=== PATIENT | male | born 1950 | race Caucasian/White ===

== ENCOUNTER 2018-06-29 11:02 | Emergency (ER) | payer MEDICARE, BC, SELFPAY ==
[2018-06-29] VITALS (29 sets, daily range): BP systolic 119–143; BP diastolic 59–96; PULSE 78–100; RESP 4–33; TEMP 36–36.3; O2SAT 93–98
--- NOTE | 2018-06-29 11:05 | NUR.NOTE ---
pt has had worsening SOB for the pas several days PT went to PCP who sent them to THE ER Nursing Note:
--- NOTE | 2018-06-29 11:07 | DI.RAD_ITS ---
SYMPTOMS/DIAGNOSIS: SHORTNESS OF BREATH, COUGH PORTABLE AP CHEST: Comparison 10/17/10. There is a 1.5 cm spiculated nodule in the left upper lobe. Neoplasm should be considered. CT scan of the chest with contrast is recommended for further evaluation. No infiltrates, effusion or pneumothoraces are identified. The heart size is within normal limits. There are again seen sternal wires present. IMPRESSION: 1. No acute pulmonary process. 2. 1.5 cm spiculated nodule in the left upper lobe. Neoplasm should be considered. CT scan of the chest should be considered for further evaluation.
--- NOTE | 2018-06-29 11:14 | ED.GENADUL_ITS ---
Discharge Plan Disposition Patient Disposition: HOME Condition: Stable Discharge Details Chief Complaint: SOB Clinical Impression: COPD exacerbation, Lung mass Reason For Visit: CAROL Primary Care Provider: Danyell Burks ED Provider: Mercy Carlson Home Meds and New Rx's Prescriptions: Continued aspirin 325 MG tablet 325 mg PO DAILY RF: 0 TYLENOL ARTHRITIS 650 MG TABLET.ER 1,300 mg PO Q8H PRN RF: 0 nitroglycerin 0.4 MG tablet, sublingual 0.4 mg Sublingual PRN Qty: 25 RF: 3 simvastatin 40 MG tablet 40 mg PO DAILY Qty: 90 RF: 3 pantoprazole [Protonix] 40 MG tablet,delayed release (DR/EC) 40 mg PO DAILY Qty: 90 RF: 3 lisinopril [Zestril] 10 MG tablet 10 mg PO DAILY Qty: 90 RF: 3 metoprolol succinate [Toprol XL] 25 MG tablet extended release 24 hr 12.5 mg PO DAILY Qty: 45 RF: 0 ezetimibe [Zetia] 10 MG tablet 5 mg PO DAILY Qty: 45 RF: 3 Varicella-Zoster Ge/As01b/Pf [Shingrix Vial Kit] 50 MCG INJ 50 mcg IM ONCE Qty: 1 RF: 0 albuterol sulfate [ProAir HFA] 90 mcg/actuation HFA aerosol inhaler 2 puff Inhalation Q4H PRN Qty: 1 RF: 1 Discharge Instructions Instructions: COPD (Chronic Obstructive Pulmonary Disease) (ED) Additional Instructions: Please return immediately to the emergency department if you develop any new or worsening symptoms or if you become otherwise concerned. It is extremely important that you make an appointment to be seen by your primary care doctor within the week in follow-up for this visit.Please call [phone] if you have any difficulty establishing this appointment. Referrals: Danyell Burks DO [Primary Care Provider] - Discharge Data Discharge Date/Time-TO BE ENTERED AT DEPARTURE: 06/29/18 16:33 Medical Decision Making Colin Bradley is a 67 y/o man with history of hyperlipidemia, GERD, hypertension, coronary artery disease, AAA repair 2012, who presented to the emergency department with shortness of breath. On exam Pt with mod resp distress with significant tachypnea. O2 sat okay, decreased breath sounds and mild wheeze throughout. No peripheral edema. Concern for likey RAD, possible PNA, flu, ACS, PE. Exam/hx not c/w acute aortic pathology, sepsis. Pt placed on BIPAP with duoneb. Plan for EKG, CXR, screening labs, telemetry, solumedrol, will monitor and reassess. Pt feeling much better after duonebx2, bipap discontinued. Pt doing well on 3LNC. Tachypnea resolved still with mild wheeze. Plan for duoneb. CXR shows nodule, no PNA. D-dimer elevated. Flu neg. Plan for CT chest. CT chest shows spiculated nodule concerning for malignancy. Pt now with lungs CTAB, no resp distress. Reports all symptoms resolved, no sob, cough, or chest discomfort. Repeat EKG okay, repeat trop okay. No indication for admission at this time. Plan for d/c to home with outpt f/u. I had a lengthy discussion with Pt regarding abnormal CT findings and concern for malignancy, RTED precautions and importance of outpt f/u with PCP. Pt verbalizes understanding of plan. Medical Records Medical records reviewed: Yes I reviewed the patient's medical records. Imaging Data Radiologic Study: Attestation: I personally reviewed and interpreted this imaging study as follows: Radiologist's impression: PORTABLE AP CHEST: Comparison 10/17/10. There is a 1.5 cm spiculated nodule in the left upper lobe. Neoplasm should be considered. CT scan of the chest with contrast is recommended for further evaluation. No infiltrates, effusion or pneumothoraces are identified. The heart size is within normal limits. There are again seen sternal wires present. IMPRESSION: 1. No acute pulmonary process. 2. 1.5 cm spiculated nodule in the left upper lobe. Neoplasm should be considered. CT scan of the chest should be considered for further evaluation. CTA OF THE CHEST: CT angiography was performed with multi slice acquisition and multi planar and 3D reconstruction. CT scan of the chest was performed according to the pulmonary embolus protocol. Comparison chest x-ray is from the same day. There is a 3.1 x 2.6 x 2.8 cm spiculated soft tissue mass in the left upper lobe peripherally. Primary diagnostic concern is primary bronchogenic carcinoma. No significant thoracic adenopathy is appreciated. There is no evidence of a pulmonary embolus. The thoracic aorta is of normal caliber. No aneurysm or dissection is seen. The heart size is within normal limits. No significant pericardial effusion is seen. No findings to suggest right ventricular dysfunction are present. No pleural effusion or pneumothorax is identified. The pulmonary findings include emphysematous changes and mild pulmonary fibrosis. No focal consolidating infiltrates are identified. The upper abdominal images show no acute abnormality. There is an aortic vascular stent in place. Degenerative changes are seen in the spine. No aggressive osseous lesions are identified. IMPRESSION: 1. No evidence of a pulmonary embolus, thoracic aortic dissection or aneurysm. 2. 3.1 cm left upper lobe spiculated pulmonary mass. Primary diagnostic concern is for primary pulmonary neoplasm. 3. Emphysema and pulmonary fibrosis. Lab Data Lab results reviewed: Yes I reviewed the patient's lab results. 06/29/18 14:12 Nasopharynx Influenza Types A,B Antigen - Final Laboratory Tests Range/Units 06/29/18 06/29/18 06/29/18 11:06 11:11 11:11 WBC (4.4-10.8) k/cumm 7.60 RBC (4.50-6.00) m/cumm 5.07 Hgb (13.5-17.5) g/dL 15.1 Hct (40.0-50.0) % 44.0 MCV (80-95) fL 86.8 MCH (27.0-33.0) pg 29.8 MCHC (32.0-36.0) g/dL 34.3 RDW (11.8-14.1) % 13.0 Plt Count (130-400) x1000/uL 190 MPV (8.0-11.0) fL 9.9 Immature Gran % 0.1 Neutrophils % 53.4 Lymphocytes % 28.7 Monocytes % 8.3 Eosinophils % 7.9 Basophils % 1.6 Absolute Neutrophils (1.2-6.7) k/cumm 4.06 Absolute Lymphocytes (1.2-3.4) k/cumm 2.18 Absolute Monocytes (0.11-0.7) k/cumm 0.63 Absolute Eosinophils (0.0-0.7) k/cumm 0.60 Absolute Basophils (0.0-0.2) k/cumm 0.12 D-Dimer (<500) ng/mlFEU Sodium Cancelled 139 Potassium Cancelled 4.2 Chloride Cancelled 102 Carbon Dioxide Cancelled 23.2 Anion Gap Cancelled 13.8 H BUN Cancelled 25 H Creatinine Cancelled 1.36 H Estimated GFR/1.73 m2 Cancelled 51.96 Glucose Cancelled 129 H Calcium Cancelled 9.7 Total Bilirubin Cancelled 0.5 AST Cancelled 18 ALT Cancelled 28 Alkaline Phosphatase Cancelled 96 Troponin I (0.00-0.06) ng/mL < 0.02 NT-Pro-B Natriuret Pep ( - 299) pg/mL 153 Total Protein Cancelled 7.8 Albumin Cancelled 4.2 Range/Units 06/29/18 06/29/18 11:11 15:37 WBC (4.4-10.8) k/cumm RBC (4.50-6.00) m/cumm Hgb (13.5-17.5) g/dL Hct (40.0-50.0) % MCV (80-95) fL MCH (27.0-33.0) pg MCHC (32.0-36.0) g/dL RDW (11.8-14.1) % Plt Count (130-400) x1000/uL MPV (8.0-11.0) fL Immature Gran % Neutrophils % Lymphocytes % Monocytes % Eosinophils % Basophils % Absolute Neutrophils (1.2-6.7) k/cumm Absolute Lymphocytes (1.2-3.4) k/cumm Absolute Monocytes (0.11-0.7) k/cumm Absolute Eosinophils (0.0-0.7) k/cumm Absolute Basophils (0.0-0.2) k/cumm D-Dimer (<500) ng/mlFEU 3305 H Sodium Potassium Chloride Carbon Dioxide Anion Gap BUN Creatinine Estimated GFR/1.73 m2 Glucose Calcium Total Bilirubin AST ALT Alkaline Phosphatase Troponin I (0.00-0.06) ng/mL < 0.02 NT-Pro-B Natriuret Pep ( - 299) pg/mL Total Protein Albumin ECG Data Attestation: I personally reviewed and interpreted this ECG (s) as follows: Interpretation: EKG shows normal sinus rhythm at 78 with normal axis, no acute ischemic changes, nondiagnostic EKG HPI General Mode of arrival: EMS . Date/Time Provider Initiated Documentation: 06/29/18 11:05 . Limitations to Documentation: no limitations . Information obtained by: patient, EMS, RN notes reviewed and old records reviewed . HPI Narrative: Colin Bradley is a 67 y/o man with history of hyperlipidemia, GERD, hypertension, coronary artery disease, AAA repair 2012 presenting to the emergency department with shortness of breath. Patient has been smoking 2 packs a day for 50 years, has not been diagnosed with COPD but does have albuterol inhaler at home. Patient reports that over the past week he has felt increasingly short of breath. Has been using his albuterol inhaler with mild improvement. Went to see his PCP today for this, and was sent from his PCPs office emergency department for shortness of breath. Patient reports that shortness of breath seems somewhat worse at night. Accompanied by cough. He does know some mild chest discomfort that does not seem to be exertional, pleuritic, or positional. He reports no fevers, no nausea/vomiting/diarrhea, no weakness, no numbness/tingling, no rash. Has been eating and drinking as usual. No recent travel. No orthopnea. Related Data Home Medications Medication Instructions Recorded Confirmed aspirin 325 mg PO DAILY 11/08/12 06/29/18 Tylenol Arthritis 1,300 mg PO Q8H PRN tab-cap 12/23/12 06/29/18 nitroglycerin 0.4 mg SUBLINGUAL PRN #25 tab-cap 01/18/17 06/29/18 ezetimibe [Zetia] 5 mg PO DAILY #45 tab-cap 01/21/18 06/29/18 lisinopril [Zestril] 10 mg PO DAILY #90 tab 01/21/18 06/29/18 metoprolol succinate [Toprol XL] 12.5 mg PO DAILY #45 tab 01/21/18 06/29/18 pantoprazole [Protonix] 40 mg PO DAILY #90 tab-cap 01/21/18 06/29/18 simvastatin 40 mg PO DAILY #90 tab-cap 01/21/18 06/29/18 albuterol sulfate HFA 90 2 puff INHALATION Q4H PRN #1 05/02/18 06/29/18 mcg/actuation aerosol inhaler inhaler Previous Rx's Medication Instructions Recorded ezetimibe [Zetia] 5 mg PO DAILY #45 tab-cap 01/21/18 lisinopril [Zestril] 10 mg PO DAILY #90 tab 01/21/18 metoprolol succinate [Toprol XL] 12.5 mg PO DAILY #45 tab 01/21/18 pantoprazole [Protonix] 40 mg PO DAILY #90 tab-cap 01/21/18 simvastatin 40 mg PO DAILY #90 tab-cap 01/21/18 albuterol sulfate HFA 90 2 puff INHALATION Q4H PRN #1 05/02/18 mcg/actuation aerosol inhaler inhaler Allergies Allergy/AdvReac Type Severity Reaction Status Date / Time clopidogrel Allergy Unknown SKIN RASH Verified 07/07/18 08:34 esomeprazole magnesium AdvReac Unknown gi upset Verified 07/07/18 08:34 [From Nexium] Penicillins AdvReac Unknown gi upset Verified 07/07/18 08:34 General Stated Complaint: SOB BRYCE: 2 Review of Systems Review of Systems Constitutional: denies fevers Eyes: denies eye pain ENT: denies facial pain, dental pain, sore throat Cardiovascular: denies edema, reports chest discomfort Respiratory: reports SOB, cough GI: denies abdominal pain, vomiting, diarrhea : denies flank pain MSK: denies back pain, neck pain, arthralgias, myalgias Skin: denies rash Neuro: denies headaches, lightheadedness, weakness PFSH Medical History CAD (coronary artery disease) (Chronic) HTN (hypertension) (Chronic) Surgical History endovascular repair AAA (03/07/13) Family History Mother Renal disease Father No problems noted. Social History household members: spouse housing: house lives independently: Yes Smoking/Tobacco Use Status: Current every day alcohol intake: current alcohol intake frequency: a few times a week Exam Narrative Exam Narrative: Constitutional: mod resp distress, alert, speaking in partial sentences HENT: head atraumatic, normocephalic normal inspection, mucous membranes moist Eyes: conjunctiva normal, sclera normal, pupils 3mm b/l Neck: no stridor, normal ROM, trachea midline Chest: normal inspection Resp: increased work of breathing with tachypnea and use of accessory muscles, decreased breath sounds throughout, slight wheeze throughout Cardio: normal rate, normal rhythm, no murmur appreciated GI: abdomen soft, non-tender, non-distended Back: normal inspection, no rash Skin: warm, dry, normal color, no rash Neuro: alert, not altered, grossly non-focal, normal tone Ext: no edema, no posterior calf TTP Psych: normal mood, normal affect, normal behavior Course Vital Signs Temperature 36.3 C L 06/29/18 11:06 Pulse 89 06/29/18 11:06 Respiratory Rate 32 H 06/29/18 11:06 Blood Pressure 132/87 06/29/18 11:06 Pulse Oximetry 98 06/29/18 11:06 Temperature 36.3 C L 06/29/18 11:06 Temperature Source Skin 06/29/18 11:06 Pulse 89 06/29/18 11:06 Respiratory Rate 32 H 06/29/18 11:06 Blood Pressure 132/87 06/29/18 11:06 Blood Pressure Position Supine 06/29/18 11:06 Pulse Oximetry 98 06/29/18 11:06 Oxygen Delivery Method Bi-pap 06/29/18 11:06 Comment 06/29/18 11:06
[2018-06-29] MEDS: Albuterol/Ipratropium 3 ML UPD VIAL UPD ×2 (11:18→11:21)
[2018-06-29 11:32] LABS: Abs Immature Grans 0.01 k/cumm (0.0-0.09); Absolute Basophil Count 0.12 k/cumm (0.0-0.2); Absolute Lymphocyte Count 2.18 k/cumm (1.2-3.4); Absolute Monocyte Count 0.63 k/cumm (0.11-0.7); Absolute Neutrophil Count 4.06 k/cumm (1.2-6.7); Basophils % 1.6; Eosinophils % 7.9; HGB 15.1 g/dL (13.5-17.5); Immature Grans % 0.1; Lymphocytes % 28.7; Mean Corp. HGB Concentration 34.3 g/dL (32.0-36.0); Mean Corpuscular Hemoglobin 29.8 pg (27.0-33.0); Mean Corpuscular Volume 86.8 fL (80-95); Mean Platelet Volume 9.9 fL (8.0-11.0); Monocytes % 8.3; Neutrophils % 53.4; Platelet Count 190 x1000/uL (130-400); RBC 5.07 m/cumm (4.50-6.00)
[2018-06-29] MEDS: methylPREDNISolone SUCC 125 MG VIAL IVP (11:33)
[2018-06-29 11:55] LABS: ALT 28 U/L (12-78); AST 18 U/L (15-37); Albumin 4.2 g/dL (3.4-5.0); Alkaline Phosphatase 96 U/L (46-116); Anion Gap 13.8 mmol/L (3-11); BUN 25 mg/dL (7-18); Bilirubin, Total 0.5 mg/dL (0.2-1.0); CO2 23.2 mmol/L (21.0-32.0); CREATININE 1.36 mg/dL (0.70-1.30); Calcium 9.7 mg/dL (8.5-10.1); Chloride 102 mmol/L (98-107); Estimated GFR 51.96 (mL/min/1.73m2); Glucose 129 mg/dL (70-100); NT-proBNP 153 pg/mL; Potassium 4.2 mmol/L (3.5-5.1); Sodium 139 mmol/L (136-145); Total Protein 7.8 g/dL (6.4-8.2)
[2018-06-29 11:56] LABS: Troponin I < 0.02 ng/mL (0.00-0.06)
[2018-06-29 12:03] LABS: D-Dimer 3305 ng/mlFEU (<500)
[2018-06-29] MEDS: Normal Saline 1,000 ML 1000 ML IV (12:30)
[2018-06-29] MEDS: Omnipaque 350 MG/ML 100 ML BTL IJ (13:06)
--- NOTE | 2018-06-29 13:22 | DI.CT_ITS ---
SYMPTOMS/DIAGNOSIS: SHORTNESS OF BREATH, CHEST PAIN, HYPOXIA CTA OF THE CHEST: CT angiography was performed with multi slice acquisition and multi planar and 3D reconstruction. CT scan of the chest was performed according to the pulmonary embolus protocol. Comparison chest x-ray is from the same day. There is a 3.1 x 2.6 x 2.8 cm spiculated soft tissue mass in the left upper lobe peripherally. Primary diagnostic concern is primary bronchogenic carcinoma. No significant thoracic adenopathy is appreciated. There is no evidence of a pulmonary embolus. The thoracic aorta is of normal caliber. No aneurysm or dissection is seen. The heart size is within normal limits. No significant pericardial effusion is seen. No findings to suggest right ventricular dysfunction are present. No pleural effusion or pneumothorax is identified. The pulmonary findings include emphysematous changes and mild pulmonary fibrosis. No focal consolidating infiltrates are identified. The upper abdominal images show no acute abnormality. There is an aortic vascular stent in place. Degenerative changes are seen in the spine. No aggressive osseous lesions are identified. IMPRESSION: 1. No evidence of a pulmonary embolus, thoracic aortic dissection or aneurysm. 2. 3.1 cm left upper lobe spiculated pulmonary mass. Primary diagnostic concern is for primary pulmonary neoplasm. 3. Emphysema and pulmonary fibrosis. The findings were discussed with Dr. Mercy Carlson of the emergency department on the date of the examination.
[2018-06-29 16:14] LABS: Troponin I < 0.02 ng/mL (0.00-0.06)
== END 2018-06-29 16:33 | disposition home or self-care (01) ==
PROVIDERS: Emergency Provider Student in an Organized Health Care Education/Training Program; PCP Student in an Organized Health Care Education/Training Program
DX: R06.03 Acute respiratory distress (principal); J44.1 Chronic obstructive pulmonary disease with (acute) exacerbation; F17.210 Nicotine dependence, cigarettes, uncomplicated; R91.1 Solitary pulmonary nodule; I10 Essential (primary) hypertension; I25.10 Atherosclerotic heart disease of native coronary artery without angina pectoris
CPT/HCPCS: 36415; 71275; 80053; 87449; 93005; 94640; 96361; 96374; 99285; 71045; 83880; 84484; 85025; 85379; 93010; J2930; J3490; J7611; J7620

== ENCOUNTER 2018-10-31 08:32 | Outpatient (CLI) | payer MEDICARE, BC, SELFPAY ==
[2018-10-31 09:00] LABS: HCT 39.1 % (40.0-50.0); HGB 13.1 g/dL (13.5-17.5); Mean Corp. HGB Concentration 33.5 g/dL (32.0-36.0); Mean Corpuscular Hemoglobin 29.3 pg (27.0-33.0); Mean Corpuscular Volume 87.5 fL (80-95); Mean Platelet Volume 9.5 fL (8.0-11.0); Platelet Count 248 x1000/uL (130-400); RBC 4.47 m/cumm (4.50-6.00)
[2018-10-31 09:18] LABS: ALT 70 U/L (12-78); AST 24 U/L (15-37); Albumin 3.3 g/dL (3.4-5.0); Alkaline Phosphatase 228 U/L (46-116); Anion Gap 10.2 mmol/L (3-11); BUN 18 mg/dL (7-18); Bilirubin, Total 0.4 mg/dL (0.2-1.0); CO2 25.8 mmol/L (21.0-32.0); CREATININE 1.17 mg/dL (0.70-1.30); Calcium 9.4 mg/dL (8.5-10.1); Chloride 102 mmol/L (98-107); Cholesterol 177 mg/dL (50-200); Glucose 187 mg/dL (70-100); HDL Cholesterol 39 mg/dL (40-60); LDL CHOLESTEROL 91 mg/dL (<100); Potassium 4.2 mmol/L (3.5-5.1); Sodium 138 mmol/L (136-145); Total Protein 7.2 g/dL (6.4-8.2); Triglyceride 253 mg/dL (30-150)
[2018-10-31 12:51] LABS: Abs Immature Grans 0.03 k/cumm (0.0-0.09); Absolute Basophil Count 0.08 k/cumm (0.0-0.2); Absolute Eosinophil Count 0.92 k/cumm (0.0-0.7); Absolute Lymphocyte Count 1.46 k/cumm (1.2-3.4); Absolute Neutrophil Count 3.54 k/cumm (1.2-6.7); Basophils % 1.2; Eosinophils % 13.5; Immature Grans % 0.4; Lymphocytes % 21.4; Monocytes % 11.7; Neutrophils % 51.8
== END 2018-10-31 08:52 ==
PROVIDERS: Nurse Practitioner Family; PCP Student in an Organized Health Care Education/Training Program
DX: F17.200 Nicotine dependence, unspecified, uncomplicated (principal); I25.10 Atherosclerotic heart disease of native coronary artery without angina pectoris; C34.82 Malignant neoplasm of overlapping sites of left bronchus and lung
CPT/HCPCS: 36415; 80053; 80061; 83721; 85027; 85007

== ENCOUNTER 2018-10-31 16:05 | Emergency (ER) | payer MEDICARE, BC, SELFPAY ==
[2018-10-31 16:30] VITALS: BP 156/78; PULSE 75; RESP 16; TEMP 36.7; O2SAT 94
[2018-10-31 16:33] VITALS: RESP 20
--- NOTE | 2018-10-31 16:48 | DI.CT_ITS ---
SYMPTOM/DIAGNOSIS: CHEST PAIN RADIATING TO BACK, RECENT LOBECTOM, AAA CT CHEST, ABDOMEN AND PELVIS: The study was carried out with intravenous injection of [address] angiography was performed with multi slice acquisition and multi planar and 3D reconstruction. CHEST: There is no evidence of pulmonary emboli. There is no aortic aneurysm or evidence of dissection. Note is made of mild staples lobular emphysematous changes and small regions of opacity in the lower lobes and lingula could represent atelectasis or pneumonia. There is a small left pleural effusion. Coronary artery calcifications are identified. There is no evidence of lymphadenopathy. The patient is status post median sternotomy and healing left rib fractures are seen. The soft tissues are unremarkable. SUMMARY: No evidence of pulmonary emboli. No evidence of an aneurysm or dissection involving the aorta. A small left pleural effusion is seen. Opacities in the lower lobes and lingula could represent atelectasis or pneumonia. CTA ABDOMEN AND PELVIS: The examination was carried out according to the usual protocol with intravenous administration of 125 cc Omnipaque 350. A by-pass graft is demonstrated. The celiac and mesenteric arteries are intact. The renal arteries are intact. The right iliac and left iliac arteries are intact. The patient is status post aorto-iliac by-pass graft. The [place] infrarenal abdominal aortic aneurysm measures 5 x 4.6 cm. The aneurysm projects outside the bypass but within the [place] aneurysm. The aneurysm is noted in the region of 4.5 x 4.2 cm. These findings are consistent with a residual aneurysm sac with a contained endo leak. The endo leak is in to the mural thrombus. The liver is intact. The gallbladder is unremarkable. There are no stones or ductal dilatation. The pancreas is unremarkable. The spleen and adrenals are unremarkable. The kidneys are unremarkable. Note is made of diverticulosis, involving the rectosigmoid. There is no evidence of diverticulitis. There is nothing to suggest an acute appendix. The bladder is intact. The prostate is enlarged. There is no evidence of free air or free fluid in the intraperitoneal space. There is no acute bony abnormality. The soft tissues are unremarkable. There is no evidence of lymphadenopathy. SUMMARY: The patient is status post aortoiliac bypass. A [place] infrarenal abdominal aneurysm 5 x 4.6 cm. The aneurysm projects outside the bypass but is within the [place] aneurysm. No old images are available to assess stability. The aneurysm in this region measures 4.5 x 4.2 cm These findings are consistent with a residual aneurysm sac with a contained endoleak. The endoleak is in to the mural thrombus. Prostatic enlargement is identified, greater than 5 cm. A urologic consult could be considered.
[2018-10-31 16:51] LABS: Abs Immature Grans 0.01 k/cumm (0.0-0.09); Absolute Basophil Count 0.05 k/cumm (0.0-0.2); Absolute Eosinophil Count 0.08 k/cumm (0.0-0.7); Absolute Lymphocyte Count 0.66 k/cumm (1.2-3.4); Absolute Monocyte Count 0.09 k/cumm (0.11-0.7); Absolute Neutrophil Count 4.44 k/cumm (1.2-6.7); Basophils % 0.9; Eosinophils % 1.5; HCT 37.4 % (40.0-50.0); HGB 12.4 g/dL (13.5-17.5); Immature Grans % 0.2; Lymphocytes % 12.4; Mean Corp. HGB Concentration 33.2 g/dL (32.0-36.0); Mean Corpuscular Hemoglobin 29.3 pg (27.0-33.0); Mean Corpuscular Volume 88.4 fL (80-95); Mean Platelet Volume 9.9 fL (8.0-11.0); Monocytes % 1.7; Neutrophils % 83.3; Platelet Count 240 x1000/uL (130-400); RBC 4.23 m/cumm (4.50-6.00); White Blood Cell Count 5.33 k/cumm (4.4-10.8)
--- NOTE | 2018-10-31 17:08 | ED.GENADUL_ITS ---
Discharge Plan Disposition Patient Disposition: [facility] Discharge Details Chief Complaint: Chest Pain Clinical Impression: Chest pain, Hypomagnesemia Primary Care Provider: Danyell Burks ED Provider: Guy Carlson Home Meds and New Rx's Prescriptions: No Action aspirin [Adult Low Dose Aspirin] 81 mg tablet,delayed release (DR/EC) 81 mg PO DAILY RF: 0 TYLENOL ARTHRITIS 650 MG TABLET.ER 1,300 mg PO Q8H PRN RF: 0 nitroglycerin 0.4 MG tablet, sublingual 0.4 mg Sublingual PRN Qty: 25 RF: 3 simvastatin 40 MG tablet 40 mg PO DAILY Qty: 90 RF: 3 pantoprazole [Protonix] 40 MG tablet,delayed release (DR/EC) 40 mg PO DAILY Qty: 90 RF: 3 lisinopril [Zestril] 10 MG tablet 10 mg PO DAILY Qty: 90 RF: 3 ezetimibe [Zetia] 10 MG tablet 5 mg PO DAILY Qty: 45 RF: 3 metoprolol succinate [Toprol XL] 25 mg tablet extended release 24 hr 12.5 mg PO DAILY Qty: 45 RF: 2 albuterol sulfate [ProAir HFA] 90 mcg/actuation HFA aerosol inhaler 2 puff Inhalation Q4H PRN Qty: 1 RF: 1 Combivent Respimat 20-100 mcg/actuation mist 2 puff IH QID RF: 0 paclitaxel 6 mg/mL Concentrate RF: 0 carboplatin 10 mg/mL Solution 150 mg IV DAILY RF: 0 Medical Decision Making 17:45 -- Patient evaluated initially in time of critical patient surge in ED. This has delayed documention. Mr. Bradley is a 68-year-old male with multiple medical problems including history of lung cancer, status post recent lobectomy, on chemo and had first dosing today, coronary artery disease status post CABG and then stenting, AAA, here with retrosternal chest pain that radiates to his back. Concern for aortic dissection versus pulmonary embolism versus ACS. ECG was reviewed and interpreted by me: Sinus rhythm 82 bpm, normal axis, no STEMI, nondiagnostic. -- I have asked radiology to proceed ro CT without Cr. -- labs reviewed and nl trop. ddimer elevated. 17:52 -- Patient returned from CT and had sudden worsening of chest pain. Called by nursing to room for severe chest and upper abdominal pain. Patient hypertensive. Tachypneic. Saturating well. Will repeat ecg. Consideration for contrast reaction - benadryl 25mg and solumedrol 125mg given. I am concerned about dissection vs PE. I requested stat interpretation. Patient hypertensive - will start nitroglycerin infusion. 18:00 -- Patient refusing nitro - notes has not helped. Repeat ECG reviewed and interpreted by me: Normal sinus rhythm 97 bpm, normal axis, no STEMI, no significant changes from prior EKG, nondiagnostic. 18:39 -- Spoke with radiologist: reviewing study with vascular radiologist and calling back. Patient reassessed and BP improved. Remains tachycardic. 18:52 --CT a of the chest interpreted by radiology: No evidence of pulmonary embolism to the segmental level, no aneurysm of the aorta, no dissection of the aorta, mild left pleural effusion. Pleural effusion in the major. Opacities in the lower lobes and lingula may represent atelectasis or pneumonia. CTA of the abdomen and pelvis interpreted by radiology: Status post aortoiliac bypass. [place] infrarenal abdominal aortic aneurysm 5 x 4.6 cm. The aneurysm projects outside of the bypass but is within the [place] aneurysm. No old films to check for stability. The aneurysm in this region measures 4.5 x 4.2 cm. These findings are consistent with residual aneurysmal sac with a contained endoleak. The endoleak is in the mural thrombus. The prostate is enlarged greater than 5 cm. Recommend urology consult. I spoke with the radiologist about finding of endoleak. She reviewed this finding with the vascular radiologist. She notes he did not feel emergent surgical intervention was warranted. Plan to repeat trop. -- Mag 1.6. Mag 1g IV given. 20:42 -- Patient still with chest pain 2/10. More localized to left ant lower chest. Hemodynamically stable. I will add pepcid 20mg IV. Plan to admit - no tele or ICU beds available here at [facility]. I called [facility] to request transfer. Awaiting return call. 21:42 -- Spoke with Dr. Burns surgery at [facility]. She does recommend observation and will accept in transfer. 00:10 -- Significant delay in trasfer waiting for EMS - patient stable at time of transfer. HPI General Mode of arrival: ambulatory . Date/Time Provider Initiated Documentation: 10/31/18 16:48 . Limitations to Documentation: no limitations . Information obtained by: patient . HPI Narrative: 68-year-old male with multiple medical problems including history of AAA, throat cancer, coronary artery disease status post remote CABG, 3's stents placed subsequently, recently diagnosed with lung cancer, stage IIIb, status post left lobectomy 6 weeks ago, started chemotherapy today and upon completion of infusion developed chest pain. Pain is waxed and waned. Pain was moderate. Pain is now mild rated 2/10. Pain is described as an ache that radiates from his retrosternal to his back. He has no associated new shortness of breath but does have some shortness of breath at baseline from emphysema and now post lobectomy. No associated abdominal pain. Related Data Home Medications Medication Instructions Recorded Confirmed Tylenol Arthritis 1,300 mg PO Q8H PRN tab-cap 12/23/12 10/31/18 nitroglycerin 0.4 mg SUBLINGUAL PRN #25 tab-cap 01/18/17 10/31/18 ezetimibe [Zetia] 5 mg PO DAILY #45 tab-cap 01/21/18 10/31/18 lisinopril [Zestril] 10 mg PO DAILY #90 tab 01/21/18 10/31/18 pantoprazole [Protonix] 40 mg PO DAILY #90 tab-cap 01/21/18 10/31/18 simvastatin 40 mg PO DAILY #90 tab-cap 01/21/18 10/31/18 metoprolol succinate ER 25 mg 12.5 mg PO DAILY #45 tab 07/22/18 10/31/18 tablet,extended release 24 hr albuterol sulfate HFA 90 2 puff INHALATION Q4H PRN #1 08/01/18 10/31/18 mcg/actuation aerosol inhaler inhaler ipratropium 20 mcg-albuterol 100 2 puff IH QID gm 08/09/18 10/31/18 mcg/actuation mist for inhalation aspirin 81 mg tablet,delayed 81 mg PO DAILY 10/21/18 10/31/18 release carboplatin 150 mg IV DAILY 10/31/18 10/31/18 paclitaxel 10/31/18 Previous Rx's Medication Instructions Recorded ezetimibe [Zetia] 5 mg PO DAILY #45 tab-cap 01/21/18 lisinopril [Zestril] 10 mg PO DAILY #90 tab 01/21/18 pantoprazole [Protonix] 40 mg PO DAILY #90 tab-cap 01/21/18 simvastatin 40 mg PO DAILY #90 tab-cap 01/21/18 metoprolol succinate ER 25 mg 12.5 mg PO DAILY #45 tab 07/22/18 tablet,extended release 24 hr albuterol sulfate HFA 90 2 puff INHALATION Q4H PRN #1 08/01/18 mcg/actuation aerosol inhaler inhaler Allergies Allergy/AdvReac Type Severity Reaction Status Date / Time clopidogrel Allergy Unknown SKIN RASH Verified 10/21/18 08:05 esomeprazole magnesium AdvReac Unknown gi upset Verified 10/21/18 08:05 [From Nexium] Penicillins AdvReac Unknown gi upset Verified 10/21/18 08:05 General Stated Complaint: Chest Pain BRYCE: 2 Review of Systems Review of Systems All systems reviewed & are unremarkable except as noted in HPI and below Constitutional Denies fever(s) Cardiovascular Reports as per HPI, Reports chest pain and Denies dyspnea Respiratory Denies dyspnea PFSH Medical History Shortness of breath (Acute) Other abnormal glucose (Acute 02/22/13) Smoker unmotivated to quit (Chronic 04/12/14) Hyperlipidemia (Acute 01/13/12) Gastroesophageal reflux disease without esophagitis (Chronic 01/26/06) Esophageal reflux (Chronic 01/26/06) Benign neoplasm of colon (Acute 01/13/12) Arteriosclerotic cardiovascular disease (ASCVD) (Chronic 01/13/12) Adenomatous colon polyp (Acute 01/13/12) ASCVD (arteriosclerotic cardiovascular disease) (Chronic 01/13/12) Laryngeal cancer (Resolved) CAD (coronary artery disease) (Chronic) HTN (hypertension) (Chronic) Surgical History endovascular repair AAA (03/07/13) Family History Mother Renal disease Father No problems noted. Social History Smoking/Tobacco Use Status: Former Tobacco Use Alcohol Intake: former Drug use: Never Household members: spouse Housing: house What type of physical activity do you participate in: other Details: physically active qd Do you feel safe in your relationship?: Yes Exam Const General: cooperative and comfortable Orientation: alert and awake HENMT Head: normocephalic Mouth: moist mucous membranes Eyes Conjunctivae: normal conjunctivae Sclera: normal sclerae Neck Neck: trachea midline and supple Resp Auscultation: clear to auscultation bilaterally, no rales, no rhonchi and no wheezes Cardio Jugular venous pressure: no JVD Rate: regular rate and not tachycardic Rhythm: regular rhythm GI Palpation: soft, not firm, no guarding, no masses, not rigid and nontender Skin General skin exam: no rashes or lesions noted Neuro General: alert, awake and tone normal Extrem General: no calf tenderness and edema Laterality: bilateral (trace) Psych Mental Status: mental status grossly normal Speech and Movement: speech and movement normal Course Vital Signs Temperature 36.7 C 10/31/18 16:30 Pulse 75 10/31/18 16:30 Respiratory Rate 16 10/31/18 16:30 Blood Pressure 156/78 H 10/31/18 16:30 Pulse Oximetry 94 L 10/31/18 16:30 Temperature 36.7 C 10/31/18 16:30 Temperature Source Temporal Artery Scan 10/31/18 16:30 Pulse 75 10/31/18 16:30 Respiratory Rate 20 10/31/18 16:33 Respiratory Effort Non-Labored 10/31/18 16:33 Respiratory Depth Shallow 10/31/18 16:33 Blood Pressure 156/78 H 10/31/18 16:30 Blood Pressure Position Supine 10/31/18 16:30 Pulse Oximetry 94 L 10/31/18 16:30 Oxygen Delivery Method Room Air 10/31/18 16:30 Oxygen Flow Rate 0 10/31/18 16:30 Pain Level 3 10/31/18 16:33 Lab/Test Results Lab/Test Results: Laboratory Tests Range/Units 10/31/18 10/31/18 16:40 17:02 WBC (4.4-10.8) k/cumm 5.33 RBC (4.50-6.00) m/cumm 4.23 L Hgb (13.5-17.5) g/dL 12.4 L Hct (40.0-50.0) % 37.4 L MCV (80-95) fL 88.4 MCH (27.0-33.0) pg 29.3 MCHC (32.0-36.0) g/dL 33.2 RDW (11.8-14.1) % 13.0 Plt Count (130-400) x1000/uL 240 MPV (8.0-11.0) fL 9.9 Immature Gran % 0.2 Neutrophils % 83.3 Lymphocytes % 12.4 Monocytes % 1.7 Eosinophils % 1.5 Basophils % 0.9 Absolute Neutrophils (1.2-6.7) k/cumm 4.44 Absolute Lymphocytes (1.2-3.4) k/cumm 0.66 L Absolute Monocytes (0.11-0.7) k/cumm 0.09 L Absolute Eosinophils (0.0-0.7) k/cumm 0.08 Absolute Basophils (0.0-0.2) k/cumm 0.05 Lactate Cancelled
[2018-10-31 17:20] LABS: D-Dimer 4845 ng/mlFEU (<500)
[2018-10-31 17:36] LABS: NT-proBNP 147 pg/mL
[2018-10-31 17:47] LABS: ALT 64 U/L (12-78); AST 24 U/L (15-37); Albumin 3.1 g/dL (3.4-5.0); Alkaline Phosphatase 206 U/L (46-116); Anion Gap 10.5 mmol/L (3-11); BUN 16 mg/dL (7-18); Bilirubin, Total 0.6 mg/dL (0.2-1.0); CO2 24.5 mmol/L (21.0-32.0); CREATININE 1.27 mg/dL (0.70-1.30); Calcium 8.6 mg/dL (8.5-10.1); Chloride 102 mmol/L (98-107); Estimated GFR 56.07 (mL/min/1.73m2); Glucose 243 mg/dL (70-100); Magnesium 1.6 mg/dL (1.8-2.4); Potassium 3.9 mmol/L (3.5-5.1); Sodium 137 mmol/L (136-145); Total Protein 6.8 g/dL (6.4-8.2)
[2018-10-31 17:48] LABS: Troponin I < 0.02 ng/mL (0.00-0.06)
[2018-10-31] MEDS: Omnipaque 350 MG/ML 50 ML BTL IJ ×2 (17:56→17:57)
[2018-10-31] MEDS: methylPREDNISolone SUCC 125 MG VIAL (18:00)
[2018-10-31] MEDS: diphenhydrAMINE 50 MG/ML VIAL (18:00)
--- NOTE | 2018-10-31 18:46 | DI.VRAD_ITS ---
Addendum created by Kari Aguero MD on 10/31/2018 6:52:14 PM EDT THIS REPORT CONTAINS FINDINGS THAT MAY BE CRITICAL TO PATIENT CARE. The findings were verbally communicated via telephone conference with EPIFANIO ROBLES at 6:52 PM EDT on 10/31/2018. The findings were acknowledged and understood. Initial report created on 10/31/2018 6:46:13 PM EDT EXAM: CT Angiography Chest With Contrast EXAM DATE/TIME: 10/31/2018 4:50 PM CLINICAL HISTORY: 68 years old, male; Pain and signs and symptoms; Other: Chest pain, radiating to back, aaa, recent lobectomy; Other: Pain SOB TECHNIQUE: Imaging protocol: Axial computed tomographic angiography images of the chest with intravenous contrast using CT angiography protocol. 3D rendering: MIP reconstructed images were created and reviewed. Radiation optimization: All CT scans at this facility use at least one of these dose optimization techniques: automated exposure control; mA and/or kV adjustment per patient size (includes targeted exams where dose is matched to clinical indication); or iterative reconstruction. Contrast material: omnipaque 350 Contrast volume: 125 ml Contrast route: IV COMPARISON: CT chest PE CTA 06/29/2018 1:02 PM FINDINGS: Pulmonary arteries: No evidence of pulmonary embolus to the segmental level. Aorta: No aneurysm of the aorta. No dissection of the aorta. Lungs: Mild panlobular emphysematous changes Opacities in lower lobes and lingula may represent atelectasis or pneumonia. Pleural space: Mild left pleural effusion. Pleural effusion in the major. Heart: Coronary artery calcifications may indicate coronary artery disease Lymph nodes: Unremarkable. No enlarged lymph nodes. Bones/joints: Status post median sternotomy Healing left rib fractures Soft tissues: Unremarkable. IMPRESSION: 1. No evidence of pulmonary embolus to the segmental level. 2. No aneurysm of the aorta. 3. No dissection of the aorta. 4. Mild left pleural effusion. Pleural effusion in the major. 5. Opacities in lower lobes and lingula may represent atelectasis or pneumonia. EXAM: CT Angiography Abdomen and Pelvis With Contrast EXAM DATE/TIME: 10/31/2018 4:50 PM CLINICAL HISTORY: 68 years old, male; Pain and signs and symptoms; Other: Chest pain, radiating to back, aaa, recent lobectomy; Other: Pain SOB TECHNIQUE: Imaging protocol: Axial computed tomographic angiography images of the abdomen and pelvis with intravenous contrast material, including non-contrast images if performed. 3D renderinD reconstructed images were created and reviewed. Contrast material: [id number] Contrast volume: 125 ml Contrast route: IV COMPARISON: CT chest PE CTA 06/29/2018 1:02 PM FINDINGS: VASCULATURE: Aorta: See Bypass Grafts Finding. [place]eli[place] trunk and mesenteric arteries: No occlusion or significant stenosis. Renal arteries: No occlusion or significant stenosis. Right iliac arteries: No occlusion or significant stenosis. Left iliac arteries: No occlusion or significant stenosis. Bypass grafts: Status post aortoiliac bypass. [place] infrarenal abdominal aortic aneurysm 5 x4.6 cm. The aneurysm projects outside of the bypass but within the [place] aneurysm. (6:90). No old films to check for stability. The aneurysm in this region measures 4.5 x 4.2 cm. These findings are consistent with residual aneurysm sac with a contained endoleak. The endoleak is into the mural thrombus. ABDOMEN: Liver: No mass. Gallbladder and bile ducts: Unremarkable. No calcified stones. No ductal dilation. Pancreas: Unremarkable. No mass. No ductal dilation. Spleen: Unremarkable. No splenomegaly. Adrenals: Unremarkable. No mass. Kidneys and ureters: Unremarkable. No solid mass. No hydronephrosis. Stomach and bowel: Diverticulosis of the rectosigmoid. No diverticulitis.. Appendix: No evidence of appendicitis. PELVIS: Bladder: Unremarkable. No mass. Reproductive: The prostate is enlarged, greater than 5 cm. Recommend urology consult. ABDOMEN and PELVIS: Intraperitoneal space: Unremarkable. No free air. No significant fluid collection. Bones/joints: No acute fracture. No dislocation. Soft tissues: Unremarkable. Lymph nodes: Unremarkable. No enlarged lymph nodes. IMPRESSION: 1. Status post aortoiliac bypass. [place] infrarenal abdominal aortic aneurysm 5 x4.6 cm. The aneurysm projects outside of the bypass but within the elem aneurysm. (6:90). No old films to check for stability. The aneurysm in this region measures 4.5 x 4.2 cm. These findings are consistent with residual aneurysm sac with a contained endoleak. The endoleak is into the mural thrombus. 2. The prostate is enlarged, greater than 5 cm. Recommend urology consult. Dictated and Authenticated by: Kari Aguero MD. Ordering:REBEKAH Tovar MD
[2018-10-31] MEDS: MAGNESIUM SULFATE 1 GM/100 ML BAG 100 GM (19:14)
[2018-10-31 20:03] LABS: Troponin I < 0.02 ng/mL (0.00-0.06)
== END 2018-11-01 00:10 | disposition short-term general hospital (02) ==
PROVIDERS: Emergency Provider Student in an Organized Health Care Education/Training Program; PCP Student in an Organized Health Care Education/Training Program
DX: R07.9 Chest pain, unspecified (principal); E83.42 Hypomagnesemia; C34.90 Malignant neoplasm of unspecified part of unspecified bronchus or lung; Z90.2 Acquired absence of lung [part of]; Z79.899 Other long term (current) drug therapy; R79.1 Abnormal coagulation profile; I10 Essential (primary) hypertension; I25.10 Atherosclerotic heart disease of native coronary artery without angina pectoris; Z95.5 Presence of coronary angioplasty implant and graft; Z95.1 Presence of aortocoronary bypass graft; Z87.891 Personal history of nicotine dependence; F17.210 Nicotine dependence, cigarettes, uncomplicated
CPT/HCPCS: 36415; 71275; 74177; 80053; 80061; 83721; 85027; 87040; 93005; 96365; 96366; 96375; 99285; 83605; 83735; 83880; 84484; 85007; 85025; 85379; 93010; J1200; J2930; J3475; Q9967

== ENCOUNTER 2018-11-04 10:10 | Emergency (ER) | payer MEDICARE, BC, SELFPAY ==
[2018-11-04] VITALS (34 sets, daily range): BP systolic 97–139; BP diastolic 65–87; PULSE 69–90; RESP 13–26; TEMP 36.8; O2SAT 92–97
--- NOTE | 2018-11-04 10:24 | W.ED.GENAD ---
Discharge Plan Disposition Patient Disposition: HOME Condition: Stable Discharge Details Chief Complaint: Chest Pain Clinical Impression: Chest pain, Esophageal spasm Primary Care Provider: Danyell Burks ED Provider: Mehul Adan Organ Meds and New Rx's Prescriptions: New diazepam [Valium] 5 mg tablet 5 mg PO BID-TID PRN (Reason: muscle spasm) Qty: 20 RF: 0 Continued aspirin [Adult Low Dose Aspirin] 81 mg tablet,delayed release (DR/EC) 81 mg PO DAILY RF: 0 TYLENOL ARTHRITIS 650 MG TABLET.ER 1,300 mg PO Q8H PRN RF: 0 nitroglycerin 0.4 MG tablet, sublingual 0.4 mg Sublingual PRN Qty: 25 RF: 3 simvastatin 40 MG tablet 40 mg PO DAILY Qty: 90 RF: 3 pantoprazole [Protonix] 40 MG tablet,delayed release (DR/EC) 40 mg PO DAILY Qty: 90 RF: 3 lisinopril [Zestril] 10 MG tablet 10 mg PO DAILY Qty: 90 RF: 3 ezetimibe [Zetia] 10 MG tablet 5 mg PO DAILY Qty: 45 RF: 3 metoprolol succinate [Toprol XL] 25 mg tablet extended release 24 hr 12.5 mg PO DAILY Qty: 45 RF: 2 albuterol sulfate [ProAir HFA] 90 mcg/actuation HFA aerosol inhaler 2 puff Inhalation Q4H PRN Qty: 1 RF: 1 Combivent Respimat 20-100 mcg/actuation mist 2 puff IH QID RF: 0 prochlorperazine maleate [Compazine] 10 mg tablet 10 mg PO Q6H PRN PRN (Reason: nausea and vomiting) RF: 0 ondansetron HCl [Zofran] 8 mg tablet 8 mg PO TID PRNRF: 0 paclitaxel 6 mg/mL Concentrate RF: 0 carboplatin 10 mg/mL Solution 150 mg IV DAILY RF: 0 Discharge Instructions Instructions: Diazepam (By mouth), Esophageal Spasm (ED) Additional Instructions: you [facility] start taking protonix twice daily and follow up with your primary care provider within 1-2 weeks Medical Decision Making 68 yo male with hx of copd, recent diagnosis of lung cancer, hld, aaa with cta on 10/31 showing endoleak and went to [facility] [place] and is supposed to have outpatient surgery to repair this, who comes in with increased chest and back pain that started about an hour ago. He states this was similar to the pain he had on 10/31. He was monitored at [facility] after transfer and was stable with unremarkable lab workup so was d/c'd home and had been doing well until this AM. EMS states he had a HR of 140 when they arrived and was diaphoretic, gave fentanyl and asa and he now has no pain and his HR is 80 and HD stable. will obtain ecg, troponin and CTA to eval for worsening endoleak or new dissection among other pathology pt remains stable, lab work unremarkable and CTA shows no acute changes per Dr. keller. Will consult vascular surgery. vascular surgery states this leak is not something that needs emergent or urgent procedure, they will reach out to the aptient. Pt remains stable, initial labs unremarkable. Given numerous negative troponins and unchaged ekg's I doubt cardiac cause of his pain and this could be esophageal spasm. will obtain repeat troponin and ecg pt remains asymptoamtic, second troponin negative. Will have him f/u with pcp and vascular surgery return precautions given Differential Diagnosis endoleak, acs, pe, dissection Medical Records Medical records reviewed: Yes I reviewed the patient's medical records. Imaging Data Radiologic Study: Attestation: I personally reviewed and interpreted this imaging study as follows: Imaging: CT Scan Radiologist's impression: no acute changes on cta Lab Data Lab results reviewed: Yes I reviewed the patient's lab results. ECG Data Attestation: I personally reviewed and interpreted this ECG (s) as follows: Prior ECG tracings: available for review Interpretation: sinus rhythm, rate of 85, pr 164, no acute st t wave ischemic findings 2nd ekg shows no acute st t wave ischemic changes, rate of 77, pr 176 HPI General Mode of arrival: EMS. Date/Time Provider Initiated Documentation: 11/04/18 10:21. Limitations to Documentation: no limitations. Information obtained by: patient. History of Present Illness 68 year old M presents to the emergency department with the chief complaint of back and chest pain, described as severe, Quality is described as stabbing, and is localized to the chest and back. Patient started experiencing this hour(s) (1) and it has been now resolved. No relieving factors improve symptom(s), No exacerbating factors reported . Patient did receive the following treatments prior to arrival, other (fentanyl and asa with ems) Related Data Home Medications Medication Instructions Recorded Confirmed Tylenol Arthritis 1,300 mg PO Q8H PRN tab-cap 12/23/12 11/04/18 nitroglycerin 0.4 mg SUBLINGUAL PRN #25 tab-cap 01/18/17 11/04/18 ezetimibe [Zetia] 5 mg PO DAILY #45 tab-cap 01/21/18 11/04/18 lisinopril [Zestril] 10 mg PO DAILY #90 tab 01/21/18 11/04/18 pantoprazole [Protonix] 40 mg PO DAILY #90 tab-cap 01/21/18 11/04/18 simvastatin 40 mg PO DAILY #90 tab-cap 01/21/18 11/04/18 metoprolol succinate ER 25 mg 12.5 mg PO DAILY #45 tab 07/22/18 11/04/18 tablet,extended release 24 hr albuterol sulfate HFA 90 2 puff INHALATION Q4H PRN #1 08/01/18 11/04/18 mcg/actuation aerosol inhaler inhaler ipratropium 20 mcg-albuterol 100 2 puff IH QID gm 08/09/18 11/04/18 mcg/actuation mist for inhalation aspirin 81 mg tablet,delayed 81 mg PO DAILY 10/21/18 11/04/18 release carboplatin 150 mg IV DAILY 10/31/18 11/04/18 paclitaxel 10/31/18 ondansetron HCl 8 mg tablet 8 mg PO TID PRN 11/01/18 11/04/18 prochlorperazine maleate 10 mg 10 mg PO Q6H PRN PRN tab 11/01/18 11/04/18 tablet diazepam [Valium] 5 mg PO BID-TID PRN #20 tab 11/04/18 Previous Rx's Medication Instructions Recorded ezetimibe [Zetia] 5 mg PO DAILY #45 tab-cap 01/21/18 lisinopril [Zestril] 10 mg PO DAILY #90 tab 01/21/18 pantoprazole [Protonix] 40 mg PO DAILY #90 tab-cap 01/21/18 simvastatin 40 mg PO DAILY #90 tab-cap 01/21/18 metoprolol succinate ER 25 mg 12.5 mg PO DAILY #45 tab 07/22/18 tablet,extended release 24 hr albuterol sulfate HFA 90 2 puff INHALATION Q4H PRN #1 08/01/18 mcg/actuation aerosol inhaler inhaler diazepam [Valium] 5 mg PO BID-TID PRN #20 tab 11/04/18 Allergies Allergy/AdvReac Type Severity Reaction Status Date / Time clopidogrel Allergy Unknown SKIN RASH Verified 10/21/18 08:05 esomeprazole magnesium AdvReac Unknown gi upset Verified 10/21/18 08:05 [From Nexium] Penicillins AdvReac Unknown gi upset Verified 10/21/18 08:05 General Stated Complaint: Chest Pain BRYCE: 2 Review of Systems Review of Systems All systems reviewed & are unremarkable except as noted in HPI and below Constitutional Denies chills and Denies fever(s) ENT Denies change in voice Cardiovascular Denies dyspnea Respiratory Denies cough and Denies dyspnea Gastrointestinal Denies abdominal pain, Denies nausea and Denies vomiting Integumentary/Breasts Denies rash Endocrine Denies cold intolerance [facility] Medical History Shortness of breath (Acute) Other abnormal glucose (Acute 02/22/13) Smoker unmotivated to quit (Chronic 04/12/14) Hyperlipidemia (Acute 01/13/12) Gastroesophageal reflux disease without esophagitis (Chronic 01/26/06) Esophageal reflux (Chronic 01/26/06) Benign neoplasm of colon (Acute 01/13/12) Arteriosclerotic cardiovascular disease (ASCVD) (Chronic 01/13/12) Adenomatous colon polyp (Acute 01/13/12) ASCVD (arteriosclerotic cardiovascular disease) (Chronic 01/13/12) Laryngeal cancer (Resolved) CAD (coronary artery disease) (Chronic) HTN (hypertension) (Chronic) Surgical History endovascular repair AAA (03/07/13) Family History Mother Renal disease Father No problems noted. Social History Smoking/Tobacco Use Status: Former Tobacco Use Alcohol Intake: former Drug use: Never Household members: spouse Housing: house What type of physical activity do you participate in: other Details: physically active qd Do you feel safe at home: Yes Do you feel safe in your relationship?: Yes Exam Const General: no acute distress Orientation: alert HENMT Head: normal to inspection Ears: external ears normal General nose exam: external nose normal Mouth: moist mucous membranes Eyes General: appearance normal, both eyes and all related structures Neck Neck: normal visual inspection Resp Effort & Inspection: normal respiratory effort and able to speak in complete sentences Cardio Rate: regular rate Skin General skin exam: no rashes or lesions noted Neuro General: alert and oriented x3 Extrem General: normal to inspection Psych Mental Status: mental status grossly normal Course Vital Signs Temperature 36.8 C 11/04/18 10:13 Pulse 83 11/04/18 10:13 Respiratory Rate 23 11/04/18 10:13 Blood Pressure 133/87 11/04/18 10:13 Pulse Oximetry 95 11/04/18 10:13 Temperature 36.8 C 11/04/18 10:13 Temperature Source Temporal Artery Scan 11/04/18 10:13 Pulse 83 11/04/18 10:13 Respiratory Rate 11/04/18 10:13 Respiratory Effort Non-Labored 11/04/18 10:13 Blood Pressure 133/87 11/04/18 10:13 Pulse Oximetry 95 11/04/18 10:13 Oxygen Delivery Method Room Air 11/04/18 10:13 Oxygen Flow Rate 0 11/04/18 10:13 Pain Level 1 11/04/18 10:13
--- NOTE | 2018-11-04 10:30 | ED.GENADUL_ITS ---
Discharge Plan Disposition Patient Disposition: HOME Condition: Stable Discharge Details Chief Complaint: Chest Pain Clinical Impression: Chest pain, Esophageal spasm Primary Care Provider: Danyell Burks ED Provider: Mehul Adan [place] Meds and New Rx's Prescriptions: New diazepam [Valium] 5 mg tablet 5 mg PO BID-TID PRN (Reason: muscle spasm) Qty: 20 RF: 0 Continued aspirin [Adult Low Dose Aspirin] 81 mg tablet,delayed release (DR/EC) 81 mg PO DAILY RF: 0 TYLENOL ARTHRITIS 650 MG TABLET.ER 1,300 mg PO Q8H PRN RF: 0 nitroglycerin 0.4 MG tablet, sublingual 0.4 mg Sublingual PRN Qty: 25 RF: 3 simvastatin 40 MG tablet 40 mg PO DAILY Qty: 90 RF: 3 pantoprazole [Protonix] 40 MG tablet,delayed release (DR/EC) 40 mg PO DAILY Qty: 90 RF: 3 lisinopril [Zestril] 10 MG tablet 10 mg PO DAILY Qty: 90 RF: 3 ezetimibe [Zetia] 10 MG tablet 5 mg PO DAILY Qty: 45 RF: 3 metoprolol succinate [Toprol XL] 25 mg tablet extended release 24 hr 12.5 mg PO DAILY Qty: 45 RF: 2 albuterol sulfate [ProAir HFA] 90 mcg/actuation HFA aerosol inhaler 2 puff Inhalation Q4H PRN Qty: 1 RF: 1 Combivent Respimat 20-100 mcg/actuation mist 2 puff IH QID RF: 0 prochlorperazine maleate [Compazine] 10 mg tablet 10 mg PO Q6H PRN PRN (Reason: nausea and vomiting) RF: 0 ondansetron HCl [Zofran] 8 mg tablet 8 mg PO TID PRNRF: 0 paclitaxel 6 mg/mL Concentrate RF: 0 carboplatin 10 mg/mL Solution 150 mg IV DAILY RF: 0 Discharge Instructions Instructions: Diazepam (By mouth), Esophageal Spasm (ED) Additional Instructions: you should be contacted by vascular surgery at [facility] start taking protonix twice daily and follow up with your primary care provider within 1-2 weeks Medical Decision Making 68 yo male with hx of copd, recent diagnosis of lung cancer, hld, aaa with cta on 10/31 showing endoleak and went to [facility] [place] and is supposed to have outpatient surgery to repair this, who comes in with increased chest and back pain that started about an hour ago. He states this was similar to the pain he had on 10/31. He was monitored at [facility] [place] after transfer and was stable with unremarkable lab workup so was d/c'd home and had been doing well until this AM. EMS states he had a HR of 140 when they arrived and was diaphoretic, gave fentanyl and asa and he now has no pain and his HR is 80 and HD stable. will obtain ecg, troponin and CTA to eval for worsening endoleak or new dissection among other pathology pt remains stable, lab work unremarkable and CTA shows no acute changes per Dr. keller. Will consult vascular surgery. vascular surgery states this leak is not something that needs emergent or urgent procedure, they will reach out to the aptient. Pt remains stable, initial labs unremarkable. Given numerous negative troponins and unchaged ekg's I doubt cardiac cause of his pain and this could be esophageal spasm. will obtain repeat troponin and ecg pt remains asymptoamtic, second troponin negative. Will have him f/u with pcp and vascular surgery return precautions given Differential Diagnosis endoleak, acs, pe, dissection Medical Records Medical records reviewed: Yes I reviewed the patient's medical records. Imaging Data Radiologic Study: Attestation: I personally reviewed and interpreted this imaging study as follows: Imaging: CT Scan Radiologist's impression: no acute changes on cta Lab Data Lab results reviewed: Yes I reviewed the patient's lab results. ECG Data Attestation: I personally reviewed and interpreted this ECG (s) as follows: Prior ECG tracings: available for review Interpretation: sinus rhythm, rate of 85, pr 164, no acute st t wave ischemic findings 2nd ekg shows no acute st t wave ischemic changes, rate of 77, pr 176 HPI General Mode of arrival: EMS . Date/Time Provider Initiated Documentation: 11/04/18 10:21 . Limitations to Documentation: no limitations . Information obtained by: patient . History of Present Illness 68 year old M presents to the emergency department with the chief complaint of back and chest pain, described as severe, Quality is described as stabbing, and is localized to the chest and back. Patient started experiencing this hour(s) (1) and it has been now resolved. No relieving factors improve symptom(s), No exacerbating factors reported . Patient did receive the following treatments prior to arrival, other (fentanyl and asa with ems) Related Data Home Medications Medication Instructions Recorded Confirmed Tylenol Arthritis 1,300 mg PO Q8H PRN tab-cap 12/23/12 11/04/18 nitroglycerin 0.4 mg SUBLINGUAL PRN #25 tab-cap 01/18/17 11/04/18 ezetimibe [Zetia] 5 mg PO DAILY #45 tab-cap 01/21/18 11/04/18 lisinopril [Zestril] 10 mg PO DAILY #90 tab 01/21/18 11/04/18 pantoprazole [Protonix] 40 mg PO DAILY #90 tab-cap 01/21/18 11/04/18 simvastatin 40 mg PO DAILY #90 tab-cap 01/21/18 11/04/18 metoprolol succinate ER 25 mg 12.5 mg PO DAILY #45 tab 07/22/18 11/04/18 tablet,extended release 24 hr albuterol sulfate HFA 90 2 puff INHALATION Q4H PRN #1 08/01/18 11/04/18 mcg/actuation aerosol inhaler inhaler ipratropium 20 mcg-albuterol 100 2 puff IH QID gm 08/09/18 11/04/18 mcg/actuation mist for inhalation aspirin 81 mg tablet,delayed 81 mg PO DAILY 10/21/18 11/04/18 release carboplatin 150 mg IV DAILY 10/31/18 11/04/18 paclitaxel 10/31/18 ondansetron HCl 8 mg tablet 8 mg PO TID PRN 11/01/18 11/04/18 prochlorperazine maleate 10 mg 10 mg PO Q6H PRN PRN tab 11/01/18 11/04/18 tablet diazepam [Valium] 5 mg PO BID-TID PRN #20 tab 11/04/18 Previous Rx's Medication Instructions Recorded ezetimibe [Zetia] 5 mg PO DAILY #45 tab-cap 01/21/18 lisinopril [Zestril] 10 mg PO DAILY #90 tab 01/21/18 pantoprazole [Protonix] 40 mg PO DAILY #90 tab-cap 01/21/18 simvastatin 40 mg PO DAILY #90 tab-cap 01/21/18 metoprolol succinate ER 25 mg 12.5 mg PO DAILY #45 tab 07/22/18 tablet,extended release 24 hr albuterol sulfate HFA 90 2 puff INHALATION Q4H PRN #1 08/01/18 mcg/actuation aerosol inhaler inhaler diazepam [Valium] 5 mg PO BID-TID PRN #20 tab 11/04/18 Allergies Allergy/AdvReac Type Severity Reaction Status Date / Time clopidogrel Allergy Unknown SKIN RASH Verified 10/21/18 08:05 esomeprazole magnesium AdvReac Unknown gi upset Verified 10/21/18 08:05 [From Nexium] Penicillins AdvReac Unknown gi upset Verified 10/21/18 08:05 General Stated Complaint: Chest Pain BRYCE: 2 Review of Systems Review of Systems All systems reviewed & are unremarkable except as noted in HPI and below Constitutional Denies chills and Denies fever(s) ENT Denies change in voice Cardiovascular Denies dyspnea Respiratory Denies cough and Denies dyspnea Gastrointestinal Denies abdominal pain, Denies nausea and Denies vomiting Integumentary/Breasts Denies rash Endocrine Denies cold intolerance [facility] Medical History Shortness of breath (Acute) Other abnormal glucose (Acute 02/22/13) Smoker unmotivated to quit (Chronic 04/12/14) Hyperlipidemia (Acute 01/13/12) Gastroesophageal reflux disease without esophagitis (Chronic 01/26/06) Esophageal reflux (Chronic 01/26/06) Benign neoplasm of colon (Acute 01/13/12) Arteriosclerotic cardiovascular disease (ASCVD) (Chronic 01/13/12) Adenomatous colon polyp (Acute 01/13/12) ASCVD (arteriosclerotic cardiovascular disease) (Chronic 01/13/12) Laryngeal cancer (Resolved) CAD (coronary artery disease) (Chronic) HTN (hypertension) (Chronic) Surgical History endovascular repair AAA (03/07/13) Family History Mother Renal disease Father No problems noted. Social History Smoking/Tobacco Use Status: Former Tobacco Use Alcohol Intake: former Drug use: Never Household members: spouse Housing: house What type of physical activity do you participate in: other Details: physically active qd Do you feel safe at home: Yes Do you feel safe in your relationship?: Yes Exam Const General: no acute distress Orientation: alert HENMT Head: normal to inspection Ears: external ears normal General nose exam: external nose normal Mouth: moist mucous membranes Eyes General: appearance normal, both eyes and all related structures Neck Neck: normal visual inspection Resp Effort & Inspection: normal respiratory effort and able to speak in complete sentences Cardio Rate: regular rate Skin General skin exam: no rashes or lesions noted Neuro General: alert and oriented x3 Extrem General: normal to inspection Psych Mental Status: mental status grossly normal Course Vital Signs Temperature 36.8 C 11/04/18 10:13 Pulse 83 11/04/18 10:13 Respiratory Rate 23 11/04/18 10:13 Blood Pressure 133/87 11/04/18 10:13 Pulse Oximetry 95 11/04/18 10:13 Temperature 36.8 C 11/04/18 10:13 Temperature Source Temporal Artery Scan 11/04/18 10:13 Pulse 83 11/04/18 10:13 Respiratory Rate 11/04/18 10:13 Respiratory Effort Non-Labored 11/04/18 10:13 Blood Pressure 133/87 11/04/18 10:13 Pulse Oximetry 95 11/04/18 10:13 Oxygen Delivery Method Room Air 11/04/18 10:13 Oxygen Flow Rate 0 11/04/18 10:13 Pain Level 1 11/04/18 10:13
[2018-11-04 10:39] LABS: Absolute Basophil Count 0.02 k/cumm (0.0-0.2); Absolute Eosinophil Count 0.92 k/cumm (0.0-0.7); Absolute Lymphocyte Count 1.17 k/cumm (1.2-3.4); Absolute Monocyte Count 0.19 k/cumm (0.11-0.7); Absolute Neutrophil Count 4.07 k/cumm (1.2-6.7); Basophils % 0.3; Eosinophils % 14.4; HCT 39.8 % (40.0-50.0); HGB 13.4 g/dL (13.5-17.5); Lymphocytes % 18.4; Mean Corp. HGB Concentration 33.7 g/dL (32.0-36.0); Mean Corpuscular Hemoglobin 29.2 pg (27.0-33.0); Mean Corpuscular Volume 86.7 fL (80-95); Neutrophils % 63.9; Platelet Count 158 x1000/uL (130-400); RBC 4.59 m/cumm (4.50-6.00); RBC Distribution Width 12.7 % (11.8-14.1); White Blood Cell Count 6.37 k/cumm (4.4-10.8)
--- NOTE | 2018-11-04 10:42 | DI.CT_ITS ---
SYMPTOM/DIAGNOSIS: RECENT CTA SHOWING ENDOLEAK, INCREASED PAIN CTA CHEST, ABDOMEN AND PELVIS: CT angiography was performed with multi slice acquisition and multi planar and 3D reconstruction. CT angiography of the chest, abdomen and pelvis was performed with a bolus infusion of 100 cc's of Omnipaque 350. No evidence of pulmonary embolic disease. No thoracic aortic aneurysm or dissection. No mediastinal or hilar adenopathy. The patient has reportedly had a previous left lobectomy for lung carcinoma. Pleural radiodensities including soft tissue radiodensity and fluid are present, grossly unchanged or slightly less prominent than on previous examination of 10/31/18. No new pulmonary infiltrate is seen. Fibrotic changes are present in the lung bases. Note is made of hepatic steatosis. Spleen is unremarkable in appearance. Pancreas appears intact. Gallbladder and bile ducts are CT normal. Kidneys enhance normally. Adrenals are unremarkable in appearance. No abdominal or pelvic adenopathy is seen. Previously noted abdominal aortic aneurysm containing graft is again seen, maximal aneurysm diameter is about 4.9 cm. The previously described posterior endoleak just above the aortic bifurcation is again seen and the findings are unchanged in comparison with previous examination of 10/31/18. No additional findings involving the iliac circulation. Renal arteries appear well maintained. Celiac trunk and SMA are well maintained. DICK not well visualized. 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 No new findings.
[2018-11-04 10:50] LABS: PTT Activated 24.5 sec (21.0-31.4); Prothrombin Time 9.6 sec (9.3-11.0)
[2018-11-04 10:52] LABS: ALT 45 U/L (12-78); AST 23 U/L (15-37); Albumin 3.6 g/dL (3.4-5.0); Alkaline Phosphatase 158 U/L (46-116); Anion Gap 10.3 mmol/L (3-11); BUN 19 mg/dL (7-18); Bilirubin, Direct 0.19 mg/dL (0.00-0.20); Bilirubin, Total 0.7 mg/dL (0.2-1.0); CO2 24.7 mmol/L (21.0-32.0); CREATININE 1.25 mg/dL (0.70-1.30); Calcium 9.4 mg/dL (8.5-10.1); Chloride 98 mmol/L (98-107); Glucose 149 mg/dL (70-100); Lipase 88 U/L (73-393); Potassium 4.7 mmol/L (3.5-5.1); Sodium 133 mmol/L (136-145); Total Protein 7.3 g/dL (6.4-8.2)
[2018-11-04] MEDS: Omnipaque 350 MG/ML 100 ML BTL IJ (10:56)
[2018-11-04] MEDS: Omnipaque 350 MG/ML 50 ML BTL IJ (10:57)
[2018-11-04 11:01] LABS: Troponin I < 0.02 ng/mL (0.00-0.06)
[2018-11-04 13:35] LABS: Troponin I < 0.02 ng/mL (0.00-0.06)
== END 2018-11-04 14:10 | disposition home or self-care (01) ==
PROVIDERS: Emergency Provider Emergency Medicine; PCP Student in an Organized Health Care Education/Training Program
DX: R07.9 Chest pain, unspecified (principal); K22.4 Dyskinesia of esophagus
CPT/HCPCS: 36415; 71275; 74177; 80053; 80076; 83690; 86850; 86900; 86901; 93005; 99285; 84484; 85025; 85610; 85730; 93010; J3490; Q9967

== ENCOUNTER 2018-11-07 09:03 | Outpatient (CLI) | payer MEDICARE, BC, SELFPAY ==
[2018-11-07 13:07] LABS: Abs Immature Grans 0.01 k/cumm (0.0-0.09); Absolute Basophil Count 0.05 k/cumm (0.0-0.2); Absolute Lymphocyte Count 1.42 k/cumm (1.2-3.4); Absolute Monocyte Count 0.14 k/cumm (0.11-0.7); Absolute Neutrophil Count 2.12 k/cumm (1.2-6.7); Basophils % 1.2; Eosinophils % 11.8; HCT 38.5 % (40.0-50.0); HGB 12.9 g/dL (13.5-17.5); Immature Grans % 0.2; Lymphocytes % 33.5; Mean Corp. HGB Concentration 33.5 g/dL (32.0-36.0); Mean Corpuscular Hemoglobin 29.3 pg (27.0-33.0); Mean Corpuscular Volume 87.5 fL (80-95); Mean Platelet Volume 10.8 fL (8.0-11.0); Monocytes % 3.3; Platelet Count 112 x1000/uL (130-400); RBC Distribution Width 12.6 % (11.8-14.1); White Blood Cell Count 4.24 k/cumm (4.4-10.8)
[2018-11-07 13:18] LABS: ALT 37 U/L (12-78); AST 15 U/L (15-37); Albumin 3.4 g/dL (3.4-5.0); Alkaline Phosphatase 136 U/L (46-116); Anion Gap 9.9 mmol/L (3-11); BUN 29 mg/dL (7-18); Bilirubin, Total 0.3 mg/dL (0.2-1.0); CO2 24.1 mmol/L (21.0-32.0); CREATININE 1.46 mg/dL (0.70-1.30); Calcium 8.8 mg/dL (8.5-10.1); Chloride 98 mmol/L (98-107); Estimated GFR 47.73 (mL/min/1.73m2); Glucose 175 mg/dL (70-100); LDH 154 U/L (85-227); Potassium 4.7 mmol/L (3.5-5.1); Sodium 132 mmol/L (136-145)
== END 2018-11-07 09:23 ==
PROVIDERS: PCP Student in an Organized Health Care Education/Training Program; Visit Provider Nurse Practitioner Family
DX: C34.82 Malignant neoplasm of overlapping sites of left bronchus and lung (principal)
CPT/HCPCS: 36415; 80053; 83615; 85025

== ENCOUNTER 2018-11-14 02:29 | Outpatient (CLI) | payer MEDICARE, BC, SELFPAY ==
[2018-11-14] MEDS: Inhaler, Assist Device 1 EACH MC (11:37)
[2018-11-14] MEDS: Albuterol HFA 18 GM 200 PUFF INH IH (11:37)
--- NOTE | 2018-11-14 13:19 | PFT_ITS ---
PULMONARY FUNCTION TEST REPORT DATE OF SERVICE: November 14, 2018 REQUESTING PROVIDER: Danyell Burks D.O. Spirometry shows mild obstructive airways disease with no significant bronchodilator response. Lung volumes show no evidence of restriction. Diffusion capacity moderately reduced, which is mildly reduced when corrected to alveolar volume. Airways resistance normal. IMPRESSION: Mild obstructive airways disease with no significant bronchodilator response. This is associated with moderate diffusion defect. Clinical correlation recommended. When this study was compared to previous ones [place] [facility] [place] the patient?s FEV1 has declined by 480 cc's; FVC has declined by 940 cc's. Diffusion capacity also had a significant decline.
== END 2018-11-14 02:49 ==
PROVIDERS: PCP Student in an Organized Health Care Education/Training Program; Visit Provider Student in an Organized Health Care Education/Training Program
DX: R06.02 Shortness of breath (principal); J44.9 Chronic obstructive pulmonary disease, unspecified; Z90.2 Acquired absence of lung [part of]; Z85.118 Personal history of other malignant neoplasm of bronchus and lung; Z87.891 Personal history of nicotine dependence
CPT/HCPCS: 94060; 94150; 94726; 94729

== ENCOUNTER 2018-11-16 13:06 | Outpatient (CLI) | payer MEDICARE, BC, SELFPAY ==
--- NOTE | 2018-11-16 13:27 | DI.RAD_ITS ---
SYMPTOMS/DIAGNOSIS: FOOT INJURY, SPRAIN NOT IMPROVING DESPITE REST, ICE, COMPRESSION AND ELEVATION, S99.969A; KNEE PAIN, TWISTING INJURY S/P FALL; ? [facility], M25.561 RIGHT FOOT: Three views. There is a question of lucencies involving the bases of the 2nd, 3rd and 4th metatarsals and nondisplaced fractures cannot be excluded. CT scan is recommended for further evaluation. No other fracture or dislocation is appreciated. There does appear to be mild soft tissue swelling of the foot. Vascular calcifications are identified. IMPRESSION: Question of deformity involving the bases of the 2nd, 3rd and 4th metatarsals. CT scan is recommended to rule out a fracture. RIGHT KNEE: Three views. No acute or healing fracture or dislocation is identified. There is a small suprapatellar joint effusion. Vascular calcifications are present. IMPRESSION: No acute fracture or dislocation.
== END 2018-11-16 13:26 ==
PROVIDERS: PCP Student in an Organized Health Care Education/Training Program; Visit Provider Student in an Organized Health Care Education/Training Program
DX: M79.671 Pain in right foot (principal); S99.921A Unspecified injury of right foot, initial encounter; M79.89 Other specified soft tissue disorders; M21.6X1 Other acquired deformities of right foot; M25.561 Pain in right knee; M25.461 Effusion, right knee
CPT/HCPCS: 73562; 73630

== ENCOUNTER 2018-11-21 01:49 | Outpatient (CLI) | payer MEDICARE, BC, SELFPAY ==
[2018-11-21 10:11] LABS: Abs Immature Grans 0.04 k/cumm (0.0-0.09); Absolute Basophil Count 0.07 k/cumm (0.0-0.2); Absolute Eosinophil Count 0.16 k/cumm (0.0-0.7); Absolute Lymphocyte Count 1.44 k/cumm (1.2-3.4); Absolute Monocyte Count 0.71 k/cumm (0.11-0.7); Absolute Neutrophil Count 3.45 k/cumm (1.2-6.7); Basophils % 1.2; Eosinophils % 2.7; HCT 38.6 % (40.0-50.0); HGB 12.9 g/dL (13.5-17.5); Immature Grans % 0.7; Lymphocytes % 24.5; Mean Corp. HGB Concentration 33.4 g/dL (32.0-36.0); Mean Corpuscular Hemoglobin 29.7 pg (27.0-33.0); Mean Corpuscular Volume 88.7 fL (80-95); Mean Platelet Volume 9.1 fL (8.0-11.0); Monocytes % 12.1; Neutrophils % 58.8; Platelet Count 201 x1000/uL (130-400); RBC 4.35 m/cumm (4.50-6.00); RBC Distribution Width 13.6 % (11.8-14.1); White Blood Cell Count 5.87 k/cumm (4.4-10.8)
[2018-11-21 10:27] LABS: ALT 47 U/L (12-78); AST 18 U/L (15-37); Albumin 3.5 g/dL (3.4-5.0); Alkaline Phosphatase 122 U/L (46-116); Anion Gap 6.7 mmol/L (3-11); BUN 21 mg/dL (7-18); Bilirubin, Total 0.2 mg/dL (0.2-1.0); CO2 30.3 mmol/L (21.0-32.0); CREATININE 1.29 mg/dL (0.70-1.30); Calcium 9.2 mg/dL (8.5-10.1); Chloride 100 mmol/L (98-107); Estimated GFR 55.06 (mL/min/1.73m2); Glucose 116 mg/dL (70-100); LDH 184 U/L (85-227); Potassium 4.7 mmol/L (3.5-5.1); Sodium 137 mmol/L (136-145); Total Protein 7.5 g/dL (6.4-8.2)
== END 2018-11-21 02:09 ==
PROVIDERS: PCP Student in an Organized Health Care Education/Training Program; Visit Provider Nurse Practitioner Family
DX: C34.82 Malignant neoplasm of overlapping sites of left bronchus and lung (principal)
CPT/HCPCS: 36415; 80053; 83615; 85025

== ENCOUNTER 2018-11-23 00:41 | Outpatient (CLI) | payer MEDICARE, BC, SELFPAY ==
--- NOTE | 2018-11-23 08:21 | DI.CT_ITS ---
SYMPTOM/DIAGNOSIS: EVALUATE NONDISPLACED FRACTURE. RT FOOT PAIN, M27.671,S92.390A RIGHT FOOT CT: Multiple contiguous axial images of the right foot were obtained. Sagittal and coronal reformatted images were evaluated on the Siemens workstation. There is a nondisplaced oblique fracture involving the medial aspect of the base of the second metatarsal which extends into the tarsal metatarsal joint. There is a comminuted nondisplaced fracture involving the medial aspect of the base of the third metatarsal with extension into the tarsal metatarsal joint. No other fracture is identified. There does not appear to be significant widening between the first and second metatarsals. There is patient motion artifact seen involving the toes. Vascular calcifications are present in the soft tissues. There is edema seen in the soft tissues adjacent to the tarsal bones. IMPRESSION: 1. Nondisplaced, intra-articular fracture involving the base of the second metatarsal. 2. Comminuted nondisplaced intra-articular fracture involving the base of the third metatarsal.
== END 2018-11-23 01:01 ==
PROVIDERS: PCP Student in an Organized Health Care Education/Training Program; Visit Provider Student in an Organized Health Care Education/Training Program
DX: M79.671 Pain in right foot (principal); S92.335A Nondisplaced fracture of third metatarsal bone, left foot, initial encounter for closed fracture; S92.324A Nondisplaced fracture of second metatarsal bone, right foot, initial encounter for closed fracture
CPT/HCPCS: 73700

== ENCOUNTER 2018-12-21 01:19 | Outpatient (CLI) | payer MEDICARE, BC, SELFPAY ==
[2018-12-21 10:22] LABS: Abs Immature Grans 0.01 k/cumm (0.0-0.09); Absolute Basophil Count 0.04 k/cumm (0.0-0.2); Absolute Lymphocyte Count 1.53 k/cumm (1.2-3.4); Absolute Monocyte Count 0.83 k/cumm (0.11-0.7); Absolute Neutrophil Count 3.92 k/cumm (1.2-6.7); Basophils % 0.6; Eosinophils % 5.9; HCT 37.7 % (40.0-50.0); HGB 12.7 g/dL (13.5-17.5); Immature Grans % 0.1; Lymphocytes % 22.7; Mean Corp. HGB Concentration 33.7 g/dL (32.0-36.0); Mean Corpuscular Hemoglobin 29.7 pg (27.0-33.0); Mean Corpuscular Volume 88.3 fL (80-95); Mean Platelet Volume 9.3 fL (8.0-11.0); Monocytes % 12.3; Neutrophils % 58.4; Platelet Count 222 x1000/uL (130-400); RBC 4.27 m/cumm (4.50-6.00); RBC Distribution Width 13.9 % (11.8-14.1); White Blood Cell Count 6.73 k/cumm (4.4-10.8)
[2018-12-21 10:39] LABS: ALT 39 U/L (12-78); AST 21 U/L (15-37); Albumin 3.6 g/dL (3.4-5.0); Alkaline Phosphatase 107 U/L (46-116); Anion Gap 9.9 mmol/L (3-11); BUN 20 mg/dL (7-18); Bilirubin, Total 0.2 mg/dL (0.2-1.0); CO2 25.1 mmol/L (21.0-32.0); CREATININE 1.23 mg/dL (0.70-1.30); Calcium 9.3 mg/dL (8.5-10.1); Chloride 102 mmol/L (98-107); Estimated GFR 58.17 (mL/min/1.73m2); Glucose 105 mg/dL (70-100); LDH 178 U/L (85-227); Potassium 4.5 mmol/L (3.5-5.1); Sodium 137 mmol/L (136-145); Total Protein 7.4 g/dL (6.4-8.2)
== END 2018-12-21 01:39 ==
PROVIDERS: PCP Student in an Organized Health Care Education/Training Program; Visit Provider Nurse Practitioner Family
DX: C34.2 Malignant neoplasm of middle lobe, bronchus or lung (principal)
CPT/HCPCS: 36415; 80053; 83615; 85025

== ENCOUNTER 2019-01-11 01:30 | Outpatient (CLI) | payer MEDICARE, BC, SELFPAY ==
[2019-01-11 10:22] LABS: Abs Immature Grans 0.04 k/cumm (0.0-0.09); Absolute Basophil Count 0.07 k/cumm (0.0-0.2); Absolute Eosinophil Count 0.14 k/cumm (0.0-0.7); Absolute Lymphocyte Count 1.83 k/cumm (1.2-3.4); Absolute Monocyte Count 0.93 k/cumm (0.11-0.7); Absolute Neutrophil Count 3.61 k/cumm (1.2-6.7); Basophils % 1.1; Eosinophils % 2.1; HCT 37.2 % (40.0-50.0); HGB 12.7 g/dL (13.5-17.5); Immature Grans % 0.6; Lymphocytes % 27.6; Mean Corp. HGB Concentration 34.1 g/dL (32.0-36.0); Mean Corpuscular Hemoglobin 29.5 pg (27.0-33.0); Mean Corpuscular Volume 86.5 fL (80-95); Neutrophils % 54.6; Platelet Count 191 x1000/uL (130-400); RBC Distribution Width 13.8 % (11.8-14.1); White Blood Cell Count 6.62 k/cumm (4.4-10.8)
[2019-01-11 11:08] LABS: ALT 39 U/L (12-78); AST 19 U/L (15-37); Albumin 3.6 g/dL (3.4-5.0); Alkaline Phosphatase 113 U/L (46-116); Anion Gap 10.8 mmol/L (3-11); BUN 18 mg/dL (7-18); Bilirubin, Total 0.2 mg/dL (0.2-1.0); CO2 23.2 mmol/L (21.0-32.0); CREATININE 1.21 mg/dL (0.70-1.30); Calcium 8.8 mg/dL (8.5-10.1); Chloride 105 mmol/L (98-107); Estimated GFR 59.29 (mL/min/1.73m2); Glucose 118 mg/dL (70-100); Potassium 4.3 mmol/L (3.5-5.1); Sodium 139 mmol/L (136-145); Total Protein 7.5 g/dL (6.4-8.2)
[2019-01-11 19:37] LABS: LDH 182 U/L (85-227)
== END 2019-01-11 01:50 ==
PROVIDERS: PCP Student in an Organized Health Care Education/Training Program; Visit Provider Nurse Practitioner Family
DX: C34.82 Malignant neoplasm of overlapping sites of left bronchus and lung (principal)
CPT/HCPCS: 36415; 80053; 83615; 85025

== ENCOUNTER 2019-01-31 02:41 | Outpatient (CLI) | payer MEDICARE, BC, SELFPAY ==
[2019-01-31 09:15] LABS: Abs Immature Grans 0.02 k/cumm (0.0-0.09); Absolute Basophil Count 0.04 k/cumm (0.0-0.2); Absolute Eosinophil Count 0.07 k/cumm (0.0-0.7); Absolute Lymphocyte Count 1.69 k/cumm (1.2-3.4); Absolute Neutrophil Count 2.55 k/cumm (1.2-6.7); Basophils % 0.8; Eosinophils % 1.4; HCT 36.6 % (40.0-50.0); HGB 12.5 g/dL (13.5-17.5); Immature Grans % 0.4; Lymphocytes % 32.7; Mean Corp. HGB Concentration 34.2 g/dL (32.0-36.0); Mean Corpuscular Hemoglobin 29.9 pg (27.0-33.0); Mean Corpuscular Volume 87.6 fL (80-95); Mean Platelet Volume 8.7 fL (8.0-11.0); Monocytes % 15.5; Neutrophils % 49.2; Platelet Count 172 x1000/uL (130-400); RBC 4.18 m/cumm (4.50-6.00); RBC Distribution Width 14.2 % (11.8-14.1); White Blood Cell Count 5.17 k/cumm (4.4-10.8)
[2019-01-31 09:29] LABS: ALT 35 U/L (12-78); AST 15 U/L (15-37); Albumin 3.7 g/dL (3.4-5.0); Alkaline Phosphatase 107 U/L (46-116); BUN 21 mg/dL (7-18); Bilirubin, Total 0.2 mg/dL (0.2-1.0); CREATININE 1.17 mg/dL (0.70-1.30); Calcium 9.3 mg/dL (8.5-10.1); Chloride 101 mmol/L (98-107); Glucose 151 mg/dL (70-100); LDH 175 U/L (85-227); Potassium 4.6 mmol/L (3.5-5.1); Sodium 137 mmol/L (136-145); Total Protein 7.6 g/dL (6.4-8.2)
== END 2019-01-31 03:01 ==
LOC: LOS 02:41 → LBO 08:49
PROVIDERS: PCP Student in an Organized Health Care Education/Training Program
DX: C34.82 Malignant neoplasm of overlapping sites of left bronchus and lung (principal)
CPT/HCPCS: 36415; 80053; 83615; 85025

== ENCOUNTER 2019-02-10 13:17 | Emergency (ER) | payer MEDICARE, BC, SELFPAY ==
[2019-02-10] VITALS (22 sets, daily range): BP systolic 95–160; BP diastolic 52–148; PULSE 91–113; RESP 2–31; TEMP 36.6–36.7; O2SAT 94–99
--- NOTE | 2019-02-10 13:20 | DI.RAD_ITS ---
SYMPTOMS/DIAGNOSIS: COUGH, SHORTNESS OF BREATH PORTABLE SEMIERECT CHEST: Comparison is made with [id number]. The heart size is normal. The patient is status post CABG. Leads overlie the chest. There is left sided volume loss related to previous surgery. No recurrent mass, infiltrate or effusion is seen. IMPRESSION: No acute abnormality.
--- NOTE | 2019-02-10 13:21 | ED.GENADUL_ITS ---
Discharge Plan Disposition Patient Disposition: HOME Condition: Stable Discharge Details Clinical Impression: Hypomagnesemia, Acute exacerbation of chronic obstructive pulmonary disease (COPD) Primary Care Provider: Danyell Burks ED Provider: Mehul Adan Home Meds and New Rx's Prescriptions: New levofloxacin 750 mg tablet 750 mg PO DAILY Qty: 4 RF: 0 prednisone 20 mg tablet 60 mg PO DAILY 4 Days Qty: 12 RF: 0 No Action lisinopril [Zestril] 10 mg tablet 10 mg PO DAILY Qty: 90 RF: 3 aspirin [Adult Low Dose Aspirin] 81 mg tablet,delayed release (DR/EC) 81 mg PO DAILY RF: 0 TYLENOL ARTHRITIS 650 MG TABLET.ER 1,300 mg PO Q8H PRN RF: 0 nitroglycerin 0.4 MG tablet, sublingual 0.4 mg Sublingual PRN Qty: 25 RF: 3 simvastatin 40 MG tablet 40 mg PO DAILY Qty: 90 RF: 3 pantoprazole [Protonix] 40 MG tablet,delayed release (DR/EC) 40 mg PO DAILY Qty: 90 RF: 3 ezetimibe [Zetia] 10 MG tablet 5 mg PO DAILY Qty: 45 RF: 3 metoprolol succinate [Toprol XL] 25 mg tablet extended release 24 hr 12.5 mg PO DAILY Qty: 45 RF: 2 albuterol sulfate [ProAir HFA] 90 mcg/actuation HFA aerosol inhaler 2 puff Inhalation Q4H PRN Qty: 1 RF: 1 Combivent Respimat 20-100 mcg/actuation mist 2 puff IH QID RF: 0 Discharge Instructions Instructions: COPD (Chronic Obstructive Pulmonary Disease) (ED), Hypomagnesemia (ED) Additional Instructions: Your lab work showed a low magnesium level otherwise no other significant findings. Your xray did not show a pneumonia Follow up with your primary care provider or oncologist in 1-2 weeks if you feel you are becoming more ill, having worsening trouble breathing, fevers return to the emergency department Medical Decision Making 68 yo male with hx of lung cancer who undewent last chemo last week who also has copd, former smoker, multiple other medical problems comes in with cc of worsening cough that is productive and shortness of breath. HE denies chest pain/pressure and no recent travel. He called ems and ems states he could only say 1-2 words and had diffuse wheezing so they have 125mg solumedrol and 2 du[address] with improvement in his symptoms. He is now speaking in full setntences though is tachypneic in the 20's on my exam. He denies fevers. He still has wheezing bilaterally at the bases with some rhonchi at the left lower base. I supect copd vs pna, will obtain lab work and cxr. If cxr shows no acute pathology will consider ct to eval further for pna vs possible PE. He has no chest pain or pressure so feel unlikely acs, ecg without ischemic findings. No jvd or pitting edema of legs so doubt chf xray negative on my read, he feels much better after additional duoneb speaking in full sentences. I had a long discussion with pt that given he is improving with tx for copd and his exam is likely from copd exacerbation I suspect this is the cause of his symptoms. I did advise we can't rule out PE despite this without a T and he declines to have one at this time given his numerous CTs he has had in the past. I feel this is reasonable given his response to tx for copd. Will continue to monitor. Labs pending pt's labs show mag of 1.2 otherwise no significant new abnormalities. He is ambulating wth no respiratory distress and o2 saturations in the mid to high 90's. Pt feels better and would like d/c which I feel is reasonable. Will tx as copd exacerbation, will d/c home and return precautions given Differential Diagnosis pna, copd, anemia Imaging Data Radiologic Study: Attestation: I personally reviewed and interpreted this imaging study as follows: Imaging: X-Ray My impression: no acute findings Lab Data Lab results reviewed: Yes I reviewed the patient's lab results. ECG Data Attestation: I personally reviewed and interpreted this ECG (s) as follows: Prior ECG tracings: not available for review Interpretation: sinus rhythm, rate of 100, pr 194, qtc 445 HPI General Mode of arrival: ambulatory . Date/Time Provider Initiated Documentation: 02/10/19 13:49 . Limitations to Documentation: no limitations . Information obtained by: patient . History of Present Illness 68 year old M presents to the emergency department with the chief complaint of shortness of breath, described as moderate, Patient started experiencing this day(s) (1) and it has been constant. other things that improve symptom(s), (duoneb) Movement worsens symptoms . Patient notes cough. Patient did receive the following treatments prior to arrival, none Related Data Home Medications Medication Instructions Recorded Confirmed Tylenol Arthritis 1,300 mg PO Q8H PRN tab-cap 12/23/12 02/10/19 nitroglycerin 0.4 mg SUBLINGUAL PRN #25 tab-cap 01/18/17 02/10/19 ezetimibe [Zetia] 5 mg PO DAILY #45 tab-cap 01/21/18 02/10/19 pantoprazole [Protonix] 40 mg PO DAILY #90 tab-cap 01/21/18 02/10/19 simvastatin 40 mg PO DAILY #90 tab-cap 01/21/18 02/10/19 metoprolol succinate 25 mg 12.5 mg PO DAILY #45 tab 07/22/18 02/10/19 tablet,extended release 24 hr albuterol sulfate 90 mcg/actuation 2 puff INHALATION Q4H PRN #1 08/01/18 02/10/19 aerosol inhaler inhaler ipratropium 20 mcg-albuterol 100 2 puff IH QID gm 08/09/18 02/10/19 mcg/actuation mist for inhalation aspirin 81 mg tablet,delayed 81 mg PO DAILY 10/21/18 02/10/19 release lisinopril 10 mg tablet 10 mg PO DAILY #90 tab 01/31/19 02/10/19 levofloxacin 750 mg PO DAILY #4 tab 02/10/19 prednisone 60 mg PO DAILY 4 Days #12 tab 02/10/19 Previous Rx's Medication Instructions Recorded ezetimibe [Zetia] 5 mg PO DAILY #45 tab-cap 01/21/18 pantoprazole [Protonix] 40 mg PO DAILY #90 tab-cap 01/21/18 simvastatin 40 mg PO DAILY #90 tab-cap 01/21/18 metoprolol succinate 25 mg 12.5 mg PO DAILY #45 tab 07/22/18 tablet,extended release 24 hr albuterol sulfate 90 mcg/actuation 2 puff INHALATION Q4H PRN #1 08/01/18 aerosol inhaler inhaler lisinopril 10 mg tablet 10 mg PO DAILY #90 tab 01/31/19 levofloxacin 750 mg PO DAILY #4 tab 02/10/19 prednisone 60 mg PO DAILY 4 Days #12 tab 02/10/19 Allergies Allergy/AdvReac Type Severity Reaction Status Date / Time clopidogrel Allergy Unknown SKIN RASH Verified 02/10/19 13:24 esomeprazole magnesium AdvReac Unknown gi upset Verified 01/27/19 08:06 [From Nexium] Penicillins AdvReac Unknown gi upset Verified 02/10/19 13:24 General BRYCE: 2 Review of Systems Review of Systems All systems reviewed & are unremarkable except as noted in HPI and below Constitutional Denies chills, Denies fever(s) and Denies weakness Cardiovascular Denies chest pain Gastrointestinal Denies abdominal pain, Denies nausea and Denies vomiting Musculoskeletal Denies joint swelling Neurologic Denies weakness [facility] Medical History (Updated 01/24/19 @ 11:00 by Florentino Mcnamara) Adenomatous colon polyp (Acute 01/13/12) Arteriosclerotic cardiovascular disease (ASCVD) (Chronic 01/13/12) ASCVD (arteriosclerotic cardiovascular disease) (Chronic 01/13/12) Benign neoplasm of colon (Acute 01/13/12) CAD (coronary artery disease) (Chronic) Esophageal reflux (Chronic 01/26/06) Gastroesophageal reflux disease without esophagitis (Chronic 01/26/06) HTN (hypertension) (Chronic) Hyperlipidemia (Acute 01/13/12) Laryngeal cancer (Resolved) Other abnormal glucose (Acute 02/22/13) Shortness of breath (Acute) Smoker unmotivated to quit (Chronic 04/12/14) Surgical History (Updated 12/08/18 @ 14:42 by Sadie Lopez RN) Endoleak post (EVAR) endovascular aneurysm repair (Acute 11/30/18) endovascular repair AAA (03/07/13) Social History Smoking/Tobacco Use Status: Former Tobacco Use Alcohol Intake: former Drug use: Never Household members: spouse Housing: house What type of physical activity do you participate in: other Details: physically active qd Do you feel safe at home: Yes Do you feel safe in your relationship?: Yes Exam Const General: other (tachypneic) Orientation: alert HENMT Head: normal to inspection Ears: external ears normal General nose exam: external nose normal Mouth: moist mucous membranes Eyes General: appearance normal, both eyes and all related structures Neck Neck: normal visual inspection Resp Effort & Inspection: tachypneic Cardio Rate: regular rate Skin General skin exam: no rashes or lesions noted Neuro General: alert and oriented x3 Extrem General: normal to inspection Psych Mental Status: mental status grossly normal
[2019-02-10] MEDS: Albuterol/Ipratropium 3 ML UPD VIAL (13:25)
[2019-02-10 14:18] LABS: Abs Immature Grans 0.01 k/cumm (0.0-0.09); Absolute Basophil Count 0.03 k/cumm (0.0-0.2); Absolute Eosinophil Count 0.07 k/cumm (0.0-0.7); Absolute Lymphocyte Count 2.59 k/cumm (1.2-3.4); Absolute Monocyte Count 0.61 k/cumm (0.11-0.7); Absolute Neutrophil Count 1.39 k/cumm (1.2-6.7); Basophils % 0.6; Eosinophils % 1.5; HCT 33.8 % (40.0-50.0); HGB 11.5 g/dL (13.5-17.5); Immature Grans % 0.2; Lymphocytes % 55.1; Mean Corpuscular Hemoglobin 29.8 pg (27.0-33.0); Mean Corpuscular Volume 87.6 fL (80-95); Mean Platelet Volume 10.3 fL (8.0-11.0); Neutrophils % 29.6; RBC 3.86 m/cumm (4.50-6.00); RBC Distribution Width 13.8 % (11.8-14.1)
[2019-02-10 14:20] LABS: ALT 33 U/L (12-78); AST 11 U/L (15-37); Albumin 3.5 g/dL (3.4-5.0); Alkaline Phosphatase 94 U/L (46-116); BUN 26 mg/dL (7-18); Bilirubin, Total 0.2 mg/dL (0.2-1.0); CREATININE 1.42 mg/dL (0.70-1.30); Calcium 8.6 mg/dL (8.5-10.1); Chloride 101 mmol/L (98-107); Estimated GFR 49.29 (mL/min/1.73m2); Glucose 140 mg/dL (70-100); Magnesium 1.2 mg/dL (1.8-2.4); NT-proBNP 37 pg/mL; Potassium 4.2 mmol/L (3.5-5.1); Sodium 137 mmol/L (136-145); Total Protein 6.9 g/dL (6.4-8.2)
[2019-02-10 14:21] LABS: Troponin I < 0.05 ng/mL (0.00-0.06)
[2019-02-10 14:23] LABS: INR 0.9 (0.9-1.1); PTT Activated 23.6 sec (21.0-31.4); Prothrombin Time 9.3 sec (9.3-11.0)
[2019-02-10 14:45] LABS: Diff Comment Diff Reviewed; Platelet Count 110 x1000/uL (130-400); Polychromasia Present
[2019-02-10] MEDS: levoFLOXacin 500 MG, levoFLOXacin 250 MG 750 MG PO (15:00)
== END 2019-02-10 15:07 | disposition home or self-care (01) ==
PROVIDERS: Emergency Provider Emergency Medicine; PCP Student in an Organized Health Care Education/Training Program
DX: E83.42 Hypomagnesemia (principal); J44.1 Chronic obstructive pulmonary disease with (acute) exacerbation; C34.92 Malignant neoplasm of unspecified part of left bronchus or lung; Z79.899 Other long term (current) drug therapy; Z87.891 Personal history of nicotine dependence; Z90.2 Acquired absence of lung [part of]; I10 Essential (primary) hypertension
CPT/HCPCS: 36415; 80053; 93005; 94640; 99285; 71045; 83735; 83880; 84484; 85025; 85610; 85730; 93010; J7620

== ENCOUNTER 2019-02-22 00:52 | Outpatient (CLI) | payer MEDICARE, BC, SELFPAY ==
[2019-02-22 08:28] LABS: Abs Immature Grans 0.05 k/cumm (0.0-0.09); Absolute Basophil Count 0.03 k/cumm (0.0-0.2); Absolute Eosinophil Count 0.05 k/cumm (0.0-0.7); Absolute Lymphocyte Count 1.57 k/cumm (1.2-3.4); Absolute Monocyte Count 0.93 k/cumm (0.11-0.7); Absolute Neutrophil Count 3.89 k/cumm (1.2-6.7); Basophils % 0.5; Eosinophils % 0.8; HCT 35.2 % (40.0-50.0); Immature Grans % 0.8; Lymphocytes % 24.1; Mean Corp. HGB Concentration 34.1 g/dL (32.0-36.0); Mean Platelet Volume 9.4 fL (8.0-11.0); Monocytes % 14.3; Neutrophils % 59.5; Platelet Count 122 x1000/uL (130-400); RBC Distribution Width 14.6 % (11.8-14.1); White Blood Cell Count 6.52 k/cumm (4.4-10.8)
[2019-02-22 08:47] LABS: ALT 33 U/L (12-78); AST 10 U/L (15-37); Albumin 3.3 g/dL (3.4-5.0); Alkaline Phosphatase 94 U/L (46-116); Anion Gap 10.1 mmol/L (3-11); BUN 19 mg/dL (7-18); Bilirubin, Total 0.3 mg/dL (0.2-1.0); CO2 24.9 mmol/L (21.0-32.0); CREATININE 1.21 mg/dL (0.70-1.30); Chloride 100 mmol/L (98-107); Estimated GFR 59.29 (mL/min/1.73m2); Glucose 160 mg/dL (70-100); Potassium 4.4 mmol/L (3.5-5.1); Sodium 135 mmol/L (136-145); Total Protein 7.3 g/dL (6.4-8.2)
--- NOTE | 2019-02-22 09:20 | DI.CT_ITS ---
SYMPTOM/DIAGNOSIS: MALIGNANT NEOPLASM OVERLAPPING SITES OF LT LUNG C34.82 RESTAGING NODE, POSITIVE LUNG CA CHEST CT: Comparison is made with 04 November 2018 CTA Prior left upper lobectomy is noted. There has been interval decrease in size of the previously noted left pleural effusion. No adenopathy is seen. The heart size is normal. Coronary artery calcifications and mild aortic calcifications are seen. Degenerative changes are seen in the thoracic spine, greatest at T4-5. No lytic or blastic bony lesions are identified. There is again noted to be coarsening of the interstitium greatest peripherally and at the lung bases. No recurrent mass or pulmonary nodules are identified. There are no acute infiltrates. The liver shows fatty infiltration. The upper portion of an aortic endograft is noted. IMPRESSION: No evidence of recurrent or metastatic disease.
[2019-02-22] MEDS: Omnipaque 350 MG/ML 100 ML BTL IJ (09:27)
== END 2019-02-22 01:12 ==
PROVIDERS: Nurse Practitioner Family; PCP Student in an Organized Health Care Education/Training Program; Visit Provider Radiology Radiation Oncology
DX: C34.82 Malignant neoplasm of overlapping sites of left bronchus and lung (principal); Z12.89 Encounter for screening for malignant neoplasm of other sites; J90 Pleural effusion, not elsewhere classified; K76.0 Fatty (change of) liver, not elsewhere classified; Z90.2 Acquired absence of lung [part of]; Z13.89 Encounter for screening for other disorder
CPT/HCPCS: 80053; 71260; 85025; J3490

== ENCOUNTER 2019-04-05 11:32 | Emergency (ER) | payer MEDICARE, BC, SELFPAY ==
[2019-04-05] VITALS (41 sets, daily range): BP systolic 100–141; BP diastolic 60–86; PULSE 82–126; RESP 16–28; TEMP 36.7; O2SAT 95–99
--- NOTE | 2019-04-05 11:38 | DI.CT_ITS ---
EXAM: CT THORAX ABDOMEN CTA CLINICAL HISTORY: syncope, tachy, cancer, sob, ? PE. TECHNIQUE: Axial CT angiography was performed with multislice acquisition and multiplanar and/or 3D reconstructions. COMPARISON: CT ANGIOGRAM ABDOMEN AND PELVIS W CONTRAST (GENERIC) from 02/09/2019 FINDINGS: Patient reportedly has history of lung carcinoma. Images obtained through the chest show small bilat eral pleural effusions, which are nonspecific. No intrapulmonary mass or consolidation. No signific ant mediastinal or hilar adenopathy. No thoracic aortic aneurysm or dissection. No evidence of pulm onary embolic disease. The axillary and supraclavicular areas appear free of adenopathy. Liver, spleen, adrenals, kidneys and pancreas are unremarkable in appearance. Gallbladder and bile d ucts are CT normal. No abdominal or pelvic adenopathy. No significant abdominal wall hernia. There is a repaired abdominal aortic aneurysm with an aorto bi-iliac graft in place. No evidence of leak or obstruction. Major branches of the abdominal aorta appear patent although there is a stenosis of perhaps 80 percent of the luminal diameter of the celiac trunk. No significant abnormality identified involving the bones in the chest abdomen or pelvis. IMPRESSION: No evidence of acute process. Small bilateral pleural effusions.
--- NOTE | 2019-04-05 11:38 | DI.CT_ITS ---
EXAM: CT HEAD WO CLINICAL HISTORY: syncope, cancer. TECHNIQUE: Noncontrast CT was performed. COMPARISON: No exams were available for comparison FINDINGS: Ventricular system is normal in appearance. Mild generalized cerebral atrophy. No evidence of acute intracranial hemorrhage, mass effect or midline shift. Orbital and temporal bone structures appear intact. IMPRESSION: No evidence of acute process. Please also see contrast-enhanced CT dictation.
--- NOTE | 2019-04-05 11:39 | NUR.NOTE ---
Nursing Note: BGL 143 Obtain VS for RN RUI
--- NOTE | 2019-04-05 11:41 | NUR.NOTE ---
Nursing Note: pt to ct with RN on monitor.
[2019-04-05] MEDS: Omnipaque 350 MG/ML 100 ML BTL IJ (12:02)
[2019-04-05] MEDS: Normal Saline 1,000 ML 1000 ML IV (12:09)
--- NOTE | 2019-04-05 12:12 | DI.CT_ITS ---
EXAM: CT HEAD W CLINICAL HISTORY: REQUESTED BY DR. URBAN FOR REASSESSMENT WITH CONTRAST TECHNIQUE: Imaging Protocol: Axial computed tomography images of the with coronal and sagittal refo rmatted images were created and reviewed. CONTRAST MATERIAL: Intravenous: Omnipaque 350 Contrast volume:125 ml contrast route:IV - Oral: yes COMPARISON: CT HEAD WO from 04/05/2019 FINDINGS: Ventricles and Extra axial spaces: Normal in size and morphology for the patient's age. Hemorrhage: None. Cerebral parenchyma: Normal. Enhancement: No suspicious enhancement. Midline shift: None. Brainstem/Cerebellum: Normal. Calvarium: Normal. Visualized Paranasal sinuses/Mastoids: Clear. IMPRESSION: Normal CT scan of the head. DATA REPOSITORY: All CT scans at this facility are submitted to the National Radiology Data Registry (NRDR) Dose Index Registry (DIR) with the [employer] (A[employer]). RADIATION OPTIMIZATION: All CT scans at this facility use at least one of these dose optimization te chniques: automated exposure control; mA and/or kV adjustment per patient size (includes targeted exa ms where dose is matched to clinical indication); or iterative reconstruction.
[2019-04-05 12:16] LABS: HGB 13.4 g/dL (13.5-17.5); Mean Corp. HGB Concentration 33.5 g/dL (32.0-36.0); Mean Corpuscular Hemoglobin 29.8 pg (27.0-33.0); Mean Corpuscular Volume 89.1 fL (80-95); Mean Platelet Volume 10.4 fL (8.0-11.0); Platelet Count 132 x1000/uL (130-400); RBC 4.49 m/cumm (4.50-6.00); RBC Distribution Width 14.5 % (11.8-14.1)
[2019-04-05 12:23] LABS: Absolute Eosinophil Count 0.34 k/cumm (0.0-0.7); Absolute Lymphocyte Count 0.83 k/cumm (1.2-3.4); Absolute Monocyte Count 0.59 k/cumm (0.11-0.7); Absolute Neutrophil Count 3.04 k/cumm (1.2-6.7); Diff Comment Manual Differential; RBC Morphology Normal
[2019-04-05 12:24] LABS: PTT Activated 25.1 sec (21.0-31.4); Prothrombin Time 9.7 sec (9.3-11.0)
[2019-04-05 12:31] LABS: ALT 28 U/L (16-63); AST 14 U/L (15-37); Albumin 3.8 g/dL (3.4-5.0); Alkaline Phosphatase 100 U/L (46-116); Anion Gap 12.9 mmol/L (3-11); BUN 22 mg/dL (7-18); Bilirubin, Total 0.4 mg/dL (0.2-1.0); CO2 25.1 mmol/L (21.0-32.0); Calcium 9.6 mg/dL (8.5-10.1); Chloride 101 mmol/L (98-107); Estimated GFR 46.27 (mL/min/1.73m2); Glucose 132 mg/dL (70-100); NT-proBNP 123 pg/mL; Potassium 4.7 mmol/L (3.5-5.1); Sodium 139 mmol/L (136-145); TSH (W/Ref FT4) 0.04 uIU/mL (0.36-3.74); Total Protein 7.8 g/dL (6.4-8.2)
[2019-04-05 12:33] LABS: Troponin I < 0.05 ng/mL (0.00-0.06)
--- NOTE | 2019-04-05 12:48 | NUR.NOTE ---
Nursing Note: Medication list requested from PCP
[2019-04-05 12:50] LABS: FREE T4 1.22 ng/dL (0.76-1.46)
--- NOTE | 2019-04-05 13:13 | ED.GENADUL_ITS ---
Discharge Plan Disposition Patient Disposition: HOME Condition: Stable Discharge Details Chief Complaint: Dizzy/Sync Clinical Impression: Syncope, Syncope, vasovagal, Dehydration Primary Care Provider: Danyell Burks ED Provider: Evan Mcneill Home Meds and New Rx's Prescriptions: Continued lisinopril [Zestril] 10 mg tablet 10 mg PO DAILY Qty: 90 RF: 3 simvastatin 40 mg tablet 40 mg PO DAILY Qty: 90 RF: 3 albuterol sulfate [ProAir HFA] 90 mcg/actuation HFA aerosol inhaler 2 puff Inhalation Q4H PRN Qty: 1 RF: 1 aspirin [Adult Low Dose Aspirin] 81 mg tablet,delayed release (DR/EC) 81 mg PO DAILY RF: 0 TYLENOL ARTHRITIS 650 MG TABLET.ER 1,300 mg PO Q8H PRN RF: 0 nitroglycerin 0.4 MG tablet, sublingual 0.4 mg Sublingual PRN Qty: 25 RF: 3 ezetimibe [Zetia] 10 MG tablet 5 mg PO DAILY Qty: 45 RF: 3 metoprolol succinate [Toprol XL] 25 mg tablet extended release 24 hr 12.5 mg PO DAILY Qty: 45 RF: 2 Combivent Respimat 20-100 mcg/actuation mist 2 puff IH QID RF: 0 pantoprazole [Protonix] 40 mg tablet,delayed release (DR/EC) 40 mg PO BID Qty: 180 RF: 3 prochlorperazine maleate 10 mg tablet 10 mg PO Q6H PRNRF: 0 CBD extract PO PRNRF: 0 sucralfate 1 gram Tablet See Rx Instructions .ROUTE .COMPLEX PRNRF: 0 benzonatate 200 mg Capsule 200 mg PO Q6H PRNRF: 0 lidocaine HCl [Xylocaine] 20 mg/mL (2 %) Solution See Rx Instructions .ROUTE .COMPLEX RF: 0 guaifenesin [Mucinex] 1,200 mg Tablet Extended Release 12hr 1,200 mg PO RF: 0 prochlorperazine maleate [Compazine] 10 mg Tablet 10 mg PO Q6H PRNRF: 0 Discharge Instructions Instructions: Syncope (ED) Additional Instructions: At this time you have had what I suspect to be vasovagal or neurocardiogenic syncope compounded by dehydration. It is certainly my recommendation that you stay overnight, however right I understand your wishes and we will respect this. As per our requirement if you are going home, please keep the Holter monitor on as directed. Please follow-up with your primary care provider on Wednesday or Wednesday morning. If at any time you feel uncomfortable at home please return immediately for admission. Please drink plenty of fluids. If you notice any worsening of your symptoms, or any new symptoms such as vomiting, diarrhea, fever, chills, shortness of breath, chest pain, numbness, weakness, or fainting , please return immediately to the emergency department for reevaluation. Please follow up with your primary care provider as soon as possible for reassessment and reevaluation. As always, it was a pleasure participating in your medical care today. Referrals: Danyell Burks DO [Primary Care Provider] - Discharge Data Discharge Date/Time-TO BE ENTERED AT DEPARTURE: 04/05/19 15:54 Medical Decision Making This is a 68-year-old male with a past medical history of abdominal aortic aneurysm, coronary artery disease with CABG in the , throat and lung cancer with lobectomy, who is currently receiving radiation therapy, he recently stopped chemotherapy 2 months ago. He just received radiation therapy today. He presents today for evaluation of syncope. Patient states that while he was receiving radiation at the cancer center he had an episode of syncope. Symptoms are often brought on by coughing, standing up quickly and then walking. This is been happening slightly more frequent as of late. He does admit to mild fatigue in association with this. Currently he denies any chest pain, numbness tingling weakness, headache or fever or chills. Physical exam demonstrates a notably unremarkable neurologic exam, no evidence of hypotension, no evidence of cerebellar infarct. Upon arrival he is notably tachycardic at 120 however by the time exam was finished he was down to a heart rate of 98. Mucous membranes are notably dry. This time differential is broad especially with a significant past medical history includes PE, complication from his aneurysm, ACS, dehydration, intracranial infarct among others. We will rehydrate, evaluate for his life-threatening etiologies, and reassess. 3 PM Patient's heart rate and blood pressure notably stable after fluid bolus. Laboratory work-up is returned relatively benign, no significant leukocytosis, hemoglobin stable, electrolytes normal, creatinine slightly elevated at 1.5, troponin x2 normal, TSH slightly low. Urinalysis benign. CT scan results of the head neck and aortic CT including PE study are negative for acute process, PE dissection or any acute aneurysm. Serial EKGs are unchanged with no evidence of STEMI or dysrhythmia. After the initial set of troponins and imaging studies came back benign and did discuss with the patient staying overnight made it unequivocally clear that he would be going home. We discussed the notable concerns and risks for this plan, he states that he has a good understanding of himself as well as what his goals and desires are. He understands these risks and that they could lead to premature or lifelong disability. Patient was very courteous with all this though. I did request that if he would be leaving against my recommendations that he did allow us to place a Holter monitor and get serial troponins and EKGs. Holter monitor has been placed by RT, and as stated serial troponins and EKGs are unremarkable and unchanged. Respecting the patient's wishes with he and his demonstrating a very clear understanding of the potential risks of this plan, as well as understanding the patient's desires patient will be discharged per his request. I had a very long sitdown conversation with the patient stating very clearly that if at any time he felt uncomfortable at home, his symptoms returned, or he felt like he was again going to pass out and he would need to return immediately for reassessment. We also requested that he follow-up promptly with his primary care provider in the next 72 hours for reassessment after the Holter monitor. Patient will be discharged respecting his wishes. I do feel that his symptoms are likely combination of the stress from radiation, notable dehydration, and potential mild neurocardiogenic syncope. At this time signs and symptoms are clinically inconsistent with aortic dissection, acute intercranial stroke, or ACS. I have extensively reviewed the treatment plan and discharge instructions with the patient and their family. I have addressed all patient concerns at this time. The patient and family was made aware of what symptoms to monitor for that would warrant a return to the emergency department. Discussed the plan with the patient and family, they demonstrate verbal understanding and agreement with our assessment and plan at this time. 11: 35 Rate 109, sinus tachycardia, intervals normal, no significant ST elevations or depressions, no T wave inversions, no Q waves EKG 15: 28 Rate 85, TN 208, sinus rhythm, first-degree AV block, QT normal, QRS normal, no significant ST elevations or depressions, no significant Q waves. No evidence of STEMI. Unchanged from prior EKG. FINDINGS: Patient reportedly has history of lung carcinoma. Images obtained through the chest show small bilateral pleural effusions, which are nonspecific. No intrapulmonary mass or consolidation. No significant mediastinal or hilar rayna opathy. No thoracic aortic aneurysm or dissection. No evidence of pulmonary embolic disease. The axillary and supraclavicular areas appear free of adenopathy. Liver, spleen, adrenals, kidneys and pancreas are unremarkable in appearance. Gallbladder and bile ducts are CT normal. No abdominal or pelvic adenopathy. No significant abdominal wall hernia. There is a repaired abdominal aortic aneu rysm with an aorto bi-iliac graft in place. No evidence of leak or obstruction. Major branches of the abdominal aorta appear patent although there is a stenosis of perhaps 80 percent of the luminal diameter of the celiac trunk. No significant abnormality identified involving the bones in the chest abdomen or pelvis. IMPRESSION: No evidence of acute process. Small bilateral pleural effusions. FINDINGS: Ventricles and Extra axial spaces: Normal in size and morphology for the patient's age. Hemorrhage: None. Cerebral parenchyma: Normal. Enhancement: No suspicious enhancement. Midline shift: None. Brainstem/Cerebellum: Normal. Calvarium: Normal. Visualized Paranasal sinuses/Mastoids: Clear. IMPRESSION: Normal CT scan of the head. HPI General Date/Time Provider Initiated Documentation: 04/05/19 11:38 . HPI Narrative: This is a 68-year-old male with a past medical history of abdominal aortic aneurysm, coronary artery disease with CABG in the , throat and lung cancer with lobectomy, who is currently receiving radiation therapy, he recently stopped chemotherapy 2 months ago. He just received radiation therapy today. He presents today for evaluation of syncope. Patient states that while he was receiving radiation at the cancer center he had an episode of syncope. This is actually happened a few times over the last week or so. He has had previous work-ups for this. Patient's symptoms often occur when he is having a coughing episode or when he stands up quickly and then starts walking. These episodes of fainting occur with 2 subsequent components, he states that if he is lying down he usually just becomes slightly unresponsive for time, but is still breathing per his . He states that if he is standing upright usually there is slowly slumped to the ground for you just stand there with a glazed look for a few seconds. The symptoms always resolve on their own completely with time. Currently he admits to mild dizziness, but denies any significant headache, numbness, tingling, focal weakness, chest pain, chest heaviness, chest tig htness, bandlike sensation on his chest, pleuritic chest pain, nausea, vomiting, diarrhea. He denies any other complaints at this time. No other modifying factors. He does state specifically that this feels nothing like when he had his heart attack in the past. He denies any history of blood clots. He denies a tearing sensation in his chest. Related Data Home Medications Medication Instructions Recorded Confirmed Tylenol Arthritis 1,300 mg PO Q8H PRN tab-cap 12/23/12 04/05/19 nitroglycerin 0.4 mg SUBLINGUAL PRN #25 tab-cap 01/18/17 03/31/19 ezetimibe [Zetia] 5 mg PO DAILY #45 tab-cap 01/21/18 04/05/19 metoprolol succinate 25 mg 12.5 mg PO DAILY #45 tab 07/22/18 04/05/19 tablet,extended release 24 hr ipratropium 20 mcg-albuterol 100 2 puff IH QID gm 08/09/18 04/05/19 mcg/actuation mist for inhalation aspirin 81 mg tablet,delayed 81 mg PO DAILY 10/21/18 04/05/19 release lisinopril 10 mg tablet 10 mg PO DAILY #90 tab 01/31/19 04/05/19 albuterol sulfate 90 mcg/actuation 2 puff INHALATION Q4H PRN #1 03/01/19 03/31/19 aerosol inhaler inhaler simvastatin 40 mg tablet 40 mg PO DAILY #90 tab-cap 03/01/19 04/05/19 pantoprazole 40 mg tablet,delayed 40 mg PO BID #180 tab-cap 03/08/19 04/05/19 release CBD extract PO PRN 03/28/19 03/31/19 prochlorperazine maleate 10 mg 10 mg PO Q6H PRN 03/28/19 03/31/19 tablet benzonatate 200 mg PO Q6H PRN 04/05/19 04/05/19 guaifenesin [Mucinex] 1,200 mg PO 04/05/19 lidocaine HCl [Xylocaine] See Rx Instructions .ROUTE .COMPLEX 04/05/19 04/05/19 prochlorperazine maleate 10 mg PO Q6H PRN 04/05/19 04/05/19 [Compazine] sucralfate See Rx Instructions .ROUTE 04/05/19 04/05/19 .COMPLEX PRN Previous Rx's Medication Instructions Recorded ezetimibe [Zetia] 5 mg PO DAILY #45 tab-cap 01/21/18 metoprolol succinate 25 mg 12.5 mg PO DAILY #45 tab 07/22/18 tablet,extended release 24 hr lisinopril 10 mg tablet 10 mg PO DAILY #90 tab 01/31/19 albuterol sulfate 90 mcg/actuation 2 puff INHALATION Q4H PRN #1 03/01/19 aerosol inhaler inhaler simvastatin 40 mg tablet 40 mg PO DAILY #90 tab-cap 03/01/19 pantoprazole 40 mg tablet,delayed 40 mg PO BID #180 tab-cap 03/08/19 release Allergies Allergy/AdvReac Type Severity Reaction Status Date / Time clopidogrel Allergy Unknown SKIN RASH Verified 03/31/19 14:01 esomeprazole magnesium AdvReac Unknown gi upset Verified 03/31/19 14:01 [From Nexium] Penicillins AdvReac Unknown gi upset Verified 03/31/19 14:01 General Stated Complaint: Dizzy/Sync BRYCE: 2 Review of Systems Review of Systems ROS Unobtainable: All systems reviewed & are unremarkable except as noted in HPI and below PFSH Medical History (Updated 01/24/19 @ 11:00 by Florentino Mcnamara) Adenomatous colon polyp (Acute 01/13/12) tubular adenoma [facility] 01/05/06, rpt 5 yr Arteriosclerotic cardiovascular disease (ASCVD) (Chronic 01/13/12) CABG 1989; s/p stents 1999, 200409/09/18-Stress Echocardiogram [facility] ASCVD (arteriosclerotic cardiovascular disease) (Chronic 01/13/12) CABG 1989; s/p stents 1999, 2004 Benign neoplasm of colon (Acute 01/13/12) tubular adenoma [facility] [place] 01/05/06, rpt 5 yr CAD (coronary artery disease) (Chronic) Esophageal reflux (Chronic 01/26/06) EGD [facility]: GERD: This is well-controlled with daily PPI. Would continue indefinitely; path neg for metaplasia Gastroesophageal reflux disease without esophagitis (Chronic 01/26/06) EGD [facility]: GERD: This is well-controlled with daily PPI. 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 04/14/18 Flexible Fiberoptic Laryngoscopy- No evidence of recurrance or second primary Other abnormal glucose (Acute 02/22/13) abnormal fasting sugar (111 in 2012) (114 in 2013) Shortness of breath (Acute) LUNG CA ID'd .. now s/p surgery 10/2018. > Severe dyspnea .. with report of intolerance and feeling worse after some of his albuterol inhaler attempts .. Prompted to call ambulance for ED eval 2' possible reaction, tachy with NEB Tx. Sent to Ed, appreciate attention. NEB, CXR, Labs .. Smoker unmotivated to quit (Chronic 04/12/14) >50 pack years, despite CAD and Laryngeal cancer; QUIT SMOKING POST DYSPNEIC EPISODE 06/2018.... Surgical History (Updated 12/08/18 @ 14:42 by Sadie Lopez RN) Endoleak post (EVAR) endovascular aneurysm repair (Acute 11/30/18) endovascular repair AAA (03/07/13) Dr Dsouza, [facility], yearly f/u with [facility] Social History Smoking/Tobacco Use Status: Former Tobacco Use Quit Date: 06/29/18 Alcohol Intake: former Drug use: Never Substance use type: does not use Household members: spouse Housing: house What type of physical activity do you participate in: other Details: physically active qd Do you feel safe at home: Yes Do you feel safe in your relationship?: Yes Exam Narrative Exam Narrative: 1.Const: Well-nourished, Well-developed, appearing stated age 2.Eyes: PERRL, no conjunctival injection, and symmetrical lids. 3.ENT: Atraumatic external nose and ears. Moist MM. Neck: Symmetric, trachea midline, No thyromegaly. 4.CVS: +S1/S2, No murmurs or gallops. Peripheral pulses 2+ and equal in all extremities. Brisk capillary refill in all extremities. 5.RESP: Unlabored respiratory effort. Clear to auscultation bilaterally. No wheezes rales or rhonchi 6.GI: Soft, Nontender/Nondistended, No hepatosplenomegaly. No guarding or rebound. 7.MSK: Normocephalic/Atraumatic, Extremities w/o deformity or ttp No cyanosis or clubbing, Normal movement of all extremities 8.Skin: Warm, Dry. No rashes or lesions. 9.Neuro: guest relations manager II-XII grossly intact. Sensation grossly intact, no focal neurologic deficits. All 6 cardinal planes of vision are fully intact. No evidence of rotatory or vertical nystagmus. The patient demonstrated a normal bzuomh-lubf-chvujb, good dexterity. There was no evidence of dysdiadochokinesia. Patient was able to ambulate without difficulty. There was no wide-based gait. Romberg, and golw-ke-merv are both normal on testing. Sensation was intact bilaterally as well as muscle strength bilaterally for all extremities. Patient was able to verbalize butter cup with no slurring, or miss pronunciation. cerebellar function testing is normal. The patient demonstrates a normal hints exam with no findings concerning for a central event. No vertical nystagmus. The head impulse test is negative for any significant central abnormality. Normal test of skew. No suggestion of a central cerebellar event. 10.Psych: (AAO) x3. Appropriate mood and affect Course Vital Signs Vital signs: Vital Signs Pulse 112 H 04/05/19 11:26 Respiratory Rate 04/05/19 11:26 Blood Pressure 141/86 H 04/05/19 11:26 Pulse Oximetry 99 04/05/19 11:26 Temperature 36.7 C 04/05/19 11:35 Pulse 92 H 04/05/19 12:46 Pulse 89 04/05/19 12:50 Respiratory Rate 24 04/05/19 12:50 Respiratory Effort Non-Labored 04/05/19 12:09 Blood Pressure 127/74 04/05/19 12:46 Blood Pressure Mean 86 04/05/19 12:46 Blood Pressure Position Sitting 04/05/19 11:35 Pulse Oximetry 98 04/05/19 12:50 Oxygen Delivery Method Nasal Cannula 04/05/19 11:35 Oxygen Flow Rate 4 04/05/19 11:35 Lab/Test Results Lab/Test Results: Laboratory Tests Range/Units 04/05/19 04/05/19 04/05/19 11:40 11:40 11:40 WBC (4.4-10.8) k/cumm 4.90 RBC (4.50-6.00) m/cumm 4.49 L Hgb (13.5-17.5) g/dL 13.4 L Hct (40.0-50.0) % 40.0 MCV (80-95) fL 89.1 MCH (27.0-33.0) pg 29.8 MCHC (32.0-36.0) g/dL 33.5 RDW (11.8-14.1) % 14.5 H Plt Count (130-400) x1000/uL 132 MPV (8.0-11.0) fL 10.4 Immature Gran % 0.0 Neutrophils % 62.0 Lymphocytes % 17.0 Monocytes % 12.0 Eosinophils % 7.0 Basophils % 2.0 Absolute Neutrophils (1.2-6.7) k/cumm 3.04 Absolute Lymphocytes (1.2-3.4) k/cumm 0.83 L Absolute Monocytes (0.11-0.7) k/cumm 0.59 Absolute Eosinophils (0.0-0.7) k/cumm 0.34 Absolute Basophils (0.0-0.2) k/cumm 0.10 Differential Comment Manual differential RBC Morphology Normal PT (9.3-11.0) sec 9.7 INR (0.9-1.1) 1.0 APTT (21.0-31.4) sec 25.1 Sodium (136-145) mmol/L 139 Potassium (3.5-5.1) mmol/L 4.7 Chloride (98-107) mmol/L 101 Carbon Dioxide (21.0-32.0) mmol/L 25.1 Anion Gap (3-11) mmol/L 12.9 H BUN (7-18) mg/dL 22 H Creatinine (0.70-1.30) mg/dL 1.50 H Estimated GFR/1.73 m2 (mL/min/1.73m2) 46.27 Glucose (70-100) mg/dL 132 H Calcium (8.5-10.1) mg/dL 9.6 Total Bilirubin (0.2-1.0) mg/dL 0.4 AST (15-37) U/L 14 L ALT (16-63) U/L 28 Alkaline Phosphatase (46-116) U/L 100 Troponin I (0.00-0.06) ng/mL < 0.05 NT-Pro-B Natriuret Pep ( - 299) pg/mL 123 Total Protein (6.4-8.2) g/dL 7.8 Albumin (3.4-5.0) g/dL 3.8 TSH (0.36-3.74) uIU/mL 0.04 L Free T4 (0.76-1.46) ng/dL 1.22
[2019-04-05 13:22] LABS: Bilirubin Negative (Negative); Blood Negative (Negative); Clarity Clear (Clear); Glucose Negative (Negative); Ketones Negative (Negative); Leukocyte Esterase Negative (Negative); Nitrite Negative (Negative); Specific Gravity <= 1.005 (1.005-1.025); Urobilinogen 0.2 EU/dL (Up TO 0.2)
--- NOTE | 2019-04-05 15:00 | NUR.NOTE ---
Nursing Note:pt resting in stretcher, no signs of distress. set up for lunch, with permission of DO Mcneill
[2019-04-05 15:03] LABS: Troponin I < 0.05 ng/mL (0.00-0.06)
== END 2019-04-05 15:54 | disposition home or self-care (01) ==
PROVIDERS: Emergency Provider Student in an Organized Health Care Education/Training Program; PCP Student in an Organized Health Care Education/Training Program
DX: R42 Dizziness and giddiness (principal); R55 Syncope and collapse; E86.0 Dehydration; C34.90 Malignant neoplasm of unspecified part of unspecified bronchus or lung; I10 Essential (primary) hypertension; J44.9 Chronic obstructive pulmonary disease, unspecified; Z87.891 Personal history of nicotine dependence
CPT/HCPCS: 36415; 71275; 74175; 80053; 93005; 96360; 99285; 70450; 70460; 81003; 83880; 84439; 84443; 84484; 85025; 85610; 85730; 93010; 93225; J3490

== ENCOUNTER 2019-04-06 13:33 | Outpatient (RCR) | payer MEDICARE, BC, SELFPAY | END 2019-04-17 23:59 | disposition home or self-care (01) | LOC: PRC 13:33 | PROVIDERS: PCP Student in an Organized Health Care Education/Training Program; Visit Provider Family Medicine | DX: J44.9 Chronic obstructive pulmonary disease, unspecified (principal); Z51.89 Encounter for other specified aftercare ==

== ENCOUNTER 2019-04-07 15:38 | Outpatient (CLI) | payer MEDICARE, BC, SELFPAY ==
--- NOTE | 2019-04-11 12:37 | HOLTER_ITS ---
DATE OF DICTATION: April 10, 2019 48-HOUR STUDY Baseline rhythm sinus. Rare single PAC. Four bursts of SVT, longest 5-beat duration, fastest 143 bpm. Frequent single PVC, 978 total, 0.4% of total beat. 18 couplet. 1 triplet. No VT. No significant bradycardia. SYMPTOMS: Dizziness noted once during sinus rhythm 91 bpm. Average heart rate 89 bpm, range 68-152 bpm.
== END 2019-04-07 15:58 ==
PROVIDERS: PCP Student in an Organized Health Care Education/Training Program; Visit Provider Student in an Organized Health Care Education/Training Program
DX: I47.1 Supraventricular tachycardia (principal); I49.3 Ventricular premature depolarization
CPT/HCPCS: 93226

== ENCOUNTER 2019-04-10 19:32 | Outpatient (CLI) | payer MEDICARE, BC, SELFPAY | END 2019-04-10 19:52 | PROVIDERS: PCP Student in an Organized Health Care Education/Training Program; Referring Provider Student in an Organized Health Care Education/Training Program; Visit Provider Internal Medicine Interventional Cardiology | DX: I47.1 Supraventricular tachycardia (principal); I49.3 Ventricular premature depolarization | CPT/HCPCS: 93227 ==

== ENCOUNTER 2019-04-18 14:33 | Outpatient (RCR) | payer MEDICARE, BC, SELFPAY ==
--- NOTE | 2019-05-16 16:35 | MCONE_ITS ---
Date of service: 05/16/19 Time of Service: 16:35 Assessment and Plan Assessment and plan (1) Seizure: Status: Acute Assessment and plan: He appears to be having a complex partial seizure that may be related to the paroxysmal cough that he has. He is unresponsive for a brief period of time, followed by a period of post ictal drowsiness and confusion. This may be related to his stage IIIb lung cancer or his history of laryngeal cancer. He had a head CT at [facility] on 04/05/2019 that showed no abnormality. I spoke with Dr. Constantino from neurology. She agreed that this could be a seizure versus a syncopal episode. Given the tachycardia during the episode it seems less likely to be vasovagal. She agreed with starting Keppra 1000 mg p.o. load followed by 500 mg p.o. twice daily. Will arrange for outpatient MRI with and without contrast and EEG testing. She said she could see him on an urgent basis on , 05/18/2019. (2) Syncope and collapse: Status: Acute Assessment and plan: He has had several of these episodes which in the past had been attributed to dehydration, pneumonia. Given the events today that were witnessed it appears to be more related to seizure. He did not become hypoxic or bradycardic during the episode. (3) Malignant neoplasm of overlapping sites of left lung: Status: Acute Assessment and plan: Given new onset seizure there is a grave concern about the possibility of brain metastases or cerebral irritation. He is receiving chemotherapy and radiation therapy though it seems unlikely that this would be precipitating seizures. Diagnostic testing is pending. Follow-up with neurology. He has an appointment with his PCP tomorrow. History of Present Illness History of Present Illness Chief Complaint: Near syncope/seizure Narrative: This is a 68-year-old man that came for pulmonary rehabilitation consult today. During his 6-minute walk test he suddenly became unresponsive and slowly slumped to the floor. He would not respond to verbal commands, stared straight ahead. He was placed in a wheelchair and brought back to the pulmonary rehab unit. When I arrived to evaluate him he was awake and alert. He answered questions appropriately. His pulse was 112, his oxygen saturation was 98% on room air. He had no respiratory difficulty. Soon thereafter he had a short burst of coughing followed by an episode where he was not responsive to verbal commands. He became quite stiff, rigid. After about 30 seconds he began to look around, he was confused, he stated I am not right. After about 2 or 3 minutes he was able to converse and answer questions though he still felt fuzzy. He described a tight/painful feeling in the occipital region of his head. No other visual complaints. His motor function returned back to normal. He was able to ambulate on his own to the bathroom. He did not have incontinence. Review of Systems Narrative: Patient states he was feeling fine. His describes episodes similar to this 3 previous times in the last 7 to 10 days. There are no associated palpitations, chest pains. These episodes are typically preceded by a coughing episode. He has not been troubled by upper respiratory infection or any other intercurrent illness. PFSH Medical History Adenomatous colon polyp (Acute 01/13/12) [place] [facility] [place] 5 [place] Arteriosclerotic cardiovascular disease (ASCVD) (Chronic 01/13/12) CABG 1989; s/p stents 1999, 200409/09/18-Stress Echocardiogram [facility] [place]VD (arteriosclerotic cardiovascular disease) (Chronic 01/13/12) CABG 1989; s/p stents 1999, 2004 Benign neoplasm of colon (Acute 01/13/12) [place] [facility] [place] rpt 5 yr CAD (coronary artery disease) (Chronic) Gastroesophageal reflux disease without esophagitis (Chronic 01/26/06) EGD [facility]: GERD: This is well-controlled with daily PPI. 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 04/14/18 Flexible Fiberoptic Laryngoscopy- No evidence of recurrance or second primary Other abnormal glucose (Acute 02/22/13) abnormal fasting sugar (111 in 2012) (114 in 2013) Shortness of breath (Acute) LUNG CA ID'd .. now s/p surgery 10/2018. > Severe dyspnea .. with report of intolerance and feeling worse after some of his albuterol inhaler attempts .. Prompted to call ambulance for ED eval 2' possible reaction, tachy with NEB Tx. Sent to Ed, appreciate attention. NEB, CXR, Labs .. Smoker unmotivated to quit (Chronic 04/12/14) >50 pack years, despite CAD and Laryngeal cancer; QUIT SMOKING POST DYSPNEIC EPISODE 06/2018.... Surgical History Endoleak post (EVAR) endovascular aneurysm repair (Acute 11/30/18) endovascular repair AAA (03/07/13) Dr Dsouza, [facility] [place], [place] f/u with CTA Family History Mother , kidney failure at age 78. Renal disease Father , murdered at age 42. No problems noted. Social History Smoking/Tobacco Use Status: Former Tobacco Use Quit Date: 06/29/18 Alcohol Intake: former Drug use: Never Substance use type: does not use Household members: spouse Housing: house What type of physical activity do you participate in: other Details: physically active qd Do you feel safe at home: Yes Do you feel safe in your relationship?: Yes Exam Narrative Exam Narrative: On exam he is sitting in a wheelchair. He makes good eye contact and his speech content is correct and lucid. He showed no evidence of m otor dysfunction including ambulating independently. As noted in HPI he then went on to have an episode where he was not responsive though his eyes were open. He appeared to have a gaze fixed straightahead and was unable to follow any commands. His motor tone was somewhat rigid though there was no active tonic-clonic activity noted. This lasted for about 30 seconds and then he gradually began to wake up. He was groggy and unable to answer questions coherently for a few minutes but gradually cleared on his own. Within about 5 to 10 minutes he was able to ambulate to the bathroom without difficulty. He does have a paroxysm of an occasional cough that appears to be nonproductive. Otherwise no respiratory distress. Pulse was in the 100-1 10 range, increases to 145 during the episode. On the monitor it appears to be a sinus tachycardia. His oxygen saturation was well maintained at 95 to 98% including during the episode.
--- NOTE | 2019-05-16 16:50 | PR3E_ITS ---
Nursing Note: presented to pulmonary rehab for his pre program intake appointment. He presented with his . Patient completed all of the necessary surveys and signed consents. The patient and his spent time discussing his recent medical concerns as he has a long medical history that is recent for Stage 3 lung CA w/ lobectomy and months of chemotherapy and radiation treatments. His also reported that patient has been passing out at home when he gets to coughing but that these episodes are not predictable. The patient and his stated that they have reported these concerns to multiple physicians. After the intake interview patient was asked if he wanted to complete a 6 minute walk test today and he consented to that. Prior to his 6 minute walk his BP was 107/66, HR 102, Oxygen saturation 99% on room air. An earlobe oximeter was applied and patient began his walk in the hallway. Patient verbalized slight dizziness but stated he was okay near the middle of his walk. He tolerated the walk up until the last minute when patient began coughing and swaying in the hallway. Staff approached patient, he grabbed the hallway railing, and staff assisted him to his knees. Patient?s heart rate on the monitor was noted to be in the 140's, oxygen saturations maintained 99%. Patient continued to cough and respirations were fast. A 3 lead skin specialist was applied that showed sinus tachycardia. We asked the patient if he would go to the emergency room but he refused. and were both contacted to come see the patient. It did not appear that patient lost consciousness during this episode but he was tremulous, his face was flushed, and did not appear coherent. Once patients breathing returned to normal and his heart rate settled he was assisted into the wheelchair. presented to cardiac rehab to examine the patient and speak with his . While was present the patient had another coughing spell and again his HR went to 145 bpm, his eyes were open, he was starring and not responding to questions. did witness this event and subsequent follow up orders, consults, and medications were made based on his assessment prior to the patient going home. Please refer to 's notes for follow up and physician assessment specifics.
== END 2019-05-16 16:03 | disposition home or self-care (01) ==
LOC: PRC 14:33
PROVIDERS: PCP Student in an Organized Health Care Education/Training Program; Visit Provider Family Medicine
DX: J44.9 Chronic obstructive pulmonary disease, unspecified (principal); Z51.89 Encounter for other specified aftercare
CPT/HCPCS: 99253; 99214

== ENCOUNTER 2019-05-17 13:54 | Inpatient (IN) | payer MEDICARE, BC, SELFPAY ==
[2019-05-17] VITALS (52 sets, daily range): BP systolic 90–145; BP diastolic 52–79; PULSE 76–107; RESP 1–32; TEMP 35.7–36.7; O2SAT 92–98
--- NOTE | 2019-05-17 14:02 | ED.GENADUL_ITS ---
Discharge Plan Disposition Condition: Improving Discharge Details Chief Complaint: Dizzy/Sync Admit Date/Time: 05/17/19 17:31 Admit Provider: Isaac Grey Attending Provider: Isaac Grey Primary Care Provider: Danyell Burks ED Provider: Mercy Carlson Discharge Instructions Activity:: No strenuous activity. No driving, climbing, operating heavy machinery. Equipment/Supplies:: No Equipment Needed Diet:: Low Sodium Discharge Orders Discharge Orders: Discharge Order (Routine); Ordered 05/19/19 Ordered By: Isaac Grey Discharge Data Discharge Date/Time-TO BE ENTERED AT DEPARTURE: 05/17/19 18:30 Medical Decision Making Colin Bradley is a 68 y/o man with history of laryngeal cancer 2005 now in remission, lung cancer currently being treated with radiation status post chemotherapy and lung resection, COPD, GERD, hyperlipidemia, coronary artery disease, aortic aneurysm who presented to the emergency department with periods of unresponsiveness occurring after coughing spells, ongoing for months but now episodes seem to be increasing. Concern for syncope versus seizure versus other, unclear etiology. Plan for EKG, CTA head and neck, screening labs, patient known to neurology with prior plan for outpatient MRI and EEG for this issue, plan to admit for further evaluation. CTA negative. Clinical impression: Altered mental status Disposition: [facility] inpatient Medical Records Medical records reviewed: Yes I reviewed the patient's medical records. Imaging Data Radiologic Study: Attestation: I personally reviewed and interpreted this imaging study as follows: Radiologist's impression: Exam: CT Angiography Head With Contrast Exam date and time: 05/17/2019 3:50 PM Clinical history: 68 years old, male; Other: Syncope vs. Seizure after coughing ? vascular abnormality TECHNIQUE: Imaging protocol: Computed tomography angiography of the head with intravenous contrast. 3D rendering: MIP reconstructed images were created and reviewed. Radiation optimization: All CT scans at this facility use at least one of these dose optimization techniques: automated exposure control; mA and/or kV adjustment per patient size (includes targeted exams where dose is matched to clinical indication); or iterative reconstruction. Contrast material: OMNIPAQUE 350; Contrast volume: 100 ml; Contrast route: IV; COMPARISON: CT HEAD W 04/05/2019 12:24 PM FINDINGS: Right internal carotid artery: Calcific atherosclerotic changes of the intracranial right internal carotid artery without evidence of hemodynamically significant stenosis. Right anterior cerebral artery: No occlusion or significant stenosis. No aneurysm. Right middle cerebral artery: No occlusion or significant stenosis. No aneurysm. Right posterior cerebral artery: No occlusion or significant stenosis. No aneurysm. Right vertebral artery: No occlusion or significant stenosis. No aneurysm. Left internal carotid artery: Calcific atherosclerotic changes of the intracranial left internal carotid artery without evidence of hemodynamically significant stenosis. Left anterior cerebral artery: No occlusion or significant stenosis. No aneurysm. Left middle cerebral artery: No occlusion or significant stenosis. No aneurysm. Left posterior cerebral artery: No occlusion or significant stenosis. No aneurysm. Left vertebral artery: No occlusion or significant stenosis. No aneurysm. Basilar artery: No occlusion or significant stenosis. No aneurysm. IMPRESSION: No intracranial arterial occlusion or significant stenosis. Exam: XR Chest, 2 Views Exam date and time: 05/17/2019 2:05 PM Clinical history: 68 years old, male; Cough. History of lung cancer per prior CT thorax report from 04/05/2018. TECHNIQUE: Imaging protocol: XR of the chest Views: 2 views. COMPARISON: CR XR PORTABLE CHEST AP 02/10/2019 1:26 PM FINDINGS: Lungs: Left perihilar air space opacities. Possible small left pleural effusion with adjacent atelectasis. Heart/Mediastinum: Cardiac and mediastinal silhouettes are unremarkable. Bones/joints: Median sternotomy wires in place. No acute fracture. IMPRESSION: 1. Left perihilar air space opacities. Findings concerning for pneumonia and/or recurrent mass, particularly given the history of lung cancer. Recommend correlation with chest CT. 2. Possible small left pleural effusion with adjacent atelectasis. Lab Data Lab results reviewed: Yes I reviewed the patient's lab results. Labs: Laboratory Tests Range/Units 05/17/19 05/17/19 14:05 14:05 WBC (4.4-10.8) k/cumm 5.72 RBC (4.50-6.00) m/cumm 4.07 L Hgb (13.5-17.5) g/dL 12.3 L Hct (40.0-50.0) % 36.8 L MCV (80-95) fL 90.4 MCH (27.0-33.0) pg 30.2 MCHC (32.0-36.0) g/dL 33.4 RDW (11.8-14.1) % 13.3 Plt Count (130-400) x1000/uL 185 MPV (8.0-11.0) fL 9.3 Immature Gran % 0.5 Neutrophils % 57.6 Lymphocytes % 16.4 Monocytes % 15.7 Eosinophils % 9.1 Basophils % 0.7 Absolute Neutrophils (1.2-6.7) k/cumm 3.29 Absolute Lymphocytes (1.2-3.4) k/cumm 0.94 L Absolute Monocytes (0.11-0.7) k/cumm 0.90 H Absolute Eosinophils (0.0-0.7) k/cumm 0.52 Absolute Basophils (0.0-0.2) k/cumm 0.04 Sodium (136-145) mmol/L 138 Potassium (3.5-5.1) mmol/L 4.2 Chloride (98-107) mmol/L 102 Carbon Dioxide (21.0-32.0) mmol/L 26.7 Anion Gap (3-11) mmol/L 9.3 BUN (7-18) mg/dL 23 H Creatinine (0.70-1.30) mg/dL 1.27 Estimated GFR/1.73 m2 (mL/min/1.73m2) 56.07 Glucose (70-100) mg/dL 124 H Calcium (8.5-10.1) mg/dL 9.4 Total Bilirubin (0.2-1.0) mg/dL 0.2 AST (15-37) U/L 16 ALT (16-63) U/L 37 Alkaline Phosphatase (46-116) U/L 96 Troponin I (0.00-0.06) ng/mL < 0.05 Total Protein (6.4-8.2) g/dL 7.5 Albumin (3.4-5.0) g/dL 3.4 ECG Data Attestation: I personally reviewed and interpreted this ECG (s) as follows: Interpretation: EKG shows sinus rhythm 88, normal axis, no acute ischemic changes, nondiagnostic EKG HPI General Mode of arrival: ambulatory . Date/Time Provider Initiated Documentation: 05/17/19 14:00 . Limitations to Documentation: no limitations . Information obtained by: patient, family, RN notes reviewed and old records reviewed . HPI Narrative: Colin Bradley is a 68 y/o man with history of laryngeal cancer 2005 now in remission, lung cancer currently being treated with radiation status post chemotherapy and lung resection, COPD, GERD, hyperlipidemia, coronary artery disease, aortic aneurysm presenting to the emergency department with altered mental status after coughing. I did speak with his PCP today who relates me that patient has been having episodes of syncope versus seizure after coughing spells for several months, however the these seem to be more progressive. She states that patient was in pulmonary rehab yesterday when he had a coughing episode, and then went into a sort of trance that was of unclear etiology. Dr. Cooper was called and Dr. Constantino of neurology was involved. They had plans to schedule patient for outpatient MRI and EEG, and patient was loaded with AG&P at the time. Patient saw his PCP today for breathing treatments, and during nebulizer treatment patient had 4 similar episodes within 6 or 7 minutes of coughing spells followed by trancelike episodes that each lasted for less than a minute. Patient's reports that while these episodes have been ongoing for several months, they do seem to be increasing in frequency. Patient has also been reporting pain in the back of his neck and the back of his head over the past few days. Patient reports that cough is chronic and unchanged. He denies fevers, shortness of breath, vomiting, diarrhea, any other pain other than neck and head pain that is mild, not the worst headache of his life. Patient has had no tongue biting or incontinence during events, and he does not appear to lose consciousness but he does become unresponsive. His eyes are open during these episodes. No other recent illness, has been eating and drinking as usual. Related Data Home Medications Medication Instructions Recorded Confirmed Tylenol Arthritis 1,300 mg PO Q8H PRN tab-cap 12/23/12 05/24/19 nitroglycerin 0.4 mg SUBLINGUAL PRN #25 tab-cap 01/18/17 05/24/19 ipratropium 20 mcg-albuterol 100 2 puff IH QID gm 08/09/18 05/24/19 mcg/actuation mist for inhalation aspirin 81 mg tablet,delayed 81 mg PO DAILY 10/21/18 05/24/19 release lisinopril 10 mg tablet 10 mg PO DAILY #90 tab 01/31/19 05/24/19 albuterol sulfate 90 mcg/actuation 2 puff INHALATION Q4H PRN #1 03/01/19 05/24/19 aerosol inhaler inhaler simvastatin 40 mg tablet 40 mg PO DAILY #90 tab-cap 03/01/19 05/24/19 pantoprazole 40 mg tablet,delayed 40 mg PO BID #180 tab-cap 03/08/19 05/24/19 release CBD extract PO PRN 03/28/19 05/24/19 benzonatate 200 mg PO Q6H PRN 04/05/19 05/24/19 lidocaine HCl [Xylocaine] See Rx Instructions .ROUTE .COMPLEX 04/05/19 05/24/19 sucralfate See Rx Instructions .ROUTE 04/05/19 05/24/19 .COMPLEX PRN ezetimibe 10 mg tablet 5 mg PO DAILY #45 tab-cap 04/24/19 05/24/19 metoprolol succinate 25 mg 12.5 mg PO DAILY #45 tab 04/27/19 05/24/19 tablet,extended release 24 hr magnesium oxide 400 mg (241.3 mg 400 mg PO DAILY #90 tab 05/15/19 05/24/19 magnesium) tablet dextromethorphan-guaifenesin 10 ml PO Q4H PRN PRN #118 ml 05/19/19 05/24/19 prednisone 20 mg tablet 60 mg PO DAILY tab 05/24/19 05/24/19 Previous Rx's Medication Instructions Recorded lisinopril 10 mg tablet 10 mg PO DAILY #90 tab 01/31/19 albuterol sulfate 90 mcg/actuation 2 puff INHALATION Q4H PRN #1 03/01/19 aerosol inhaler inhaler simvastatin 40 mg tablet 40 mg PO DAILY #90 tab-cap 03/01/19 pantoprazole 40 mg tablet,delayed 40 mg PO BID #180 tab-cap 03/08/19 release ezetimibe 10 mg tablet 5 mg PO DAILY #45 tab-cap 04/24/19 metoprolol succinate 25 mg 12.5 mg PO DAILY #45 tab 04/27/19 tablet,extended release 24 hr magnesium oxide 400 mg (241.3 mg 400 mg PO DAILY #90 tab 05/15/19 magnesium) tablet dextromethorphan-guaifenesin 10 ml PO Q4H PRN PRN #118 ml 05/19/19 Allergies Allergy/AdvReac Type Severity Reaction Status Date / Time clopidogrel Allergy Unknown SKIN RASH Verified 05/24/19 10:43 esomeprazole magnesium AdvReac Unknown gi upset Verified 05/24/19 10:43 [From Nexium] Penicillins AdvReac Unknown gi upset Verified 05/24/19 10:43 General Stated Complaint: Dizzy/Sync BRYCE: 3 Review of Systems Narrative: Constitutional: denies fevers Eyes: denies eye pain ENT: denies facial pain, dental pain, sore throat Cardiovascular: denies chest pain, edema Respiratory: denies SOB, reports chronic unchanged cough GI: denies abdominal pain, vomiting, diarrhea : denies flank pain MSK: denies back pain, arthralgias, myalgias Skin: denies rash Neuro: denies numbness, weakness, reports headache, periods of unresponsiveness per HPI PFSH Medical History Adenomatous colon polyp (Acute 01/13/12) tubular adenoma [facility] [place] 01/05/06, rpt 5 yr Arteriosclerotic cardiovascular disease (ASCVD) (Chronic 01/13/12) CABG 1989; s/p stents 1999, 200409/09/18-Stress Echocardiogram [facility] [place] CAD (coronary artery disease) (Chronic) Chronic coughing (Chronic) ? due to vagal nerve irritation? COPD (chronic obstructive pulmonary disease) (Chronic ~08/09/18) Mild. PFT (Pulm, [facility] [place], 08/08/18). Need another PFT, post lung resection [ ] 11/10/18 Foot fracture, right (Acute 10/2018) XR showing possible Fx, non-displaced [ ] CT recomm. Gastroesophageal reflux disease without esophagitis (Chronic 01/26/06) EGD ME: GERD: This is well-controlled with daily PPI. 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 Shortness of breath (Acute) LUNG CA ID'd .. now s/p surgery 10/2018. > Severe dyspnea .. with report of intolerance and feeling worse after some of his albuterol inhaler attempts .. Prompted to call ambulance for ED eval 2' possible reaction, tachy with NEB Tx. Sent to Ed, appreciate attention. NEB, CXR, Labs .. Smoker unmotivated to quit (Resolved 04/12/14) >50 pack years, despite CAD and Laryngeal cancer; QUIT SMOKING POST DYSPNEIC EPISODE 06/2018.... Surgical History Endoleak post (EVAR) endovascular aneurysm repair (Acute 11/30/18) endovascular repair AAA (03/07/13) Dr Dsouza, [facility] [place], yearly f/u with CTA History of throat surgery (Acute) S/P CABG x 4 (Acute) S/P lobectomy of lung (Acute) Status post radiation therapy (Chronic) 25 tx; Dr Trammell, rad-onc; stopped 04/06 Family History Mother , kidney failure at age 78. Renal disease Father , murdered at age 42. No problems noted. 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 Lengthy and significant history of tobacco abuse, with approximate 100+ pack year history of smoking, quit June 2018. Denies any alcohol use. Patient does admit to use of THC type products for medicinal purposes. Exam Narrative Exam Narrative: Constitutional: well and [id number], pleasant, conversing normally HENT: head atraumatic/normocephalic/normal inspection, mucous membranes moist Eyes: conjunctiva normal, sclera normal, pupils 3mm b/l ERRLA, EOMI, no nystagmus Neck: no stridor, normal painless ROM, trachea midline, supple, negative Kernig/Brudzinski sign, mild cervical paraspinal tenderness bilaterally without cervical spine tenderness to palpation, no bruit bilaterally Chest: normal inspection Resp: normal work of breathing, LCTAB Cardio: normal rate, normal rhythm, no murmur appreciated GI: abdomen soft, non-tender, non-distended Back: normal inspection, no rash Skin: warm, dry, normal color, no rash Neuro: alert, not altered, grossly non-focal, normal tone Ext: no edema, no posterior calf tenderness to palpation Psych: normal mood, normal affect, normal behavior Course Vital Signs Vital signs: Vital Signs Temperature 36.7 C 05/17/19 13:58 Pulse 94 H 05/17/19 13:58 Respiratory Rate 22 05/17/19 13:58 Blood Pressure 117/72 05/17/19 13:58 Pulse Oximetry 95 05/17/19 13:58 Temperature 36.7 C 05/17/19 13:58 Temperature Source Temporal Artery Scan 05/17/19 13:58 Pulse 94 H 05/17/19 13:58 Respiratory Rate 22 05/17/19 13:58 Blood Pressure 117/72 05/17/19 13:58 Blood Pressure Position Sitting 05/17/19 13:58 Pulse Oximetry 95 05/17/19 13:58 Oxygen Delivery Method Room Air 05/17/19 13:58 Oxygen Flow Rate 0 05/17/19 13:58 Pain Level 0 05/17/19 13:58
[2019-05-17 14:17] LABS: Abs Immature Grans 0.03 k/cumm (0.0-0.09); Absolute Basophil Count 0.04 k/cumm (0.0-0.2); Absolute Eosinophil Count 0.52 k/cumm (0.0-0.7); Absolute Lymphocyte Count 0.94 k/cumm (1.2-3.4); Absolute Neutrophil Count 3.29 k/cumm (1.2-6.7); Basophils % 0.7; Eosinophils % 9.1; HCT 36.8 % (40.0-50.0); HGB 12.3 g/dL (13.5-17.5); Immature Grans % 0.5; Lymphocytes % 16.4; Mean Corp. HGB Concentration 33.4 g/dL (32.0-36.0); Mean Corpuscular Hemoglobin 30.2 pg (27.0-33.0); Mean Corpuscular Volume 90.4 fL (80-95); Mean Platelet Volume 9.3 fL (8.0-11.0); Monocytes % 15.7; Neutrophils % 57.6; Platelet Count 185 x1000/uL (130-400); RBC 4.07 m/cumm (4.50-6.00); RBC Distribution Width 13.3 % (11.8-14.1); White Blood Cell Count 5.72 k/cumm (4.4-10.8)
[2019-05-17 14:32] LABS: ALT 37 U/L (16-63); AST 16 U/L (15-37); Albumin 3.4 g/dL (3.4-5.0); Alkaline Phosphatase 96 U/L (46-116); Anion Gap 9.3 mmol/L (3-11); BUN 23 mg/dL (7-18); Bilirubin, Total 0.2 mg/dL (0.2-1.0); CO2 26.7 mmol/L (21.0-32.0); CREATININE 1.27 mg/dL (0.70-1.30); Calcium 9.4 mg/dL (8.5-10.1); Chloride 102 mmol/L (98-107); Estimated GFR 56.07 (mL/min/1.73m2); Glucose 124 mg/dL (70-100); Potassium 4.2 mmol/L (3.5-5.1); Sodium 138 mmol/L (136-145); Total Protein 7.5 g/dL (6.4-8.2)
[2019-05-17 14:33] LABS: Troponin I < 0.05 ng/mL (0.00-0.06)
--- NOTE | 2019-05-17 16:00 | DI.CT_ITS ---
EXAM: CT BRAIN NECK CTA CLINICAL HISTORY: syncope vs sz after coughing TECHNIQUE: Noncontrast head CT followed by CT angiography of the neck and head. COMPARISON: CT HEAD W from 04/05/2019 FINDINGS: Noncontrast Head CT: No intracranial hemorrhage, mass or infarct is seen. The ventricles are normal in size. There is no significant atrophy. The sinuses, mastoid air cells and orbits are unremarkable. There are minimal white matter changes. CT Angiography of the Neck: There is calcific plaque at the common carotid bulbs and proximal internal carotid arteries causing m ild, less than 50 percent stenosis bilaterally. The vertebral arteries show no significant plaque. The vertebral arteries are symmetric in size. There is no evidence of dissection of the carotid or v ertebral arteries. CT Angiography of the Head: The basilar artery is mildly tortuous. There is mild calcification at the internal carotid arteries distally with no significant stenosis. There is no evidence of occlusion or dissection. The anterio r, middle and posterior cerebral arteries are normal in diameter. IMPRESSION: 1. No acute abnormality. 2. Calcific plaque causing mild stenosis of less than 50 percent of both internal carotid arteries. 3. No significant stenosis. No evidence of aneurysm or dissection.
--- NOTE | 2019-05-17 16:05 | DI.RAD_ITS ---
EXAM: XR CHEST 2V PA LATERAL INDICATION: cough. COMPARISON: XR PORTABLE CHEST AP from 02/10/2019 TECHNIQUE: 2D digital imaging was performed. FINDINGS: Postsurgical changes are again noted of the left chest. There is a small left pleural effusion. Th ere are increased densities in the left perihilar region. Underlying fibrotic changes are seen. The heart size within normal limits. IMPRESSION: New left perihilar densities could represent pneumonia versus postradiation changes versus recurrent mass.
[2019-05-17] MEDS: Omnipaque 350 MG/ML 100 ML BTL IJ ×2 (16:08→18:42)
--- NOTE | 2019-05-17 16:25 | DI.VRAD_ITS ---
PROCEDURE INFORMATION: Exam: XR Chest, 2 Views Exam date and time: 05/17/2019 2:05 PM Clinical history: 68 years old, male; Cough. History of lung cancer per prior CT thorax report from 04/05/2018. TECHNIQUE: Imaging protocol: XR of the chest Views: 2 views. COMPARISON: CR XR PORTABLE CHEST AP 02/10/2019 1:26 PM FINDINGS: Lungs: Left perihilar air space opacities. Possible small left pleural effusion with adjacent atelectasis. Heart/Mediastinum: Cardiac and mediastinal silhouettes are unremarkable. Bones/joints: Median sternotomy wires in place. No acute fracture. IMPRESSION: 1. Left perihilar air space opacities. Findings concerning for pneumonia and/or recurrent mass, particularly given the history of lung cancer. Recommend correlation with chest CT. 2. Possible small left pleural effusion with adjacent atelectasis. Dictated and Authenticated by: Holden Gallardo MD. Ordering:JASON Madrid MD
--- NOTE | 2019-05-17 16:33 | DI.VRAD_ITS ---
PROCEDURE INFORMATION: Exam: CT Angiography Head With Contrast Exam date and time: 05/17/2019 3:50 PM Clinical history: 68 years old, male; Other: Syncope vs. Seizure after coughing ? vascular abnormality TECHNIQUE: Imaging protocol: Computed tomography angiography of the head with intravenous contrast. 3D rendering: MIP reconstructed images were created and reviewed. Radiation optimization: All CT scans at this facility use at least one of these dose optimization techniques: automated exposure control; mA and/or kV adjustment per patient size (includes targeted exams where dose is matched to clinical indication); or iterative reconstruction. Contrast material: OMNIPAQUE 350; Contrast volume: 100 ml; Contrast route: IV; COMPARISON: CT HEAD W 04/05/2019 12:24 PM FINDINGS: Right internal carotid artery: Calcific atherosclerotic changes of the intracranial right internal carotid artery without evidence of hemodynamically significant stenosis. Right anterior cerebral artery: No occlusion or significant stenosis. No aneurysm. Right middle cerebral artery: No occlusion or significant stenosis. No aneurysm. Right posterior cerebral artery: No occlusion or significant stenosis. No aneurysm. Right vertebral artery: No occlusion or significant stenosis. No aneurysm. Left internal carotid artery: Calcific atherosclerotic changes of the intracranial left internal carotid artery without evidence of hemodynamically significant stenosis. Left anterior cerebral artery: No occlusion or significant stenosis. No aneurysm. Left middle cerebral artery: No occlusion or significant stenosis. No aneurysm. Left posterior cerebral artery: No occlusion or significant stenosis. No aneurysm. Left vertebral artery: No occlusion or significant stenosis. No aneurysm. Basilar artery: No occlusion or significant stenosis. No aneurysm. IMPRESSION: No intracranial arterial occlusion or significant stenosis. PROCEDURE INFORMATION: Exam: CT Head Without Contrast Exam date and time: 05/17/2019 3:50 PM Clinical history: 68 years old, male; Other: Syncope vs. Seizure after coughing ? vascular abnormality TECHNIQUE: Imaging protocol: Computed tomography of the head without contrast. COMPARISON: CT HEAD W 04/05/2019 12:24 PM FINDINGS: Brain: Mild nonspecific hypodensities of the periventricular and deep subcortical white matter, most likely secondary to chronic small vessel ischemic change. No intracranial hemorrhage or extra-axial fluid collection. No evidence of mass effect or midline shift. Bell-white matter differentiation is normal. Ventricles: Mild prominence of the ventricles and sulci, most likely attributed to parenchymal volume loss. Bones/joints: No acute osseus lesion or fracture. Sinuses: Unremarkable as visualized. Mastoid air cells: Unremarkable. Soft tissues: Unremarkable. IMPRESSION: 1. No acute intracranial pathology. ASPECTS score 10. 2. Other chronic findings, as above. PROCEDURE INFORMATION: Exam: CT Angiography Neck With Contrast Exam date and time: 05/17/2019 3:50 PM Clinical history: 68 years old, male; Other: Syncope vs. Seizure after coughing ? vascular abnormality TECHNIQUE: Imaging protocol: Computed tomography angiography of the neck with intravenous contrast. 3D rendering: MIP reconstructed images were created and reviewed. Radiation optimization: All CT scans at this facility use at least one of these dose optimization techniques: automated exposure control; mA and/or kV adjustment per patient size (includes targeted exams where dose is matched to clinical indication); or iterative reconstruction. Contrast material: OMNIPAQUE 350; Contrast volume: 100 ml; Contrast route: IV; COMPARISON: CT HEAD W 04/05/2019 12:24 PM FINDINGS: VASCULATURE: Right common carotid artery: No significant stenosis. No dissection or occlusion. Right internal carotid artery: Atherosclerotic plaques involving the proximal extracranial right internal carotid artery without evidence of hemodynamically significant stenosis (0% stenosis by NASCET criteria). Right external carotid artery: No occlusion or significant stenosis. Right vertebral artery: No significant stenosis. No dissection or occlusion. Left common carotid artery: No significant stenosis. No dissection or occlusion. Left internal carotid artery: Atherosclerotic plaques within the proximal extracranial left internal carotid artery cause approximately 20 % stenosis by NASCET criteria. Remaining portions of the extracranial left ICA are patent. Left external carotid artery: No occlusion or significant stenosis. Left vertebral artery: Calcific plaques at the origin of the left vertebral artery cause mild stenosis. Remaining portions of the extracranial left vertebral artery are patent. Other vasculature: Coronary artery calcifications. NECK: Bones/joints: No acute fracture. Soft tissues: Unremarkable. Lungs: Nonspecific perihilar opacities throughout the partially visualized left lung. IMPRESSION: 1. No occlusion or significant stenosis in the arteries of the neck. 2. Nonspecific perihilar opacities throughout the partially visualized left lung. Recommend correlation with dedicated chest CT. 3. Other chronic findings, as above. COMMENT: Reference per NASCET criteria for degree of stenosis: Mild: less than 50% stenosis. Moderate: 50-69% stenosis. Severe: 70-94% stenosis. Near occlusion: 95-99% stenosis. Dictated and Authenticated by: Holden Gallardo MD. Ordering:JASON Madrid MD
[2019-05-17 18:03] LABS: Troponin I < 0.05 ng/mL (0.00-0.06)
--- NOTE | 2019-05-17 18:45 | DI.CT_ITS ---
EXAM: CT CHEST W CLINICAL HISTORY: Pneumonia, hx of RAS and LLL lung ca, s/p resection, cough TECHNIQUE: Post IV contrast. COMPARISON: CT CHEST W from 02/22/2019 FINDINGS: There is a small left pleural effusion, increased in size when compared with the previous exam. Pos tsurgical changes of the left chest with volume loss are again noted. There are new densities in the left perihilar region which are new since the previous exam. No definite mass is seen. Findings ma y represent pneumonia versus post radiation changes. Underlying peripheral honeycombing is again not ed. No right-sided infiltrate or effusion is seen. The heart size is normal. There is no aortic di ssection. Pulmonary arteries are not well opacified. Visualized portions of the upper abdomen are u nremarkable. IMPRESSION: New left perihilar densities may represent pneumonia versus post radiation change. Small left pleura l effusion.
[2019-05-17 18:53] LABS: Procalcitonin < 0.1 ng/mL
[2019-05-17] MEDS: Albuterol/Ipratropium 3 ML UPD VIAL UPD ×2 (19:00→22:07)
--- NOTE | 2019-05-17 19:10 | DI.VRAD_ITS ---
PROCEDURE INFORMATION: Exam: CT Chest With Contrast Exam date and time: 05/17/2019 5:41 PM Clinical history: 68 years old, male; Cough. Left perihilar opacities seen on prior chest x-ray. History of lung cancer. TECHNIQUE: Imaging protocol: Computed tomography of the chest with intravenous contrast. Radiation optimization: All CT scans at this facility use at least one of these dose optimization techniques: automated exposure control; mA and/or kV adjustment per patient size (includes targeted exams where dose is matched to clinical indication); or iterative reconstruction. Contrast material: OMNIPAQUE 350; Contrast volume: 70 ml; Contrast route: IV; COMPARISON: CT Thorax^CHEST W ROUTINE (Adult) 02/22/2019 9:18 AM FINDINGS: Lungs: Prominent perihilar groundglass and reticular opacities in the left lung, new since chest CT from February 2019. Unchanged diffuse peripheral reticular fibrotic changes. Pleural space: Small left pleural effusion. Heart: Severe coronary artery calcifications. No cardiomegaly. Aorta: Moderate atherosclerotic calcifications of the aorta. No aneurysm. Lymph nodes: No enlarged lymph nodes. Bones/joints: Median sternotomy wires. Multilevel degenerative changes of the visualized spine. No acute fracture. Soft tissues: Unremarkable. IMPRESSION: 1. Prominent perihilar groundglass and reticular opacities in the left lung, new since chest CT from February 2019. Differential includes atypical pneumonia versus chronic postradiation changes from prior lung cancer treatment, however recurrent neoplasm cannot be entirely excluded. Recommend followup chest CT in 6-8 weeks for resolution. 2. Small left pleural effusion. 3. Other chronic findings, as above. Dictated and Authenticated by: Holden Gallardo MD. Ordering:ANDERS Gray MD
--- NOTE | 2019-05-17 19:20 | HPE_ITS ---
Date of service: 05/17/19 Time of Service: 19:20 Assessment and Plan Assessment and plan (1) Unresponsive episode: Status: Acute Assessment and plan: Unsure of the etiology for patient's episodes, but appears to be chronic and worsening recently, associated with coughing. Potential for a cough induced unresponsive episode/syncope versus seizure activity. Plan is as follows. -Check MRI of the brain. -Continue but increase dose of AED, with Keppra at 1000 mg twice daily. -Check overnight EEG, to be reviewed by neurologist in the morning and with official neurology consult following. -Treat potential pulmonary infection. However, there is some chronicity to patient's symptoms, worsened after radiation therapy. Doubt infectious in etiology. (2) Abnormal CT of the chest: Status: Acute Assessment and plan: Findings consistent with either pneumonia or recurrence of mass. Specifically with potential for atypical pneumonia versus chronic post radiation changes post XRT, with recurrent neoplasm not excluded per unofficial virtual radiology read. Of note, Mr. Bradley has undergone a recent antibiotic therapy for his worsening cough but without imaging, reportedly with a short course of azithromycin. -Check blood and sputum cultures. -Initiate antibiotic therapy with levofloxacin, and await official CT of the chest results. Will ensure communication with patient's oncologist pending results of the read. (3) CAD (coronary artery disease): Status: Chronic Assessment and plan: Continue JAYDEN-I, BB, statin, and aspirin therapy. Patient is also on treatment with Zetia and as needed NTG. (4) Advanced directives, counseling/discussion: Status: Acute Assessment and plan: DNR/DNI per patient's wishes. (5) DVT prophylaxis: Status: Acute Assessment and plan: SC enoxaparin. History of Present Illness History of Present Illness Chief Complaint: Unresponsive spells Narrative: Very pleasant 68-year-old man with a past medical history significant for lung CA, being admitted from [facility] emergency department on 05/17 due to ongoing intermittent unresponsive events following bouts of coughing. Mr. Bradley has a past medical history significant for GERD, CAD s/p CABG 1989, status post PCI and stent placement in 1999 and and 2004, HTN, dyslipidemia, significant prior tobacco history, and COPD. The patient also has a prior h istory of laryngeal CA with no evidence of recurrence. Other history includes AAA s/p endovascular aneurysm repair in 2012, with an endoleak necessitating repair recently. He also has a history of stage IIIb SCCA of the lung, with discovery of a left-sided lung mass by imaging last June. Since that time he has undergone a left upper lobectomy and a LLL wedge resection for 3.3 cm and separate 8 mm mass, path positive for SCCA of the lung. Since that time Mr. Bradley has undergone treatment with chemo and XRT, with imaging over the past 2 months (CT of the chest in February, CTA of the abdomen and CT of the head in March) clear of recurrence. The patient and his report an ongoing issue with intermittent occurrences of essentially unresponsive events following significant coughing episodes. As per Mrs. Bradley, the patient becomes fixated with a gaze and open eyes, but essentially unresponsive for matter of seconds to upwards of a minute, with a brief period of confusion following. The state of confusion can last upwards of a minute as per the spouse. These episodes have actually been ongoing for approximately 10 months, and started to happen after the diagnosis of Mr. Bradley's lung cancer. However, they predate his surgery which occurred in September of this year. Mrs. Bradley also reports that she believes his symptoms worsened about [facility]cf through his radiation therapy, and have been steadily worsening over the past few weeks as his cough has worsened recently. In fact the patient was upstairs in cardiopulmonary rehab on the day prior to his admission, and s uffered one such spell. He was evaluated immediately by Dr.Michael Maurer, we suspected that these episodes may represent seizure activity, and following discussion with the neurologist Dr. Constantino the patient was initiated on oral Keppra with an initial loading dose. However, despite these measures Mr. Bradley continues to have such episodes, including today while he was at his primary's office and receiving breathing treatments. In fact, Mrs. Bradley reports that he had 4 episodes while receiving his breathing treatments. He was sent to the emergency department for further evaluation. Work-up in the ED included essentially unremarkable labs, CT of the brain without any evidence of intracranial pathology or arterial occlusion/stenosis. However, chest x-ray was positive for left-sided perihilar airspace opacities, concerning for pneumonia versus recurrent mass. The patient's CT of the head merit these findings although only with partially visualized findings. Mr. Bradley at that point was referred for further evaluation and treatment. Review of Systems All systems reviewed & are unremarkable except as noted in HPI and below PFSH Medical History Adenomatous colon polyp (Acute 01/13/12) tubular adenoma [facility] 01/05/06, rpt 5 yr Arteriosclerotic cardiovascular disease (ASCVD) (Chronic 01/13/12) CABG 1989; s/p stents 1999, 200409/09/18-Stress Echocardiogram [facility] ASCVD (arteriosclerotic cardiovascular disease) (Chronic 01/13/12) CABG 1989; s/p stents 1999, 2004 Benign neoplasm of colon (Acute 01/13/12) tubular adenoma [facility] 01/05/06, rpt 5 yr CAD (coronary artery disease) (Chronic) Gastroesophageal reflux disease without esophagitis (Chronic 01/26/06) EGD ME: GERD: This is well-controlled with daily PPI. 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 04/14/18 Flexible Fiberoptic Laryngoscopy- No evidence of recurrance or second primary Other abnormal glucose (Acute 02/22/13) abnormal fasting sugar (111 in 2012) (114 in 2013) Shortness of breath (Acute) LUNG CA ID'd .. now s/p surgery 10/2018. > Severe dyspnea .. with report of intolerance and feeling worse after some of his albuterol inhaler attempts .. Prompted to call ambulance for ED eval 2' possible reaction, tachy with NEB Tx. Sent to Ed, appreciate attention. NEB, CXR, Labs .. Smoker unmotivated to quit (Chronic 04/12/14) >50 pack years, despite CAD and Laryngeal cancer; QUIT SMOKING POST DYSPNEIC EPISODE 06/2018.... Surgical History Endoleak post (EVAR) endovascular aneurysm repair (Acute 11/30/18) endovascular repair AAA (03/07/13) Dr Dsouza, [facility], yearly f/u with CTA Family History Mother , kidney failure at age 78. Renal disease Father , murdered at age 42. No problems noted. Social History (Updated 05/17/19 @ 19:35 by Isaac Grey MD) Smoking/Tobacco Use Status: Former Tobacco Use Quit Date: 06/29/18 Alcohol Intake: former Drug use: Never Substance use type: does not use Household members: spouse Housing: house What type of physical activity do you participate in: other Details: physically active qd Do you feel safe at home: Yes Do you feel safe in your relationship?: Yes Additional Social history: Patient is , with 2 children. 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 Lengthy and significant history of tobacco abuse, with approximate 100+ pack year history of smoking, quit June 2018. Denies any alcohol use. Patient does admit to use of THC type products for medicinal purposes. Meds Home Medications and Allergies Home Medications Medication Instructions Recorded Confirmed Type Tylenol Arthritis 1,300 mg PO Q8H PRN tab-cap 12/23/12 05/17/19 History nitroglycerin 0.4 mg SUBLINGUAL PRN #25 tab-cap 01/18/17 05/17/19 History ipratropium 20 mcg-albuterol 100 2 puff IH QID gm 08/09/18 05/17/19 History mcg/actuation mist for inhalation aspirin 81 mg tablet,delayed 81 mg PO DAILY 10/21/18 05/17/19 History release lisinopril 10 mg tablet 10 mg PO DAILY #90 tab 01/31/19 05/17/19 Rx albuterol sulfate 90 mcg/actuation 2 puff INHALATION Q4H PRN #1 03/01/19 05/17/19 Rx aerosol inhaler inhaler simvastatin 40 mg tablet 40 mg PO DAILY #90 tab-cap 03/01/19 05/17/19 Rx pantoprazole 40 mg tablet,delayed 40 mg PO BID #180 tab-cap 03/08/19 05/17/19 Rx release CBD extract PO PRN 03/28/19 05/17/19 History benzonatate 200 mg PO Q6H PRN 04/05/19 05/17/19 History guaifenesin [Mucinex] 1,200 mg PO PRN PRN 04/05/19 05/17/19 History lidocaine HCl [Xylocaine] See Rx Instructions .ROUTE .COMPLEX 04/05/19 05/17/19 History sucralfate See Rx Instructions .ROUTE 04/05/19 05/17/19 History .COMPLEX PRN ezetimibe 10 mg tablet 5 mg PO DAILY #45 tab-cap 04/24/19 05/17/19 Rx metoprolol succinate 25 mg 12.5 mg PO DAILY #45 tab 04/27/19 05/17/19 Rx tablet,extended release 24 hr magnesium oxide 400 mg (241.3 mg 400 mg PO DAILY #90 tab 05/15/19 05/17/19 Rx magnesium) tablet levetiracetam 500 mg tablet 500 mg PO BID 05/17/19 05/17/19 History Allergies Allergy/AdvReac Type Severity Reaction Status Date / Time clopidogrel Allergy Unknown SKIN RASH Verified 05/17/19 11:44 esomeprazole magnesium AdvReac Unknown gi upset Verified 05/17/19 11:44 [From Nexium] Penicillins AdvReac Unknown gi upset Verified 05/17/19 11:44 Exam Narrative Exam Narrative: General: Patient appears comfortable, AAOX3, NAD Neck: Supple CV: Regular, nontachycardic, S1S2, No rubs, murmurs, or gallops. Pulmonary: Breath sounds absent/decreased left upper lobe, decreased in the left lower lobe. Overall breath sounds are mildly decreased but with good air entry, without any evidence of wheezing. Abdomen: + Bowel Sounds, soft, nontender, nondistended Vascular: No lower extremity edema Psych: Normal mood and affect. Results Labs Result diagrams: 05/17/19 14:05 05/17/19 14:05 Labs: Laboratory Results - last 24 hr 05/17/19 05/17/19 05/17/19 14:05 14:05 17:11 WBC 5.72 RBC 4.07 L Hgb 12.3 L Hct 36.8 L MCV 90.4 MCH 30.2 MCHC 33.4 RDW 13.3 Plt Count 185 MPV 9.3 Immature Gran % 0.5 Neutrophils % 57.6 Lymphocytes % 16.4 Monocytes % 15.7 Eosinophils % 9.1 Basophils % 0.7 Absolute Neutrophils 3.29 Absolute Lymphocytes 0.94 L Absolute Monocytes 0.90 H Absolute Eosinophils 0.52 Absolute Basophils 0.04 Sodium 138 Potassium 4.2 Chloride 102 Carbon Dioxide 26.7 Anion Gap 9.3 BUN 23 H Creatinine 1.27 Estimated GFR/1.73 m2 56.07 Glucose 124 H Calcium 9.4 Total Bilirubin 0.2 AST 16 ALT 37 Alkaline Phosphatase 96 Troponin I < 0.05 < 0.05 Total Protein 7.5 Albumin 3.4 Procalcitonin 05/17/19 18:09 WBC RBC Hgb Hct MCV MCH MCHC RDW Plt Count MPV Immature Gran % Neutrophils % Lymphocytes % Monocytes % Eosinophils % Basophils % Absolute Neutrophils Absolute Lymphocytes Absolute Monocytes Absolute Eosinophils Absolute Basophils Sodium Potassium Chloride Carbon Dioxide Anion Gap BUN Creatinine Estimated GFR/1.73 m2 Glucose Calcium Total Bilirubin AST ALT Alkaline Phosphatase Troponin I Total Protein Albumin Procalcitonin < 0.1 Last Vital Signs Temp 36.7 C 05/17/19 13:58 Pulse 79 05/17/19 17:46 Resp 28 H 05/17/19 18:10 BP 110/76 05/17/19 17:46 Pulse Ox 94 L 05/17/19 18:10
[2019-05-17] MEDS: Enoxaparin 40 MG/0.4 ML SYR SC (20:41)
[2019-05-17] MEDS: Pantoprazole 40 MG TABCR PO (20:41)
[2019-05-17] MEDS: Budesonide 0.5 MG/2 ML UPD VIAL UPD (20:44)
[2019-05-17] MEDS: levETIRAcetam 250 MG TAB 1000 MG PO (21:19)
[2019-05-17] MEDS: levoFLOXacin 750 MG/150 ML BAG 100 MG IVPB (21:20)
[2019-05-17] MEDS: Normal Saline 1,000 ML 100 ML IV (21:24)
[2019-05-18] VITALS (21 sets, daily range): BP systolic 81–124; BP diastolic 48–79; PULSE 78–156; RESP 1–20; TEMP 36.4–36.9; O2SAT 92–100
[2019-05-18] MEDS: Albuterol/Ipratropium 3 ML UPD VIAL UPD ×3 (01:20→10:27)
[2019-05-18] MEDS: Normal Saline 500 ML 1000 ML IV (02:15)
--- NOTE | 2019-05-18 02:16 | NUR.NOTE ---
Nursing Note: At 0125 hrs. , pt started to coughed non productively then passed out, both eyes closeed and not responding on physical and verbal command, closely monitored very second event repeatedly happened. B/P dropped down to 81/53 and HR irregular ranges from 85 to 127. Had jerky movements observed, lasted few second too after he coughed. MD examined pt. ordered NS bolus 500 cc. B/P rechecked 111/58 HR 121 but O2 Sat decreased to 92-93%. Pt requesting to call but no answer according to backend java developer. Pt stated that : I think it's time for me to go. Monitored closely and at this time pt is asleep but easy arousable.
[2019-05-18] MEDS: Normal Saline 1,000 ML 100 ML IV (03:32)
[2019-05-18 07:12] LABS: Abs Immature Grans 0.01 k/cumm (0.0-0.09); Absolute Basophil Count 0.02 k/cumm (0.0-0.2); Absolute Eosinophil Count 0.35 k/cumm (0.0-0.7); Absolute Lymphocyte Count 0.39 k/cumm (1.2-3.4); Absolute Monocyte Count 0.82 k/cumm (0.11-0.7); Absolute Neutrophil Count 3.71 k/cumm (1.2-6.7); Basophils % 0.4; Eosinophils % 6.6; HCT 33.1 % (40.0-50.0); HGB 10.7 g/dL (13.5-17.5); Immature Grans % 0.2; Lymphocytes % 7.4; Mean Corp. HGB Concentration 32.3 g/dL (32.0-36.0); Mean Corpuscular Hemoglobin 29.3 pg (27.0-33.0); Mean Corpuscular Volume 90.7 fL (80-95); Mean Platelet Volume 9.8 fL (8.0-11.0); Monocytes % 15.5; Neutrophils % 69.9; Platelet Count 159 x1000/uL (130-400); RBC 3.65 m/cumm (4.50-6.00); RBC Distribution Width 13.4 % (11.8-14.1)
[2019-05-18 07:13] LABS: BUN 20 mg/dL (7-18); CREATININE 1.36 mg/dL (0.70-1.30); Calcium 8.8 mg/dL (8.5-10.1); Chloride 105 mmol/L (98-107); Estimated GFR 51.81 (mL/min/1.73m2); Glucose 117 mg/dL (70-100); Magnesium 1.3 mg/dL (1.8-2.4); Potassium 4.5 mmol/L (3.5-5.1); Sodium 140 mmol/L (136-145)
[2019-05-18] MEDS: Budesonide 0.5 MG/2 ML UPD VIAL UPD ×2 (07:50→20:10)
--- NOTE | 2019-05-18 08:59 | NUR.NOTE ---
pt had two passing out episodes while preforming am care. pt went to lay back down in bed started having bad coughing fit and proceeded to pass out. pt was unable to respond but continued breathing for 10 seconds. pt then came to stated he was ok then proceeded to cough and passed out again for 7 seconds.
[2019-05-18] MEDS: Aspirin E.C. 81 MG TABEC PO (09:03)
[2019-05-18] MEDS: Pantoprazole 40 MG TABCR PO ×2 (09:03→20:10)
[2019-05-18] MEDS: Ezetimibe 10 MG TAB 5 MG PO (09:03)
[2019-05-18] MEDS: levETIRAcetam 500 MG TAB 1000 MG PO (09:03)
[2019-05-18] MEDS: Magnesium Oxide 400 MG TAB PO (09:03)
[2019-05-18] MEDS: Baclofen 10 MG TAB PO ×3 (09:46→20:10)
[2019-05-18] MEDS: Benzonatate 200 MG CAP PO ×2 (09:46→19:28)
--- NOTE | 2019-05-18 09:48 | PDOC.EEG_ITS ---
Neurology EEG EEG: [facility] Department of Neurology INPATIENT EEG REPORT Date of Recordin05/17/19 at 19:15:56 to 05/18/19 at 08:23:33 Interpreting Physician: Dr. Bridgette Constantino Reason for study: Mr. Bradley is a 68 year-old man with metastatic lung cancer admitted for increasing spells manifested by cough and then brief unresponsiveness occurring up to every few minutes. Current Medications: Current Medications Acetaminophen (Tylenol) 0 mg PO Q4H PRN PRN Albuterol Sulfate (Proventil Updraft) 2.5 mg UPD Q2H PRN PRN Albuterol/Ipratropium (Duoneb Updraft) 3 ml UPD Q4H JENA Last Admin: 05/18/19 07:40 Dose: 3 ml Documented by: Aspirin (Ecotrin) 81 mg PO DAILY [facility] Last Admin: 05/18/19 09:03 Dose: 81 mg Documented by: Baclofen (Baclofen) 10 mg PO TID JENA Last Admin: 05/18/19 09:46 Dose: 10 mg Documented by: Benzonatate (Tessalon Perles) 200 mg PO Q6H PRN PRN Last Admin: 05/18/19 09:46 Dose: 200 mg Documented by: Budesonide (Pulmicort Updraft) 0.5 mg UPD Q12H JENA Last Admin: 05/18/19 07:50 Dose: 0.5 mg Documented by: Dimethicone/Zinc Oxide (Kayleen Protect Cream) 0 gm TP PRN PRN Docusate Sodium (Colace) 100 mg PO TID PRN PRN Ezetimibe (Zetia) 5 mg PO DAILY [facility] Last Admin: 05/18/19 09:03 Dose: 5 mg Documented by: Enoxaparin Sodium (Lovenox) 40 mg SC Q24H JENA Last Admin: 05/17/19 20:41 Dose: 40 mg Documented by: Guaifenesin (Mucinex) 1,200 mg PO BID PRN PRN Levofloxacin (Levaquin Premixed Bag) 750 mg in 150 mls @ 100 mls/hr IVPB Q24H JENA; Protocol Last Admin: 05/17/19 21:20 Dose: 100 mls/hr Documented by: Magnesium Sulfate () 4 gm in 100 mls @ 25 mls/hr IVPB NOW ONE Stop: 05/18/19 14:44 Levetiracetam (Keppra) 1,000 mg PO BID [facility] Last Admin: 05/18/19 09:03 Dose: 1,000 mg Documented by: Lisinopril (Prinivil) 10 mg PO DAILY [facility] Magnesium Hydroxide (Milk Of Magnesia) 30 ml PO DAILY PRN PRN Magnesium Oxide (Mag-Ox 400) 400 mg PO DAILY [facility] Last Admin: 05/18/19 09:03 Dose: 400 mg Documented by: Metoprolol Succinate (Toprol Xl) 12.5 mg PO DAILY [facility] Nitroglycerin (Nitrostat) 0.4 mg SL PRN JENA Pantoprazole Sodium (Protonix) 40 mg PO BID [facility] Last Admin: 05/18/19 09:03 Dose: 40 mg Documented by: Polyethylene Glycol (Miralax) 17 gm PO DAILY PRN PRN PRN Reason: Constipation Simvastatin (Zocor) 40 mg PO QPM JENA Sucralfate (Carafate) 1 gm PO QID PRN PRN METHODS: An 18-channel digitized electroencephalogram was recorded in the ambulatory setting with video. The 10/20 international system of electrode placement was used and bipolar and referential electrode montages were recorded. In addition to EEG the patient was monitored for EKG and by video. Activation procedures of photic stimulation and hyperventilation were performed if applicable. The duration of the recording was 24 hours. DESCRIPTION OF EEG: Waking background activity: During maximal wakefulness a 9-Hz posterior background rhythm was present which was well-modulated, symmetrical, reactive to eye opening, and of moderate voltage. Faster frequencies were present in the bilateral anterior head regions. There was a normal anterior-posterior voltage gradient. Drowsy and sleeping background activity: During drowsiness, there was attenuation of the posterior dominant background rhythm and vertex waves. Normal stage II and III sleep was present with symmetrical sleep spindles, K-complexes, and vertex waves with slowing of the background rhythm to delta/theta frequencies. REM sleep manifested by rapid lateral eye movements and faster background rhythms was recorded. Arousal was unremarkable. There were frequent arousals during sleep. Interictal abnormalities: none. Ictal findings: Event #1 on 05/18/19 at 01:28:05 -Clinical manifestations: Patient coughs. Does not respond to nurse's questions. -EEG findings: Muscle/movement artifact followed by ~4 seconds of generalized cortical depression and then ~8 seconds of generalized delta activity. EKG was NSR. Event #2 on 05/18/19 at 01:51:43 -Clinical manifestations: Patient coughs. Does not respond to nurse's questions. -EEG findings: Muscle/movement artifact followed by ~3 seconds of generalized cortical depression and then ~7-8 seconds of generalized delta activity. EKG was NSR. Event #3 on 05/18/19 at 01:53:03 -Clinical manifestations: Patient coughs. Does not respond to nurse's questions. -EEG findings: Muscle/movement artifact followed by normal baseline EKG/EEG. Event #4 on 05/18/19 at 01:54:5 -Clinical manifestations: Patient coughs. Does not respond to nurse's questions. Begins to respond 39 sec after coughing started. -EEG findings: Muscle/movement artifact followed by normal baseline EKG/EEG. Event #5 on 05/18/19 at 01:55:55 -Clinical manifestations: Patient coughs. Does not respond to nurse's questions. -EEG findings: Muscle/movement artifact followed by normal baseline EKG/EEG. Event #6 on 05/18/19 at 02:02:49 -Clinical manifestations: Patient coughs. Does not respond to nurse's questions. -EEG findings: Muscle/movement artifact followed by normal baseline EKG/EEG. Event #7 on 05/18/19 at 02:04:48 -Clinical manifestations: Patient coughs. Does not respond to nurse's questions. -EEG findings: Muscle/movement artifact followed by normal baseline EKG/EEG. Event #8 on 05/18/19 at 02:09:50 -Clinical manifestations: Patient coughs. Does not respond to nurse's questions. Begins to respond 40 sec after coughing started. -EEG findings: Muscle/movement artifact followed by normal baseline EKG/EEG. Activating Procedures: Photic stimulation and hyperventilation were not performed. EKG: EKG revealed normal sinus rhythm. INTERPRETATION: This long-term EEG is abnormal due to: #1. Two events consistent with apparent vasovagal syncope (Event #1 and #2 above). #2. Six events of unresponsiveness without any EEG/EKG changes. #3. Frequent nocturnal arousals. PRIOR EEG: none CLINICAL CORRELATION: The patient had 2 recorded events consistent with vasovagal syncope. Further events of unresponsiveness captured without any abnormal EKG/EEG changes. These could represent similar vasovagal spells though a psychogenic/functional component remains in the differential. There was no evidence of seizure or seizure activity. Bridgette Constantino MD
[2019-05-18] MEDS: MAGNESIUM SULFATE 4 GM/100 ML BAG IVPB (10:58)
[2019-05-18] MEDS: Metoprolol CR 25 MG TABCR 12.5 MG PO (10:58)
[2019-05-18] MEDS: Normal Saline Flush 10 ML SYR (11:00)
[2019-05-18 12:14] LABS: Troponin I < 0.05 ng/mL (0.00-0.06)
[2019-05-18] MEDS: dilTIAZem 30 MG TAB PO (12:15)
--- NOTE | 2019-05-18 12:33 | NCONE_ITS ---
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 Bradley is a 68-year-old, right-handed man with stage IIIb metastatic lung cancer who was admitted for increasing frequency of cough induced spells of loss of consciousness. His neurological exam was unremarkable. He underwent video EEG monitoring overnight which captured numerous events which were consistent with vasovagal syncope and triggered by cough. These events are occurring every 1-3 minutes at times with unresponsiv eness lasting up to 30 to 45 seconds. The exact mechanism of cough-induced syncope is unknown. Recommendations: -Suppressing his cough is the first priority. I will defer to primary team on treatment choices including further evaluation of his lungs. -In extrapolating data from vagal nerve irritation causing intractable hiccups, treatments include baclofen, Depakote, Haldol, Valium, Reglan, thorazine, and gabapentin (some evidence this may help with cough suppression as well!). -In extrapolating data from vasovagal sycnope, treatments include fludrocortisone, midodrine, methlphenidate, and SSRIs. After some research, there are no guidelines on how long medications should be tried, but it appears in severe cases like this, rapid trials with a few doses each until one manifests some improvement is the recommended course. At present, he is getting treated with Baclofen TID. If no improvement by tomorrow am, would choose another medication on the list. I would do gabapentin next, starting 300mg TID and increasing to 600mg on 2nd dose if he tolerated the 300mg, and 900mg on the third dose if he tolerated 600mg. I am extremely worried about his risk of falls given his frequent episodes of syncope. I am not sure that he is safe to ambulate or be at home at this time. DISCLAIMER: This note was created using [employer] voice recognition software. History of Present Illness History of Present Illness Chief Complaint: spells Narrative: Handedness: right. HPI: Mr. Bradley is a 68-year-old man with a past medical history of coronary artery disease status post CABG in 1998 and PCI in 1999, aortic aneurysm status post repair, hypertension, hyperlipidemia, COPD, remote laryngeal cancer status post surgery only, as well as a recent diagnosis of stage IIIb lung cancer this past s/p VATS with lobectomy and node dissection as well as chemotherapy and XRT. Over the last 1 year, he has had increasing frequency spells of loss of consciousness that are now occurring up to every few minutes. When his events were less frequent, they were thought to be initially due to orthostatic hypotension from dehydration secondary to his chemotherapy and radiation. He was treated with IV fluid hydration but continued to have episodes of unresponsiveness. Over time, it became clear that they were triggered by cough. On 05/16/2019, while participating in pulmonary rehab, he had 2 episodes of unresponsiveness within a 10-minute period. He was witnessed to cough and then become unresponsive with eyes open. He had no tonic-clonic movements but had some possible mild tremors of the arms. He was unresponsive for 30 seconds with a minimal postictal state. His pulse was recorded up to 145 during 1 of these events and he had no hypoxia. The concern was that this could represent seizure and he was started on Keppra 500 mg twice daily with a loading dose of 1000 mg. He refused ER or hospitalization at that time. He followed up in his PCPs office yesterday 05/17/2019 who noted several back to back events in a short time not responding to nebulizer and albuterol treatment. He was sent to the emergency room for further testing and work-up. He was admitted overnight and placed on video EEG monitoring during which multiple events were captured. The EEG shows several events consistent with vasovagal syncope. The other events did not show any abnormal EEG or EKG changes. There was no seizure/epileptic activity. In the last 1 year, he has also had frequent hiccups, but these have not been intractable. He had a CT chest performed yesterday with and without contrast with left perihilar densities. The initial differential diagnosis included pneumonia versus post radiation change versus recurrent cancer. Re-read today by in-house radiology staff thinks that it is more likely pneumonia versus post radiation changes. CT head performed on 04/05/2019 which I was able to review personally and was unremarkable. Consults Requesting physician: Isaac Grey Review of Systems All systems reviewed & are unremarkable except as noted in HPI and below [facility] Medical History Adenomatous colon polyp (Acute 01/13/12) tubular adenoma [facility] [place] 01/05/06, rpt 5 yr Arteriosclerotic cardiovascular disease (ASCVD) (Chronic 01/13/12) CABG 1989; s/p stents 1999, 200409/09/18-Stress Echocardiogram [facility] [place] CAD (coronary artery disease) (Chronic) COPD (chronic obstructive pulmonary disease) (Chronic ~08/09/18) Mild. PFT (Pulm, [facility] [place], 08/08/18). Need another PFT, post lung resection [ ] 11/10/18 Foot fracture, right (Acute 10/2018) XR showing possible Fx, non-displaced [ ] CT recomm. Gastroesophageal reflux disease without esophagitis (Chronic 01/26/06) EGD ME: GERD: This is well-controlled with daily PPI. 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 Shortness of breath (Acute) LUNG CA ID'd .. now s/p surgery 10/2018. > Severe dyspnea .. with report of intolerance and feeling worse after some of his albuterol inhaler attempts .. Prompted to call ambulance for ED eval 2' possible reaction, tachy with NEB Tx. Sent to Ed, appreciate attention. NEB, CXR, Labs .. Smoker unmotivated to quit (Chronic 04/12/14) >50 pack years, despite CAD and Laryngeal cancer; QUIT SMOKING POST DYSPNEIC EPISODE 06/2018.... Surgical History Endoleak post (EVAR) endovascular aneurysm repair (Acute 11/30/18) endovascular repair AAA (03/07/13) Dr Dsouza, [facility] [place], yearly f/u with [facility] History of throat surgery (Acute) S/P CABG x 4 (Acute) S/P lobectomy of lung (Acute) Family History Mother , kidney failure at age 78. Renal disease Father , murdered at age 42. No problems noted. Social History Smoking/Tobacco Use Status: Former Tobacco Use Quit Date: 06/29/18 Alcohol Intake: former Drug use: Never Substance use type: does not use Household members: spouse Housing: house What type of physical activity do you participate in: other Details: physically active qd Do you feel safe at home: Yes Do you feel safe in your relationship?: Yes Additional Social history: Patient is , with 2 children. 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 Lengthy and significant history of tobacco abuse, with approximate 100+ pack year history of smoking, quit June 2018. Denies any alcohol use. Patient does admit to use of THC type products for med icinal purposes. Visit Medication and Allergies Active Medications Generic Name Dose Route Start Last Admin Trade Name Freq PRN Reason Stop Dose Admin Acetaminophen 0 mg 05/17/19 17:31 Tylenol PO Q4H PRN PRN Albuterol/Ipratropium 3 ml 05/18/19 11:28 Duoneb Updraft UPD Q4H PRN PRN Aspirin 81 mg 05/18/19 08:30 05/18/19 09:03 Ecotrin PO 81 mg DAILY JENA Administration Baclofen 10 mg 05/18/19 08:30 05/18/19 09:46 Baclofen PO 10 mg TID JENA Administration Benzonatate 200 mg 05/17/19 17:27 05/18/19 09:46 Tessalon Perles PO 200 mg Q6H PRN PRN Administration Budesonide 0.5 mg 05/17/19 20:00 05/18/19 07:50 Pulmicort Updraft UPD 0.5 mg Q12H JENA Administration Dimethicone/Zinc Oxide 0 gm 05/17/19 17:31 Kayleen Protect Cream TP PRN PRN Docusate Sodium 100 mg 05/17/19 17:31 Colace PO TID PRN PRN Ezetimibe 5 mg 05/18/19 08:30 05/18/19 09:03 Zetia PO 5 mg DAILY JENA Administration Enoxaparin Sodium 40 mg 05/17/19 18:00 05/17/19 20:41 Lovenox SC 40 mg Q24H JENA Administration Guaifenesin 1,200 mg 05/17/19 20:26 Mucinex PO BID PRN PRN Levofloxacin 750 mg in 150 mls @ 100 mls/hr 05/17/19 20:00 05/17/19 21:20 Levaquin Premixed Bag IVPB 100 mls/hr Q24H JENA Administration Protocol Magnesium Sulfate 4 gm in 100 mls @ 25 mls/hr 05/18/19 10:45 05/18/19 10:58 IVPB 05/18/19 14:44 25 mls/hr NOW ONE Administration Levalbuterol HCl 0.63 mg 05/18/19 11:27 Xopenex Updraft UPD Q2H PRN PRN Magnesium Hydroxide 30 ml 05/17/19 17:31 Milk Of Magnesia PO DAILY PRN PRN Magnesium Oxide 400 mg 05/18/19 08:30 05/18/19 09:03 Mag-Ox 400 PO 400 mg DAILY [facility] Administration Metoprolol Succinate 12.5 mg 05/18/19 08:30 05/18/19 10:58 Toprol Xl PO 12.5 mg DAILY [facility] Administration Nitroglycerin 0.4 mg 05/17/19 18:00 05/18/19 11:29 Nitrostat SL 0.4 mg PRN JENA Administration Pantoprazole Sodium 40 mg 05/17/19 20:00 05/18/19 09:03 Protonix PO 40 mg BID [facility] Administration Polyethylene Glycol 17 gm 05/17/19 17:31 Miralax PO DAILY PRN PRN Constipation Simvastatin 40 mg 05/18/19 20:00 Zocor PO QPM JENA Sucralfate 1 gm 05/17/19 17:27 Carafate PO QID PRN PRN Allergies clopidogrel Allergy (Unknown, Verified 05/17/19 11:44) SKIN RASH esomeprazole magnesium [From Nexium] Adverse Reaction (Unknown, Verified 05/17/19 11:44) gi upset Penicillins Adverse Reaction (Unknown, Verified 05/17/19 11:44) gi upset Exam Narrative Exam Narrative: Physical Exam: Gen: thin, coughing frequently, chronic ill appearing Head and face: no facial or cranial abnormalities Neck: Supple, no meningismus, no occipital tenderness CV: tachy, regular Resp: coarse rales bilaterally Abd: soft, nontender, nondistended Ext: No edema. No clubbing or cyanosis. No bony deformity. Neuro Exam: Language: fluency, naming, repetition, and comprehension intact; Mental Status: AAOx3, current events intact, fund of knowledge intact; Speech: no dysarthria Cranial nerves: Funduscopy: not performed CN II: visual cruz intact CN III, IV, : extraocular movements intact, no nystagmus, pupils symmetric and reactive to light CN V: face sensation intact to LT and PP CN VII: no facial asymmetry noted CN VIII: hearing intact bilaterally CN IX, X: palate rises symmetrically CN XI: trapezius/SCM 5/5 bilaterally CN XII: protrudes tongue symmetrically Sensory: reduced PP and vibration distally in the LE Motor: bulk and tone intact. Fine motor movements intact bilaterally. No pronator drift. Strength 5/5 throughout including the deltoids, biceps, triceps, wrist extensors, hip flexors, knee flexors, knee extensors, ankle flexors, and ankle extensors. Reflexes: 2+ at the biceps, triceps, and brachioradialis; hyporeflexic at the patella and achilles tendons bilaterally; toes neutral bilaterally; Coordination: no ataxia Gait: unable to safely ambulate at this time Witnessed Spell: Patient laying on right side in bed. He coughed for about 10 sec - face turing red/purple. He then became unresponsive, staring with eyes open. Not flaccid but not tonic. Arms and legs in essentially the same position as when he stopped coughing. After ~20-30seconds, immediately began responding. No post-ictal state. Results Last Vital Signs Temp 36.5 C 05/18/19 12:22 Pulse 114 H 05/18/19 12:22 Resp 16 05/18/19 12:22 BP 93/56 L 05/18/19 12:22 Pulse Ox 98 05/18/19 12:22 Labs Result diagrams: 05/18/19 06:39 05/18/19 06:39 Labs: Laboratory Results - last 24 hr 05/17/19 05/17/19 05/17/19 14:05 14:05 17:11 WBC 5.72 RBC 4.07 L Hgb 12.3 L Hct 36.8 L MCV 90.4 MCH 30.2 MCHC 33.4 RDW 13.3 Plt Count 185 MPV 9.3 Immature Gran % 0.5 Neutrophils % 57.6 Lymphocytes % 16.4 Monocytes % 15.7 Eosinophils % 9.1 Basophils % 0.7 Absolute Neutrophils 3.29 Absolute Lymphocytes 0.94 L Absolute Monocytes 0.90 H Absolute Eosinophils 0.52 Absolute Basophils 0.04 Sodium 138 Potassium 4.2 Chloride 102 Carbon Dioxide 26.7 Anion Gap 9.3 BUN 23 H Creatinine 1.27 Estimated GFR/1.73 m2 56.07 Glucose 124 H Calcium 9.4 Magnesium Total Bilirubin 0.2 AST 16 ALT 37 Alkaline Phosphatase 96 Troponin I < 0.05 < 0.05 Total Protein 7.5 Albumin 3.4 Procalcitonin 05/17/19 05/18/19 05/18/19 18:09 06:39 06:39 WBC 5.30 RBC 3.65 L Hgb 10.7 L Hct 33.1 L MCV 90.7 MCH 29.3 MCHC 32.3 RDW 13.4 Plt Count 159 MPV 9.8 Immature Gran % 0.2 Neutrophils % 69.9 Lymphocytes % 7.4 Monocytes % 15.5 Eosinophils % 6.6 Basophils % 0.4 Absolute Neutrophils 3.71 Absolute Lymphocytes 0.39 L Absolute Monocytes 0.82 H Absolute Eosinophils 0.35 Absolute Basophils 0.02 Sodium 140 Potassium 4.5 Chloride 105 Carbon Dioxide 25.0 Anion Gap 10.0 BUN 20 H Creatinine 1.36 H Estimated GFR/1.73 m2 51.81 Glucose 117 H Calcium 8.8 Magnesium 1.3 L Total Bilirubin AST ALT Alkaline Phosphatase Troponin I Total Protein Albumin Procalcitonin < 0.1 05/18/19 11:40 WBC RBC Hgb Hct MCV MCH MCHC RDW Plt Count MPV Immature Gran % Neutrophils % Lymphocytes % Monocytes % Eosinophils % Basophils % Absolute Neutrophils Absolute Lymphocytes Absolute Monocytes Absolute Eosinophils Absolute Basophils Sodium Potassium Chloride Carbon Dioxide Anion Gap BUN Creatinine Estimated GFR/1.73 m2 Glucose Calcium Magnesium Total Bilirubin AST ALT Alkaline Phosphatase Troponin I < 0.05 Total Protein Albumin Procalcitonin
--- NOTE | 2019-05-18 13:13 | PGE_ITS ---
Date of Service Date of service: 05/18/19 Time of Service: 13:13 Assessment and Plan Assessment and plan (1) Unresponsive episode: Status: Acute Assessment and plan: Appears to be cough induced unresponsive episodes/syncope, without any evidence of seizure activity by EEG. - Will focus treatment options on cough suppression - continue tessalon and Guaifenesin Syrup. - Following conversation with neurology also initiated low dose Baclofen for attempt at vagal suppression. Per discussion, other options include Depakote, Haldol, valiu, reglan, thorazoine, and gabapentin. - Could also consider treatment with Fludrocortisone, Midodrine, Methylphenidate, and SSRI therapy for potential vasovagal syncope. - Would also consider low dose opiate therapy for cough suppression and ease of breathing. - D/c Keppra and MRI of the brain as there is no evidence of seizure activity. - Patient will likely require long course of trialing different treatment modalities to better control symptoms. (2) Tachycardia: Status: Acute Assessment and plan: Likely effect of nebs. Patient with an episode of chest pain that was brief and self resolved - Subsequent ECG with sinus tachycardia. Will rule out with serial CBMs, but doubt ischemia. - Continue low dose BB, but given COPD weary of increasing dose. Administer dose of Oral Cardizem, continue to monitor on telemetry, and discontinue standing nebs. Will also change albuterol to prn xopenex, and monitor HR closely. (3) Abnormal CT of the chest: Status: Acute Assessment and plan: Per official read, findings consistent with post radiation changes - considered pneumonia as well but patient has no fever or leukocytosis, cough is chronic, and Procalcitonin was checked and negative. Findings need to be monitored over time as an outpatient. Discussed with Heme/Onc. (4) CAD (coronary artery disease): Status: Chronic Assessment and plan: Continue JAYDEN-I, BB, statin, and aspirin therapy. Patient is also on treatment with Zetia and as needed NTG. (5) Advanced directives, counseling/discussion: Status: Acute Assessment and plan: DNR/DNI per patient's wishes. (6) DVT prophylaxis: Status: Acute Assessment and plan: SC enoxaparin. Subjective Subjective Interval history since last seen: Very pleasant 68-year-old man with a Past Medical History significant for lung CA, admitted from [facility] Emergency Department on 05/17 due to ongoing intermittent unresponsive events following bouts of coughing. Mr. Bradley has a past medical history significant for GERD, CAD s/p CABG 1989, PCI and stent placement in 1999 and and 2004, HTN, dyslipidemia, significant prior tobacco history, and COPD. The patient also has a prior history of laryngeal CA with no evidence of recurrence. Other history includes AAA s/p endovascular aneurysm repair in 2012, with an endoleak necessitating repair recently. He also has a history of stage IIIb SCCA of the lung, with discovery of a left-sided lung mass by imaging last June. Since that time he has undergone a left upper lobectomy and a LLL wedge resection for 3.3 cm and separate 8 mm mass, path positive for SCCA of the lung, as well as treatment with chemo and XRT, with imaging over the past 2 months (CT of the chest in February, CTA of the abdomen and CT of the head in March) clear of recurrence. The patient and his report an ongoing issue with intermittent occurrences of essentially unresponsive events following significant coughing episodes. As per Mrs. Bradley, the patient becomes fixated with a gaze and open eyes, but essentially unresponsive for matter of seconds to upwards of a minute, with a brief period of confusion following. The state of confusion can last upwards of a minute as per the spouse. These episodes have actually been ongoing for approximately 10 months, and started to happen around the time of diagnosis of Mr. Bradley's lung cancer. However, they predate his surgery which occurred in September of this year. Mrs. Bradley also reports that she believes his symptoms worsened about chcf through his radiation therapy, and have been steadily worsening over the past few weeks as his cough has worsened recently. In fact the patient was upstairs in cardiopulmonary rehab on the day prior to his admission, and suffered one such spell. He was evaluated immediately by Dr.Michael Maurer, who suspected that these episodes may represent seizure activity, and following discussion with the neurologist Dr. Constantino the patient was initiated on oral Keppra with an initial loading dose. However, despite these measures Mr. Bradley continued to have such episodes, including on the day of admission while he was at his primary's office and receiving breathing treatments. In fact, Mrs. Bradley reports that he had 4 episodes while receiving his breathing treatments. He was sent to the ED for further evaluation. Work-up in the ED included essentially unremarkable labs, CT of the brain without any evidence of intracranial pathology or arterial occlusion/stenosis. However, chest x-ray was positive for left-sided perihilar airspace opacities, concerning for pneumonia versus recurrent mass. Subsequent CT of the chest is now officially interpreted as left perihilar densitives representing either PNA or post Radiation changes. Procalcitonin was checked and unremarkable, and the patient remains afebrile and without leukocytosis. The patient also underwent an overnight EEG that showed 2 events consistent with apparent vasovagal syncope, but 6 other events without any significant changes. This morning Mr. Bradley suffered an episode of chest pain that spontaneously resolved - this was in the setting of tachycardia, likely induced by frequent nebulizer therapy. He was also noted to have numerous unresponsive events overnight, witnessed by the covering physician who noted absolutely no evidence of post-ictal state. Exam Narrative Exam Narrative: General: Patient appears comfortable, AAOX3, NAD Neck: Supple CV: Regular, nontachycardic, S1S2, No rubs, murmurs, or gallops. Pulmonary: Breath sounds absent/decreased left upper lobe, decreased in the left lower lobe. Overall breath sounds are mildly decreased but with good air entry, without any evidence of wheezing. Abdomen: + Bowel Sounds, soft, nontender, nondistended Vascular: No lower extremity edema Psych: Normal mood and affect. Objective Objective Clinical Data: Abnormal lab results 05/17/19 05/17/19 05/18/19 Range/Units 14:05 14:05 06:39 RBC 4.07 L (4.50-6.00) m/cumm Hgb 12.3 L (13.5-17.5) g/dL Hct 36.8 L (40.0-50.0) % Absolute Lymphocytes 0.94 L (1.2-3.4) k/cumm Absolute Monocytes 0.90 H (0.11-0.7) k/cumm BUN 23 H 20 H (7-18) mg/dL Creatinine 1.36 H (0.70-1.30) mg/dL Glucose 124 H 117 H (70-100) mg/dL Magnesium 1.3 L (1.8-2.4) mg/dL 05/18/19 Range/Units 06:39 RBC 3.65 L (4.50-6.00) m/cumm Hgb 10.7 L (13.5-17.5) g/dL Hct 33.1 L (40.0-50.0) % Absolute Lymphocytes 0.39 L (1.2-3.4) k/cumm Absolute Monocytes 0.82 H (0.11-0.7) k/cumm BUN (7-18) mg/dL Creatinine (0.70-1.30) mg/dL Glucose (70-100) mg/dL Magnesium (1.8-2.4) mg/dL Vital Signs Temperature 36.5 C 05/18/19 12:22 Temperature Source Temporal Artery Scan 05/18/19 12:22 Pulse 114 H 05/18/19 12:22 Pulse Rhythm Regular 05/18/19 08:00 Pulse 86 05/17/19 18:10 Respiratory Rate 16 05/18/19 12:22 Respiratory Effort Non-Labored 05/18/19 08:00 Respiratory Depth Normal 05/18/19 08:00 Respiratory Pattern Normal 05/18/19 08:00 Blood Pressure 93/56 L 05/18/19 12:22 Blood Pressure Mean 84 05/17/19 17:46 Blood Pressure Position Sitting 05/17/19 13:58 Pulse Oximetry 98 05/18/19 12:22 Oxygen Delivery Method Nasal Cannula 05/18/19 12:22 Oxygen Flow Rate 2 05/18/19 12:22 Pain Level 0 05/18/19 12:22 Comment 05/18/19 11:32 Intake & Output 05/17/19 05/18/19 05/18/19 23:59 11:59 23:59 Intake Total 1780.000 / 1780.000 Output Total 400 / 400 1150 / 1150 Balance -400 / -400 630.000 / 630.000 Weight 83.3 kg Intake: IV 1680.000 / 1680.000 Oral 100 / 100 Output: Urine 400 / 400 1150 / 1150 Other: Urine Color Yellow Pale Yellow Brown Urine Appearance Clear Clear Urine Odor Normal Voiding Methods Urinal Urinal Laboratory Results WBC 5.30 k/cumm (4.4-10.8) 05/18/19 06:39 RBC 3.65 m/cumm (4.50-6.00) L 05/18/19 06:39 Hgb 10.7 g/dL (13.5-17.5) L 05/18/19 06:39 Hct 33.1 % (40.0-50.0) L 05/18/19 06:39 MCV 90.7 fL (80-95) 05/18/19 06:39 MCH 29.3 pg (27.0-33.0) 05/18/19 06:39 MCHC 32.3 g/dL (32.0-36.0) 05/18/19 06:39 RDW 13.4 % (11.8-14.1) 05/18/19 06:39 Plt Count 159 x1000/uL (130-400) 05/18/19 06:39 MPV 9.8 fL (8.0-11.0) 05/18/19 06:39 Immature Gran % 0.2 05/18/19 06:39 Neutrophils % 69.9 05/18/19 06:39 Lymphocytes % 7.4 05/18/19 06:39 Monocytes % 15.5 05/18/19 06:39 Eosinophils % 6.6 05/18/19 06:39 Basophils % 0.4 05/18/19 06:39 Absolute Neutrophils 3.71 k/cumm (1.2-6.7) 05/18/19 06:39 Absolute Lymphocytes 0.39 k/cumm (1.2-3.4) L 05/18/19 06:39 Absolute Monocytes 0.82 k/cumm (0.11-0.7) H 05/18/19 06:39 Absolute Eosinophils 0.35 k/cumm (0.0-0.7) 05/18/19 06:39 Absolute Basophils 0.02 k/cumm (0.0-0.2) 05/18/19 06:39 Sodium 140 mmol/L (136-145) 05/18/19 06:39 Potassium 4.5 mmol/L (3.5-5.1) 05/18/19 06:39 Chloride 105 mmol/L (98-107) 05/18/19 06:39 Carbon Dioxide 25.0 mmol/L (21.0-32.0) 05/18/19 06:39 Anion Gap 10.0 mmol/L (3-11) 05/18/19 06:39 BUN 20 mg/dL (7-18) H 05/18/19 06:39 Creatinine 1.36 mg/dL (0.70-1.30) H 05/18/19 06:39 Estimated GFR/1.73 m2 51.81 (mL/min/1.73m2) 05/18/19 06:39 Glucose 117 mg/dL (70-100) H 05/18/19 06:39 Calcium 8.8 mg/dL (8.5-10.1) 05/18/19 06:39 Magnesium 1.3 mg/dL (1.8-2.4) L 05/18/19 06:39 Total Bilirubin 0.2 mg/dL (0.2-1.0) 05/17/19 14:05 AST 16 U/L (15-37) 05/17/19 14:05 ALT 37 U/L (16-63) 05/17/19 14:05 Alkaline Phosphatase 96 U/L (46-116) 05/17/19 14:05 Troponin I < 0.05 ng/mL (0.00-0.06) 05/18/19 11:40 Total Protein 7.5 g/dL (6.4-8.2) 05/17/19 14:05 Albumin 3.4 g/dL (3.4-5.0) 05/17/19 14:05 Procalcitonin < 0.1 ng/mL 05/17/19 18:09
[2019-05-18] MEDS: guaiFENesin/D-METHORPHAN HB 5 ML CUP 10 ML PO ×2 (14:22→19:28)
--- NOTE | 2019-05-18 16:13 | PHARADMIT ---
Admission Pharmacy Clinical Review cough induced syncope (vaso-vagal) vs seizure, pneumonia vs lung Code Status DNR/DNI Current Weight Wgt-83.3 kg Renally Cleared and Narrow Therapeutic Index Meds CrCl~45 mL/min Meds-OK QTc Value / Action Taken QTc-506 (Levaquin, Protonix) BP Control, Fever BP-100/68 Tmax- 36.8C Electrolytes reviewed Na- 140 K+4.5 Mag-1.3 DVT Prophylaxis Lovenox 40mg Opiate Usage / Scheduled Bowel Regimen Ordered No Yes Plt/SCr for Heparin / Enoxaparin Plts-159 SCr-1.36 INR for Warfarin na H/H stable, WBC/Bands H&H- 10.7/33.1 WBC-5.30 Antibiotic appropriateness Levaquin continues though ProCal & WBC-low Cultures and Sensitivities Blood cultures-pending Surgical ABX d/c within 24 hr na DM control / Insulin Dosing BG-117 Heart Failure (Check EF%) (JAYDEN's, B-Block, Diuretics) Toprol-XL, NTG IV to PO Switch No Home Meds Reviewed Yes Home Meds Not Ordered Lisinopril, CBD extract, Mucinex DC'd, Keppra dc'd, Comments Keppra dc'd seizure ruled out, Baclofen started to suppress vagal response. Has tessalon & Soham-DM ordered
[2019-05-18 16:58] LABS: Troponin I < 0.05 ng/mL (0.00-0.06)
[2019-05-18] MEDS: Enoxaparin 40 MG/0.4 ML SYR SC (18:01)
--- NOTE | 2019-05-18 18:44 | PCNE_ITS ---
Date of service: 05/18/19 History of Present Illness History of Present Illness Chief Complaint: coughing spells followed by near syncope/staring spells Narrative: Colin was accompanied by his , friend, and late in the visit, granddaughter. He has been struggling with his health all year. He has had multiple health problems, including lung cancer with LULobectomy on 09/21/18 and LLL wedge resection. Started chemo on 10/31, but this was followed by chest pain and pt was found to have a AAA leak from his previous repair. He had to wait a few days (?) to have this leak repaired, due to his recent chemo. Later that same month, he broke his foot. He was able to restart his chemo in December, followed by radiation, that was completed in March. His believes that his coughing spells really picked up in intensity and frequency about half way through his radiation tx. I spoke to Dr Trammell, radiation oncologist, who said that he has not seen vagal nerve damage leading to coughing fits like Mr Bradley's as s/e of radiation. He also said that Mr. Bradley had these spells prior to his lung surgery in September. He cannot explain them. He did refer Mr Bradley to [facility] pulmonology, but he has yet to be seen. Dr Constantino, neurologist, evaluated Mr Bradley today, not long before I saw him. He reports to me that she does not think the spells are seizures. She did recommend baclofen as trial of medication to see if this could prevent syncope. Keppra was stopped. Brain MRI cancelled. He is clearly very frustrated and hates not having an explanation for his symptoms. More important to him, however, is that they are stopped. He is open to trying different medications. He would like to be discharged as soon as possible. He has already spent too much time in hospitals this year. Consults Consult date: 05/18/19 Requesting physician: Isaac Grey Assessment and Plan Assessment and plan (1) Chronic coughing: Status: Chronic Assessment and plan: Not sure what is causing cough. Nothing has worked yet. Trying baclofen per Dr. Constantino. Reviewed vagally-induced coughs in medical literature. They recommend gabapentin 1800 mg daily to treat. If baclofen ineffective, consider trial of gabapentin. Advised I will check on him regularly while he is inpatient--he wants to go home as soon as hospitalist team allows him. (2) Palliative care patient: Status: Acute Assessment and plan: Has had multiple cancers: laryngeal, lung, bladder, all linked to smoking. No longer smoking at this time. Looked surprisingly well considering his cancer burden over the years. Not cachectic. Finished with current treatments for this lung cancer. Mostly, he wants his coughing spells to stop. He did ask for cough syrup. Conveyed his to Dr Grey who will put in order. (3) Vasovagal syncope: Status: Acute Assessment and plan: unclear if this is accurate diagnosis defer to Dr Constantino trial of baclofen (4) Tachycardia: Status: Acute Assessment and plan: due at least partially to mild dehydration and anxiety (5) Malignant neoplasm of overlapping sites of left lung: Status: Acute Review of Systems Constitutional Constitutional: Reports difficulty sleeping, Reports fatigue and Reports weakness Eyes Eyes: Reports requires corrective lenses ENT Ears, Nose, Mouth, and Throat: Reports hoarseness and Reports disequilibrium Comments: tickle in his throat often precedes his coughing spells that lead to presyncope/syncope Cardiovascular Cardiovascular: Reports syncope, Reports lightheadedness and Reports dyspnea on exertion Respiratory Respiratory: Reports cough and Reports dyspnea on exertion Comments: has 15 of these couging spells leading to presyncope, or sometimes syncope, as observed by his primary nurse, THIS MORNING alone spells happening more frequently Gastrointestinal Gastrointestinal: Reports early satiety Genitourinary Genitourinary: Reports difficulty urinating Musculoskeletal Musculoskeletal: Reports atrophy, Reports muscle weakness and Reports stiffness Comments: not able to be as active as usual Integumentary/Breasts Skin/Breast: Reports dry skin Neurologic Neurologic: Reports abnormal movements, Reports behavioral changes (associated with his coughing spells), Reports confusion (after his coughing spells. stares blankly), Reports syncope, Reports disequilibrium and Reports weakness Psychiatric Psychiatric: Reports behavioral changes (associated with his coughing spells), Reports confusion (after his coughing spells. 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 due to vagal nerve irritation? COPD (chronic obstructive pulmonary disease) (Chronic ~08/09/18) Mild. PFT (Pulm, [facility], 08/08/18). Need another PFT, post lung resection [ ] 11/10/18 Foot fracture, right (Acute 10/2018) XR showing possible Fx, non-displaced [ ] CT recomm. Gastroesophageal reflux disease without esophagitis (Chronic 01/26/06) EGD ME: GERD: This is well-controlled with daily PPI. 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 04/14/18 Flexible Fiberoptic Laryngoscopy- No evidence of recurrance or second primary Other abnormal glucose (Acute 02/22/13) abnormal fasting sugar (111 in 2012) (114 in 2013) Palliative care patient (Acute) Primary malignant neoplasm of bronchus of left upper lobe (Chronic) [facility] [place]. 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 Shortness of breath (Acute) LUNG CA ID'd .. now s/p surgery 10/2018. > Severe dyspnea .. with report of intolerance and feeling worse after some of his albuterol inhaler attempts .. Prompted to call ambulance for ED eval 2' possible reaction, tachy with NEB Tx. Sent to Ed, appreciate attention. NEB, CXR, Labs .. Smoker unmotivated to quit (Resolved 04/12/14) >50 pack years, despite CAD and Laryngeal cancer; QUIT SMOKING POST DYSPNEIC EPISODE 06/2018.... Surgical History (Updated 05/18/19 @ 18:56 by Kaitlin Diallo MD) Endoleak post (EVAR) endovascular aneurysm repair (Acute 11/30/18) endovascular repair AAA (03/07/13) Dr Dsouza, [facility], yearly f/u with CTA History of throat surgery (Acute) S/P CABG x 4 (Acute) S/P lobectomy of lung (Acute) Status post radiation therapy (Chronic) 25 tx; Dr Trammell, rad-onc; stopped 04/06 Family History Mother , kidney failure at age 78. Renal disease Father , murdered at age 42. No problems noted. 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 Lengthy and significant history of tobacco abuse, with approximate 100+ pack year history of smoking, quit June 2018. Denies any alcohol use. Patient does admit to use of THC type products for medicinal purposes. Exam Narrative Exam Narrative: Physical Exam: Gen: coughing occasionally, chronically ill appearing Head and face: no facial or cranial abnormalities Neck: Supple, no LAD, no JVD CV: tachy, regular Resp: coarse rales bilaterally Abd: soft, nontender, nondistended Ext: No edema. No clubbing or cyanosis. No bony deformity. Neuro: AAOx3, no dysarthria, no confusion psych: frustrated, irritable about his condition, not with me skin: no bruises or abrasions Results Last Vital Signs Temp 98.2 F 05/18/19 14:45 Pulse 95 H 05/18/19 15:30 Resp 16 05/18/19 14:45 BP 100/68 05/18/19 14:45 Pulse Ox 100 05/18/19 14:45 Labs Result diagrams: 05/18/19 06:39 05/18/19 06:39 Labs: Laboratory Results - last 24 hr 05/17/19 05/18/19 05/18/19 18:09 06:39 06:39 WBC 5.30 RBC 3.65 L Hgb 10.7 L Hct 33.1 L MCV 90.7 MCH 29.3 MCHC 32.3 RDW 13.4 Plt Count 159 MPV 9.8 Immature Gran % 0.2 Neutrophils % 69.9 Lymphocytes % 7.4 Monocytes % 15.5 Eosinophils % 6.6 Basophils % 0.4 Absolute Neutrophils 3.71 Absolute Lymphocytes 0.39 L Absolute Monocytes 0.82 H Absolute Eosinophils 0.35 Absolute Basophils 0.02 Sodium 140 Potassium 4.5 Chloride 105 Carbon Dioxide 25.0 Anion Gap 10.0 BUN 20 H Creatinine 1.36 H Estimated GFR/1.73 m2 51.81 Glucose 117 H Calcium 8.8 Magnesium 1.3 L Troponin I Procalcitonin < 0.1 05/18/19 05/18/19 11:40 15:17 WBC RBC Hgb Hct MCV MCH MCHC RDW Plt Count MPV Immature Gran % Neutrophils % Lymphocytes % Monocytes % Eosinophils % Basophils % Absolute Neutrophils Absolute Lymphocytes Absolute Monocytes Absolute Eosinophils Absolute Basophils Sodium Potassium Chloride Carbon Dioxide Anion Gap BUN Creatinine Estimated GFR/1.73 m2 Glucose Calcium Magnesium Troponin I < 0.05 < 0.05 Procalcitonin
--- NOTE | 2019-05-18 19:02 | PDOC.CMIN ---
- If Service Date Differs Date of service: 05/18/19 Time of Service: 19:03 Care Management Initial Assess REASON FOR HOSPITALIZATION:: unresponsive episodes PAST MEDICAL HISTORY/PAST SURGICAL HISTORY:: Medical History. Adenomatous colon polyp (Acute 01/13/12). tubular aden[place] [facility] [place], rpt 5 yr. 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 CABG 1989; s/p stents 1999, 2004. 09/09/18-Stress Echocardiogram [facility] [place]. ASCVD (arteriosclerotic cardiovascular disease) (Chronic 01/13/12). CABG 1989; s/p stents 1999, 2004. Benign neoplasm of colon (Acute 01/13/12). tubular adenoma [facility] [place]06, rpt 5 yr. CAD (coronary artery disease) (Chronic). Gastroesophageal reflux disease without esophagitis (Chronic 01/26/06). EGD [facility]: GERD: This is well-controlled with daily PPI. Would continue indefinitely; path neg for metaplasia. HTN (hypertension) (Chronic). Hyperlipidemia (Acute 01/13/12). Laryngeal cancer (Resolved). 10/10/04 [facility] [place] glottic cancer of larynx-CO2 Laser microsurgery. 04/14/18 Flexible Fiberoptic Laryngoscopy- No evidence of recurrance or second primary. Other abnormal glucose (Acute 02/22/13). abnormal fasting sugar (111 in 2012) (114 in 2013). Shortness of breath (Acute). LUNG CA ID'd .. now s/p surgery 10/2018. > Severe dyspnea .. with report of intolerance and feeling worse after some of his albuterol inhaler attempts .. Prompted to call ambulance for ED eval 2' possible reaction, tachy with NEB Tx. Sent to Ed, appreciate attention. NEB, CXR, Labs .. Smoker unmotivated to quit (Chronic 04/12/14). >50 pack years, despite CAD and Laryngeal cancer; QUIT SMOKING POST DYSPNEIC EPISODE 06/2018.... Surgical History . Endoleak post (EVAR) endovascular aneurysm repair (Acute 11/30/18). endovascular repair AAA (03/07/13). Dr Dsouza, [facility] [place], yearly f/u with CTA PREVIOUS FUNCTIONAL STATUS/SOCIAL/FAMILY SUPPORTS:: Colin lives in a single family home in [facility] with his Suzette. They have 2 adult sons who are not actively involved in his care. Colin has been having episodes where he passes out according to Suzette. Thye have been increasing in frequency and pose a serious safety threat as Colin generally falls to the ground when it happens. Suzette expressed concern because their home is on 3 levels and the only bathrooms are upstairs where the bedrooms are or in the finished basement. Both require Colin to use stairs. 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 CURRENT FUNCTIONAL STATUS:: Colin was sleeping during most of the CM visit. Suzette, his , provided most of the information. She painted a picture of prolonged ill health in the past 11 months with major surgeries for resection of lung cancer as well as resection of a AAA in the spring. He has undergone extensive chemotherapy and radiation and has become weakened and discouraged as time goes on.She is very concerned for his safety with the syncopal episodes and hopes that a cause and treatment can be found. ADVANCE DIRECTIVES:: On file at [facility]. Suzette Bradley, , [facility] Has patient been provided with information about the portal?: No Did the patient sign up for the portal?: No CODE STATUS:: DNR/DNI INSURANCE COVERAGE / FINANCIAL ISSUES:: Medicare. BS CURRENT HOME/COMMUNITY SERVICES/EQUIPMENT:: none currently PRIMARY CARE PHYSICIAN:: Danyell Burks POTENTIAL DISCHARGE NEEDS:: follow up with PCP and discharge plan of care PATIENT/FAMILY EDUCATION NEEDS:: Discharge plan, limitations, follow up plan, Ask Me Three. TRANSPORTATION:: via private vehicle with PLAN:: Colin will likely be discharged home with no new services. He will follow up with his PCP and [facility] paln of care. He will transport with his via private vehicle . CM will continue to support patient, family and discharge planning needs.
[2019-05-18] MEDS: Simvastatin 40 MG TAB PO (20:11)
[2019-05-18 20:22] LABS: Troponin I < 0.05 ng/mL (0.00-0.06)
[2019-05-19 00:20] VITALS: BP 93/55; PULSE 66; RESP 16; TEMP 35.6; O2SAT 96
[2019-05-19 03:49] VITALS: BP 92/63; PULSE 71; RESP 16; TEMP 36.3; O2SAT 96
[2019-05-19 06:06] VITALS: PULSE 66
[2019-05-19] MEDS: Ezetimibe 10 MG TAB 5 MG PO (07:55)
[2019-05-19 07:56] LABS: Abs Immature Grans 0.01 k/cumm (0.0-0.09); Absolute Basophil Count 0.02 k/cumm (0.0-0.2); Absolute Eosinophil Count 0.49 k/cumm (0.0-0.7); Absolute Lymphocyte Count 0.51 k/cumm (1.2-3.4); Absolute Neutrophil Count 2.68 k/cumm (1.2-6.7); Basophils % 0.5; Eosinophils % 11.1; HCT 34.7 % (40.0-50.0); HGB 11.4 g/dL (13.5-17.5); Immature Grans % 0.2; Lymphocytes % 11.6; Mean Corp. HGB Concentration 32.9 g/dL (32.0-36.0); Mean Corpuscular Hemoglobin 29.8 pg (27.0-33.0); Mean Corpuscular Volume 90.8 fL (80-95); Mean Platelet Volume 9.5 fL (8.0-11.0); Monocytes % 15.9; Neutrophils % 60.7; Platelet Count 171 x1000/uL (130-400); RBC 3.82 m/cumm (4.50-6.00); RBC Distribution Width 13.4 % (11.8-14.1); White Blood Cell Count 4.41 k/cumm (4.4-10.8)
[2019-05-19] MEDS: Baclofen 10 MG TAB PO ×2 (07:56→13:08)
[2019-05-19] MEDS: Magnesium Oxide 400 MG TAB PO (07:56)
[2019-05-19] MEDS: Metoprolol CR 25 MG TABCR 12.5 MG PO (07:56)
[2019-05-19] MEDS: Aspirin E.C. 81 MG TABEC PO (07:56)
[2019-05-19] MEDS: Pantoprazole 40 MG TABCR PO (07:58)
[2019-05-19 08:01] VITALS: BP 112/62; PULSE 71
[2019-05-19 08:05] LABS: Anion Gap 8.1 mmol/L (3-11); BUN 15 mg/dL (7-18); CO2 25.9 mmol/L (21.0-32.0); Calcium 9.2 mg/dL (8.5-10.1); Chloride 104 mmol/L (98-107); Estimated GFR 54.57 (mL/min/1.73m2); Glucose 132 mg/dL (70-100); Potassium 4.2 mmol/L (3.5-5.1); Sodium 138 mmol/L (136-145)
[2019-05-19 08:20] VITALS: PULSE 70; RESP 20; TEMP 36.7; O2SAT 96
--- NOTE | 2019-05-19 11:53 | DSE_ITS ---
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: Status: Chronic Discharge Plan Disposition Patient Disposition: HOME Condition: Improving Discharge Details Chief Complaint: Dizzy/Sync Reason For Visit: COUGH INDUCED SYNCOPE VS SEIZURE,PNEUMONIA VS LUNG Admit Date/Time: 05/17/19 17:31 Admit Provider: Isaac Grey Attending Provider: Isaac Grey Primary Care Provider: Danyell Bruks ED Provider: [facility] Course Hospital Course: Chief Complaint: Unresponsive Events / Loss of Consciousness HPI: Very pleasant 68-year-old man with a Past Medical History significant for lung CA, admitted from [facility] Emergency Department on 05/17 due to ongoing intermittent unresponsive events following bouts of coughing. Mr. Bradley has a Past Medical History significant for GERD, CAD s/p CABG 1989, PCI and stent placement in 1999 and and 2004, HTN, dyslipidemia, significant prior tobacco history, and COPD. The patient also has a prior history of laryngeal CA with no evidence of recurrence. Other history includes AAA s/p endovascular aneurysm repair in 2012, with an endoleak necessitating repair recently. He also has a history of stage IIIb SCCA of the lung, with discovery of a left-sided lung mass by imaging last June. Since that time he has undergone a left upper lobectomy and a LLL wedge resection for 3.3 cm and separate 8 mm mass in September of 2018, path positive for SCCA of the lung, as well as treatment with chemo and XRT, with imaging over the past 2 months (CT of the chest in February, CTA of the abdomen and CT of the head in March) clear of recurrence. The patient and his report an ongoing issue with intermittent occurrences of unresponsive events following significant coughing episodes. As per Mrs. Bradley, the patient becomes fixated with a gaze and open eyes, but essentially unresponsive for matter of seconds to upwards of a minute, with a brief period of confusion following. The state of confusion can last upwards of a minute as per the spouse. These episodes have actually been ongoing for approximately 10 months, and started to happen around the time of diagnosis of Mr. Bradley's lung cancer. However, they predate his surgery which occurred in September of this year. Mrs. Bradley also reports that she believes his symptoms worsened about [facility] through his radiation therapy, and have been steadily worsening over the past few weeks as his cough has worsened recently. In fact the patient was upstairs in cardiopulmonary rehab on the day prior to his admission, and suffered one such spell. He was evaluated immediately by Dr.Michael Maurer, who suspected that these episodes may represent seizure activity, and following discussion with the neurologist Dr. Constantino the patient was initiated on oral Keppra with an initial loading dose, and scheduled for an outpatient MRI as he refused evaluation in the ED. However, despite these measures Mr. Bradley continued to have such episodes, including on the day of admission while he was at his primary's office and receiving breathing treatments. In fact, Mrs. Bradley reported that he had 4 episodes while receiving his breathing treatments. He was sent to the ED for further evaluation. Work-up in the ED included essentially unremarkable labs, CT of the brain without any evidence of intracranial pathology or arterial occlusion/stenosis. However, chest x-ray was positive for left-sided perihilar airspace opacities, concerning for pneumonia versus recurrent mass. Subsequent CT of the chest is now officially interpreted as left perihilar densitives representing either PNA or post Radiation changes. Procalcitonin was checked and unremarkable, and the patient remains afebrile and without leukocytosis. The patient also underwent an overnight EEG that showed 2 events consistent with apparent vasovagal syncope, but 6 other events without any significant changes. No evidence of seizure activity was seen. yesterday morning Mr. Bradley suffered an episode of chest pain that spontaneously resolved - this was in the setting of tachycardia, likely induced by frequent nebulizer therapy. ECG showed sinus tachycardia, and serial troponins were undetectable. He was also noted to have numerous unresponsive events overnight on his initial hospital night, witnessed by the covering physician who noted absolutely no evidence of post-ictal state. Following diagnosis of syncope his Keppra was discontinued, and the patient was initiated on Baclofen and guaifenesin with Dextromethorphan, and this morning reports vast improvement in his symptoms. Hospital Course: (1) Unresponsive episode: Appears to be cough induced unresponsive episodes/syncope, without any evidence of seizure activity by EEG. - Will focus treatment options on cough suppression - continue tessalon and cough Syrup, changed to Guaifenesin with Dextromethorphan with good success. - Also initiated on Baclofen - Mr. Bradley reports vastly improved symptoms on current regimen this morning. - Neuro recommends attempt at vagal suppression if cough suppressive therapy fails, including other options including Depakote, Haldol, valium, reglan, thorazoine, and gabapentin. - Could also consider treatment with Fludrocortisone, Midodrine, Methylphenidate, and SSRI therapy for potential vasovagal syncope. - Would also consider low dose opiate therapy for cough suppression and ease of breathing if needed in the future. - Keppra and MRI of the brain were discontinued as there is no evidence of seizure activity. CT of the head was clear. - Patient may require course of trialing different treatment modalities to better control symptoms. Please see Dr. Bridgette Romero's consultation note for further details. (2) Tachycardia: Likely effect of nebs. Patient with an episode of chest pain that was brief and self resolved - Subsequent ECG with sinus tachycardia, ruled out with serial CBMs, but doubt ischemia. Received one time dose of oral cardizem. Current HR in the 60-80's at time of discharge. (3) Abnormal CT of the chest: Per official read, findings consistent with post radiation changes - considered pneumonia as well but patient has no fever or leukocytosis, cough is chronic, and Procalcitonin was checked and negative. Findings need to be monitored over time as an outpatient. Discussed with Heme/Onc. (4) CAD (coronary artery disease): Continue JAYDEN-I, BB, statin, and aspirin therapy. Patient is also on treatment with Zetia and prn NTG. (5) Advanced directives, counseling/discussion: DNR/DNI per patient's wishes. (6) DVT prophylaxis: Was maintained on SC enoxaparin. (7) Disposition: Patient is requesting to return home. Neurology with concern for fall risk given frequent episodes of syncope, and with noted concern for his ability to be home safely at this time. This was discussed with patient prior to his discharge this afternoon. He is adamant about wanting to return home today, reports that despite having this condition for 10 months he has not suffered any falls or had any ill effects as a result of his syncopal episodes, and refused any other consideration other than returning home. Lengthy discussion was held regarding limitations upon discharge, including no driving (which he has not done in some time), not operating heavy machinery, climbing ladders, and general overall safety. Mr. Bradley is understanding of these limitations and is in agreement with the plan. He is also scheduled to follow-up with Neurology in one month, and palliative care with Dr. Yoel aggarwal. Home Meds and New Rx's Prescriptions: New dextromethorphan-guaifenesin 10-100 mg/5 mL Syrup 10 ml PO Q4H PRN PRN (Reason: cough) Qty: 118 RF: 0 baclofen 10 mg Tablet 10 mg PO TID Qty: 90 RF: 0 Continued lisinopril [Zestril] 10 mg tablet 10 mg PO DAILY Qty: 90 RF: 3 simvastatin 40 mg tablet 40 mg PO DAILY Qty: 90 RF: 3 albuterol sulfate [ProAir HFA] 90 mcg/actuation HFA aerosol inhaler 2 puff Inhalation Q4H PRN Qty: 1 RF: 1 aspirin [Adult Low Dose Aspirin] 81 mg tablet,delayed release (DR/EC) 81 mg PO DAILY RF: 0 magnesium oxide 400 mg (241.3 mg magnesium) tablet 400 mg PO DAILY Qty: 90 RF: 3 TYLENOL ARTHRITIS 650 MG TABLET.ER 1,300 mg PO Q8H PRN RF: 0 nitroglycerin 0.4 MG tablet, sublingual 0.4 mg Sublingual PRN Qty: 25 RF: 3 Combivent Respimat 20-100 mcg/actuation mist 2 puff IH QID RF: 0 pantoprazole [Protonix] 40 mg tablet,delayed release (DR/EC) 40 mg PO BID Qty: 180 RF: 3 CBD extract PO PRNRF: 0 ezetimibe [Zetia] 10 mg tablet 5 mg PO DAILY Qty: 45 RF: 3 metoprolol succinate [Toprol XL] 25 mg tablet extended release 24 hr 12.5 mg PO DAILY Qty: 45 RF: 2 sucralfate 1 gram Tablet See Rx Instructions .ROUTE .COMPLEX PRNRF: 0 benzonatate 200 mg Capsule 200 mg PO Q6H PRNRF: 0 lidocaine HCl [Xylocaine] 20 mg/mL (2 %) Solution See Rx Instructions .ROUTE .COMPLEX RF: 0 Discontinued levetiracetam 500 mg tablet 500 mg PO BID RF: 0 guaifenesin [Mucinex] 1,200 mg Tablet Extended Release 12hr 1,200 mg PO PRN PRNRF: 0 Discharge Instructions Stand Alone Forms: Nursing Discharge Form Referrals: Danyell Burks DO [Primary Care Provider] - (Dr Covarrubias office will ca ll you with a date and time) Bridgette Constantino MD [ [facility] STAFF PHYSICIAN] - 06/21/19 12:15 pm Activity:: No strenuous activity. No driving, climbing, operating heavy mac hinery. Equipment/Supplies:: No Equipment Needed Diet:: Low Sodium Discharge Orders Discharge Orders: Discharge Order (Routine); Ordered 05/19/19 Ordered By: Isaac Grey DS: Summary Status at Discharge Functional status at discharge: independent ambulation Overall status at discharge: patient is back to baseline Mental Status: mental status grossly normal Speech and Movement: speech and movement normal Mood: congruent mood Affect: normal affect Exam Narrative Exam Narrative: General: Patient appears comfortable, AAOX3, NAD Neck: Supple CV: Regular, nontachycardic, S1S2, No rubs, murmurs, or gallops. Pulmonary: Breath sounds absent/decreased left upper lobe, decreased in the left lower lobe. Overall breath sounds are mildly decreased but with good air entry, without any evidence of wheezing. Abdomen: + Bowel Sounds, soft, nontender, nondistended Vascular: No lower extremity edema Psych: Normal mood and affect. Psych Mental Status: mental status grossly normal Speech and Movement: speech and movement normal Mood: congruent mood Affect: normal affect DS: Data Vitals/I&O Vitals and I&O: Vital Signs Temperature 36.7 C 05/19/19 08:20 Temperature Source Tympanic 05/19/19 08:20 Pulse 70 05/19/19 08:20 Pulse Rhythm Regular 05/19/19 06:00 Pulse 86 05/17/19 18:10 Respiratory Rate 20 05/19/19 08:20 Respiratory Effort Non-Labored 05/19/19 06:00 Respiratory Depth Normal 05/19/19 06:00 Respiratory Pattern Normal 05/19/19 06:00 Blood Pressure 112/62 05/19/19 08:01 Blood Pressure Mean 84 05/17/19 17:46 Blood Pressure Position Sitting 05/17/19 13:58 Pulse Oximetry 96 05/19/19 08:20 Oxygen Delivery Method Room Air 05/19/19 08:20 Oxygen Flow Rate 0 05/19/19 08:20 Pain Level 0 05/18/19 14:45 Comment 05/19/19 08:20 Intake & Output 05/18/19 05/18/19 05/19/19 11:59 23:59 11:59 Intake Total 1780.000 / 2586.667 806.667 / 2586.667 300 / 300 Output Total 1150 / 1850 700 / 1850 1200 / 1200 Balance 630.000 / 736.667 106.667 / 736.667 -900 / -900 Intake: IV 1680.000 / 2246.667 566.667 / 2246.667 Oral 100 / 340 240 / 340 300 / 300 Output: Urine 1150 / 1850 700 / 1850 1200 / 1200 Other: Urine Color Pale Pale Yellow Yellow Yellow Brown Urine Appearance Clear Clear Clear Urine Odor Normal Normal Normal Voiding Methods Urinal Urinal Urinal Data Completed and Pending Completed studies during hospitalization [Text1]: Exam(s) 05/17/[address]:CT brain & neck CTA EXAM: CT BRAIN NECK CTA CLINICAL HISTORY: syncope vs sz after coughing TECHNIQUE: Noncontrast head CT followed by CT angiography of the neck and head. COMPARISON: CT HEAD W from 04/05/2019 FINDINGS: Noncontrast Head CT: No intracranial hemorrhage, mass or infarct is seen. The ventricles are normal in size. There is no significant atrophy. The sinuses, mastoid air cells and orbits are unremarkable. There are minimal white matter changes. CT Angiography of the Neck: There is calcific plaque at the common carotid bulbs and proximal internal carotid arteries causing mild, less than 50 percent stenosis bilaterally. The vertebral arteries show no significant plaque. The vertebral arteries are symmetric in size. There is no evidence of dissection of the carotid or vertebral arteries. CT Angiography of the Head: The basilar artery is mildly tortuous. There is mild calcification at the internal carotid arteries distally with no significant stenosis. There is no evidence of occlusion or dissection. The anterior, middle and posterior cerebral arteries are normal in diameter. IMPRESSION: 1. No acute abnormality. 2. Calcific plaque causing mild stenosis of less than 50 percent of both internal carotid arteries. 3. No significant stenosis. No evidence of aneurysm or dissection. Exam(s) 05/17/2019 a RAD:XR chest 2V PA & lateral EXAM: XR CHEST 2V PA LATERAL INDICATION: cough. COMPARISON: XR PORTABLE CHEST AP from 02/10/2019 TECHNIQUE: 2D digital imaging was performed. FINDINGS: Postsurgical changes are again noted of the left chest. There is a small left pleural effusion. There are increased densities in the left perihilar region. Underlying fibrotic changes are seen. The heart size within normal limits. IMPRESSION: New left perihilar densities could represent pneumonia versus postradiation changes versus recurrent mass. --------- Exam(s) 05/17/[address]:CT chest w EXAM: CT CHEST W CLINICAL HISTORY: Pneumonia, hx of RAS and LLL lung ca, s/p resection, cough TECHNIQUE: Post IV contrast. COMPARISON: CT CHEST W from 02/22/2019 FINDINGS: There is a small left pleural effusion, increased in size when compared with the previous exam. Postsurgical changes of the left chest with volume loss are again noted. There are new densities in the left perihilar region which are new since the previous exam. No definite mass is seen. Findings may represent pneumonia versus post radiation changes. Underlying peripheral honeycombing is again noted. No right-sided infiltrate or effusion is seen. The heart size is normal. There is no aortic dissection. Pulmonary arteries are not well opacified. Visualized portions of the upper abdomen are unremarkable. IMPRESSION: New left perihilar densities may represent pneumonia versus post radiation change. Small left pleural effusion. Labs on day of discharge: Labs from last 24 hours 05/19/19 05/19/19 05/18/19 07:25 07:25 19:35 WBC 4.41 RBC 3.82 L Hgb 11.4 L Hct 34.7 L MCV 90.8 MCH 29.8 MCHC 32.9 RDW 13.4 Plt Count 171 MPV 9.5 Immature Gran % 0.2 Neutrophils % 60.7 Lymphocytes % 11.6 Monocytes % 15.9 Eosinophils % 11.1 Basophils % 0.5 Absolute Neutrophils 2.68 Absolute Lymphocytes 0.51 L Absolute Monocytes 0.70 Absolute Eosinophils 0.49 Absolute Basophils 0.02 Sodium 138 Potassium 4.2 Chloride 104 Carbon Dioxide 25.9 Anion Gap 8.1 BUN 15 Creatinine 1.30 Estimated GFR/1.73 m2 54.57 Glucose 132 H Calcium 9.2 Magnesium 2.0 Troponin I < 0.05 05/18/19 05/18/19 15:17 11:40 WBC RBC Hgb Hct MCV MCH MCHC RDW Plt Count MPV Immature Gran % Neutrophils % Lymphocytes % Monocytes % Eosinophils % Basophils % Absolute Neutrophils Absolute Lymphocytes Absolute Monocytes Absolute Eosinophils Absolute Basophils Sodium Potassium Chloride Carbon Dioxide Anion Gap BUN Creatinine Estimated GFR/1.73 m2 Glucose Calcium Magnesium Troponin I < 0.05 < 0.05 Preliminary micro results at discharge 05/17/19 18:09 Blood Culture - Preliminary Blood NO GROWTH 24 HOURS 05/17/19 18:02 Blood Culture - Preliminary Blood NO GROWTH 24 HOURS PFSH Medical History Adenomatous colon polyp (Acute 01/13/12) tubular aden[place] [facility] [place], rpt 5 yr Arteriosclerotic cardiovascular disease (ASCVD) (Chronic 01/13/12) CABG 1989; s/p stents 1999, 200409/09/18-Stress Echocardiogram [facility] [place] CAD (coronary artery disease) (Chronic) Chronic coughing (Chronic) ? due to vagal nerve irritation? COPD (chronic obstructive pulmonary disease) (Chronic ~08/09/18) Mild. PFT (Pulm, [facility] [place], 08/08/18). Need another PFT, post lung resection [ ] 11/10/18 Foot fracture, right (Acute 10/2018) XR showing possible Fx, non-displaced [ ] CT recomm. Gastroesophageal reflux disease without esophagitis (Chronic 01/26/06) EGD ME: GERD: This is well-controlled with daily PPI. 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 Shortness of breath (Acute) LUNG CA ID'd .. now s/p surgery 10/2018. > Severe dyspnea .. with report of intolerance and feeling worse after some of his albuterol inhaler attempts .. Prompted to call ambulance for ED eval 2' possible reaction, tachy with NEB Tx. Sent to Ed, appreciate attention. NEB, CXR, Labs .. Smoker unmotivated to quit (Resolved 04/12/14) >50 pack years, despite CAD and Laryngeal cancer; QUIT SMOKING POST DYSPNEIC EPISODE 06/2018.... Surgical History Endoleak post (EVAR) endovascular aneurysm repair (Acute 11/30/18) endovascular repair AAA (03/07/13) Dr Dsouza, [facility] [place], yearly f/u with CTA History of throat surgery (Acute) S/P CABG x 4 (Acute) S/P lobectomy of lung (Acute) Status post radiation therapy (Chronic) 25 tx; Dr Trammell, rad-onc; stopped 04/06 Family History Mother , kidney failure at age 78. Renal disease Father , murdered at age 42. No problems noted. 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 Lengthy and significant history of tobacco abuse, with approximate 100+ pack year history of smoking, quit June 2018. Denies any alcohol use. Patient does admit to use of THC type products for medicinal purposes.
[2019-05-19 12:52] VITALS: PULSE 76
[2019-05-19] MEDS: guaiFENesin/D-METHORPHAN HB 5 ML CUP 10 ML PO (13:08)
--- NOTE | 2019-05-19 18:48 | PDOC.CMDIS ---
- If Service Date Differs Date of service: 05/19/19 Time of Service: 18:48 LACE Index Scoring Tool - Questions: Length of Stay (in days): 2 Acuity (Admit via E.D.?): Yes Comorbidities: Metastatic Solid Tumor E.D. Visits: 6 - Answers: Total Score: 14 Risk of Readmission: High Risk Care Management Discharge Reason for Hospitalization: unresponsive episodes Discharge Plan: Colin will be discharged home with no new services. He will follow up with his PCP and specialists. He will transport via private vehicle with his Suzette. Patient/Family Education Needs: Discharge plan, limitations, follow up plan, Ask Me Three.
--- NOTE | 2019-05-20 07:11 | W.PALPGNOTE ---
Date of service: 05/19/19 Time of Service: 11:00 Assessment and Plan Assessment and plan (1) Chronic coughing: Status: Chronic Assessment and plan: much better with baclofen and cough syrup hope this will hold him and allow him to return to his usual activities he is sick of being sick (2) Status post radiation therapy: Status: Chronic Assessment and plan: Dr Trammell doesn't think the rad tx caused vagal irritation, but possible. He will continue to f/u (3) COPD (chronic obstructive pulmonary disease): Status: Chronic Assessment and plan: No longer smoking. No inhalational irritants. Wanting to do pulm rehab so he can be active. Not a calista who likes to sit around. Hates being sick. 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 (5) Vasovagal syncope: Status: Acute Assessment and plan: Thanks to Dr Constantino for her ideas on baclofen. Helped this patient dramatically. (6) Palliative care patient: Status: Chronic Assessment and plan: will follow up with him in July 2019 at [facility] office. Subjective Subjective Patient reports: no new complaints and feels better Interval history since last seen: The baclofen suggested by Dr Constantino has made an enormous difference, as did the dextromorphan and guaifenasin cough syrup that patient requested. He has had no further coughing or presyncopal spells. He wants to go home. He looks much better, sitting at side of bed, talking, interacting. Exam Narrative Exam Narrative: Physical Exam: Gen: sitting up at side of bed, talking, interactive, looks well Head and face: no facial or cranial abnormalities Neck: Supple, no LAD, no JVD CV: regular rate, no murmur Resp: diminished lung sounds on left, but no rhonchi, no crackles, no cough, no increased WOB Abd: soft, nontender, nondistended Ext: No edema. No clubbing or cyanosis. Neuro: AAOx3, no dysarthria, no confusion psych: alert, energetic, eager to go home, no anxiety or depression skin: no bruises or abrasions Objective Objective Clinical Data: Abnormal lab results 05/19/19 05/19/19 Range/Units 07:25 07:25 RBC 3.82 L (4.50-6.00) m/cumm Hgb 11.4 L (13.5-17.5) g/dL Hct 34.7 L (40.0-50.0) % Absolute Lymphocytes 0.51 L (1.2-3.4) k/cumm Glucose 132 H (70-100) mg/dL Vital Signs Temperature 98.1 F 05/19/19 08:20 Temperature Source Tympanic 05/19/19 08:20 Pulse 76 05/19/19 12:52 Pulse Rhythm Regular 05/19/19 06:00 Pulse 86 05/17/19 18:10 Respiratory Rate 20 05/19/19 08:20 Respiratory Effort Non-Labored 05/19/19 06:00 Respiratory Depth Normal 05/19/19 06:00 Respiratory Pattern Normal 05/19/19 06:00 Blood Pressure 112/62 05/19/19 08:01 Blood Pressure Mean 84 05/17/19 17:46 Blood Pressure Position Sitting 05/17/19 13:58 Pulse Oximetry 96 05/19/19 08:20 Oxygen Delivery Method Room Air 05/19/19 08:20 Oxygen Flow Rate 0 05/19/19 08:20 Pain Level 0 05/18/19 14:45 Comment 05/19/19 08:20 Intake & Output 05/19/19 05/19/19 05/20/19 11:59 23:59 11:59 Intake Total 300 / 300 Output Total 1200 / 1200 Balance -900 / -900 Intake: Oral 300 / 300 Output: Urine 1200 / 1200 Other: Urine Color Yellow Urine Appearance Clear Urine Odor Normal Voiding Methods Urinal Laboratory Results WBC 4.41 k/cumm (4.4-10.8) 05/19/19 07:25 RBC 3.82 m/cumm (4.50-6.00) L 05/19/19 07:25 Hgb 11.4 g/dL (13.5-17.5) L 05/19/19 07:25 Hct 34.7 % (40.0-50.0) L 05/19/19 07:25 MCV 90.8 fL (80-95) 05/19/19 07:25 MCH 29.8 pg (27.0-33.0) 05/19/19 07:25 MCHC 32.9 g/dL (32.0-36.0) 05/19/19 07:25 RDW 13.4 % (11.8-14.1) 05/19/19 07:25 Plt Count 171 x1000/uL (130-400) 05/19/19 07:25 MPV 9.5 fL (8.0-11.0) 05/19/19 07:25 Immature Gran % 0.2 05/19/19 07:25 Neutrophils % 60.7 05/19/19 07:25 Lymphocytes % 11.6 05/19/19 07:25 Monocytes % 15.9 05/19/19 07:25 Eosinophils % 11.1 05/19/19 07:25 Basophils % 0.5 05/19/19 07:25 Absolute Neutrophils 2.68 k/cumm (1.2-6.7) 05/19/19 07:25 Absolute Lymphocytes 0.51 k/cumm (1.2-3.4) L 05/19/19 07:25 Absolute Monocytes 0.70 k/cumm (0.11-0.7) 05/19/19 07:25 Absolute Eosinophils 0.49 k/cumm (0.0-0.7) 05/19/19 07:25 Absolute Basophils 0.02 k/cumm (0.0-0.2) 05/19/19 07:25 Sodium 138 mmol/L (136-145) 05/19/19 07:25 Potassium 4.2 mmol/L (3.5-5.1) 05/19/19 07:25 Chloride 104 mmol/L (98-107) 05/19/19 07:25 Carbon Dioxide 25.9 mmol/L (21.0-32.0) 05/19/19 07:25 Anion Gap 8.1 mmol/L (3-11) 05/19/19 07:25 BUN 15 mg/dL (7-18) 05/19/19 07:25 Creatinine 1.30 mg/dL (0.70-1.30) 05/19/19 07:25 Estimated GFR/1.73 m2 54.57 (mL/min/1.73m2) 05/19/19 07:25 Glucose 132 mg/dL (70-100) H 05/19/19 07:25 Calcium 9.2 mg/dL (8.5-10.1) 05/19/19 07:25 Magnesium 2.0 mg/dL (1.8-2.4) 05/19/19 07:25 Total Bilirubin 0.2 mg/dL (0.2-1.0) 05/17/19 14:05 AST 16 U/L (15-37) 05/17/19 14:05 ALT 37 U/L (16-63) 05/17/19 14:05 Alkaline Phosphatase 96 U/L (46-116) 05/17/19 14:05 Troponin I < 0.05 ng/mL (0.00-0.06) 05/18/19 19:35 Total Protein 7.5 g/dL (6.4-8.2) 05/17/19 14:05 Albumin 3.4 g/dL (3.4-5.0) 05/17/19 14:05 Procalcitonin < 0.1 ng/mL 05/17/19 18:09
== END 2019-05-19 13:35 | disposition home or self-care (01) | DRG 312 ==
LOC: ER 17:48 → MS 18:29
PROVIDERS: Admitting Provider Internal Medicine; Emergency Provider Student in an Organized Health Care Education/Training Program; PCP Student in an Organized Health Care Education/Training Program; Visit Provider Internal Medicine
DX: C34.12 Malignant neoplasm of upper lobe, left bronchus or lung (principal); R41.9 Unspecified symptoms and signs involving cognitive functions and awareness; R55 Syncope and collapse; R05 Cough; Z51.5 Encounter for palliative care; R00.0 Tachycardia, unspecified; R91.8 Other nonspecific abnormal finding of lung field; Z92.3 Personal history of irradiation; K21.9 Gastro-esophageal reflux disease without esophagitis; I25.10 Atherosclerotic heart disease of native coronary artery without angina pectoris; Z95.5 Presence of coronary angioplasty implant and graft; I10 Essential (primary) hypertension; E78.5 Hyperlipidemia, unspecified; Z87.891 Personal history of nicotine dependence; J44.9 Chronic obstructive pulmonary disease, unspecified; Z85.21 Personal history of malignant neoplasm of larynx; Z90.2 Acquired absence of lung [part of]
CPT/HCPCS: 36410; 36415; 70496; 70498; 80048; 80053; 84145; 87040; 93005; 94640; 95813; 95953; 99222; 99223; 99232; 99233; 99239; 99255; 99285; J1650; 71046; 71260; 83735; 84484; 85025; 93010; J1956; J3475; J3490; J7620; J7626

== ENCOUNTER → 2019-05-18 15:15 | Outpatient (BNVA) | payer MEDICARE, BC, SELFPAY | PROVIDERS: PCP Student in an Organized Health Care Education/Training Program; Referring Provider Student in an Organized Health Care Education/Training Program; Visit Provider Psychiatry & Neurology Neurology | DX: R69 Illness, unspecified (principal) ==

== ENCOUNTER → 2019-06-21 12:05 | Outpatient (BNVA) | payer MEDICARE, BC, SELFPAY | PROVIDERS: PCP Student in an Organized Health Care Education/Training Program; Referring Provider Student in an Organized Health Care Education/Training Program; Visit Provider Psychiatry & Neurology Neurology | DX: G62.0 Drug-induced polyneuropathy (principal); T45.1X5A Adverse effect of antineoplastic and immunosuppressive drugs, initial encounter; R55 Syncope and collapse; R06.6 Hiccough; I10 Essential (primary) hypertension; J44.9 Chronic obstructive pulmonary disease, unspecified; C34.90 Malignant neoplasm of unspecified part of unspecified bronchus or lung; Z87.891 Personal history of nicotine dependence | CPT/HCPCS: 99215 ==

== ENCOUNTER 2019-07-05 16:10 | Outpatient (CLI) | payer MEDICARE, BC, SELFPAY ==
--- NOTE | 2019-07-05 15:45 | DI.RAD_ITS ---
EXAM: XR RIBS LT W PA AND LAT CHEST INDICATION: PLEURITIC PAIN, RIB PAIN LT SIDE, S/P RADIATION THERAPY, PRIMARY MALIGNANT NEOPLASM OF B RONCHUS OF LT UPPER LOBE, H/O PLEURISY, PLEURODYNIA, R07.81, Z87.09, C34.12, Z98.890, R/O FLUID, R/O BONY PATHOLOGY. COMPARISON: XR CHEST 2V PA LATERAL from 05/17/2019 TECHNIQUE: 2D digital imaging was performed. FINDINGS: Postsurgical changes of the left hemithorax are again noted with volume loss and perihilar scarring. There is no evidence of an effusion. There is no gross recurrent mass. Sternal wires and coronary artery stents are also seen. The right lung appears clear. Two oblique views of the ribs were perfo rmed. There is no gross lytic or blastic lesion. Calcifications are seen near the left humeral head , which could represent calcific bursitis or tendinitis. IMPRESSION: Postsurgical changes of the left chest. No evidence of pleural effusion, pneumothorax or gross rib a bnormality.
== END 2019-07-05 16:30 ==
PROVIDERS: PCP Student in an Organized Health Care Education/Training Program; Visit Provider Student in an Organized Health Care Education/Training Program
DX: R07.81 Pleurodynia (principal); C34.12 Malignant neoplasm of upper lobe, left bronchus or lung; Z92.3 Personal history of irradiation; Z98.890 Other specified postprocedural states
CPT/HCPCS: 71046; 71100

== ENCOUNTER 2019-07-07 02:18 | Outpatient (CLI) | payer MEDICARE, BC, SELFPAY ==
[2019-07-07 13:05] LABS: Abs Immature Grans 0.14 k/cumm (0.0-0.09); Absolute Basophil Count 0.01 k/cumm (0.0-0.2); Absolute Eosinophil Count 0.02 k/cumm (0.0-0.7); Absolute Lymphocyte Count 0.89 k/cumm (1.2-3.4); Absolute Monocyte Count 0.39 k/cumm (0.11-0.7); Absolute Neutrophil Count 4.81 k/cumm (1.2-6.7); Basophils % 0.2; Eosinophils % 0.3; HGB 12.7 g/dL (13.5-17.5); Immature Grans % 2.2; Lymphocytes % 14.2; Mean Corp. HGB Concentration 33.4 g/dL (32.0-36.0); Mean Corpuscular Volume 89.6 fL (80-95); Mean Platelet Volume 9.2 fL (8.0-11.0); Monocytes % 6.2; Neutrophils % 76.9; RBC 4.24 m/cumm (4.50-6.00); RBC Distribution Width 14.9 % (11.8-14.1); White Blood Cell Count 6.26 k/cumm (4.4-10.8)
[2019-07-07 13:19] LABS: ALT 58 U/L (16-63); AST 17 U/L (15-37); Albumin 3.5 g/dL (3.4-5.0); Alkaline Phosphatase 55 U/L (46-116); Anion Gap 12.2 mmol/L (3-11); BUN 28 mg/dL (7-18); Bilirubin, Total 0.4 mg/dL (0.2-1.0); CO2 20.8 mmol/L (21.0-32.0); CREATININE 1.82 mg/dL (0.70-1.30); Calcium 8.8 mg/dL (8.5-10.1); Chloride 99 mmol/L (98-107); Estimated GFR 37.01 (mL/min/1.73m2); Glucose 345 mg/dL (74-106); LDH 243 U/L (85-227); Sodium 132 mmol/L (136-145); Total Protein 6.6 g/dL (6.4-8.2)
[2019-07-07 13:22] LABS: Diff Comment Diff Reviewed; Platelet Count 98 x1000/uL (130-400); RBC Morphology Normal
[2019-07-07] MEDS: Omnipaque 350 MG/ML 100 ML BTL IJ (13:58)
--- NOTE | 2019-07-07 13:58 | DI.CT_ITS ---
EXAM: CT CHEST PE CTA CLINICAL HISTORY: R/O PE, EVALUATE PNEUMONITIS,NEW PAIN, H/O LUNG CA TECHNIQUE: CT angiography of chest was performed with a bolus infusion of 100 cc of Omnipaque 350. Axial CT angiography was performed with multi-slice acquisition and multi-planar and/or 3D reconstruc tions. COMPARISON: CT CHEST W from 05/17/2019 CT BRAIN NECK CTA from 05/17/2019 FINDINGS: The patient has a history of left lobectomy for lung carcinoma. Examination is compared with most re cent prior chest CT of 05/17/2019. Areas of perihilar reticular change noted on the previous examina tion thought likely to represent pneumonia versus post radiation change show increased retraction on the current examination. No new consolidation seen. No significant left pleural effusion. No new f indings in the right lung. No gross mediastinal or hilar adenopathy. No evidence of pulmonary embol ic disease. No thoracic aortic abnormality. Images obtained through the upper abdomen show unremarkable appearance of visualized portions of live r, spleen, kidneys, adrenals and pancreas IMPRESSION: Postsurgical changes in patient with history of lobectomy for left lung carcinoma. No evidence of pu lmonary embolic disease.
== END 2019-07-07 02:38 ==
PROVIDERS: PCP Student in an Organized Health Care Education/Training Program; Visit Provider Student in an Organized Health Care Education/Training Program
DX: C34.82 Malignant neoplasm of overlapping sites of left bronchus and lung (principal); R07.81 Pleurodynia; J98.4 Other disorders of lung; Z90.2 Acquired absence of lung [part of]
CPT/HCPCS: 36415; 71275; 80053; 83615; 85025; J3490

== ENCOUNTER 2019-08-08 01:57 | Outpatient (CLI) | payer MEDICARE, BC, SELFPAY ==
[2019-08-08 10:01] LABS: BUN 19 mg/dL (7-18); CREATININE 1.34 mg/dL (0.70-1.30); Calcium 9.4 mg/dL (8.5-10.1); Chloride 103 mmol/L (98-107); Glucose 187 mg/dL (74-106); Potassium 4.2 mmol/L (3.5-5.1); Sodium 141 mmol/L (136-145)
== END 2019-08-08 02:17 ==
PROVIDERS: PCP Student in an Organized Health Care Education/Training Program; Visit Provider Internal Medicine Infectious Disease
DX: R79.89 Other specified abnormal findings of blood chemistry (principal)
CPT/HCPCS: 36415; 80048

== ENCOUNTER 2019-09-18 01:38 | Outpatient (CLI) | payer MEDICARE, BC, SELFPAY ==
--- NOTE | 2019-09-18 | DI.CT_ITS ---
EXAM: CT CHEST W CLINICAL HISTORY: ACUTE PULMONARY MANIFESTATIONS DUE TO RADIATION, F/U PNEUMONITIS, J70.0 TECHNIQUE: Post IV contrast COMPARISON: CT THORAX ABDOMEN CTA from 04/05/2019 XR CHEST 2V PA LATERAL from 05/17/2019 CT CHEST W from 05/17/2019 XR RIBS LT W PA LAT CHEST from 07/05/2019 CT CHEST PE CTA from 07/07/2019 FINDINGS: There has been slight interval increase in pleural thickening versus pleural effusion. Again noted i s left-sided volume loss. Increased densities are again noted in left perihilar region and do not arden w significant change. The findings could represent a combination of scarring and post radiation stone e. Dependent changes and peripheral fibrotic changes are again noted in the right lung. Sternal wires are seen. There is no pericardial effusion. Coronary artery stents are seen. There is no adenopathy. The liver shows fatty infiltration. Sclerosis is again noted in the upper thoracic spine, greatest a t the T4 level. IMPRESSION: Stable appearance of presumed postradiation changes in the left upper lobe.
[2019-09-18 13:15] LABS: Abs Immature Grans 0.11 k/cumm (0.0-0.09); Absolute Basophil Count 0.03 k/cumm (0.0-0.2); Absolute Eosinophil Count 0.08 k/cumm (0.0-0.7); Absolute Lymphocyte Count 0.82 k/cumm (1.2-3.4); Absolute Monocyte Count 0.48 k/cumm (0.11-0.7); Absolute Neutrophil Count 6.64 k/cumm (1.2-6.7); Basophils % 0.4; HCT 38.9 % (40.0-50.0); HGB 13.3 g/dL (13.5-17.5); Immature Grans % 1.3 %; Mean Corp. HGB Concentration 34.2 g/dL (32.0-36.0); Mean Corpuscular Hemoglobin 31.2 pg (27.0-33.0); Mean Corpuscular Volume 91.3 fL (80-95); Mean Platelet Volume 9.2 fL (8.0-11.0); Monocytes % 5.9; Neutrophils % 81.4; Platelet Count 155 x1000/uL (130-400); RBC 4.26 m/cumm (4.50-6.00); RBC Distribution Width 13.7 % (11.8-14.1); White Blood Cell Count 8.16 k/cumm (4.4-10.8)
[2019-09-18 13:28] LABS: ALT 58 U/L (16-63); AST 23 U/L (15-37); Albumin 3.5 g/dL (3.4-5.0); Alkaline Phosphatase 68 U/L (46-116); Anion Gap 14.6 mmol/L (3-11); BUN 23 mg/dL (7-18); Bilirubin, Total 0.4 mg/dL (0.2-1.0); CO2 22.4 mmol/L (21.0-32.0); CREATININE 1.59 mg/dL (0.70-1.30); Chloride 99 mmol/L (98-107); Estimated GFR 43.13 (mL/min/1.73m2); Glucose 305 mg/dL (74-106); LDH 182 U/L (85-227); Potassium 4.1 mmol/L (3.5-5.1); Sodium 136 mmol/L (136-145); Total Protein 6.7 g/dL (6.4-8.2)
[2019-09-18] MEDS: Omnipaque 350 MG/ML 100 ML BTL IJ (13:59)
== END 2019-09-18 01:58 ==
PROVIDERS: PCP Student in an Organized Health Care Education/Training Program; Visit Provider Nurse Practitioner Family
DX: C34.82 Malignant neoplasm of overlapping sites of left bronchus and lung (principal); Z92.3 Personal history of irradiation; J70.0 Acute pulmonary manifestations due to radiation; J98.4 Other disorders of lung; K76.0 Fatty (change of) liver, not elsewhere classified
CPT/HCPCS: 80053; 71260; 83615; 85025; J3490

== ENCOUNTER 2019-09-21 08:41 | Outpatient (CLI) | payer MEDICARE, BC, SELFPAY | END 2019-09-21 09:01 | PROVIDERS: PCP Student in an Organized Health Care Education/Training Program; Visit Provider Internal Medicine Cardiovascular Disease | DX: I25.10 Atherosclerotic heart disease of native coronary artery without angina pectoris (principal); I71.4 Abdominal aortic aneurysm, without rupture; J44.9 Chronic obstructive pulmonary disease, unspecified; Z95.1 Presence of aortocoronary bypass graft; Z87.891 Personal history of nicotine dependence | CPT/HCPCS: 99204; 99215; 93005; 93010 ==

== ENCOUNTER → 2020-01-25 09:49 | Outpatient (BNVA) | payer MEDICARE, BC, SELFPAY | PROVIDERS: PCP Student in an Organized Health Care Education/Training Program; Referring Provider Student in an Organized Health Care Education/Training Program; Visit Provider Surgery | DX: L82.1 Other seborrheic keratosis (principal) | CPT/HCPCS: 11301; 99201; 99212 ==

== ENCOUNTER 2020-01-25 15:19 | Outpatient (REF) | payer MEDICARE, BC, SELFPAY ==
--- NOTE | 2020-01-25 10:34 | SKI_PTH ---
PATIENT: Colin Bradlye LOC: [facility] U#:[id number] AGE/SX: 69/M ROOM: RE01/25/[address]: Darling Guajardo MD : [id number] BED: DIS: 01/25/2020 SPEC #: [id number] RECD: 01/25/20 17:18 STATUS: JOCELIN REQ #: [id number] PATRICIA: 01/25/20 10:[address]: Darling Guajardo DEPT: Surgical Specimen RECD BY: Moon Carrera ENTERED: 01/25/20 17:19 SP TYPE: SKI OTHR DR: Danyell Burks DO Tissues: 1 - SKIN BIOPSY(SHAVE/PUNCH) Procedures: SKIN LEVEL 4 Comments: [id number]
== END 2020-01-25 15:39 ==
LOC: LBN 15:19
PROVIDERS: PCP Student in an Organized Health Care Education/Training Program; Visit Provider Surgery
DX: L82.1 Other seborrheic keratosis (principal)
CPT/HCPCS: 88305

== ENCOUNTER → 2020-02-15 08:34 | Outpatient (BNVA) | payer MEDICARE, BC, SELFPAY | PROVIDERS: PCP Student in an Organized Health Care Education/Training Program; Referring Provider Student in an Organized Health Care Education/Training Program; Visit Provider Psychiatry & Neurology Neurology | DX: G62.0 Drug-induced polyneuropathy (principal); T45.1X5D Adverse effect of antineoplastic and immunosuppressive drugs, subsequent encounter; I10 Essential (primary) hypertension; J44.9 Chronic obstructive pulmonary disease, unspecified; Z87.891 Personal history of nicotine dependence | CPT/HCPCS: 99214 ==

== ENCOUNTER 2020-02-23 22:28 | Emergency (ER) | payer MEDICARE, BC, SELFPAY ==
[2020-02-23] VITALS (13 sets, daily range): BP systolic 122–136; BP diastolic 73–91; PULSE 87–112; RESP 18–35; TEMP 36.5; O2SAT 94
--- NOTE | 2020-02-23 22:30 | RT.EKG_ITS ---
APPROVED REPORT Exam: Resting ECG Patient Location: E HR:105 bpm ECG Measurements Heart Rate 105 AXIS [place] 200 P 50 QRSd 107 QRS -6 QT 349 T 53 QTc 463 Conclusion Sinus tachycardia...rate> 99
--- NOTE | 2020-02-23 22:51 | ED.GENADUL_ITS ---
Discharge Plan Disposition Patient Disposition: HOME Condition: Stable Discharge Details Chief Complaint: Chest Pain Clinical Impression: Chest pain Primary Care Provider: Danyell Burks ED Provider: Mehul Adan Home Meds and New Rx's Prescriptions: New furosemide 20 mg tablet 20 mg PO DAILY Qty: 30 RF: 0 Continued lisinopril [Zestril] 10 mg tablet 10 mg PO DAILY Qty: 90 RF: 3 simvastatin 40 mg tablet 40 mg PO DAILY Qty: 90 RF: 3 aspirin [Adult Low Dose Aspirin] 81 mg tablet,delayed release (DR/EC) 81 mg PO DAILY RF: 0 magnesium oxide 400 mg (241.3 mg magnesium) tablet 400 mg PO DAILY Qty: 90 RF: 3 pantoprazole [Protonix] 40 mg tablet,delayed release (DR/EC) 40 mg PO DAILY RF: 0 albuterol sulfate [ProAir HFA] 90 mcg/actuation HFA aerosol inhaler 2 puff Inhalation Q4H PRN Qty: 1 RF: 1 TYLENOL ARTHRITIS 650 MG TABLET.ER 1,300 mg PO Q8H PRN RF: 0 nitroglycerin 0.4 MG tablet, sublingual 0.4 mg Sublingual PRN Qty: 25 RF: 3 ezetimibe [Zetia] 10 mg tablet 5 mg PO DAILY Qty: 45 RF: 3 budesonide-formoterol [Symbicort] 160-4.5 mcg/actuation HFA aerosol inhaler 2 puff IH BID RF: 0 Anoro Ellipta 62.5-25 mcg/actuation blister with device 1 inh IH DAILY RF: 0 metoprolol succinate [Toprol XL] 25 mg tablet extended release 24 hr 12.5 mg PO DAILY Qty: 45 RF: 2 Discharge Instructions Instructions: Chest Pain (ED), Pleural Effusion (ED) Additional Instructions: your cat scan showed a normal aorta. You do have a small pleural effusion which could be causing your symptoms follow up with your primary care provider this week and discuss if you should continue the furosemide return to the emergency department if you have severe worsening pain, feel more ill or difficulty breathing Medical Decision Making 69 yo male with Past Medical History significant for GERD, CAD s/p CABG 1989, PCI and stent placement in 1999 and and 2004, HTN, dyslipidemia, significant prior tobacco history, COPD, laryngeal CA with no evidence of recurrence, AAA s/p endovascular aneurysm repair in 2012, lung cancer with resection, who comes in with 3 weeks of constant left sided chest pain radiating to the back with intermittent increases in pain. Denies any fevers, chills, vomit, abdominal pain. He has clear lungs, no jvd, no leg swelling or calf pain. Given his numerous medical problems could be acs, will obtain ecg and troponin. No hypoxia or evidence of dvt on exam so doubt PE. Given pain radiates to the back concern for dissection, will obtain CTA and monitor. He declines any pain medicine labs show no significant change from baseline and his pain is gone now. His CTA shows normal aorta does have a small pleural effusion and lung scarring. Could be having pain from the pleural effusion. I did recommend observation for his chest pain but he declines at this time and he has capacity to make his own decisions. He yazan f/u with pcp this week and will start him on furosemide. Return precautions given Differential Diagnosis Differential Diagnosis: acs, dissection, ptx ECG Data Attestation: I personally reviewed and interpreted this ECG (s) as follows: Prior ECG tracings: not available for review Interpretation: sinus tachycardia, rate of 105, pr 200, qtc 463 HPI General Mode of arrival: ambulatory . Date/Time Provider Initiated Documentation: 02/23/20 22:31 . Limitations to Documentation: no limitations . Information obtained by: patient . History of Present Illness 69 year old M presents to the emergency department with the chief complaint of chest pain, described as moderate, Patient started experiencing this week(s) (3) and it has been intermittent. No relieving factors improve symptom(s), No exace rbating factors reported . Patient notes no other symptoms.. Patient did receive the following treatments prior to arrival, none Related Data Home Medications Medication Instructions Recorded Confirmed Tylenol Arthritis 1,300 mg PO Q8H PRN tab-cap 12/23/12 02/23/20 nitroglycerin 0.4 mg SUBLINGUAL PRN #25 tab-cap 01/18/17 02/23/20 aspirin 81 mg tablet,delayed 81 mg PO DAILY 10/21/18 02/23/20 release lisinopril 10 mg tablet 10 mg PO DAILY #90 tab 01/31/19 02/23/20 simvastatin 40 mg tablet 40 mg PO DAILY #90 tab-cap 03/01/19 02/23/20 ezetimibe 10 mg tablet 5 mg PO DAILY #45 tab-cap 10/07/19 08/07/20 magnesium oxide 400 mg (241.3 mg 400 mg PO DAILY #90 tab 05/15/19 02/23/20 magnesium) tablet albuterol sulfate 90 mcg/actuation 2 puff INHALATION Q4H PRN #1 06/14/19 02/23/20 aerosol inhaler inhaler pantoprazole 40 mg tablet,delayed 40 mg PO DAILY tab-cap 06/14/19 02/23/20 release budesonide-formoterol HFA 160 2 puff IH BID 08/10/19 02/23/20 mcg-4.5 mcg/actuation aerosol inhaler umeclidinium 62.5 mcg-vilanterol 1 inh IH DAILY 08/10/19 02/23/20 25 mcg/actuation powdr for inhalation metoprolol succinate 25 mg 12.5 mg PO DAILY #45 tab 01/23/20 02/23/20 tablet,extended release 24 hr furosemide 20 mg PO DAILY #30 tab 02/24/20 Previous Rx's Medication Instructions Recorded lisinopril 10 mg tablet 10 mg PO DAILY #90 tab 01/31/19 simvastatin 40 mg tablet 40 mg PO DAILY #90 tab-cap 03/01/19 ezetimibe 10 mg tablet 5 mg PO DAILY #45 tab-cap 04/24/19 magnesium oxide 400 mg (241.3 mg 400 mg PO DAILY #90 tab 05/15/19 magnesium) tablet albuterol sulfate 90 mcg/actuation 2 puff INHALATION Q4H PRN #1 06/14/19 aerosol inhaler inhaler metoprolol succinate 25 mg 12.5 mg PO DAILY #45 tab 01/23/20 tablet,extended release 24 hr furosemide 20 mg PO DAILY #30 tab 02/24/20 Allergies Allergy/AdvReac Type Severity Reaction Status Date / Time clopidogrel Allergy Unknown SKIN RASH Verified 02/23/20 22:35 esomeprazole magnesium AdvReac Unknown gi upset Verified 02/23/20 22:35 [From Nexium] Penicillins AdvReac Unknown gi upset Verified 02/23/20 22:35 General Stated Complaint: Chest Pain BRYCE: 2 Review of Systems All systems reviewed & are unremarkable except as noted in HPI and below Constitutional Constitutional: Denies chills, Denies fever(s) and Denies weakness ENT Ears, Nose, Mouth, and Throat: Denies change in voice Cardiovascular Cardiovascular: Denies dyspnea Respiratory Respiratory: Denies cough and Denies dyspnea Gastrointestinal Gastrointestinal: Denies abdominal pain, Denies nausea and Denies vomiting Musculoskeletal Musculoskeletal: Denies joint swelling Neurologic Neurologic: Denies weakness Psychiatric Psychiatric: Denies depression Endocrine Endocrine: Denies heat intolerance [facility] Medical History Adenomatous colon polyp (Acute 01/13/12) [place] [facility] [place] rpt 5 yr Arteriosclerotic cardiovascular disease (ASCVD) (Chronic 01/13/12) CABG 1989; s/p stents 1999, 200409/09/18-Stress Echocardiogram [facility] [place] CAD (coronary artery disease) (Chronic) Chest pain of uncertain etiology (Acute) Painlevel 2-4/10 x 2-3 weeks .. Hx abd aneurysm, so may need to r/o vasc path. Chronic coughing (Chronic) ? due to vagal nerve irritation? Chronic steroid use (Chronic) completed steroids, d/c 11/2019 COPD (chronic obstructive pulmonary disease) (Chronic ~08/09/18) Mild. PFT (Pulm, [facility] [place], 08/08/18). Need another PFT, post lung resection [ ] 11/10/18 Fatigue due to radiation therapy (Acute) Foot fracture, right (Acute 10/2018) XR showing possible Fx, non-displaced [ ] CT recomm. Gastroesophageal reflux disease without esophagitis (Chronic 01/26/06) EGD ME: GERD: This is well-controlled with daily PPI. 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 Shortness of breath (Acute) LUNG CA ID'd .. now s/p surgery 10/2018. > Severe dyspnea .. with report of intolerance and feeling worse after some of his albuterol inhaler attempts .. Prompted to call ambulance for ED eval 2' possible reaction, tachy with NEB Tx. Sent to Ed, appreciate attention. NEB, CXR, Labs .. Smoker unmotivated to quit (Resolved 04/12/14) >50 pack years, despite CAD and Laryngeal cancer; QUIT SMOKING POST DYSPNEIC EPISODE 06/2018.... Surgical History Endoleak post (EVAR) endovascular aneurysm repair (Acute 11/30/18) endovascular repair AAA (03/07/13) Dr Dsouza, [facility] [place], yearly f/u with CTA History of throat surgery (Acute) S/P CABG x 4 (Acute) S/P lobectomy of lung (Acute ~09/21/18) Status post radiation therapy (Chronic) 25 tx; Dr Trammell, rad-onc; stopped 04/06 Family History Mother , kidney failure at age 78. Renal disease Son No problems noted. Son No problems noted. 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 What is your relationship status?: How often do you talk on the phone with friends or family?: twice per week How often do you get together with friends or relatives?: twice per week Panel score (0-1 are the most socially isolated patients): 2 What type of physical activity do you participate in: walking and irregular exercise Duration: < 15 minutes/day Special mattie needs: No Seatbelt use: always Working smoke detector in home: Yes Carbon monox detector in home: Yes Do you feel safe at home: Yes Do you feel safe in your relationship?: Yes Additional Social history: Patient is , with 2 children. 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 Lengthy and significant history of tobacco abuse, with approximate 100+ pack year history of smoking, quit June 2018. Denies any alcohol use. Patient does admit to use of THC type products for medicinal purposes. Exam Const General: no acute distress Orientation: alert HENMT Head: normal to inspection Ears: external ears normal General nose exam: external nose normal Mouth: moist mucous membranes Eyes General: appearance normal, both eyes and all related structures Neck Neck: normal visual inspection Chest Chest: normal inspection of the chest Resp Effort & Inspection: normal respiratory effort and able to speak in complete sentences Cardio Rate: regular rate Skin General skin exam: no rashes or lesions noted Neuro General: patient alert and patient oriented x3 Extrem General: normal to inspection Psych Mental Status: mental status grossly normal Course Vital Signs Vital signs: Vital Signs Temperature 36.5 C 02/23/20 22:31 Pulse 110 H 02/23/20 22:31 Respiratory Rate 34 H 02/23/20 22:31 Blood Pressure 135/91 H 02/23/20 22:31 Temperature 36.5 C 02/23/20 22:31 Temperature Source Skin 02/23/20 22:31 Pulse 110 H 02/23/20 22:31 Respiratory Rate 34 H 02/23/20 22:37 Respiratory Effort Non-Labored 02/23/20 22:37 Blood Pressure 135/91 H 02/23/20 22:31 Pain Level 8 02/23/20 22:31
[2020-02-23 23:03] LABS: ALT 31 U/L (16-63); AST 12 U/L (15-37); Albumin 3.4 g/dL (3.4-5.0); Alkaline Phosphatase 114 U/L (46-116); Anion Gap 11.9 mmol/L (3-11); BUN 24 mg/dL (7-18); Bilirubin, Total 0.2 mg/dL (0.2-1.0); CO2 23.1 mmol/L (21.0-32.0); CREATININE 1.69 mg/dL (0.70-1.30); Chloride 100 mmol/L (98-107); Glucose 295 mg/dL (74-106); Magnesium 1.5 mg/dL (1.8-2.4); NT-proBNP 113 pg/mL (<300); Potassium 4.3 mmol/L (3.5-5.1); Sodium 135 mmol/L (136-145)
[2020-02-23 23:06] LABS: Troponin I < 0.05 ng/mL (<0.06)
--- NOTE | 2020-02-23 23:25 | DI.CT_ITS ---
EXAM: CT THORAX CTA CLINICAL HISTORY: chest pain radiating to the back. TECHNIQUE: Imaging Protocol: Axial CT angiography was performed with multi-slice acquisition and mu lti-planar and/or 3D reconstructions. CONTRAST MATERIAL: Intravenous: Omnipaque 350 Contrast volume:80 mL COMPARISON: CT CT CHEST PE CTA from 07/07/2019 FINDINGS: Pulmonary Arteries: No evidence of filling defect to suggest pulmonary emboli. Tracheobronchial tree: Patent where visualized. Mediastinum and Janneth: No dominant adenopathy or fluid collection. Pulmonary parenchyma: Stable post left upper lobectomy changes. Stable emphysematous changes in the lungs. Stable scarring or atelectasis in the perihilar region left greater than right. Pleura: Small left pleural effusion which may be slightly increased since the prior examination. Heart: The heart is not dilated. Marked coronary artery calcification. No pericardial effusion. Aorta: Thoracic aorta non-dilated. No evidence of thoracic aortic dissection or aneurysm. Upper abdomen: Diffuse decreased attenuation of the liver suggesting fatty infiltration. Upper aspe ct of an abdominal aortic stent are present. Bones: Degenerative changes in the thoracic spine. Status post sternotomy. Soft tissues: Unremarkable. IMPRESSION: 1. No evidence of pulmonary embolism, thoracic aortic dissection or aneurysm. 2. Stable pulmonary findings. RADIATION DOSE DELIVERED: 531.96mGy.cm Total DLP 531.96mGy.cm Total DLP DATA REPOSITORY: All CT scans at this facility are submitted to the National Radiology Data Registry (NRDR) Dose Index Registry (DIR) with the [employer] (ACR). RADIATION OPTIMIZATION: All CT scans at this facility use at least one of these dose optimization te chniques: automated exposure control; mA and/or kV adjustment per patient size (includes targeted exa ms where dose is matched to clinical indication); or iterative reconstruction.
[2020-02-23] MEDS: Normal Saline Flush 10 ML SYR IVP (23:37)
[2020-02-23] MEDS: Omnipaque 350 MG/ML 100 ML BTL IJ (23:37)
[2020-02-23] MEDS: Normal Saline - Diluent 50 ML VIAL IV (23:38)
[2020-02-23 23:46] LABS: Abs Immature Grans 0.03 10^3/uL (0.0-0.06); Absolute Basophil Count 0.04 10^3/uL (0.0-0.2); Absolute Lymphocyte Count 1.16 10^3/uL (1.2-3.4); Absolute Neutrophil Count 3.41 10^3/uL (1.2-6.7); Basophils % 0.7; Eosinophils % 5.2; HCT 39.2 % (40.0-50.0); HGB 12.8 g/dL (13.5-17.5); Immature Grans % 0.5; Lymphocytes % 20.2; MCH 28.7 pg (27.0-33.0); MCHC 32.7 % (32.0-36.0); MCV 87.9 fL (80-95); MPV 9.2 fL (8.0-11.0); Monocytes % 13.9; Neutrophils % 59.5; Nucleated RBC 0 %; Platelet Count 209 10^3/uL (130-400); RBC 4.46 10^6/uL (4.36-5.78); RDW 12.6 % (11.8-14.1); RDW-SD 40.5 fL; WBC 5.74 10^3/uL (4.4-10.8)
--- NOTE | 2020-02-23 23:48 | DI.VRAD_ITS ---
PROCEDURE INFORMATION: Exam: CT Angiography Chest With Contrast Exam date and time: 02/23/2020 10:50 PM Age: 69 years old Clinical indication: Chest pain; Prior surgery; Surgery date: 6+ months; Surgery type: Open heart; Patient HX: HX heart disease, hypertension, asthma, lung cancer. Lung surgery 1 year ago, current pain is radiating front to back, lasted 3 weeks so far, worsening tonight, PT awoken from sleep due to pain TECHNIQUE: Imaging protocol: Computed tomographic angiography of the chest with intravenous contrast. 3D rendering: MIP and/or 3D reconstructed images were created by the technologist. Radiation optimization: All CT scans at this facility use at least one of these dose optimization techniques: automated exposure control; mA and/or kV adjustment per patient size (includes targeted exams where dose is matched to clinical indication); or iterative reconstruction. Contrast material: [id number]; Contrast volume: 80 ml; Contrast route: INTRAVENOUS (IV); COMPARISON: CT CHEST PE CTA 07/07/2019 1:48 PM FINDINGS: Pulmonary arteries: Normal. No pulmonary emboli. Aorta: Unremarkable. No aortic aneurysm. No aortic dissection. Lungs: Previous left upper lobectomy. Stable perihilar scarring or atelectasis.Moderate bilateral centrilobular emphysematous changes are present. Pleural space: Small left pleural effusion. Heart: There is coronary artery calcification. Lymph nodes: Unremarkable. No enlarged lymph nodes. Liver: There is a diffuse decrease in hepatic parenchymal density, consistent with fatty infiltration. Bones/joints: Sternotomy. Soft tissues: Unremarkable. IMPRESSION: No evidence of pulmonary embolism. Small left pleural effusion and persistent left perihilar scarring or atelectasis. This is stable compared to prior exam. Additional findings as described. Dictated and Authenticated by: Katiuska Jackson MD. Ordering:IVY Carver MD
[2020-02-23 23:58] LABS: INR 0.9 (0.9-1.1); Prothrombin Time 9.2 sec (9.3-11.0)
[2020-02-24] VITALS: BP 128/78; PULSE 90; PULSE 92; RESP 27
[2020-02-24 00:01] VITALS: PULSE 90; RESP 26
--- NOTE | 2020-02-24 06:14 | NUR.NOTE ---
referral faxed to pcp for follow up care. Nursing Note:
== END 2020-02-24 00:20 | disposition home or self-care (01) ==
LOC: ER 02-24 00:20
PROVIDERS: Emergency Provider Emergency Medicine; PCP Student in an Organized Health Care Education/Training Program
DX: R07.89 Other chest pain (principal); R91.8 Other nonspecific abnormal finding of lung field; J44.9 Chronic obstructive pulmonary disease, unspecified; Z87.891 Personal history of nicotine dependence; I10 Essential (primary) hypertension
CPT/HCPCS: 71275; 80053; 93005; 99285; 83735; 83880; 84484; 85025; 85610; 85730; 93010; 99284; J3490

== ENCOUNTER 2020-03-14 22:30 | Observation (INO) | payer MEDICARE, BC, SELFPAY ==
[2020-03-14] VITALS (20 sets, daily range): BP systolic 88–149; BP diastolic 65–82; PULSE 92–113; RESP 18–34; TEMP 36.5; O2SAT 94–100
--- NOTE | 2020-03-14 22:30 | RT.EKG_ITS ---
APPROVED REPORT Exam: Resting ECG Patient Location: E HR:100 bpm ECG Measurements Heart Rate 100 AXIS CA 209 P 39 QRSd 108 QRS -23 QT 358 T 43 QTc 462 Conclusion Sinus tachycardia...rate> 99 Borderline prolonged CA interval...CA >207, V-rate 91-120 There are no significant changes compared to prior EKG performed on 02/23/2020 at 22:33.
--- NOTE | 2020-03-14 22:41 | ED.GENADUL_ITS ---
Discharge Plan Disposition Patient Disposition: [facility] INPATIENT Condition: Good Discharge Details Chief Complaint: Chest Pain Clinical Impression: Chest pain, Hypomagnesemia Primary Care Provider: Danyell Burks ED Provider: James Matthew Cashiers Meds and New Rx's Prescriptions: No Action simvastatin 40 mg tablet 40 mg PO DAILY Qty: 90 RF: 3 aspirin [Adult Low Dose Aspirin] 81 mg tablet,delayed release (DR/EC) 81 mg PO DAILY RF: 0 magnesium oxide 400 mg (241.3 mg magnesium) tablet 400 mg PO DAILY Qty: 90 RF: 3 pantoprazole [Protonix] 40 mg tablet,delayed release (DR/EC) 40 mg PO DAILY RF: 0 albuterol sulfate [ProAir HFA] 90 mcg/actuation HFA aerosol inhaler 2 puff Inhalation Q4H PRN Qty: 1 RF: 1 TYLENOL ARTHRITIS 650 MG TABLET.ER 1,300 mg PO Q8H PRN RF: 0 nitroglycerin 0.4 MG tablet, sublingual 0.4 mg Sublingual PRN Qty: 25 RF: 3 ezetimibe [Zetia] 10 mg tablet 5 mg PO DAILY Qty: 45 RF: 3 budesonide-formoterol [Symbicort] 160-4.5 mcg/actuation HFA aerosol inhaler 2 puff IH BID RF: 0 Anoro Ellipta 62.5-25 mcg/actuation blister with device 1 inh IH DAILY RF: 0 metoprolol succinate [Toprol XL] 25 mg tablet extended release 24 hr 12.5 mg PO DAILY Qty: 45 RF: 2 lisinopril [Zestril] 10 mg tablet 10 mg PO DAILY Qty: 90 RF: 3 Medical Decision Making Patient presenting with CP that reminds him of his previous angina. He had episode of it 2 days ago. Woke him up tonight. Has been waxing and waning tonight. EKG shows no ST changes and no STEMI. IV established. Aspirin and nitroglycerin ordered. Chest x-ray and laboratory studies sent. Patient reports first nitroglycerin helped with pain. Second nitroglycerin dropped his pressure so none further given. On my repeat evaluation no compla int of chest pain. CBC is fine. Kidney function is baseline. Magnesium a little low and will be replaced. First troponin negative. D-dimer markedly elevated over 1999. Have discussed patient with hospitalist and given Heart score of 5 we will plan observation admit for trending of enzymes and probable stress testing tomorrow. I will proceed with CTA despite him having one less than a month ago given that his revised [place]ck[place] score puts him at intermediate risk and d-dimer quite elevated. CTA chest negative for PE and unchanged compared to previous. Patient pain- free. Repeat troponin at 2am. Patient to be admitted to telemetry for chest pain observation and probable stress testing. Medical Records Medical records reviewed: Yes I reviewed the patient's medical records. Lab Data Lab results reviewed: Yes I reviewed the patient's lab results. ECG Data Attestation: I personally reviewed and interpreted this ECG (s) as follows: Interpretation: see EKG HPI General Mode of arrival: wheelchair . Date/Time Provider Initiated Documentation: 03/14/20 22:33 . Limitations to Documentation: no limitations . Information obtained by: patient, RN notes reviewed and old records reviewed . HPI Narrative: Patient presents to ED with complaint of upper substernal chest pain and pressure that radiates to both axilla. Woke him up tonight around 21:30. Been kind of waxing and waning since. Starting to return here. This is associated with mild shortness of breath and diaphoresis. He denies any nausea or lightheadedness. No radiation to the back. This pain is different than the chronic left-sided chest pain that he has and is thought to be related to previous lung resection, radiation therapy for lung cancer. He had an exacerbation of that pain earlier this months with negative work-up. He reports that this pain is different and reminds him of the angina he had prior to his CABG. He has a chronic unchanged cough. He has no fever. He has no leg pain or leg swelling. He has no history of DVT or PE. Related Data Home Medications Medication Instructions Recorded Confirmed Tylenol Arthritis 1,300 mg PO Q8H PRN tab-cap 12/23/12 03/14/20 nitroglycerin 0.4 mg SUBLINGUAL PRN #25 tab-cap 01/18/17 03/14/20 aspirin 81 mg tablet,delayed 81 mg PO DAILY 10/21/18 03/14/20 release simvastatin 40 mg tablet 40 mg PO DAILY #90 tab-cap 03/01/19 03/14/20 ezetimibe 10 mg tablet 5 mg PO DAILY #45 tab-cap 04/24/19 03/14/20 magnesium oxide 400 mg (241.3 mg 400 mg PO DAILY #90 tab 05/15/19 03/14/20 magnesium) tablet albuterol sulfate 90 mcg/actuation 2 puff INHALATION Q4H PRN #1 06/14/19 03/14/20 aerosol inhaler inhaler pantoprazole 40 mg tablet,delayed 40 mg PO DAILY tab-cap 06/14/19 03/14/20 release budesonide-formoterol HFA 160 2 puff IH BID 08/10/19 03/14/20 mcg-4.5 mcg/actuation aerosol inhaler umeclidinium 62.5 mcg-vilanterol 1 inh IH DAILY 08/10/19 03/14/20 25 mcg/actuation powdr for inhalation metoprolol succinate 25 mg 12.5 mg PO DAILY #45 tab 01/23/20 03/14/20 tablet,extended release 24 hr lisinopril 10 mg tablet 10 mg PO DAILY #90 tab 02/24/20 03/14/20 Previous Rx's Medication Instructions Recorded simvastatin 40 mg tablet 40 mg PO DAILY #90 tab-cap 03/01/19 ezetimibe 10 mg tablet 5 mg PO DAILY #45 tab-cap 04/24/19 magnesium oxide 400 mg (241.3 mg 400 mg PO DAILY #90 tab 05/15/19 magnesium) tablet albuterol sulfate 90 mcg/actuation 2 puff INHALATION Q4H PRN #1 06/14/19 aerosol inhaler inhaler metoprolol succinate 25 mg 12.5 mg PO DAILY #45 tab 01/23/20 tablet,extended release 24 hr lisinopril 10 mg tablet 10 mg PO DAILY #90 tab 02/24/20 Allergies Allergy/AdvReac Type Severity Reaction Status Date / Time clopidogrel Allergy Unknown SKIN RASH Verified 03/14/20 22:38 esomeprazole magnesium AdvReac Unknown gi upset Verified 03/14/20 22:38 [From Nexium] Penicillins AdvReac Unknown gi upset Verified 03/14/20 22:38 General Stated Complaint: Chest Pain BRYCE: 2 Review of Systems Narrative: 05/01 Review of Systems completed and is negative except as stated above in HPI (Systems reviewed: Const, Eyes, ENT, Resp, CV, GI, , MSK, Skin, Neuro) PFSH Medical History Adenomatous colon polyp (Acute 01/13/12) tubular adenoma [facility] 01/05/06, rpt 5 yr Arteriosclerotic cardiovascular disease (ASCVD) (Chronic 01/13/12) CABG 1989; s/p stents 1999, 200409/09/18-Stress Echocardiogram [facility] Chest pain of uncertain etiology (Acute) Painlevel 2-4/10 x 2-3 weeks .. Hx abd aneurysm, so may need to r/o vasc path. Chronic coughing (Chronic) ? due to vagal nerve irritation? Chronic steroid use (Chronic) completed steroids, d/c 11/2019 COPD (chronic obstructive pulmonary disease) (Chronic ~08/09/18) Mild. PFT (Pulm, [facility], 08/08/18). Need another PFT, post lung resection [ ] 11/10/18 Fatigue due to radiation therapy (Acute) Foot fracture, right (Acute 10/2018) XR showing possible Fx, non-displaced [ ] CT recomm. Gastroesophageal reflux disease without esophagitis (Chronic 01/26/06) EGD ME: GERD: This is well-controlled with daily PPI. 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 thoracic surgery. 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 Shortness of breath (Acute) LUNG CA ID'd .. now s/p surgery 10/2018. > Severe dyspnea .. with report of intolerance and feeling worse after some of his albuterol inhaler attempts .. Prompted to call ambulance for ED eval 2' possible reaction, tachy with NEB Tx. Sent to Ed, appreciate attention. NEB, CXR, Labs .. Smoker unmotivated to quit (Resolved 04/12/14) >50 pack years, despite CAD and Laryngeal cancer; QUIT SMOKING POST DYSPNEIC EPISODE 06/2018.... Surgical History Endoleak post (EVAR) endovascular aneurysm repair (Acute 11/30/18) endovascular repair AAA (03/07/13) Dr Dsouza, [facility], yearly f/u with CTA History of throat surgery (Acute) S/P CABG x 4 (Acute) S/P lobectomy of lung (Acute ~09/21/18) Status post radiation therapy (Chronic) 25 tx; Dr Trammell, rad-onc; stopped 04/06 Family History Mother , kidney failure at age 78. Renal disease Son No problems noted. Son No problems noted. 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 What is your relationship status?: How often do you talk on the phone with friends or family?: twice per week How often do you get together with friends or relatives?: twice per week Panel score (0-1 are the most socially isolated patients): 2 What type of physical activity do you participate in: walking and irregular exercise Duration: < 15 minutes/day Special mattie needs: No Seatbelt use: always Working smoke detector in home: Yes Carbon monox detector in home: Yes Do you feel safe at home: Yes Do you feel safe in your relationship?: Yes Additional Social history: Patient is , with 2 children. 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 Lengthy and significant history of tobacco abuse, with approximate 100+ pack year history of smoking, quit June 2018. Denies any alcohol use. Patient does admit to use of THC type products for medicinal purposes. Exam Narrative Exam Narrative: Vitals: Afebrile. Elevated heart rate and blood pressure. Normal room air pulse ox. Const: WDWN elderly male in NAD. HEENT: NC/AT. Normal facial exam. Eyes: Normal conjunctiva and sclera. Neck: Supple. Trachea midline. Lungs: Normal respiratory effort. Lungs are clear, a little diminished on left. Cor: RRR without murmur/gallop. Good radial pulses. GI: Soft. NT/ND. No guarding or rebound. Neuro: A+O x 3. Normal speech, mentation, gait. Cranial nerves II - XII grossly intact. No gross motor or sensory deficit. Ext: No C/C/E. No calf tenderness. Skin: Warm and dry without rash. Course Vital Signs Vital signs: Vital Signs Pulse 103 H 03/14/20 22:35 Respiratory Rate 18 03/14/20 22:35 Blood Pressure 149/82 H 03/14/20 22:35 Pulse Oximetry 98 03/14/20 22:35 Pulse 103 H 03/14/20 22:35 Respiratory Rate 18 03/14/20 22:35 Respiratory Effort Non-Labored 03/14/20 22:38 Blood Pressure 149/82 H 03/14/20 22:35 Blood Pressure Position Supine 03/14/20 22:35 Pulse Oximetry 98 03/14/20 22:35 Oxygen Delivery Method Room Air 03/14/20 22:35 Oxygen Flow Rate 0 03/14/20 22:35 Pain Level 5 03/14/20 22:35
[2020-03-14] MEDS: Aspirin 81 MG CHEW 324 MG CH (22:53)
[2020-03-14] MEDS: nitroGLYcerin 0.4 MG TAB SL ×2 (22:55→23:03)
[2020-03-14 23:01] LABS: Abs Immature Grans 0.01 10^3/uL (0.0-0.06); Absolute Basophil Count 0.07 10^3/uL (0.0-0.2); Absolute Eosinophil Count 0.34 10^3/uL (0.0-0.7); Absolute Lymphocyte Count 1.39 10^3/uL (1.2-3.4); Absolute Monocyte Count 0.88 10^3/uL (0.1-0.8); Absolute Neutrophil Count 3.55 10^3/uL (1.2-6.7); Basophils % 1.1; Eosinophils % 5.4; HCT 42.6 % (40.0-50.0); HGB 13.7 g/dL (13.5-17.5); Immature Grans % 0.2; Lymphocytes % 22.3; MCH 28.3 pg (27.0-33.0); MCHC 32.2 % (32.0-36.0); MPV 9.4 fL (8.0-11.0); Monocytes % 14.1; Neutrophils % 56.9; Nucleated RBC 0 %; Platelet Count 228 10^3/uL (130-400); RBC 4.84 10^6/uL (4.36-5.78); RDW 12.8 % (11.8-14.1); RDW-SD 41.1 fL; WBC 6.24 10^3/uL (4.4-10.8)
[2020-03-14 23:17] LABS: ALT 29 U/L (16-63); AST 13 U/L (15-37); Albumin 3.2 g/dL (3.4-5.0); Alkaline Phosphatase 111 U/L (46-116); Anion Gap 10.5 mmol/L (3-11); BUN 19 mg/dL (7-18); Bilirubin, Total 0.3 mg/dL (0.2-1.0); CO2 25.5 mmol/L (21.0-32.0); Calcium 8.8 mg/dL (8.5-10.1); Chloride 102 mmol/L (98-107); Estimated GFR 49.96 (mL/min/1.73m2); Glucose 241 mg/dL (74-106); Magnesium 1.4 mg/dL (1.8-2.4); Potassium 4.1 mmol/L (3.5-5.1); Sodium 138 mmol/L (136-145); Total Protein 6.9 g/dL (6.4-8.2)
[2020-03-14 23:26] LABS: Troponin I < 0.05 ng/mL (<0.06)
--- NOTE | 2020-03-14 23:30 | DI.RAD_ITS ---
EXAM: XR CHEST 2V PA LATERAL CLINICAL HISTORY: chest pain TECHNIQUE: COMPARISON: CR XR RIBS LT W PA LAT CHEST from 07/05/2019 FINDINGS: Prior left upper lobectomy again noted with associated pleural and parenchymal scarring in both lungs . Prior CABG surgery noted. No evidence of acute change. Please see today's accompanying CT a ches t report. IMPRESSION: RADIATION DOSE DELIVERED: Total DLP
[2020-03-14 23:36] LABS: D-Dimer 2066 ng/mlFEU (<500)
[2020-03-14] MEDS: MAGNESIUM SULFATE 2 GM/50 ML BAG IVPB (23:40)
--- NOTE | 2020-03-14 23:43 | DI.VRAD_ITS ---
PROCEDURE INFORMATION: Exam: XR Chest, 2 Views Exam date and time: 03/14/2020 11:23 PM Age: 69 years old Clinical indication: Chest pain; Type not specified TECHNIQUE: Imaging protocol: XR of the chest Views: 2 views. COMPARISON: 1. CT THORAX CTA 02/23/2020 11:13 PM 2. CR - XR RIBS LT W PA LAT CHEST 07/05/2019 3:45:44 PM FINDINGS: Lungs: Postsurgical changes in the left hemithorax are stable in appearance, superimposed pneumonia is not excluded. No consolidation in the right lung. Pleural space: Small left pleural effusion, unchanged. No pneumothorax. Heart/Mediastinum: The cardiomediastinal silhouette is unchanged without cardiac enlargement. Bones/joints: Median sternotomy and surgical clips. IMPRESSION: No significant change in comparison to prior studies. Stable appearance of postsurgical changes in the left hemithorax with small left pleural effusion, superimposed pneumonia cannot be excluded. Dictated and Authenticated by: Sarah Alcantar MD. Ordering:PIOTR Ramirez MD
--- NOTE | 2020-03-14 23:45 | DI.CT_ITS ---
EXAM: CT CHEST PE CTA CLINICAL HISTORY: new CP and elevated d-dimer TECHNIQUE: COMPARISON: CT CT THORAX CTA from 02/23/2020 FINDINGS: CT angiography of the chest was performed with bolus infusion of 80 cc of Omnipaque 350. Images obta ined through the upper abdomen unremarkable appearance of visualized portions of liver, spleen, pancr eas, adrenals, and kidneys. There is been a prior left upper partial lobectomy with associated pleural and pulmonary parenchymal scarring. No recurrent disease. Diffuse bilateral peripheral reticular and ground-glass opacities a gain noted, unchanged. Right apical medial pleural mass again noted, about 3 x 1.5 cm in diameter. No new mediastinal adenopathy. No evidence of pulmonary embolic disease. Thoracic aorta is of normal diameter and there is no evide nce of thoracic aortic dissection. Prior CABG noted. No focal bony lesion identified. IMPRESSION: Stable post lobectomy changes in a patient with known lung carcinoma. No evidence of pulmonary embolic disease. RADIATION DOSE DELIVERED: 396.06mGy.cm Total DLP
[2020-03-15] VITALS (13 sets, daily range): BP systolic 104–120; BP diastolic 67–85; PULSE 73–93; RESP 18–30; TEMP 35.3–36.7; O2SAT 95–100
--- NOTE | 2020-03-15 | DI.NM_ITS ---
APPROVED REPORT Exam: Pharmacologic Patient Location: In-Patient Room/Bed: Stress Nurse: Nikkie Coto RN BMI: 30.34 Baseline Rhythm: Sinus Rhythm Indications: CAD. Recurrent chest pain. Constant left chest pain that radiates through to left should er blade described as a 2/3 out of 10 discomfort, has been constantly present for aproximately 4 week s, per pt report. Medical History Medical History: Angina, CAD s/p CABG, CAD s/p stent, HTN, Hyperlipidemia, Obesity, Former smoker Cardiac Medications: Aspirin. Metoprolol. Lisinopril. Pentix. Zetia. Atorvastatin. Magnesium. Allergies: Plavix, Penicillin, Esemomeprazole Cardiac Risk Factors: HTN, Hyperlipidemia, Former Smoker, COPD Previous Cardiac Procedures: CABG, PCI Pretest Chest Pain Characteristics: Non-exertional Chest pain Exercise History: Sedentary Physical Disabilities: Back Lung Sounds: Clear to auscultation Heart Sounds: Regular Stress Test Details Test: Pharmacologic stress testing performed using 0.4 mg of regadenoson per 5 mL given IV over 10 s econds. Nuclear Acquisition: Rest Tc-99m/Stress Tc-99m 1 day Rest Isotope: Tc-99m Sestamibi. Dose: 10.9 Date: 03/15/2020 Injection Time: 1115 Stress Isotope: Tc-99m Sestamibi. Dose: 31.0 Date: 03/15/2020 Injection Time: 1245 HR Resting HR Supine: 92 bpm Max Heart Rate (APMHR): 149.137336 bpm Target HR (85% APMHR): 126.673411 bpm Max HR Achieved: 135 bpm % of APMHR: 90.60 Recovery HR: 103 bpm HR response to stress: Accelerated HR response to stress BP Resting BP Supine: 144/84 mmHg Max BP: 150/90 mmHg Recovery BP: 132/82 mmHg BP response to stress: Normal blood pressure response to stress. ECG Resting ECG: Sinus Rhythm Stress ECG: Sinus Tachycardia ST Change: No significant ST segment changes Maximum ST Deviation: 0.5 mm Arrhythmia: Rare PVCs Recovery ECG: Sinus Rhythm Recovery ST Change: No significant ST segment changes Recovery Arrhythmia: None Medications Administered Atropine ( mg at ) Clinical Stress Symptoms: Chest pain, Dyspnea, Headache Stress ECG Conclusion 1. This is a pharmacologic myocardial perfusion imaging study. The resting electrocardiogram was nor mal 2. Patient received regadenoson. Normal blood pressure and heart rate response to pharmacologic stre ss. Patient developed chest pain following the infusion which persisted into 12 minutes of recovery 3. Peak heart rate was 90% of predicted for age 4. Electrocardiographically there was 0.[address] depression noted in leads V2 through V6 5. There were no dysrhythmias Stress Test Summary STAGE HR BP Symptoms NOTES Supine 92 144/84 1 min post Lexiscan injection 130 150/90 3 min post Lexiscan injection 135 142/84 5 out of 10 midsternal chest pain. 6 min post Lexiscan injection 138 148/92 10 out of 10 mid to lower sternal chest pain. 9 min post Lexiscan injection 125 142/90 5 out of 10 midsternal chest pain. 12 min post Lexiscan injection 110 134/80 chest pain subsiding. 15 min post Lexiscan injection 103 132/82 MPI Conclusion Grossly normal myocardial perfusion without evidence of prior infarction or significant ischemia Calculated ejection fraction is 49% Radiologist Interpretation Radiologist Interpretation by: James Azevedo MD Interpretation Date/Time: 03/18/2020 15:50:39
[2020-03-15] MEDS: Normal Saline Flush 10 ML SYR IVP (00:18)
[2020-03-15] MEDS: Omnipaque 350 MG/ML 100 ML BTL IJ (00:18)
[2020-03-15] MEDS: Normal Saline - Diluent 50 ML VIAL IV (00:19)
--- NOTE | 2020-03-15 00:51 | DI.VRAD_ITS ---
PROCEDURE INFORMATION: Exam: CT Angiography Chest With Contrast Exam date and time: 03/14/2020 11:51 PM Age: 69 years old Clinical indication: Chest pain; Type not specified; Prior surgery; Surgery date: 6+ months; Surgery type: HX 40% lung lobectomy, triple bypass >6months ago TECHNIQUE: Imaging protocol: Computed tomographic angiography of the chest with intravenous contrast. 3D rendering (Not supervised by radiologist): MIP and/or 3D reconstructed images were created by the technologist. Radiation optimization: All CT scans at this facility use at least one of these dose optimization techniques: automated exposure control; mA and/or kV adjustment per patient size (includes targeted exams where dose is matched to clinical indication); or iterative reconstruction. Contrast material: [id number]; Contrast volume: 80 ml; Contrast route: INTRAVENOUS (IV); COMPARISON: CT THORAX CTA 02/23/2020 11:13 PM FINDINGS: Pulmonary arteries: No pulmonary embolism identified. Aorta: No thoracic aortic aneurysm or dissection. Partially visualized endoluminal stent graft in the abdominal aorta. Thyroid: Thyroid gland partially excluded from view but grossly unremarkable through its visualized portion. Lungs: Prior left upper lobectomy. Stable platelike atelectasis/scarring extending laterally from the pulmonary hilum. Extensive peripherally distributed linear and reticular opacity redemonstrated, probably scarring. No region of new pulmonary consolidation seen. Pleural space: Stable small loculated left pleural effusion, probably postsurgical. No right-sided pleural effusion. No pneumothorax. Heart: Normal-sized heart. Artifact along the coronary arteries suggesting coronary artery calcification and/or coronary artery stents. Mediastinal space: Small hiatal hernia. Lymph nodes: No pathologically enlarged mediastinal or hilar lymph nodes. Bones/joints: Lower ribs partially excluded from view and incompletely evaluated. Otherwise, no acute fracture seen among the bones of the chest. Spinal degenerative change with discogenic degeneration, vacuum disc deformities, endplate irregularities, small Schmorl's nodes, and anterior osteophyte formation at multiple levels. Soft tissues: No gross soft tissue mass or fluid collection seen in the chest wall. IMPRESSION: 1. Prior left upper lobectomy with stable platelike scarring radiating laterally from the left pulmonary hilum and a stable small loculated left pleural effusion. Stable left-sided volume loss. 2. No new pulmonary consolidation. 3. No pulmonary embolism identified. No thoracic aortic aneurysm or dissection. Dictated and Authenticated by: Ash Chin MD. Ordering:PIOTR Ramirez MD
[2020-03-15] MEDS: Lactated Ringers 1,000 ML 125 ML IV ×3 (02:36→23:13)
[2020-03-15 02:45] LABS: Troponin I < 0.05 ng/mL (<0.06)
[2020-03-15] MEDS: Acetaminophen 325 MG TAB 650 MG PO (04:10)
[2020-03-15] MEDS: MAGNESIUM SULFATE 2 GM/50 ML BAG IVPB (06:46)
[2020-03-15 06:56] LABS: Troponin I < 0.05 ng/mL (<0.06)
--- NOTE | 2020-03-15 07:18 | HPE_ITS ---
Date of service: 03/15/20 Time of Service: 07:18 Assessment and Plan Assessment and plan (1) Chest pain: Status: Acute Assessment and plan: Troponins were trended overnight and are less than 0.05?3. He is ruled out for acute coronary syndrome but could have ongoing ischemia given his history. We will try to set up for MPI testing. (2) Hypomagnesemia: Status: Acute Assessment and plan: Magnesium low at 1.4, will provide IV bolus 2 g. He is on chronic PPI therapy which may be causing chronically low magnesium. (3) COPD (chronic obstructive pulmonary disease): Status: Chronic Assessment and plan: He is on multiple inhalers. His respiratory status is stable at this time. 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 CT of the chest showed no evidence of recurrence. History of Present Illness History of Present Illness Chief Complaint: Unstable angina Narrative: This is a 69-year-old man with a history of coronary artery disease and recurrent chest pain that presented to the emergency room this past evening with another episode of chest discomfort. He had had a episode of chest pain 2 days prior that lasted 15 minutes for which she did not seek medical care. When it occurred this past evening his suggested he come in for evaluation. In the emergency room he described the chest pain as reminiscent of his previous angina prior to having his CABG. Dr. Matthew gave him a heart score of 5 and recommended admission and trending of his enzymes. The d-dimer on presentation was elevated at 2066, a chest CT with contrast showed no evidence of pulmonary embolism. Review of Systems Narrative: He generally feels well. He was pain-free overnight. He denies any problems with shortness of breath. He had recently been evaluated for post tussive syncope which seems to have resolved. He is otherwise active and walking independently without difficulty. No ongoing respiratory difficulty, using his regular inhalers. No GI or disturbance. No new neurologic probl ems. [facility] Medical History Adenomatous colon polyp (Acute 01/13/12) tubular aden[place] [facility] [place], rpt 5 yr Arteriosclerotic cardiovascular disease (ASCVD) (Chronic 01/13/12) CABG 1989; s/p stents 1999, 200409/09/18-Stress Echocardiogram [facility] Chest pain of uncertain etiology (Acute) Painlevel 2-4/10 x 2-3 weeks .. Hx abd aneurysm, so may need to r/o vasc path. Chronic coughing (Chronic) ? due to vagal nerve irritation? Chronic steroid use (Chronic) completed steroids, d/c 11/2019 COPD (chronic obstructive pulmonary disease) (Chronic ~08/09/18) Mild. PFT (Pulm, [facility], 08/08/18). Need another PFT, post lung resection [ ] Fatigue due to radiation therapy (Acute) Foot fracture, right (Acute 10/2018) XR showing possible Fx, non-displaced [ ] CT recomm. Gastroesophageal reflux disease without esophagitis (Chronic 01/26/06) EGD ME: GERD: This is well-controlled with daily PPI. Would continue indefinitely; path neg for metaplasia Goals of care, counseling/discussion (Chronic) Hoarseness of voice (Chronic) HTN (hypertension) (Chronic) Hyperlipidemia (Acute 01/13/12) Insomnia (Acute) Laryngeal cancer (Resolved) 10[place]10[place]04 [facility] [place]ott[place] of larynx-CO2 Laser microsurgery. 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 [place]. 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 Shortness of breath (Acute) LUNG CA ID'd .. now s/p surgery 10/2018. > Severe dyspnea .. with report of intolerance and feeling worse after some of his albuterol inhaler attempts .. Prompted to call ambulance for ED eval 2' possible reaction, tachy with NEB Tx. Sent to Ed, appreciate attention. NEB, CXR, Labs .. Smoker unmotivated to quit (Resolved 04/12/14) >50 pack years, despite CAD and Laryngeal cancer; QUIT SMOKING POST DYSPNEIC EPISODE 06/2018.... Surgical History Endoleak post (EVAR) endovascular aneurysm repair (Acute 11/30/18) endovascular repair AAA (03/07/13) Dr Dsouza, [facility], yearly f/u with CTA History of throat surgery (Acute) S/P CABG x 4 (Acute) S/P lobectomy of lung (Acute ~09/21/18) Status post radiation therapy (Chronic) 25 tx; Dr Trammell, rad-onc; stopped 04/06 Family History Mother , kidney failure at age 78. Renal disease Son No problems noted. Son No problems noted. 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 What is your relationship status?: How often do you talk on the phone with friends or family?: twice per week How often do you get together with friends or relatives?: twice per week Panel score (0-1 are the most socially isolated patients): 2 What type of physical activity do you participate in: walking and irregular exercise Duration: < 15 minutes/day Special mattie needs: No Seatbelt use: always Working smoke detector in home: Yes Carbon monox detector in home: Yes Do you feel safe at home: Yes Do you feel safe in your relationship?: Yes Additional Social history: Patient is , with 2 children. 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 Lengthy and significant history of tobacco abuse, with approximate 100+ pack year history of smoking, quit June 2018. Denies any alcohol use. Patient does admit to use of THC type products for medicinal purposes. Meds Home Medications and Allergies Home Medications Medication Instructions Recorded Confirmed Type Tylenol Arthritis 1,300 mg PO Q8H PRN tab-cap 12/23/12 03/14/20 History nitroglycerin 0.4 mg SUBLINGUAL PRN #25 tab-cap 01/18/17 03/14/20 History aspirin 81 mg tablet,delayed 81 mg PO DAILY 10/21/18 03/14/20 History release simvastatin 40 mg tablet 40 mg PO DAILY #90 tab-cap 03/01/19 03/14/20 Rx ezetimibe 10 mg tablet 5 mg PO DAILY #45 tab-cap 04/24/19 03/14/20 Rx magnesium oxide 400 mg (241.3 mg 400 mg PO DAILY #90 tab 05/15/19 03/14/20 Rx magnesium) tablet albuterol sulfate 90 mcg/actuation 2 puff INHALATION Q4H PRN #1 06/14/19 03/14/20 Rx aerosol inhaler inhaler pantoprazole 40 mg tablet,delayed 40 mg PO DAILY tab-cap 06/14/19 03/14/20 History release budesonide-formoterol HFA 160 2 puff IH BID 08/10/19 03/14/20 History mcg-4.5 mcg/actuation aerosol inhaler umeclidinium 62.5 mcg-vilanterol 1 inh IH DAILY 08/10/19 03/14/20 History 25 mcg/actuation powdr for inhalation metoprolol succinate 25 mg 12.5 mg PO DAILY #45 tab 01/23/20 03/14/20 Rx tablet,extended release 24 hr lisinopril 10 mg tablet 10 mg PO DAILY #90 tab 02/24/20 03/14/20 Rx Allergies Allergy/AdvReac Type Severity Reaction Status Date / Time clopidogrel Allergy Unknown SKIN RASH Verified 03/14/20 22:38 esomeprazole magnesium AdvReac Unknown gi upset Verified 03/14/20 22:38 [From Nexium] Penicillins AdvReac Unknown gi upset Verified 03/14/20 22:38 Exam Narrative Exam Narrative: On exam he is lying comfortably in the right lateral recumbent position without any difficulty breathing. His lung sounds were completely clear on the right and left. Heart sounds were regular without apparent murmur. The abdomen was moderately obese but completely nontender to palpation. The lower extremities showed no significant edema. Neurologically no focal deficits were apparent. Results Imaging Chest x-ray: report reviewed (Chronic left pleural effusion, no changes from previous) CT scan - chest: report reviewed (Chronic changes related to left upper lobe lobectomy, no evidence of pulmonary embolism) EKG: report reviewed (No acute changes.) Labs Result diagrams: 03/14/20 22:50 03/14/20 22:50 Labs: Laboratory Results - last 24 hr 03/14/20 03/14/20 03/14/20 22:50 22:50 22:50 WBC 6.24 RBC 4.84 Hgb 13.7 Hct 42.6 MCV 88.0 MCH 28.3 MCHC 32.2 RDW 12.8 Plt Count 228 MPV 9.4 Immature Gran % 0.2 Neutrophils % 56.9 Lymphocytes % 22.3 Monocytes % 14.1 Eosinophils % 5.4 Basophils % 1.1 Nucleated RBC % 0 Absolute Neutrophils 3.55 Absolute Lymphocytes 1.39 Absolute Monocytes 0.88 H Absolute Eosinophils 0.34 Absolute Basophils 0.07 D-Dimer 2066 H Sodium 138 Potassium 4.1 Chloride 102 Carbon Dioxide 25.5 Anion Gap 10.5 BUN 19 H Creatinine 1.40 H Estimated GFR/1.73 m2 49.96 Glucose 241 H Calcium 8.8 Magnesium 1.4 L Total Bilirubin 0.3 AST 13 L ALT 29 Alkaline Phosphatase 111 Troponin I < 0.05 Total Protein 6.9 Albumin 3.2 L 03/15/20 03/15/20 02:08 06:10 WBC RBC Hgb Hct MCV MCH MCHC RDW Plt Count MPV Immature Gran % Neutrophils % Lymphocytes % Monocytes % Eosinophils % Basophils % Nucleated RBC % Absolute Neutrophils Absolute Lymphocytes Absolute Monocytes Absolute Eosinophils Absolute Basophils D-Dimer Sodium Potassium Chloride Carbon Dioxide Anion Gap BUN Creatinine Estimated GFR/1.73 m2 Glucose Calcium Magnesium Total Bilirubin AST ALT Alkaline Phosphatase Troponin I < 0.05 < 0.05 Total Protein Albumin Last Vital Signs Temp 35.4 C L 03/15/20 02:24 Pulse 77 03/15/20 02:38 Resp 20 03/15/20 02:24 BP 115/85 03/15/20 02:24 Pulse Ox 95 03/15/20 02:24 COVID-19 Screening Have you,or household,traveled outside [place] in last 14 days?: No Had IN PERSON contact w/suspected or confirmed C-19 person: No
[2020-03-15] MEDS: Budesonide/Formoterol 160/4.5 6 GM 60 PUFF INH IH ×2 (08:04→19:52)
[2020-03-15] MEDS: Magnesium Oxide 400 MG TAB PO (08:05)
[2020-03-15] MEDS: Aspirin E.C. 81 MG TABEC PO (08:06)
[2020-03-15] MEDS: Pantoprazole 40 MG TABCR PO (08:06)
[2020-03-15] MEDS: Simvastatin 40 MG TAB PO (08:06)
[2020-03-15] MEDS: Ezetimibe 10 MG TAB 5 MG PO (08:06)
[2020-03-15] MEDS: Metoprolol CR 25 MG TABCR 12.5 MG PO ×2 (08:07→19:51)
[2020-03-15] MEDS: Lisinopril 10 MG TAB PO (08:07)
--- NOTE | 2020-03-15 08:45 | RT.EKG_ITS ---
APPROVED REPORT Exam: Resting ECG Patient Location: I HR:80 bpm ECG Measurements Heart Rate 80 AXIS ME 198 P 7 QRSd 111 QRS -16 QT 399 T 36 QTc 460 Conclusion Sinus rhythm...normal P axis, V-rate 60- 99 Low voltage, precordial leads...precordial leads <1.0mV
[2020-03-15 09:08] LABS: Anion Gap 7.8 mmol/L (3-11); BUN 19 mg/dL (7-18); CO2 26.2 mmol/L (21.0-32.0); CREATININE 1.36 mg/dL (0.70-1.30); Calcium 8.9 mg/dL (8.5-10.1); Chloride 103 mmol/L (98-107); Estimated GFR 51.66 (mL/min/1.73m2); Glucose 189 mg/dL (74-106); Magnesium 1.8 mg/dL (1.8-2.4); Potassium 4.3 mmol/L (3.5-5.1); Sodium 137 mmol/L (136-145)
--- NOTE | 2020-03-15 10:15 | INITIAL_ITS ---
- If Service Date Differs Date of service: 03/15/20 Time of Service: 16:04 Care Management Initial Assess REASON FOR HOSPITALIZATION:: Chest Pain PAST MEDICAL HISTORY/PAST SURGICAL HISTORY:: Adenomatous colon polyp, ASCVD, chest pain, chronic coughing, chronic steroid use, COPD, fatique due to radiation therapy, right foot fracture, GERD, HTN, hyperlipidemia, insomnia, laryngeal cancer, marijuana use, primary malignant neoplasm of bronchus of left upper lobe, shortness of breath, endoleak post (EVAR) endovascular aneurysm repair AAA, history of throat surgery, CABG x4, lobectomy of lung, s/p radiation therapy PREVIOUS FUNCTIONAL STATUS/SOCIAL/FAMILY SUPPORTS:: Colin lives in a single family home in [facility] with his Suzette. They have 2 adult sons who are not actively involved in his care. Suzette expressed concern because their home is on 3 levels and the only bathrooms are upstairs where the bedrooms are or in the finished basement. Both require Colin to use stairs. 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 ADVANCE DIRECTIVES:: On file at [facility]. Suzette Bradley, , [facility] Has patient been provided with info about the portal/API?: Yes Did the patient sign up for the portal?: No CODE STATUS:: DNR/DNI INSURANCE COVERAGE / FINANCIAL ISSUES:: Medicare. BC/BS PRIMARY CARE PHYSICIAN:: Danyell Burks POTENTIAL DISCHARGE NEEDS:: Follow up appointment with PCP, MPI-Exercise stress test. PATIENT/FAMILY EDUCATION NEEDS:: Review discharge instructions, discuss Ask Me Three. ANTICIPATED BARRIERS TO DISCHARGE:: None identified. TRANSPORTATION:: Via private vehicle with his . PLAN:: Colin will likely be discharged home with no new services. He will follow up with his PCP and [facility]. He will transport with his via private vehicle. CM will continue to support patient, family and discharge planning needs.
[2020-03-15] MEDS: Tiotropium/Olodaterol 10 PUFF INHALER IH (11:06)
[2020-03-15] MEDS: Regadenoson 0.4 MG/5 ML SYR IVP (13:15)
--- NOTE | 2020-03-15 13:26 | PHA.REVIEW ---
Pharmacy Admission Review - Admission Clinical Review (Last Reviewed 03/15/20 @ 07:21 by Mehul Maurer MD) Chest pain (Acute) Hypomagnesemia (Acute) clopidogrel Allergy (Unknown, Verified 03/14/20 22:38) SKIN RASH esomeprazole magnesium [From Nexium] Adverse Reaction (Unknown, Verified 03/14/20 22:38) gi upset Penicillins Adverse Reaction (Unknown, Verified 03/14/20 22:38) gi upset Height 5 ft 5.5 in Weight 86.4 kg - Renal Dosing Renal Dosing: BUN 19 mg/dL (7-18) H 03/15/20 06:10 Creatinine 1.36 mg/dL (0.70-1.30) H 03/15/20 06:10 Medications needing adjustments: Reviewed (CrCl ~43) List of meds needing interventions: CURRENT MEDS OK - Anticoagulation Anticoagulation: Hgb 13.7 g/dL (13.5-17.5) 03/14/20 22:50 Hct 42.6 % (40.0-50.0) 03/14/20 22:50 Plt Count 228 10^3/uL (130-400) 03/14/20 22:50 Creatinine 1.36 mg/dL (0.70-1.30) H 03/15/20 06:10 DVT Prohphylaxis: N/A Therapeutic Anticoagulation: Reviewed Medications: Aspirin - Opiate Usage Evaluate Pain Scale/Pains Meds: N/A - Relevant Labs Sodium 137 mmol/L (136-145) 03/15/20 06:10 Potassium 4.3 mmol/L (3.5-5.1) 03/15/20 06:10 Chloride 103 mmol/L (98-107) 03/15/20 06:10 Magnesium 1.8 mg/dL (1.8-2.4) 03/15/20 06:10 Electrolytes, C-Reactive P, ESR: Reviewed - DM Control DM Control: Glucose 189 mg/dL (74-106) H 03/15/20 06:10 Insulin Dosing: Reviewed - Heart Failure/KY Heart Failure/KY: Troponin I < 0.05 ng/mL (<0.06) 03/15/20 06:10 EF%, JAYDEN's, B-Blockers, Diuretics: Reviewed - BP Control BP Control: Blood Pressure 119/77 Blood Pressure 120/75 Blood Pressure 115/85 Blood Pressure 115/85 If elevated: Reviewed - Qtc Review If Elevated: Reviewed (QTc 462) - IV to PO Switch IV Medications: Reviewed - Home Meds Home Med List reviewed: Intervened (Reviewed external med record -- on both Symbicort and Anoro despite 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
[2020-03-15 13:41] LABS: COVID-19 RT-PCR UVMMC Result Negative (Negative)
[2020-03-15 16:10] LABS: Bilirubin Negative (Negative); Blood Negative (Negative); Clarity Clear (Clear); Glucose Negative (Negative); Ketones Negative (Negative); Leukocyte Esterase Negative (Negative); Nitrite Negative (Negative); Urobilinogen 0.2 EU/dL (Up TO 0.2); pH 6.5 (5-8)
--- NOTE | 2020-03-15 16:35 | PGE_ITS ---
Date of Service Date of service: 03/15/20 Time of Service: 16:36 Subjective Subjective Interval history since last seen: Mr Bradley developed chest pain and EKG changes during his stress test, but his MPI portion of the stress test was normal. We discussed the results. He asked me if he could go home, and I advised him to stay to have troponins trended overnight since he had the episode of chest pain in the stress test and to await cardiology opinion re need to transfer for a cardiac cath tomorrow morning. He agrees to stay. Continue statin, increase beta valerie, continue asa. Objective Objective Clinical Data: Abnormal lab results 03/14/20 03/14/20 03/14/20 Range/Units 22:50 22:50 22:50 Absolute Monocytes 0.88 H (0.1-0.8) 10^3/uL D-Dimer 2066 H (<500) ng/mlFEU BUN 19 H (7-18) mg/dL Creatinine 1.40 H (0.70-1.30) mg/dL Glucose 241 H (74-106) mg/dL Magnesium 1.4 L (1.8-2.4) mg/dL AST 13 L (15-37) U/L Albumin 3.2 L (3.4-5.0) g/dL 03/15/20 Range/Units 06:10 Absolute Monocytes (0.1-0.8) 10^3/uL D-Dimer (<500) ng/mlFEU BUN 19 H (7-18) mg/dL Creatinine 1.36 H (0.70-1.30) mg/dL Glucose 189 H (74-106) mg/dL Magnesium (1.8-2.4) mg/dL AST (15-37) U/L Albumin (3.4-5.0) g/dL Vital Signs Temperature 36.7 C 03/15/20 15:47 Temperature Source Tympanic 03/15/20 15:47 Pulse 88 03/15/20 15:47 Pulse Rhythm Regular 03/15/20 12:15 Pulse 79 03/15/20 01:20 Respiratory Rate 19 03/15/20 15:47 Respiratory Effort Non-Labored 03/15/20 12:15 Respiratory Depth Normal 03/15/20 12:15 Respiratory Pattern Normal 03/15/20 12:15 Blood Pressure 113/78 03/15/20 15:47 Blood Pressure Mean 79 03/15/20 01:15 Blood Pressure Position Supine 03/14/20 22:35 Pulse Oximetry 98 03/15/20 15:47 Oxygen Delivery Method Room Air 03/15/20 15:47 Oxygen Flow Rate 0 03/15/20 15:47 Pain Level 3 03/15/20 15:47 Comment 03/15/20 11:27 Intake & Output 03/14/20 03/15/20 03/15/20 23:59 11:59 23:59 Intake Total 1050 / 1050 Output Total 675 / 675 Balance 375 / 375 Weight 85.275 kg 86.4 kg Intake: IV 1050 / 1050 Output: Urine 675 / 675 Other: Urine Color Yellow Urine Appearance Clear Clear Urine Odor None Comment MD aware Voiding Methods Urinal Laboratory Results WBC 6.24 10^3/uL (4.4-10.8) 03/14/20 22:50 RBC 4.84 10^6/uL (4.36-5.78) 03/14/20 22:50 Hgb 13.7 g/dL (13.5-17.5) 03/14/20 22:50 Hct 42.6 % (40.0-50.0) 03/14/20 22:50 MCV 88.0 fL (80-95) 03/14/20 22:50 MCH 28.3 pg (27.0-33.0) 03/14/20 22:50 MCHC 32.2 % (32.0-36.0) 03/14/20 22:50 RDW 12.8 % (11.8-14.1) 03/14/20 22:50 Plt Count 228 10^3/uL (130-400) 03/14/20 22:50 MPV 9.4 fL (8.0-11.0) 03/14/20 22:50 Immature Gran % 0.2 03/14/20 22:50 Neutrophils % 56.9 03/14/20 22:50 Lymphocytes % 22.3 03/14/20 22:50 Monocytes % 14.1 03/14/20 22:50 Eosinophils % 5.4 03/14/20 22:50 Basophils % 1.1 03/14/20 22:50 Nucleated RBC % 0 % 03/14/20 22:50 Absolute Neutrophils 3.55 10^3/uL (1.2-6.7) 03/14/20 22:50 Absolute Lymphocytes 1.39 10^3/uL (1.2-3.4) 03/14/20 22:50 Absolute Monocytes 0.88 10^3/uL (0.1-0.8) H 03/14/20 22:50 Absolute Eosinophils 0.34 10^3/uL (0.0-0.7) 03/14/20 22:50 Absolute Basophils 0.07 10^3/uL (0.0-0.2) 03/14/20 22:50 D-Dimer 2066 ng/mlFEU (<500) H 03/14/20 22:50 Sodium 137 mmol/L (136-145) 03/15/20 06:10 Potassium 4.3 mmol/L (3.5-5.1) 03/15/20 06:10 Chloride 103 mmol/L (98-107) 03/15/20 06:10 Carbon Dioxide 26.2 mmol/L (21.0-32.0) 03/15/20 06:10 Anion Gap 7.8 mmol/L (3-11) 03/15/20 06:10 BUN 19 mg/dL (7-18) H 03/15/20 06:10 Creatinine 1.36 mg/dL (0.70-1.30) H 03/15/20 06:10 Estimated GFR/1.73 m2 51.66 (mL/min/1.73m2) 03/15/20 06:10 Glucose 189 mg/dL (74-106) H 03/15/20 06:10 Calcium 8.9 mg/dL (8.5-10.1) 03/15/20 06:10 Magnesium 1.8 mg/dL (1.8-2.4) 03/15/20 06:10 Total Bilirubin 0.3 mg/dL (0.2-1.0) 03/14/20 22:50 AST 13 U/L (15-37) L 03/14/20 22:50 ALT 29 U/L (16-63) 03/14/20 22:50 Alkaline Phosphatase 111 U/L (46-116) 03/14/20 22:50 Troponin I < 0.05 ng/mL (<0.06) 03/15/20 06:10 Total Protein 6.9 g/dL (6.4-8.2) 03/14/20 22:50 Albumin 3.2 g/dL (3.4-5.0) L 03/14/20 22:50 Urine Color Yellow (Yellow) 03/15/20 15:35 Urine Clarity Clear (Clear) 03/15/20 15:35 Urine pH 6.5 (5-8) 03/15/20 15:35 Ur Specific [place] 1.020 (1.005-1.025) 03/15/20 15:35 Urine Protein Negative mg/dL (Negative) 03/15/20 15:35 Urine Ketones Negative mg/dL (Negative) 03/15/20 15:35 Urine Blood Negative (Negative) 03/15/20 15:35 Urine Nitrite Negative (Negative) 03/15/20 15:35 Urine Bilirubin Negative (Negative) 03/15/20 15:35 Urine Urobilinogen 0.2 EU/dL (Up TO 0.2) 03/15/20 15:35 Ur Leukocyte Esterase Negative (Negative) 03/15/20 15:35 Urine Glucose Negative mg/dL (Negative) 03/15/20 15:35 COVID-19 PCR Negative (Negative) 03/15/20 00:53 Nasopharyn COVID-19 PCR Not Applicable 03/15/20 00:53 Ref Test Perform Site [facility] lab 03/15/20 00:53
[2020-03-15 16:49] LABS: Troponin I < 0.05 ng/mL (<0.06)
[2020-03-16 01:26] VITALS: BP 115/79; PULSE 70; RESP 18; TEMP 36.6; O2SAT 95
[2020-03-16 04:17] VITALS: BP 118/75; PULSE 76; RESP 18; TEMP 36.4; O2SAT 96
--- NOTE | 2020-03-16 07:15 | NUR.NOTE ---
Patient refused any additional IV Fluids, state he is hoping to go home shortly
[2020-03-16 07:30] VITALS: BP 122/81; PULSE 80; RESP 18; TEMP 35.8; O2SAT 93
[2020-03-16] MEDS: Budesonide/Formoterol 160/4.5 6 GM 60 PUFF INH IH (07:31)
[2020-03-16] MEDS: Metoprolol CR 25 MG TABCR 12.5 MG PO (07:31)
[2020-03-16] MEDS: Ezetimibe 10 MG TAB 5 MG PO (07:32)
[2020-03-16] MEDS: Lisinopril 10 MG TAB PO (07:32)
[2020-03-16] MEDS: Simvastatin 40 MG TAB PO (07:33)
[2020-03-16] MEDS: Pantoprazole 40 MG TABCR PO (07:33)
[2020-03-16] MEDS: Aspirin E.C. 81 MG TABEC PO (07:33)
[2020-03-16] MEDS: Magnesium Oxide 400 MG TAB PO (07:34)
[2020-03-16 07:38] LABS: Anion Gap 8.2 mmol/L (3-11); BUN 14 mg/dL (7-18); CO2 28.8 mmol/L (21.0-32.0); Calcium 9.7 mg/dL (8.5-10.1); Chloride 102 mmol/L (98-107); Estimated GFR 54.42 (mL/min/1.73m2); Glucose 168 mg/dL (74-106); Potassium 4.5 mmol/L (3.5-5.1); Sodium 139 mmol/L (136-145)
[2020-03-16] MEDS: Tiotropium/Olodaterol 10 PUFF INHALER IH (07:39)
[2020-03-16 07:58] LABS: Calculated LDL 98 mg/dL (<100); Cholesterol 182 mg/dL (<200); HDL Cholesterol 41 mg/dL (40-60); Magnesium 1.8 mg/dL (1.8-2.4); Triglyceride 218 mg/dL (<150)
[2020-03-16 08:01] LABS: Troponin I < 0.05 ng/mL (<0.06)
--- NOTE | 2020-03-16 08:30 | RT.EKG_ITS ---
APPROVED REPORT Exam: Resting ECG Patient Location: I HR:73 bpm ECG Measurements Heart Rate 73 AXIS [place] 226 P -8 QRSd 111 QRS -23 QT 412 T 34 QTc 453 Conclusion Sinus rhythm...normal P axis, V-rate 60- 99 Prolonged [place] interval...[place] >220, V-rate 50- 90
[2020-03-16 10:05] LABS: Hemoglobin A1C 9.3 % (<5.7)
[2020-03-16] MEDS: MAGNESIUM SULFATE 2 GM/50 ML BAG IVPB (10:46)
--- NOTE | 2020-03-16 11:55 | DSE_ITS ---
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 (6) COVID-19 ruled out by laboratory testing: Status: Ruled-out Discharge Plan Disposition Patient Disposition: HOME Condition: Good Discharge Details Chief Complaint: Chest Pain Clinical Impression: Chest pain, Hypomagnesemia Reason For Visit: CHEST PAIN Admit Date/Time: 03/15/20 01:00 Admit Provider: Mehul Maurer Attending Provider: Mehul Maurer Primary Care Provider: Danyell Burks ED Provider: James Matthew [facility] Course Hospital Course: Mr Bradley is a 69 year old male with h/o known CAD s/p CABG in 1989, with stents in 1999 and 2004, and a negative [place] [facility] [place], who was observed on [facility] hospitalist service overnight from 03/15/2020 until 03/16/2020 for chest pain that woke him up from sleep and was reminiscent of his anginal pain in 1989. It improved with nitroglycerin in the ED. PE was ruled out with a negative CTA. The patient underwent a lexiscan MPI on 03/15/2020, during which he developed chest pain and 0.[address] segments depressions in V2-V6. The MPI portion of the stress test was negative. The patient subsequently has had serial negative troponins. He does have episodes of tachycardia to 130's, so his metoprolol succinate was increased to 25 mg daily. He is already on a statin and zetia as well as baby aspirin. I discussed the case with [facility] [place] who feel, given the resolution of the chest pain with nitroglycerin, symptoms and slight EKG changes during stress test, angina/cardiac chest pain could not be definitively ruled out, but the fact that the patient had a negative stress echo in 2019 and troponins have remained negative on this visit is reassuring. The recommendation was to send the patient home with cardiology follow up (has an appointment on 03/26/2020), prescription for nitroglycerin, instructions to return to the hospital should chest pain recur, at which point he would need an invasive evaluation. The patient is chest pain free at this time and is stable for discharge home from the stand point of chest pain. Importantly, on this admission the patient was diagnosed with diabetes with an A1C of 9.3. His blood sugars on carb consistent diet here have been mostly under 200. He is being initiated on metformin on discharge (he can take his first dose tomorrow morning since he had a CTA on this admission). He is being prescribed a meter/strips/lancets and is being referred to staff development educator. We discussed dietary changes as well. The patient is medically stable for discharge home today with above instructions. Care for patient as well as completion of his discharge summary on day of discharge took 1 hour. Home Meds and New Rx's Prescriptions: New metformin 500 mg tablet 500 mg PO BID Qty: 60 RF: 0 (DME) One Touch Vario Meter Qty: 1 RF: 0 (DME) One Touch Vario Strips Qty: 100 RF: 0 (DME) One touch Vario Lancets Qty: 100 RF: 0 Continued simvastatin 40 mg tablet 40 mg PO DAILY Qty: 90 RF: 3 aspirin [Adult Low Dose Aspirin] 81 mg tablet,delayed release (DR/EC) 81 mg PO DAILY RF: 0 pantoprazole [Protonix] 40 mg tablet,delayed release (DR/EC) 40 mg PO DAILY RF: 0 albuterol sulfate [ProAir HFA] 90 mcg/actuation HFA aerosol inhaler 2 puff Inhalation Q4H PRN Qty: 1 RF: 1 TYLENOL ARTHRITIS 650 MG TABLET.ER 1,300 mg PO Q8H PRN RF: 0 ezetimibe [Zetia] 10 mg tablet 5 mg PO DAILY Qty: 45 RF: 3 budesonide-formoterol [Symbicort] 160-4.5 mcg/actuation HFA aerosol inhaler 2 puff IH BID RF: 0 Anoro Ellipta 62.5-25 mcg/actuation blister with device 1 inh IH DAILY RF: 0 lisinopril [Zestril] 10 mg tablet 10 mg PO DAILY Qty: 90 RF: 3 nitroglycerin 0.4 MG tablet, sublingual 0.4 mg Sublingual PRN Qty: 20 RF: 0 Changed magnesium oxide 400 mg (241.3 mg magnesium) tablet 400 mg PO BID Qty: 60 RF: 3 metoprolol succinate [Toprol XL] 25 mg tablet extended release 24 hr 25 mg PO DAILY Qty: 45 RF: 2 Discharge Instructions Instructions: Metformin (By mouth), Angina (DC), Foot Care for People with Diabetes (DC), Type 2 Diabetes in Adults: New Diagnosis (IP), Diabetes and Nutrition (DC) Additional Instructions: Take nitroglycerin should you have any more chest pain and return to the ED. Also, return to the ED with any fever, bleeding, or shortness of breath. Follow up with your PCP within 1-2 weeks, if possible. Keep your appointment with cardiology. Check your blood sugar twice daily for the next week and keep a log (first thing in the morning and before dinner). Follow up with Diabetes education. Referrals: Caleb Odell [WET MIXER] - (New Diagnosis of Diabetes, sent home with meter/strips/lancets and started on metformin 500 mg BID. A1C 9.3) Danyell Burks DO [Primary Care Provider] - Geoffrey Koehler MD [ CONSULTING PHYSICIAN] - 03/26/20 Activity:: Avoid strenuous exercise until cleared by cardiology Equipment/Supplies:: No Equipment Needed Diet:: Diabetic cardiac diet Discharge Orders Discharge Orders: Discharge Order (Routine); Ordered 03/16/20 Ordered By: Yanique Hanna DS: Summary Status at Discharge Functional status at discharge: independent ambulation Overall status at discharge: patient is back to baseline Mental Status: mental status grossly normal Speech and Movement: speech and movement normal Mood: congruent mood Affect: normal affect Exam Narrative Exam Narrative: General: Pleasant middle-aged male, not in distress, A&Ox3 HEENT: EOMI, MMM Heart: RRR, no m/r/g Lungs: CTAB Abdomen: soft, nontender, nondistended Extremities: no e/c/c BLE's Psych Mental Status: mental status grossly normal Speech and Movement: speech and movement normal Mood: congruent mood Affect: normal affect DS: Data Vitals/I&O Vitals and I&O: Vital Signs Temperature 35.8 C L 03/16/20 07:30 Temperature Source Temporal Artery Scan 03/16/20 07:30 Pulse 80 03/16/20 07:30 Pulse Rhythm Regular 03/16/20 01:16 Pulse 79 03/15/20 01:20 Respiratory Rate 18 03/16/20 07:30 Respiratory Effort Non-Labored 03/16/20 01:16 Respiratory Depth Normal 03/16/20 01:16 Respiratory Pattern Normal 03/16/20 01:16 Blood Pressure 122/81 03/16/20 07:30 Blood Pressure Mean 79 03/15/20 01:15 Blood Pressure Position Supine 03/14/20 22:35 Pulse Oximetry 93 L 03/16/20 07:30 Oxygen Delivery Method Room Air 03/16/20 04:17 Oxygen Flow Rate 0 03/16/20 04:17 Pain Level 0 03/16/20 04:17 Comment 03/15/20 11:27 Intake & Output 03/15/20 03/15/20 03/16/20 11:59 23:59 11:59 Intake Total 1050 / 2432.083 1382.083 / 2432.083 1000 / 1000 Output Total 675 / 1375 700 / 1375 700 / 700 Balance 375 / 1057.083 682.083 / 1057.083 300 / 300 Weight 86.4 kg Intake: IV 1050 / 1952.083 902.083 / 5758.842 3532 / 1000 Oral 480 / 480 Output: Urine 675 / 1375 700 / 1375 700 / 700 Other: Urine Color Yellow Yellow Yellow Urine Appearance Clear Clear Clear Urine Odor None Normal Normal Comment MD aware Voiding Methods Urinal Urinal Urinal Data Completed and Pending Completed studies during hospitalization [Text1]: CXR 03/14/2020: Prior left upper lobectomy again noted with associated pleural and parenchymal scarring in both lungs. Prior CABG surgery noted. No evidence of acute change. Please see today's accompanying CT a chest report. CTA chest 03/14/2020: Stable post lobectomy changes in a patient with known lung carcinoma. No evidence of pulmonary embolic disease. Lexiscan MPI 03/15/2020: Stress ECG Conclusion 1. This is a pharmacologic myocardial perfusion imaging study. The resting electrocardiogram was normal 2. Patient received regadenoson. Normal blood pressure and heart rate response to pharmacologic stress. Patient developed chest pain following the infusion which persisted into 12 minutes of recovery 3. Peak heart rate was 90% of predicted for age 4. Electrocardiographically there was 0.[address] depression noted in leads V2 through V6 5. There were no dysrhythmias Stress Test Summary STAGE HR BP Symptoms NOTES Supine 92 144/84 1 min post Lexiscan injection 130 150/90 3 min post Lexiscan injection 135 142/84 5 out of 10 midsternal chest pain. 6 min post Lexiscan injection 138 148/92 10 out of 10 mid to lower sternal chest pain. 9 min post Lexiscan injection 125 142/90 5 out of 10 midsternal chest pain. 12 min post Lexiscan injection 110 134/80 chest pain subsiding. 15 min post Lexiscan injection 103 132/82 MPI Conclusion Grossly normal myocardial perfusion without evidence of prior infarction or significant ischemia Calculated ejection fraction is 49% Labs on day of discharge: Labs from last 24 hours 03/16/20 03/16/20 03/16/20 07:17 07:17 07:17 Sodium 139 Potassium 4.5 Chloride 102 Carbon Dioxide 28.8 Anion Gap 8.2 BUN 14 Creatinine 1.30 Estimated GFR/1.73 m2 54.42 Glucose 168 H Hemoglobin A1c 9.3 H Calcium 9.7 Magnesium 1.8 Troponin I < 0.05 Triglycerides 218 H Total Cholesterol 182 LDL Cholesterol, Calc 98 HDL Cholesterol 41 Urine Color Urine Clarity Urine pH Ur Specific [place] Urine Protein Urine Ketones Urine Blood Urine Nitrite Urine Bilirubin Urine Urobilinogen Ur Leukocyte Esterase Urine Glucose COVID-19 PCR Nasopharyn COVID-19 PCR Ref Test Perform Site 03/15/20 03/15/20 03/15/20 16:19 15:35 00:53 Sodium Potassium Chloride Carbon Dioxide Anion Gap BUN Creatinine Estimated GFR/1.73 m2 Glucose Hemoglobin A1c Calcium Magnesium Troponin I < 0.05 Triglycerides Total Cholesterol LDL Cholesterol, Calc HDL Cholesterol Urine Color Yellow Urine Clarity Clear Urine pH 6.5 Ur Specific [place] 1.020 Urine Protein Negative Urine Ketones Negative Urine Blood Negative Urine Nitrite Negative Urine Bilirubin Negative Urine Urobilinogen 0.2 Ur Leukocyte Esterase Negative Urine Glucose Negative COVID-19 PCR Negative Nasopharyn COVID-19 PCR Not Applicable Ref Test Perform Site [facility] lab PFSH Medical History Adenomatous colon polyp (Acute 01/13/12) tubular adenoma [facility] 01/05/06, rpt 5 yr Arteriosclerotic cardiovascular disease (ASCVD) (Chronic 01/13/12) CABG 1989; s/p stents 1999, 200409/09/18-Stress Echocardiogram [facility] Chest pain of uncertain etiology (Acute) Painlevel 2-4/10 x 2-3 weeks .. Hx abd aneurysm, so may need to r/o vasc path. Chronic coughing (Chronic) ? due to vagal nerve irritation? Chronic steroid use (Chronic) completed steroids, d/c 11/2019 COPD (chronic obstructive pulmonary disease) (Chronic ~08/09/18) Mild. PFT (Pulm, [facility]). Need another PFT, post lung resection [ ] 11/10/18 Fatigue due to radiation therapy (Acute) Foot fracture, right (Acute 10/2018) XR showing possible Fx, non-displaced [ ] CT recomm. Gastroesophageal reflux disease without esophagitis (Chronic 01/26/06) EGD ME: GERD: This is well-controlled with daily PPI. 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 [place] glottic cancer of larynx-CO2 Laser microsurgery. 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 Shortness of breath (Acute) LUNG CA ID'd .. now s/p surgery 10/2018. > Severe dyspnea .. with report of intolerance and feeling worse after some of his albuterol inhaler attempts .. Prompted to call ambulance for ED eval 2' possible reaction, tachy with NEB Tx. Sent to Ed, appreciate attention. NEB, CXR, Labs .. Smoker unmotivated to quit (Resolved 04/12/14) >50 pack years, despite CAD and Laryngeal cancer; QUIT SMOKING POST DYSPNEIC EPISODE 06/2018.... Surgical History Endoleak post (EVAR) endovascular aneurysm repair (Acute 11/30/18) endovascular repair AAA (03/07/13) Dr [place]ouza[place] [facility] f/u with CTA History of throat surgery (Acute) S/P CABG x 4 (Acute) S/P lobectomy of lung (Acute ~09/21/18) Status post radiation therapy (Chronic) 25 tx; Dr Trammell, rad-onc; stopped 04/06 Family History Mother , kidney failure at age 78. Renal disease Son No problems noted. Son No problems noted. 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 What is your relationship status?: How often do you talk on the phone with friends or family?: twice per week How often do you get together with friends or relatives?: twice per week Panel score (0-1 are the most socially isolated patients): 2 What type of physical activity do you participate in: walking and irregular exercise Duration: < 15 minutes/day Special mattie needs: No Seatbelt use: always Working smoke detector in home: Yes Carbon monox detector in home: Yes Do you feel safe at home: Yes Do you feel safe in your relationship?: Yes Additional Social history: Patient is , with 2 children. 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 Lengthy and significant history of tobacco abuse, with approximate 100+ pack year history of smoking, quit June 2018. Denies any alcohol use. Patient does admit to use of THC type products for medicinal purposes.
[2020-03-16] MEDS: Insulin Aspart 300 UNITS/3 ML PEN SC (11:58)
--- NOTE | 2020-03-16 13:02 | CMDISCH_ITS ---
- If Service Date Differs Date of service: 03/16/20 Time of Service: 13:02 LACE Index Scoring Tool - Questions: Length of Stay (in days): 1 Acuity (Admit via E.D.?): Yes Comorbidities: Diabetes w/o Complication, Chronic Pulmonary Disease, Any Tumor E.D. Visits: 4 - Answers: Total Score: 13 Risk of Readmission: High Risk Care Management Discharge Reason for Hospitalization: Chest Pain Discharge Plan: Colin is discharging home with no new services. He will follow up with his PCP, ammunition storage superintendent, special educator, and discharge plan of care as directed. His , Suzette, is driving him home via private vehicle. Patient/Family Education Needs: Nursing will review discharge instructions with Colin, including limitations and medications.
== END 2020-03-16 14:14 | disposition home or self-care (01) ==
LOC: ER 03-15 01:10 → MS 03-15 01:32
PROVIDERS: Internal Medicine; Admitting Provider Family Medicine; Emergency Provider Emergency Medicine; PCP Student in an Organized Health Care Education/Training Program; Visit Provider Family Medicine
DX: R07.9 Chest pain, unspecified (principal); E11.9 Type 2 diabetes mellitus without complications; E83.42 Hypomagnesemia; J44.9 Chronic obstructive pulmonary disease, unspecified; Z11.59 Encounter for screening for other viral diseases; C34.12 Malignant neoplasm of upper lobe, left bronchus or lung; I25.10 Atherosclerotic heart disease of native coronary artery without angina pectoris; Z95.1 Presence of aortocoronary bypass graft; Z95.5 Presence of coronary angioplasty implant and graft
CPT/HCPCS: 36415; 71275; 78452; 80048; 80053; 80061; 93005; 94640; 96365; 96366; 99217; 99219; 99285; NC; U0003; 71046; 81003; 83036; 83735; 84484; 85025; 85379; 93010; 93017; G0378; J2785; J3490

== ENCOUNTER 2020-03-22 03:24 | Emergency (ER) | payer MEDICARE, BC, SELFPAY ==
[2020-03-22] VITALS (17 sets, daily range): BP systolic 107–121; BP diastolic 66–79; PULSE 73–92; RESP 23–29; TEMP 36.7; O2SAT 94–99
--- NOTE | 2020-03-22 03:00 | RT.EKG_ITS ---
APPROVED REPORT Exam: Resting ECG Patient Location: E HR:82 bpm ECG Measurements Heart Rate 82 AXIS NJ 199 P 46 QRSd 104 QRS -20 QT 381 T 43 QTc 445 Conclusion Sinus rhythm...normal P axis, V-rate 60- 99 Low voltage, precordial leads...precordial leads <1.0mV
--- NOTE | 2020-03-22 03:18 | ED.GENADUL_ITS ---
Discharge Plan Disposition Patient Disposition: [facility] Condition: Serious Discharge Details Chief Complaint: Chest Pain Clinical Impression: ST elevation (STEMI) myocardial infarction Primary Care Provider: Danyell Burks ED Provider: Mehul Adan Home Meds and New Rx's Prescriptions: No Action simvastatin 40 mg tablet 40 mg PO DAILY Qty: 90 RF: 3 aspirin [Adult Low Dose Aspirin] 81 mg tablet,delayed release (DR/EC) 81 mg PO DAILY RF: 0 pantoprazole [Protonix] 40 mg tablet,delayed release (DR/EC) 40 mg PO DAILY RF: 0 albuterol sulfate [ProAir HFA] 90 mcg/actuation HFA aerosol inhaler 2 puff Inhalation Q4H PRN Qty: 1 RF: 1 TYLENOL ARTHRITIS 650 MG TABLET.ER 1,300 mg PO Q8H PRN RF: 0 ezetimibe [Zetia] 10 mg tablet 5 mg PO DAILY Qty: 45 RF: 3 budesonide-formoterol [Symbicort] 160-4.5 mcg/actuation HFA aerosol inhaler 2 puff IH BID RF: 0 Anoro Ellipta 62.5-25 mcg/actuation blister with device 1 inh IH DAILY RF: 0 lisinopril [Zestril] 10 mg tablet 10 mg PO DAILY Qty: 90 RF: 3 metformin 500 mg tablet 500 mg PO BID Qty: 60 RF: 0 (DME) One Touch Vario Meter Qty: 1 RF: 0 (DME) One Touch Vario Strips Qty: 100 RF: 0 (DME) One touch Vario Lancets Qty: 100 RF: 0 magnesium oxide 400 mg (241.3 mg magnesium) tablet 400 mg PO BID Qty: 60 RF: 3 nitroglycerin 0.4 MG tablet, sublingual 0.4 mg Sublingual PRN Qty: 20 RF: 0 metoprolol succinate [Toprol XL] 25 mg tablet extended release 24 hr 25 mg PO DAILY Qty: 45 RF: 2 Medical Decision Making 69 year old male with h/o known CAD s/p CABG in 1989, with stents in 1999 and 2004, DM, copd, hld, who comes in with EMS with chest pain that woke him from sleep about an hour ago. He was admitted for observation last week for chest pain and ruled out and was d/c'd and was miki to f/u with cardiology as an outpatient. He states the pain he had at home now was 10 times worse and had diaphoresis and nausea. The ekg by ems showed st elevations in II, III and aVF with depressions in reciprocal leads. He took 3 nitro at home without relief and ems gave him 324mg asa as well as 100mcg fentanyl which brought his pain from a 10/10 to a 2/10. He states he went to bed feeling well, denies fevers, cough. He arrives HD stable and ecg here shows resolution of the st elevations. Will start heparin, obtain lab work and consult with cardiology at [facility] labs unremarkable other than low magnesium and states pain is now 1/10 declining additional pain meds. Spoke with Dr. Weber from cardiology at [facility] and agrees with heparin and given st elevation resolved will accept to their cardiac icu. He has a plavix allergy and given ticagrelor hasn't been studied with lytics will hold on dual antiplatelet in case he has recurrent st elevation. Pt updated and agrees with plan for transfer. Dr. Spencer is the accepting physician Differential Diagnosis Differential Diagnosis: stemi, acs Medical Records Medical records reviewed: Yes I reviewed the patient's medical records. Imaging Data Radiologic Study: Attestation: I personally reviewed and interpreted this imaging study as follows: Imaging: X-Ray My impression: no acute findings Lab Data Lab results reviewed: Yes I reviewed the patient's lab results. ECG Data Attestation: I personally reviewed and interpreted this ECG (s) as follows: Prior ECG tracings: not available for review Interpretation: sinus rhythm, rate of 82 pr 199, no st elevation as was seen on prehospital ekg HPI General Mode of arrival: EMS . Date/Time Provider Initiated Documentation: 03/22/20 03:28 . Limitations to Documentation: no limitations . Information obtained by: patient . History of Present Illness 69 year old M presents to the emergency department with the chief complaint of chest pain, described as severe, and is localized to the chest. Patient started experiencing this hour(s) (1) and it has been constant. No relieving factors improve symptom(s), No exacerbating factors reported . Related Data Home Medications Medication Instructions Recorded Confirmed Tylenol Arthritis 1,300 mg PO Q8H PRN tab-cap 12/23/12 03/22/20 aspirin 81 mg tablet,delayed 81 mg PO DAILY 10/21/18 03/22/20 release simvastatin 40 mg tablet 40 mg PO DAILY #90 tab-cap 03/01/19 03/22/20 ezetimibe 10 mg tablet 5 mg PO DAILY #45 tab-cap 04/24/19 03/22/20 albuterol sulfate 90 mcg/actuation 2 puff INHALATION Q4H PRN #1 06/14/19 03/22/20 aerosol inhaler inhaler pantoprazole 40 mg tablet,delayed 40 mg PO DAILY tab-cap 06/14/19 03/22/20 release budesonide-formoterol HFA 160 2 puff IH BID 08/10/19 03/22/20 mcg-4.5 mcg/actuation aerosol inhaler umeclidinium 62.5 mcg-vilanterol 1 inh IH DAILY 08/10/19 03/22/20 25 mcg/actuation powdr for inhalation lisinopril 10 mg tablet 10 mg PO DAILY #90 tab 02/24/20 03/22/20 One Touch Vario Meter #1 ea 03/16/20 One Touch Vario Strips #100 each 03/16/20 One touch Vario Lancets #100 each 03/16/20 magnesium oxide 400 mg PO BID #60 tab 03/16/20 03/22/20 metformin 500 mg PO BID #60 tab 03/16/20 03/22/20 metoprolol succinate [Toprol XL] 25 mg PO DAILY #45 tab 03/16/20 03/22/20 nitroglycerin 0.4 mg SUBLINGUAL PRN #20 tab-cap 03/16/20 03/22/20 Previous Rx's Medication Instructions Recorded simvastatin 40 mg tablet 40 mg PO DAILY #90 tab-cap 03/01/19 ezetimibe 10 mg tablet 5 mg PO DAILY #45 tab-cap 04/24/19 albuterol sulfate 90 mcg/actuation 2 puff INHALATION Q4H PRN #1 06/14/19 aerosol inhaler inhaler lisinopril 10 mg tablet 10 mg PO DAILY #90 tab 02/24/20 One Touch Vario Meter #1 ea 03/16/20 One Touch Vario Strips #100 each 03/16/20 One touch Vario Lancets #100 each 03/16/20 magnesium oxide 400 mg PO BID #60 tab 03/16/20 metformin 500 mg PO BID #60 tab 03/16/20 metoprolol succinate [Toprol XL] 25 mg PO DAILY #45 tab 03/16/20 nitroglycerin 0.4 mg SUBLINGUAL PRN #20 tab-cap 03/16/20 Allergies Allergy/AdvReac Type Severity Reaction Status Date / Time clopidogrel Allergy Unknown SKIN RASH Verified 03/22/20 03:35 esomeprazole magnesium AdvReac Unknown gi upset Verified 03/22/20 03:35 [From Nexium] Penicillins AdvReac Unknown gi upset Verified 03/22/20 03:35 General BRYCE: 2 Review of Systems All systems reviewed & are unremarkable except as noted in HPI and below Constitutional Constitutional: Denies chills, Denies fever(s) and Denies weakness Respiratory Respiratory: Denies cough Gastrointestinal Gastrointestinal: Denies abdominal pain and Denies vomiting Musculoskeletal Musculoskeletal: Denies joint swelling Neurologic Neurologic: Denies weakness Psychiatric Psychiatric: Denies depression PFSH Medical History Adenomatous colon polyp (Acute 01/13/12) tubular adenoma [facility] 01/05/06, rpt 5 yr Arteriosclerotic cardiovascular disease (ASCVD) (Chronic 01/13/12) CABG 1989; s/p stents 1999, 200409/09/18-Stress Echocardiogram [facility] Chest pain of uncertain etiology (Acute) Painlevel 2-4/10 x 2-3 weeks .. Hx abd aneurysm, so may need to r/o vasc path. Chronic coughing (Chronic) ? due to vagal nerve irritation? Chronic steroid use (Chronic) completed steroids, d/c 11/2019 COPD (chronic obstructive pulmonary disease) (Chronic ~08/09/18) Mild. PFT (Pulm, [facility], 08/08/18). Need another PFT, post lung resection [ ] 11/10/18 Fatigue due to radiation therapy (Acute) Foot fracture, right (Acute 10/2018) XR showing possible Fx, non-displaced [ ] CT recomm. Gastroesophageal reflux disease without esophagitis (Chronic 01/26/06) EGD ME: GERD: This is well-controlled with daily PPI. 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 Shortness of breath (Acute) LUNG CA ID'd .. now s/p surgery 10/2018. > Severe dyspnea .. with report of intolerance and feeling worse after some of his albuterol inhaler attempts .. Prompted to call ambulance for ED eval 2' possible reaction, tachy with NEB Tx. Sent to Ed, appreciate attention. NEB, CXR, Labs .. Smoker unmotivated to quit (Resolved 04/12/14) >50 pack years, despite CAD and Laryngeal cancer; QUIT SMOKING POST DYSPNEIC EPISODE 06/2018.... Surgical History Endoleak post (EVAR) endovascular aneurysm repair (Acute 11/30/18) endovascular repair AAA (03/07/13) Dr Dsouza, [facility], yearly f/u with CTA History of throat surgery (Acute) S/P CABG x 4 (Acute) S/P lobectomy of lung (Acute ~09/21/18) Status post radiation therapy (Chronic) 25 tx; Dr Trammell, rad-onc; stopped 04/06 Family History Mother , kidney failure at age 78. Renal disease Son No problems noted. Son No problems noted. 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 What is your relationship status?: How often do you talk on the phone with friends or family?: twice per week How often do you get together with friends or relatives?: twice per week Panel score (0-1 are the most socially isolated patients): 2 What type of physical activity do you participate in: walking and irregular exercise Duration: < 15 minutes/day Special mattie needs: No Seatbelt use: always Working smoke detector in home: Yes Carbon monox detector in home: Yes Do you feel safe at home: Yes Do you feel safe in your relationship?: Yes Additional Social history: Patient is , with 2 children. 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 Lengthy and significant history of tobacco abuse, with approximate 100+ pack year history of smoking, quit June 2018. Denies any alcohol use. Patient does admit to use of THC type products for medicinal purposes. Exam Const General: other (in pain) Orientation: alert HENMT Head: normal to inspection Ears: external ears normal General nose exam: external nose normal Mouth: moist mucous membranes Eyes General: appearance normal, both eyes and all related structures Neck Neck: normal visual inspection Resp Effort & Inspection: normal respiratory effort and able to speak in complete sentences Cardio Rate: regular rate Skin General skin exam: no rashes or lesions noted Neuro General: patient alert and patient oriented x3 Extrem General: normal to inspection Psych Mental Status: mental status grossly normal
[2020-03-22 03:35] LABS: Abs Immature Grans 0.03 10^3/uL (0.0-0.06); Absolute Basophil Count 0.08 10^3/uL (0.0-0.2); Absolute Eosinophil Count 0.39 10^3/uL (0.0-0.7); Absolute Lymphocyte Count 3.22 10^3/uL (1.2-3.4); Absolute Monocyte Count 1.13 10^3/uL (0.1-0.8); Basophils % 0.8; Eosinophils % 3.8; HGB 14.1 g/dL (13.5-17.5); Immature Grans % 0.3; Lymphocytes % 31.7; MCH 28.2 pg (27.0-33.0); MPV 9.5 fL (8.0-11.0); Monocytes % 11.1; Neutrophils % 52.3; Nucleated RBC 0 %; Platelet Count 256 10^3/uL (130-400); RDW 13.1 % (11.8-14.1); RDW-SD 41.8 fL; WBC 10.15 10^3/uL (4.4-10.8)
--- NOTE | 2020-03-22 03:44 | DI.RAD_ITS ---
EXAM: XR PORTABLE CHEST AP CLINICAL HISTORY: chest pain TECHNIQUE: 2D digital imaging was performed. COMPARISON: CR XR PORTABLE CHEST AP from 02/10/2019 CR,XR XR CHEST 2V PA LATERAL from 03/14/2020 FINDINGS: MEDIASTINUM: Normal. HEART: Normal. PULMONARY VASCULATURE: Normal. LUNGS: Postsurgical changes of a left upper lobectomy. Stable parenchymal and pleural scarring. PLEURAL SPACE: No pneumothorax. Possible persistent left pleural effusion. BONE:Status post sternotomy. OTHER FINDINGS:Normal. IMPRESSION: No acute pulmonary findings. DATA REPOSITORY: RADIATION DOSE DELIVERED:
[2020-03-22 03:51] LABS: INR 0.9 (0.9-1.1); PTT Activated 27.5 sec (21.0-31.4); Prothrombin Time 9.3 sec (9.3-11.0)
[2020-03-22 03:57] LABS: ALT 29 U/L (16-63); AST 15 U/L (15-37); Albumin 3.4 g/dL (3.4-5.0); Alkaline Phosphatase 112 U/L (46-116); Anion Gap 10.6 mmol/L (3-11); BUN 24 mg/dL (7-18); Bilirubin, Total 0.2 mg/dL (0.2-1.0); CO2 26.4 mmol/L (21.0-32.0); CREATININE 1.45 mg/dL (0.70-1.30); Calcium 9.4 mg/dL (8.5-10.1); Chloride 102 mmol/L (98-107); Estimated GFR 47.98 (mL/min/1.73m2); Glucose 187 mg/dL (74-106); Magnesium 1.4 mg/dL (1.8-2.4); NT-proBNP 113 pg/mL (<300); Potassium 4.7 mmol/L (3.5-5.1); Sodium 139 mmol/L (136-145); Total Protein 7.1 g/dL (6.4-8.2)
[2020-03-22 03:59] LABS: Troponin I < 0.05 ng/mL (<0.06)
[2020-03-22] MEDS: MAGNESIUM SULFATE 2 GM/50 ML BAG IVPB (04:25)
--- NOTE | 2020-03-22 04:27 | DI.VRAD_ITS ---
PROCEDURE INFORMATION: Exam: XR Chest, 1 View Exam date and time: 03/22/2020 3:45 AM Age: 69 years old Clinical indication: Chest pain; Type not specified TECHNIQUE: Imaging protocol: XR of the chest Views: 1 view. COMPARISON: CR XR CHEST 2V PA LATERAL 03/14/2020 11:23 PM, CT examination of chest from February 23, 2020 FINDINGS: Lungs: Prior left upper lobectomy No consolidation. Pleural space: Persistent at least partially loculated left pleural effusion. No pneumothorax. Heart/Mediastinum: Left perihilar scarring/atelectasis. No cardiomegaly. Bones/joints: Prior median sternotomy. Lower most sternotomy wire fractured. IMPRESSION: No acute findings. Dictated and Authenticated by: Chao Mosley MD. Ordering:IVY Carver MD
--- NOTE | 2020-03-22 05:00 | RT.EKG_ITS ---
APPROVED REPORT Exam: Resting ECG Patient Location: E HR:90 bpm ECG Measurements Heart Rate 90 AXIS UT 196 P -24 QRSd 102 QRS -30 QT 370 T 55 QTc 453 Conclusion Sinus rhythm...normal P axis, V-rate 60- 99 Inferior infarct, old...Q >35mS, II III aVF
== END 2020-03-22 05:09 | disposition short-term general hospital (02) ==
LOC: ER 05:00
PROVIDERS: Emergency Provider Emergency Medicine; PCP Student in an Organized Health Care Education/Training Program
DX: I21.3 ST elevation (STEMI) myocardial infarction of unspecified site (principal); E83.42 Hypomagnesemia; R11.0 Nausea; R61 Generalized hyperhidrosis; I10 Essential (primary) hypertension; I25.10 Atherosclerotic heart disease of native coronary artery without angina pectoris; Z95.1 Presence of aortocoronary bypass graft; Z95.5 Presence of coronary angioplasty implant and graft; E11.9 Type 2 diabetes mellitus without complications; Z79.84 Long term (current) use of oral hypoglycemic drugs; J44.9 Chronic obstructive pulmonary disease, unspecified; Z87.891 Personal history of nicotine dependence
CPT/HCPCS: 36415; 80053; 93005; 96365; 96368; 96376; 99285; 71045; 83735; 83880; 84484; 85025; 85610; 85730; 93010

== ENCOUNTER 2020-03-26 14:41 | Emergency (ER) | payer MEDICARE, BC, SELFPAY ==
[2020-03-26] VITALS (16 sets, daily range): BP systolic 86–116; BP diastolic 52–78; PULSE 103–133; RESP 22–34; TEMP 36.5; O2SAT 94–97
--- NOTE | 2020-03-26 14:30 | RT.EKG_ITS ---
APPROVED REPORT Exam: Resting ECG Patient Location: E HR:125 bpm ECG Measurements Heart Rate 125 AXIS GA 171 P 49 QRSd 112 QRS -33 QT 305 T 77 QTc 440 Conclusion Sinus tachycardia...rate> 99 Incomplete right bundle branch block...QRSd >112, terminal axis(90,270)
--- NOTE | 2020-03-26 14:45 | DI.RAD_ITS ---
EXAM: XR PORTABLE CHEST AP CLINICAL HISTORY: Chest Pain TECHNIQUE: 2D digital imaging was performed. COMPARISON: CR,XR XR CHEST 2V PA LATERAL from 03/14/[address] CHEST PE CTA from 03/15/2020 CR,XR XR PORTABLE CHEST AP from 03/22/2020 FINDINGS: There is now a left pleural effusion, small to moderate in size. Left upper lobe scarring and left-si ded volume loss are again noted. There are underlying fibrotic changes. Patient is status post CABG. IMPRESSION: Left pleural effusion appears new or increased when compared with the previous exam. DATA REPOSITORY: RADIATION DOSE DELIVERED:
[2020-03-26] MEDS: Ondansetron 4 MG/2 ML VIAL (14:52)
--- NOTE | 2020-03-26 14:53 | ED.GENADUL_ITS ---
Discharge Plan Disposition Patient Disposition: [facility] Condition: Critical Discharge Details Chief Complaint: Chest Pain Clinical Impression: ACS (acute coronary syndrome) Primary Care Provider: Danyell Burks ED Provider: Mehul Adan Home Meds and New Rx's Prescriptions: No Action aspirin [Adult Low Dose Aspirin] 81 mg tablet,delayed release (DR/EC) 81 mg PO DAILY RF: 0 pantoprazole [Protonix] 40 mg tablet,delayed release (DR/EC) 40 mg PO DAILY RF: 0 albuterol sulfate [ProAir HFA] 90 mcg/actuation HFA aerosol inhaler 2 puff Inhalation Q4H PRN Qty: 1 RF: 1 TYLENOL ARTHRITIS 650 MG TABLET.ER 1,300 mg PO Q8H PRN RF: 0 ezetimibe [Zetia] 10 mg tablet 5 mg PO DAILY Qty: 45 RF: 3 budesonide-formoterol [Symbicort] 160-4.5 mcg/actuation HFA aerosol inhaler 2 puff IH BID RF: 0 Anoro Ellipta 62.5-25 mcg/actuation blister with device 1 inh IH DAILY RF: 0 atorvastatin 80 mg tablet 80 mg PO DAILY RF: 0 empagliflozin 10 mg tablet 10 mg PO DAILY RF: 0 nitroglycerin 0.4 mg tablet, sublingual 0.4 mg SL Q5M PRNRF: 0 ticagrelor 90 mg tablet 90 mg PO BID RF: 0 metformin 500 mg tablet 500 mg PO BID Qty: 60 RF: 0 (DME) One Touch Vario Meter Qty: 1 RF: 0 (DME) One Touch Vario Strips Qty: 100 RF: 0 (DME) One touch Vario Lancets Qty: 100 RF: 0 magnesium oxide 400 mg (241.3 mg magnesium) tablet 400 mg PO BID Qty: 60 RF: 3 metoprolol succinate [Toprol XL] 25 mg tablet extended release 24 hr 25 mg PO DAILY Qty: 45 RF: 2 Medical Decision Making 69 yo male with hx of cad s/p cabg x3 in 1998 and pci in 2004 who had a stemi last week and transferred to [facility] [place] and found to have triple vessel disease not amenable to stenting and wasn't deemed a surgical candidate so was managed medically. He was d/c'd yesterday and had been doin well but about 30 minutes or so ago while laying at home had acute onset chest pressure, n/v and diaphoresis. HE took 3 of his nitro which helped minimally and when ems arrived he had a bp of 90 systolic. He was given fentanyl with ems and pain went from 10/10 to 3/10 and on their ekg had st elevation in avr with reciprocal depressions which have resolved on arrival here. He is diaphoretic still with n/v. STill has 3/10 chest pressure. No abdominal tenderness, no jvd,caox4. Suspect this is again acs, has had 324mg asa today and home ticagrelor, will start heparin and consult with cardiology at [facility] [place] spoke with [facility] [place] cardiology dr. msat who agreed with heparin and is going to discuss with his care team there about further therapies they can offer. Pt remains tachycardic with stable BP, still has 3/10 and intermittent nausea pt hd stable with continued tachycardia, pain still 2/10 stable bp, spoke with Dr. Mast at [facility] [place] who accepts in transfer, accepting provider is Dr. Damon at [facility] [place]. Pt agreeable with plan Differential Diagnosis Differential Diagnosis: nstemi, stemi, cad Medical Records Medical records reviewed: Yes I reviewed the patient's medical records. Imaging Data Radiologic Study: Attestation: I personally reviewed and interpreted this imaging study as follows: Imaging: X-Ray My impression: no acute findings Lab Data Lab results reviewed: Yes I reviewed the patient's lab results. ECG Data Attestation: I personally reviewed and interpreted this ECG (s) as follows: Prior ECG tracings: available for review Interpretation: 1st ekg sinus tachycardia, rate of 125, pr 171, qtc 440 HPI General Mode of arrival: ambulatory . Date/Time Provider Initiated Documentation: 03/26/20 14:47 . Limitations to Documentation: no limitations . Information obtained by: patient and EMS . History of Present Illness 69 year old M presents to the emergency department with the chief complaint of chest pressure, described as moderate and severe, with intensity rated at 10. No relieving factors improve symptom(s), No exacerbating factors reported . Related Data Home Medications Medication Instructions Recorded Confirmed Tylenol Arthritis 1,300 mg PO Q8H PRN tab-cap 12/23/12 03/26/20 aspirin 81 mg tablet,delayed 81 mg PO DAILY 10/21/18 03/26/20 release ezetimibe 10 mg tablet 5 mg PO DAILY #45 tab-cap 04/24/19 03/26/20 albuterol sulfate 90 mcg/actuation 2 puff INHALATION Q4H PRN #1 06/14/19 03/26/20 aerosol inhaler inhaler pantoprazole 40 mg tablet,delayed 40 mg PO DAILY tab-cap 06/14/19 03/26/20 release budesonide-formoterol HFA 160 2 puff IH BID 08/10/19 03/26/20 mcg-4.5 mcg/actuation aerosol inhaler umeclidinium 62.5 mcg-vilanterol 1 inh IH DAILY 08/10/19 03/26/20 25 mcg/actuation powdr for inhalation One Touch Vario Meter #1 ea 03/16/20 03/26/20 One Touch Vario Strips #100 each 03/16/20 03/26/20 One touch Vario Lancets #100 each 03/16/20 03/26/20 magnesium oxide 400 mg PO BID #60 tab 03/16/20 03/26/20 metformin 500 mg PO BID #60 tab 03/16/20 03/26/20 metoprolol succinate [Toprol XL] 25 mg PO DAILY #45 tab 03/16/20 03/26/20 atorvastatin 80 mg tablet 80 mg PO DAILY 03/26/20 03/26/20 empagliflozin 10 mg tablet 10 mg PO DAILY 03/26/20 03/26/20 nitroglycerin 0.4 mg sublingual 0.4 mg SL Q5M PRN 03/26/20 03/26/20 tablet ticagrelor 90 mg tablet 90 mg PO BID 03/26/20 03/26/20 Previous Rx's Medication Instructions Recorded ezetimibe 10 mg tablet 5 mg PO DAILY #45 tab-cap 04/24/19 albuterol sulfate 90 mcg/actuation 2 puff INHALATION Q4H PRN #1 06/14/19 aerosol inhaler inhaler One Touch Vario Meter #1 ea 03/16/20 One Touch Vario Strips #100 each 03/16/20 One touch Vario Lancets #100 each 03/16/20 magnesium oxide 400 mg PO BID #60 tab 03/16/20 metformin 500 mg PO BID #60 tab 03/16/20 metoprolol succinate [Toprol XL] 25 mg PO DAILY #45 tab 03/16/20 Allergies Allergy/AdvReac Type Severity Reaction Status Date / Time clopidogrel Allergy Unknown SKIN RASH Verified 03/26/20 15:30 esomeprazole magnesium AdvReac Unknown gi upset Verified 03/26/20 15:30 [From Nexium] Penicillins AdvReac Unknown gi upset Verified 03/26/20 15:30 General BRYCE: 2 Review of Systems All systems reviewed & are unremarkable except as noted in HPI and below Constitutional Constitutional: Denies chills, Denies fever(s) and Denies weakness Respiratory Respiratory: Denies cough Gastrointestinal Gastrointestinal: Denies abdominal pain, Denies nausea and Denies vomiting Musculoskeletal Musculoskeletal: Denies joint swelling Integumentary/Breasts Skin/Breast: Denies rash Neurologic Neurologic: Denies weakness Psychiatric Psychiatric: Denies depression PFSH Medical History Adenomatous colon polyp (Acute 01/13/12) tubular adenoma [facility] [place] 01/05/06, rpt 5 yr Arteriosclerotic cardiovascular disease (ASCVD) (Chronic 01/13/12) CABG 1989; s/p stents 1999, 200409/09/18-Stress Echocardiogram [facility] Chest pain of uncertain etiology (Acute) Painlevel 2-10 x 2-3 weeks .. Hx abd aneurysm, so may need to r/o vasc path. Chronic coughing (Chronic) ? due to vagal nerve irritation? Chronic steroid use (Chronic) completed steroids, d/c 11/2019 COPD (chronic obstructive pulmonary disease) (Chronic ~08/09/18) Mild. PFT (Pulm, [facility], 08/08/18). Need another PFT, post lung resection [ ] 11/10/18 Fatigue due to radiation therapy (Acute) Foot fracture, right (Acute 10/2018) XR showing possible Fx, non-displaced [ ] CT recomm. Gastroesophageal reflux disease without esophagitis (Chronic 01/26/06) EGD ME: GERD: This is well-controlled with daily PPI. 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 Shortness of breath (Acute) LUNG CA ID'd .. now s/p surgery 10/2018. > Severe dyspnea .. with report of intolerance and feeling worse after some of his albuterol inhaler attempts .. Prompted to call ambulance for ED eval 2' possible reaction, tachy with NEB Tx. Sent to Ed, appreciate attention. NEB, CXR, Labs .. Smoker unmotivated to quit (Resolved 04/12/14) >50 pack years, despite CAD and Laryngeal cancer; QUIT SMOKING POST DYSPNEIC EPISODE 06/2018.... Surgical History Endoleak post (EVAR) endovascular aneurysm repair (Acute 11/30/18) endovascular repair AAA (03/07/13) Dr Dsouza, [facility], yearly f/u with CTA History of throat surgery (Acute) S/P CABG x 4 (Acute) S/P lobectomy of lung (Acute ~09/21/18) Status post radiation therapy (Chronic) 25 tx; Dr Trammell, rad-onc; stopped 04/06 Family History Mother , kidney failure at age 78. Renal disease Son No problems noted. Son No problems noted. 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 What is your relationship status?: How often do you talk on the phone with friends or family?: twice per week How often do you get together with friends or relatives?: twice per week Panel score (0-1 are the most socially isolated patients): 2 What type of physical activity do you participate in: walking and irregular exercise Duration: < 15 minutes/day Special mattie needs: No Seatbelt use: always Working smoke detector in home: Yes Carbon monox detector in home: Yes Do you feel safe at home: Yes Do you feel safe in your relationship?: Yes Additional Social history: Patient is , with 2 children. 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 Lengthy and significant history of tobacco abuse, with approximate 100+ pack year history of smoking, quit June 2018. Denies any alcohol use. Patient does admit to use of THC type products for medicinal purposes. Exam Const General: diaphoretic Orientation: alert HENMT Head: normal to inspection Ears: external ears normal General nose exam: external nose normal Mouth: moist mucous membranes Eyes General: appearance normal, both eyes and all related structures Neck Neck: normal visual inspection Resp Effort & Inspection: normal respiratory effort and able to speak in complete se ntences Cardio Rate: regular rate Skin General skin exam: no rashes or lesions noted Neuro General: patient alert and patient oriented x3 Extrem General: normal to inspection Psych Mental Status: mental status grossly normal Critical Care Time Critical Care Time Critical Care Time: Yes Total Critical Care Time: 60 (minutes) Attestation: time spent reviewing labs, frequent reassessments and hemodynamicmonitoring in patient with acute coronary syndrome and potential to deteriorate at any time
[2020-03-26 15:03] LABS: Abs Immature Grans 0.05 10^3/uL (0.0-0.06); Absolute Basophil Count 0.03 10^3/uL (0.0-0.2); Absolute Eosinophil Count 0.23 10^3/uL (0.0-0.7); Absolute Lymphocyte Count 1.91 10^3/uL (1.2-3.4); Absolute Monocyte Count 0.36 10^3/uL (0.1-0.8); Absolute Neutrophil Count 7.79 10^3/uL (1.2-6.7); Basophils % 0.3; Eosinophils % 2.2; HCT 43.8 % (40.0-50.0); HGB 14.3 g/dL (13.5-17.5); Immature Grans % 0.5; Lymphocytes % 18.4; MCH 28.3 pg (27.0-33.0); MCHC 32.6 % (32.0-36.0); MCV 86.6 fL (80-95); MPV 9.8 fL (8.0-11.0); Monocytes % 3.5; Neutrophils % 75.1; Nucleated RBC 0 %; Platelet Count 265 10^3/uL (130-400); RBC 5.06 10^6/uL (4.36-5.78); RDW 13.1 % (11.8-14.1); RDW-SD 40.9 fL; WBC 10.37 10^3/uL (4.4-10.8)
[2020-03-26 15:17] LABS: PTT Activated 26.7 sec (21.0-31.4); Prothrombin Time 10.1 sec (9.3-11.0)
[2020-03-26 15:22] LABS: ALT 41 U/L (16-63); AST 24 U/L (15-37); Albumin 3.5 g/dL (3.4-5.0); Alkaline Phosphatase 119 U/L (46-116); Anion Gap 15.1 mmol/L (3-11); BUN 29 mg/dL (7-18); Bilirubin, Total 0.5 mg/dL (0.2-1.0); CO2 21.9 mmol/L (21.0-32.0); CREATININE 1.87 mg/dL (0.70-1.30); Calcium 9.2 mg/dL (8.5-10.1); Chloride 97 mmol/L (98-107); Estimated GFR 35.77 (mL/min/1.73m2); Glucose 151 mg/dL (74-106); Lipase 107 U/L (73-393); NT-proBNP 129 pg/mL (<300); Potassium 4.1 mmol/L (3.5-5.1); Sodium 134 mmol/L (136-145); Total Protein 7.5 g/dL (6.4-8.2); Troponin I < 0.05 ng/mL (<0.06)
[2020-03-26] MEDS: Prochlorperazine 10 MG/2 ML VIAL IVP (15:32)
== END 2020-03-26 16:50 | disposition short-term general hospital (02) ==
PROVIDERS: Emergency Provider Emergency Medicine; PCP Student in an Organized Health Care Education/Training Program
DX: I24.8 Other forms of acute ischemic heart disease (principal); R11.0 Nausea; R06.02 Shortness of breath; I10 Essential (primary) hypertension; J44.9 Chronic obstructive pulmonary disease, unspecified; Z87.891 Personal history of nicotine dependence
CPT/HCPCS: 80053; 83690; 93005; 96365; 96366; 96375; 96376; 99291; 71045; 83735; 83880; 84484; 85025; 85610; 85730; 93010; J0780; J2405

== ENCOUNTER 2020-04-02 16:00 | Outpatient (REF) | payer MEDICARE, BC, SELFPAY ==
[2020-04-02 16:24] LABS: Absolute Basophil Count 0.08 10^3/uL (0.0-0.2); Absolute Eosinophil Count 0.31 10^3/uL (0.0-0.7); Absolute Monocyte Count 1.09 10^3/uL (0.1-0.8); Basophils % 0.7; Eosinophils % 2.7; HCT 39.4 % (40.0-50.0); Immature Grans % 2.6; Lymphocytes % 13.6; MCH 28.6 pg (27.0-33.0); MCV 86.8 fL (80-95); MPV 10.1 fL (8.0-11.0); Monocytes % 9.6; Neutrophils % 70.8; Nucleated RBC 0 %; Platelet Count 267 10^3/uL (130-400); RBC 4.54 10^6/uL (4.36-5.78); RDW 13.3 % (11.8-14.1); RDW-SD 42.2 fL; WBC 11.36 10^3/uL (4.4-10.8)
[2020-04-02 16:28] LABS: ALT 85 U/L (16-63); AST 88 U/L (15-37); Albumin 3.3 g/dL (3.4-5.0); Alkaline Phosphatase 179 U/L (46-116); Anion Gap 11.1 mmol/L (3-11); BUN 25 mg/dL (7-18); Bilirubin, Total 0.4 mg/dL (0.2-1.0); CO2 25.9 mmol/L (21.0-32.0); CREATININE 1.56 mg/dL (0.70-1.30); Calcium 9.3 mg/dL (8.5-10.1); Chloride 97 mmol/L (98-107); Estimated GFR 44.09 (mL/min/1.73m2); Glucose 176 mg/dL (74-106); Potassium 4.7 mmol/L (3.5-5.1); Sodium 134 mmol/L (136-145); Total Protein 6.8 g/dL (6.4-8.2)
[2020-04-02 16:49] LABS: Absolute Lymphocyte Count 1.54 10^3/uL (1.2-3.4); Absolute Neutrophil Count 8.04 10^3/uL (1.2-6.7)
== END 2020-04-02 16:20 ==
LOC: NCHCN 16:00
PROVIDERS: PCP Student in an Organized Health Care Education/Training Program; Visit Provider Student in an Organized Health Care Education/Training Program
DX: B95.61 Methicillin susceptible Staphylococcus aureus infection as the cause of diseases classified elsewhere (principal)
CPT/HCPCS: 80053; 85025

== ENCOUNTER 2020-04-05 11:08 | Outpatient (REF) | payer MEDICARE, BC, SELFPAY ==
[2020-04-05 14:18] LABS: Abs Immature Grans 0.17 10^3/uL (0.0-0.06); Absolute Basophil Count 0.09 10^3/uL (0.0-0.2); Absolute Eosinophil Count 0.54 10^3/uL (0.0-0.7); Absolute Lymphocyte Count 1.93 10^3/uL (1.2-3.4); Absolute Monocyte Count 1.14 10^3/uL (0.1-0.8); Basophils % 0.8; HCT 38.4 % (40.0-50.0); HGB 12.2 g/dL (13.5-17.5); Immature Grans % 1.6; Lymphocytes % 17.8; MCHC 31.8 % (32.0-36.0); MCV 88.1 fL (80-95); MPV 9.9 fL (8.0-11.0); Monocytes % 10.5; Neutrophils % 64.3; Nucleated RBC 0 %; Platelet Count 267 10^3/uL (130-400); RBC 4.36 10^6/uL (4.36-5.78); RDW 13.7 % (11.8-14.1); RDW-SD 43.8 fL; WBC 10.82 10^3/uL (4.4-10.8)
[2020-04-05 14:22] LABS: Absolute Neutrophil Count 6.96 10^3/uL (1.2-6.7)
[2020-04-05 14:47] LABS: ALT 66 U/L (16-63); AST 32 U/L (15-37); Albumin 3.1 g/dL (3.4-5.0); Alkaline Phosphatase 139 U/L (46-116); Anion Gap 7.9 mmol/L (3-11); BUN 26 mg/dL (7-18); Bilirubin, Total 0.3 mg/dL (0.2-1.0); CO2 28.1 mmol/L (21.0-32.0); CREATININE 1.28 mg/dL (0.70-1.30); Calcium 9.3 mg/dL (8.5-10.1); Chloride 101 mmol/L (98-107); Glucose 116 mg/dL (74-106); Potassium 4.9 mmol/L (3.5-5.1); Sodium 137 mmol/L (136-145); Total Protein 6.4 g/dL (6.4-8.2)
== END 2020-04-05 11:28 ==
LOC: LBN 11:08
PROVIDERS: PCP Student in an Organized Health Care Education/Training Program; Visit Provider Student in an Organized Health Care Education/Training Program
DX: B95.8 Unspecified staphylococcus as the cause of diseases classified elsewhere (principal); R78.81 Bacteremia
CPT/HCPCS: 80053; 85025

== ENCOUNTER 2020-04-08 11:41 | Outpatient (REF) | payer MEDICARE, BC, SELFPAY ==
[2020-04-08 13:21] LABS: Abs Immature Grans 0.06 10^3/uL (0.0-0.06); Absolute Basophil Count 0.08 10^3/uL (0.0-0.2); Absolute Eosinophil Count 0.44 10^3/uL (0.0-0.7); Absolute Monocyte Count 0.79 10^3/uL (0.1-0.8); Absolute Neutrophil Count 7.63 10^3/uL (1.2-6.7); Basophils % 0.8; Eosinophils % 4.3; HCT 38.5 % (40.0-50.0); HGB 12.3 g/dL (13.5-17.5); Immature Grans % 0.6; Lymphocytes % 12.6; MCH 28.3 pg (27.0-33.0); MCHC 31.9 % (32.0-36.0); MCV 88.7 fL (80-95); MPV 9.8 fL (8.0-11.0); Monocytes % 7.7; Nucleated RBC 0 %; Platelet Count 287 10^3/uL (130-400); RBC 4.34 10^6/uL (4.36-5.78); RDW 13.7 % (11.8-14.1); RDW-SD 44.7 fL
[2020-04-08 13:44] LABS: ALT 43 U/L (16-63); AST 28 U/L (15-37); Albumin 3.3 g/dL (3.4-5.0); Alkaline Phosphatase 122 U/L (46-116); Anion Gap 7.1 mmol/L (3-11); BUN 23 mg/dL (7-18); Bilirubin, Total 0.4 mg/dL (0.2-1.0); CO2 26.9 mmol/L (21.0-32.0); Calcium 8.9 mg/dL (8.5-10.1); Chloride 101 mmol/L (98-107); Estimated GFR 59.68 (mL/min/1.73m2); Glucose 191 mg/dL (74-106); Potassium 4.7 mmol/L (3.5-5.1); Sodium 135 mmol/L (136-145); Total Protein 6.6 g/dL (6.4-8.2)
== END 2020-04-08 12:01 ==
LOC: LBN 11:41
PROVIDERS: PCP Student in an Organized Health Care Education/Training Program; Visit Provider Student in an Organized Health Care Education/Training Program
DX: R78.81 Bacteremia (principal); B95.8 Unspecified staphylococcus as the cause of diseases classified elsewhere
CPT/HCPCS: 80053; 85025

== ENCOUNTER 2020-04-15 13:16 | Outpatient (REF) | payer MEDICARE, BC, SELFPAY ==
[2020-04-15 13:51] LABS: Abs Immature Grans 0.03 10^3/uL (0.0-0.06); Absolute Eosinophil Count 0.31 10^3/uL (0.0-0.7); Absolute Monocyte Count 0.78 10^3/uL (0.1-0.8); Absolute Neutrophil Count 4.41 10^3/uL (1.2-6.7); Basophils % 1.4; Eosinophils % 4.4; HCT 39.3 % (40.0-50.0); HGB 12.9 g/dL (13.5-17.5); Immature Grans % 0.4; Lymphocytes % 19.9; MCH 28.5 pg (27.0-33.0); MCHC 32.8 % (32.0-36.0); MCV 86.9 fL (80-95); MPV 9.5 fL (8.0-11.0); Monocytes % 11.1; Neutrophils % 62.8; Nucleated RBC 0 %; Platelet Count 307 10^3/uL (130-400); RBC 4.52 10^6/uL (4.36-5.78); RDW 14.2 % (11.8-14.1); RDW-SD 44.9 fL; WBC 7.03 10^3/uL (4.4-10.8)
[2020-04-15 13:55] LABS: ALT 22 U/L (16-63); AST 22 U/L (15-37); Albumin 3.5 g/dL (3.4-5.0); Alkaline Phosphatase 123 U/L (46-116); Anion Gap 12.1 mmol/L (3-11); BUN 24 mg/dL (7-18); Bilirubin, Total 0.4 mg/dL (0.2-1.0); CO2 23.9 mmol/L (21.0-32.0); CREATININE 1.34 mg/dL (0.70-1.30); Calcium 9.5 mg/dL (8.5-10.1); Chloride 102 mmol/L (98-107); Estimated GFR 52.55 (mL/min/1.73m2); Glucose 124 mg/dL (74-106); Potassium 4.7 mmol/L (3.5-5.1); Sodium 138 mmol/L (136-145)
== END 2020-04-15 13:36 ==
LOC: LBN 13:16
PROVIDERS: PCP Student in an Organized Health Care Education/Training Program; Visit Provider Student in an Organized Health Care Education/Training Program
DX: B95.61 Methicillin susceptible Staphylococcus aureus infection as the cause of diseases classified elsewhere (principal); R78.81 Bacteremia
CPT/HCPCS: 80053; 85025

== ENCOUNTER 2020-04-22 14:05 | Outpatient (REF) | payer MEDICARE, BC, SELFPAY ==
[2020-04-22 14:22] LABS: Abs Immature Grans 0.03 10^3/uL (0.0-0.06); Absolute Basophil Count 0.05 10^3/uL (0.0-0.2); Absolute Eosinophil Count 0.36 10^3/uL (0.0-0.7); Absolute Lymphocyte Count 1.11 10^3/uL (1.2-3.4); Absolute Monocyte Count 0.66 10^3/uL (0.1-0.8); Absolute Neutrophil Count 4.31 10^3/uL (1.2-6.7); Basophils % 0.8; Eosinophils % 5.5; HCT 39.5 % (40.0-50.0); HGB 12.7 g/dL (13.5-17.5); Immature Grans % 0.5; MCH 28.7 pg (27.0-33.0); MCHC 32.2 % (32.0-36.0); MCV 89.4 fL (80-95); MPV 9.5 fL (8.0-11.0); Monocytes % 10.1; Neutrophils % 66.1; Nucleated RBC 0 %; Platelet Count 293 10^3/uL (130-400); RBC 4.42 10^6/uL (4.36-5.78); RDW 14.3 % (11.8-14.1); RDW-SD 46.5 fL; WBC 6.52 10^3/uL (4.4-10.8)
[2020-04-22 14:35] LABS: ALT 14 U/L (16-63); AST 20 U/L (15-37); Albumin 3.5 g/dL (3.4-5.0); Alkaline Phosphatase 116 U/L (46-116); Anion Gap 7.8 mmol/L (3-11); BUN 21 mg/dL (7-18); Bilirubin, Total 0.3 mg/dL (0.2-1.0); CO2 26.2 mmol/L (21.0-32.0); CREATININE 1.19 mg/dL (0.70-1.30); Calcium 8.9 mg/dL (8.5-10.1); Chloride 104 mmol/L (98-107); Glucose 202 mg/dL (74-106); Potassium 4.7 mmol/L (3.5-5.1); Sodium 138 mmol/L (136-145); Total Protein 6.7 g/dL (6.4-8.2)
== END 2020-04-22 14:25 ==
LOC: LBN 14:05
PROVIDERS: PCP Student in an Organized Health Care Education/Training Program; Visit Provider Student in an Organized Health Care Education/Training Program
DX: R78.81 Bacteremia (principal); B95.8 Unspecified staphylococcus as the cause of diseases classified elsewhere
CPT/HCPCS: 80053; 85025

== ENCOUNTER → 2020-05-06 09:47 | Outpatient (BNVA) | payer MEDICARE, BC, SELFPAY | PROVIDERS: PCP Student in an Organized Health Care Education/Training Program; Referring Provider Student in an Organized Health Care Education/Training Program; Visit Provider Internal Medicine Cardiovascular Disease | DX: I25.810 Atherosclerosis of coronary artery bypass graft(s) without angina pectoris (principal); R78.81 Bacteremia; I71.4 Abdominal aortic aneurysm, without rupture; B95.61 Methicillin susceptible Staphylococcus aureus infection as the cause of diseases classified elsewhere; I10 Essential (primary) hypertension; Z86.718 Personal history of other venous thrombosis and embolism; C34.12 Malignant neoplasm of upper lobe, left bronchus or lung | CPT/HCPCS: 99214 ==

== ENCOUNTER 2020-07-08 01:20 | Outpatient (CLI) | payer MEDICARE, BC, SELFPAY ==
--- NOTE | 2020-07-08 13:30 | DI.CT_ITS ---
EXAM: CT HEAD WO/W CLINICAL HISTORY: ? mets to brain/ recurrent falls,RECURRENT CA,C80.1,W19.XXXA. TECHNIQUE: Imaging Protocol: Axial computed tomography images with coronal and sagittal reformatted images were created and reviewed. CONTRAST MATERIAL: Intravenous: Omnipaque 350 Contrast volume:100 mL COMPARISON: CT CT BRAIN NECK CTA from 05/17/2019 FINDINGS: Ventricles and Extra axial spaces: Normal in size and morphology for the patient's age. Hemorrhage: None. Cerebral parenchyma: There are areas of decreased attenuation in the white matter most consistent wit h chronic microvascular ischemic change. No acute territorial infarct. Enhancement: No suspicious enhancement. [place]: Unremarkable. Midline shift: None. Brainstem/Cerebellum: Normal. Calvarium: Normal. Visualized Paranasal sinuses/Mastoids: Clear. IMPRESSION: 1. Findings consistent with chronic microvascular ischemic change. No acute territorial infarct. 2. No intracranial mass or enhancing lesion. RADIATION DOSE DELIVERED: 1,729.66mGy.cm Total DLP 1,729.66mGy.cm Total DLP DATA REPOSITORY: All CT scans at this facility are submitted to the National Radiology Data Registry (NRDR) Dose Index Registry (DIR) with the [employer] ([employer]). RADIATION OPTIMIZATION: All CT scans at this facility use at least one of these dose optimization te chniques: automated exposure control; mA and/or kV adjustment per patient size (includes targeted exa ms where dose is matched to clinical indication); or iterative reconstruction.
[2020-07-08] MEDS: Normal Saline - Diluent 50 ML VIAL IV (13:37)
[2020-07-08] MEDS: Omnipaque 350 MG/ML 100 ML BTL IJ (13:37)
== END 2020-07-08 01:40 ==
PROVIDERS: PCP Student in an Organized Health Care Education/Training Program; Visit Provider Family Medicine
DX: R29.6 Repeated falls (principal); C80.1 Malignant (primary) neoplasm, unspecified
CPT/HCPCS: 70470; J3490

== ENCOUNTER 2020-07-30 21:20 | Emergency (ER) | payer MEDICARE, BC, SELFPAY ==
[2020-07-30] VITALS (14 sets, daily range): BP systolic 93–159; BP diastolic 58–104; PULSE 81–117; RESP 14–36; TEMP 36.7; O2SAT 94–97
--- NOTE | 2020-07-30 21:00 | RT.EKG_ITS ---
APPROVED REPORT Exam: Resting ECG Patient Location: E HR:81 bpm ECG Measurements Heart Rate 81 AXIS CA 186 P 35 QRSd 107 QRS -25 QT 379 T 75 QTc 439 Conclusion Sinus rhythm...normal P axis, V-rate 60- 99 Low voltage, precordial leads...precordial leads <1.0mV Physician: Rate 81 sinus rhythm intervals normal no significant ST elevation or depression, no eviden ce of STEMI. Old Q waves are noted.
--- NOTE | 2020-07-30 21:15 | DI.CT_ITS ---
EXAM: CT CHEST PE CTA CLINICAL HISTORY: lung cancer, radiation, CAD, chest pain. TECHNIQUE: Imaging Protocol: CT angiography of the chest was performed using pulmonary embolus rahel col. Multi planar reconstructions were performed. CONTRAST MATERIAL: Intravenous: Omnipaque 350 Contrast volume: 80 cc apparently there were problems with the IV injection. FINDINGS: CHEST: PULMONARY ARTERIES: Suboptimal injection. No evidence of obvious pulmonary emboli. LUNGS: This patient has had prior left upper lobe lobectomy. There is infiltrate in the left parahil ar region and left lower lobe.. This appears unchanged from 05/20/2020 outside study. There is also a left pleural effusion which has slightly decreased in size.. Previously described increased inter na miss tissue markings in the opposite-right lung base are again noted.. This has the appearance of an element of interstitial fibrosis. There is no pleural effusion on the right side. No focal find ings in the trachea and mainstem bronchi. MEDIASTINUM: There is no hilar nor mediastinal adenopathy. Visualized thyroid unremarkable. CARDIAC: There are sternotomy wires and evidence of previous CABG. Heart size is normal. There is n o pericardial effusion.Caliber of the thoracic aorta is within normal limits. No evidence of aortic dissection. There is no evidence of shift of the interventricular septum. PARTIALLY VISUALIZED UPPERMOST ABDOMEN: No significant findings OSSEOUS: No significant osseous lesions.. IMPRESSION: 1. Suboptimal injection but no evidence of acute pulmonary emboli nor acute pulmonary infarction.. 2. Patient is again noted be status post left upper lobectomy. No significant is significant improve ment in the left lung infiltrates. There is a left pleural effusion which appears slightly smaller t quiroz the previous outside study of 05/20/2020. There is no pleural effusion on the opposite-right keo e. Right lung exhibits interstitial disease, probably fibrosis, previously mentioned. 3. Sternotomy wires. CABG. No pericardial effusion. RADIATION DOSE DELIVERED: LINK-TO-SR Total DLP DATA REPOSITORY: All CT scans at this facility are submitted to the National Radiology Data Registry (NRDR) Dose Index Registry (DIR) with the [employer] (ACR). RADIATION OPTIMIZATION: All CT scans at this facility use at least one of these dose optimization te chniques: automated exposure control; mA and/or kV adjustment per patient size (includes targeted exa ms where dose is matched to clinical indication); or iterative reconstruction.
[2020-07-30] MEDS: Aspirin 81 MG CHEW CH (21:32)
--- NOTE | 2020-07-30 21:32 | ED.GENADUL_ITS ---
Discharge Plan Disposition Patient Disposition: [facility] Condition: Serious Discharge Details Chief Complaint: Chest Pain Clinical Impression: Unstable angina Primary Care Provider: Danyell Burks ED Provider: Evan Mcenill Home Meds and New Rx's Prescriptions: No Action ezetimibe [Zetia] 10 mg tablet 5 mg PO DAILY Qty: 45 RF: 3 Anoro Ellipta 62.5-25 mcg/actuation blister with device 1 inh inhalation Q24H RF: 0 morphine concentrate 100 mg/5 mL (20 mg/mL) solution See Rx Instructions sublingual Q1H PRN MDD 10mg PRN (Reason: pain) Qty: 30 RF: 0 aspirin [Adult Low Dose Aspirin] 81 mg tablet,delayed release (DR/EC) 81 mg PO DAILY RF: 0 pantoprazole [Protonix] 40 mg tablet,delayed release (DR/EC) 40 mg PO DAILY RF: 0 albuterol sulfate [ProAir HFA] 90 mcg/actuation HFA aerosol inhaler 2 puff Inhalation Q4H PRN Qty: 1 RF: 1 Adult 50 Plus Probiotic 4 billion cell capsule 4,000 mmu cells PO DAILY RF: 0 TYLENOL ARTHRITIS 650 MG TABLET.ER 1,300 mg PO Q8H PRN RF: 0 atorvastatin 80 mg tablet 80 mg PO DAILY RF: 0 empagliflozin 10 mg tablet 10 mg PO DAILY RF: 0 nitroglycerin 0.4 mg tablet, sublingual 0.4 mg SL Q5M PRNRF: 0 ticagrelor 90 mg tablet 90 mg PO BID RF: 0 metoprolol succinate 100 mg tablet extended release 24 hr 100 mg PO DAILY RF: 0 Stiolto Respimat 2.5-2.5 mcg/actuation mist 2 puff inhalation DAILY RF: 0 budesonide-formoterol [Symbicort] 160-4.5 mcg/actuation HFA aerosol inhaler See Rx Instructions IH BID RF: 0 metformin 500 mg tablet 500 mg PO BID Qty: 180 RF: 2 (DME) OneTouch Verio test strips Strip See Rx Instructions .ROUTE .MEDSUPPLY Qty: 100 RF: 3 (DME) lancets [OneTouch Delica Plus Lancet] 30 gauge misc See Rx Instructions .ROUTE .MEDSUPPLY Qty: 100 RF: 3 Cannabidiol 5 mg PO QHS PRN (Reason: Sleep or nausea) RF: 0 acetaminophen 650 mg tablet extended release 1,300 mg PO Q12H RF: 0 (DME) One Touch Vario Meter Qty: 1 RF: 0 magnesium oxide 400 mg (241.3 mg magnesium) tablet 400 mg PO BID Qty: 60 RF: 3 indomethacin 50 mg Capsule 50 mg PO BID RF: 0 Medical Decision Making This is a 69-year-old male with an unfortunate past medical history of hypertension, diabetes, squamous cell left-sided laryngeal cancer, squamous cell lung cancer status post lobectomy and adjuvant chemotherapy with carbotaxol pleated on January 2019, with recent recurrence noted on the old suture line and subsequent radiation therapy with the last dose 2 weeks ago, AAA repair in 2012 and 2018, ASCVD status post CABG x3 in 1998 with recent medically managed high risk NSTEMI with 95% seneca-cayuga left circumflex lesion that was unable to be interventionally managed secondary to chronic fibrosis and inability to pass guidewire, presents today for evaluation of chest pain. Patient states that 1- 1/2 hours ago he was sitting down when he developed sudden left-sided chest heaviness that radiated to under and around his left arm. He took a nitroglycerin and this notably improved his symptoms. He was concerned that this near identical to his previous MIs. He was brought in by EMS for further management. He was given 200 mg of aspirin. Patient's chest pain is resolved at this time. He denies any severe shortness of breath, or significant pleuritic chest pain. No other complaints at this time. No fever chills or cough. No other modifying factors. Of note he is DNR/DNI, but is certainly open to interventions as indicated. Physical exam is unremarkable, initial EKG shows no signs of STEMI. With the patient's history and notable disease is being medically managed on Brilinta, he is certainly concerning for an acute cardiac etiology, however the differential certainly does include AAA, PE or dissection. We will give an additional aspirin, monitor closely and reassess. 3:[address] results have returned, no evidence of pulmonary embolism, questionable infiltrate in the left lower lobe however patient denies any cough fever chills. He has no white count. No left shift.. Clinically appearing inconsistent with pneumonia. Perhaps this is secondary to scarring. At this time with no fever, chills, or evidence of infection I see no indication for antibiotics management. The patient chest pain notably returned while he was in CAT scan, repeat EKG at that time showed anterior depressions. He was given another nitroglycerin which completely resolved his pain. Symptoms are certainly concerning for unstable angina. Did contact [facility] and discussed the case with Dr. Reddy, he agrees with the need for transfer, but does recommend giving an additional dose of Brilinta and heparinizing. Patient remained stable here. Will transfer to [facility] for further management. I did contact his and updated her with the plan. I have extensively reviewed the treatment plan with the patient. I have addressed all patient concerns at this time. I have also discussed the plan with the admitting physician and they agree with the current assessment and plan and have agreed to assume responsibility for the patient. All parties demonstrate verbal understanding and agreement with our assessment and plan at this time. At time of transfer the patient was reassessed and continued to demonstrate current hemodynamic stability. No signs of acute respiratory distress requiring intubation, hemodynamic instability requiring pressor support, or rapidly declining mental status. The patient is stable for transport. EKG 21: 20 Rate 81 sinus rhythm intervals normal no significant ST elevation or depression, no evidence of STEMI. Old Q waves are noted. EKG 22: 37 Rate 105, sinus tachycardia, mild ST depression in V2 V3 V4, no reciprocal elevation, no evidence of STEMI. These do appear to be acute changes in conjunction with his chest pain. FINDINGS: Pulmonary arteries: There is no evidence of a pulmonary embolus. Aorta: There are arteriosclerotic changes of the aorta. A partially imaged aortic stent within the abdominal aorta is visualized. Thyroid: The thyroid gland is within normal limits. Lungs: The patient is status post left upper lobe lobectomy. The tracheobronchial tree is patent bilaterally. There is a left perihilar infiltrate. There is an infiltrate within the left lower lobe. There are right-sided peripheral interstitial markings. There is a slight honeycomb appearance. This could be secondary to pulmonary fibrosis. Pleural space: There is a small left pleural effusion. This is partially loculated. Heart: The patient is status post CABG. Lymph nodes: No enlarged lymph nodes. Bones/joints: The patient is status post sternotomy. There are degenerative changes of the thoracic spine. Soft tissues: Unremarkable. IMPRESSION: No evidence of a pulmonary embolus. Status post left upper lobe lobectomy. Suspect left lower lobe infiltrates as above. Status post sternotomy. Status post CABG. Osseous findings as above left pleural effusion as above. . Thank you for allowing us to participate in the care of your patient. Dictated and Authenticated by: Gwyn Kim MD 07/30/2020 10:57 PM Eastern Time ([place] & [place]) HPI General Date/Time Provider Initiated Documentation: 07/30/20 21:27 . HPI Narrative: This is a 69-year-old male with an unfortunate past medical history of hypertension, diabetes, squamous cell left-sided laryngeal cancer, squamous cell lung cancer status post lobectomy and adjuvant chemotherapy with carbotaxol pleated on January 2019, with recent recurrence noted on the old suture line and subsequent radiation therapy with the last dose 2 weeks ago, AAA repair in 2012 and 2018, ASCVD status post CABG x3 in 1998 with recent medically managed high risk NSTEMI with 95% seneca-cayuga left circumflex lesion that was unable to be interventionally managed secondary to chronic fibrosis and inability to pass g uidewire, presents today for evaluation of chest pain. Patient states that 1- 1/2 hours ago he was sitting down when he developed sudden left-sided chest heaviness that radiated to under and around his left arm. He took a nitroglycerin and this notably improved his symptoms. He was concerned that this near identical to his previous MIs. He was brought in by EMS for further management. He was given 200 mg of aspirin. Patient's chest pain is resolved at this time. He denies any severe shortness of breath, or significant pleuritic chest pain. No other complaints at this time. No fever chills or cough. No other modifying factors. Of note he is DNR/DNI, but is certainly open to interventions as indicated. Related Data Home Medications Medication Instructions Recorded Confirmed Tylenol Arthritis 1,300 mg PO Q8H PRN tab-cap 12/23/12 07/30/20 aspirin 81 mg tablet,delayed 81 mg PO DAILY 10/21/18 07/30/20 release albuterol sulfate 90 mcg/actuation 2 puff INHALATION Q4H PRN #1 06/14/19 07/30/20 aerosol inhaler inhaler pantoprazole 40 mg tablet,delayed 40 mg PO DAILY tab-cap 06/14/19 07/30/20 release One Touch Vario Meter #1 ea 03/16/20 07/30/20 magnesium oxide 400 mg PO BID #60 tab 03/16/20 07/30/20 atorvastatin 80 mg tablet 80 mg PO DAILY 03/26/20 07/30/20 empagliflozin 10 mg tablet 10 mg PO DAILY 03/26/20 07/30/20 metoprolol succinate 100 mg 100 mg PO DAILY 03/26/20 07/30/20 tablet,extended release 24 hr nitroglycerin 0.4 mg sublingual 0.4 mg SL Q5M PRN 03/26/20 07/30/20 tablet ticagrelor 90 mg tablet 90 mg PO BID 03/26/20 07/30/20 budesonide-formoterol HFA 160 See Rx Instructions IH BID 04/08/20 07/30/20 mcg-4.5 mcg/actuation aerosol inhaler tiotropium 2.5 mcg-olodaterol 2.5 2 puff INHALATION DAILY 04/08/20 07/30/20 mcg/actuation mist for inhalation metformin 500 mg tablet 500 mg PO BID #180 tab 04/25/20 07/30/20 ezetimibe 10 mg tablet 5 mg PO DAILY #45 tab-cap 04/28/20 07/30/20 blood sugar diagnostic #100 ea 05/02/20 07/30/20 lancets 30 gauge #100 ea 05/02/20 07/30/20 lactobacillus combination no.9 4 4,000 mmu cells PO DAILY 05/06/20 07/30/20 billion cell capsule umeclidinium 62.5 mcg-vilanterol 1 inh INHALATION Q24H 06/06/20 07/15/20 25 mcg/actuation powdr for inhalation morphine concentrate 100 mg/5 mL See Rx Instructions SUBLINGUAL Q1H 06/12/20 07/30/20 (20 mg/mL) oral solution PRN PRN #30 ml MDD 10mg Cannabidiol 5 mg PO QHS PRN 06/21/20 07/30/20 acetaminophen 650 mg 1,300 mg PO Q12H tab 07/16/20 07/30/20 tablet,extended release indomethacin 50 mg PO BID 07/30/20 07/30/20 Previous Rx's Medication Instructions Recorded albuterol sulfate 90 mcg/actuation 2 puff INHALATION Q4H PRN #1 06/14/19 aerosol inhaler inhaler One Touch Vario Meter #1 ea 03/16/20 magnesium oxide 400 mg PO BID #60 tab 03/16/20 metformin 500 mg tablet 500 mg PO BID #180 tab 04/25/20 ezetimibe 10 mg tablet 5 mg PO DAILY #45 tab-cap 04/28/20 blood sugar diagnostic #100 ea 05/02/20 lancets 30 gauge #100 ea 05/02/20 morphine concentrate 100 mg/5 mL See Rx Instructions SUBLINGUAL Q1H 06/12/20 (20 mg/mL) oral solution PRN PRN #30 ml MDD 10mg Allergies Allergy/AdvReac Type Severity Reaction Status Date / Time clopidogrel Allergy Unknown SKIN RASH Verified 07/30/20 21:25 esomeprazole magnesium AdvReac Unknown gi upset Verified 07/30/20 21:25 [From Nexium] Penicillins AdvReac Unknown gi upset Verified 07/30/20 21:25 General Stated Complaint: Chest Pain BRYCE: 2 Review of Systems All systems reviewed & are unremarkable except as noted in HPI and below PFSH Medical History Abnormal CT of the chest Adenomatous colon polyp (01/13/12) tubular adenoma [facility] 01/05/06, rpt 5 yr Arteriosclerotic cardiovascular disease (ASCVD) (01/13/12) CABG 1989; s/p stents 1999, 2004. 09/09/18-Stress Echocardiogram [facility] [place]. [place] 04/2020 .. failed interventional Tx 2' obstruction (scarring?).. Rx Benign neoplasm of colon (01/13/12) tubular adenoma [facility] [place] 01/05/06, rpt 5 yr CAD (coronary artery disease) Chest pain of uncertain etiology Painlevel 2-10 x 2-3 weeks .. Hx abd aneurysm, so may need to r/o vasc path. Chronic coughing ? due to vagal nerve irritation? Chronic steroid use completed steroids, d/c 11/2019 COPD (chronic obstructive pulmonary disease) (~08/09/18) Mild. PFT (Pulm, [facility] [place], 08/08/18). Need another PFT, post lung resection [ ] 11/10/18 COVID-19 ruled out by laboratory testing DVT prophylaxis Fatigue due to radiation therapy Foot fracture, right (10/2018) XR showing possible Fx, non-displaced [ ] CT recomm. Gastroesophageal reflux disease without esophagitis (01/26/06) EGD ME: GERD: This is well-controlled with daily PPI. 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 04/14/18 Flexible Fiberoptic Laryngoscopy- No evidence of recurrance or second primary Marijuana use helps with sleep; offsets steroid insomnia MSSA bacteremia (~03/2020) Superficial UE thrombophlebitis of left cephalic vein PIC Line 04/09/20 [facility] [place] .. PICC removed 04/2020 @ [facility] [place]. Newly diagnosed diabetes Other abnormal glucose (02/22/13) abnormal fasting sugar (111 in 2012) (114 in 2013) Palliative care patient DObbertin Pleural effusion on left Primary malignant neoplasm of bronchus of left upper lobe [facility] [place] thoracic surgery. 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 Recurrent cancer 05/2020: New RT lesion; New LFT lesion (IN SCAR) .. Severe pain Shortness of breath LUNG CA ID'd .. now s/p surgery 10/2018. > Severe dyspnea .. with report of intolerance and feeling worse after some of his albuterol inhaler attempts .. Prompted to call ambulance for ED eval 2' possible reaction, tachy with NEB Tx. Sent to Ed, appreciate attention. NEB, CXR, Labs .. Smoker unmotivated to quit (04/12/14) >50 pack years, despite CAD and Laryngeal cancer; QUIT SMOKING POST DYSPNEIC EPISODE 06/2018.... Type 2 diabetes mellitus Dx @ [facility] admission, 02/2020. Unresponsive episode Surgical History Endoleak post (EVAR) endovascular aneurysm repair (11/30/18) endovascular repair AAA (03/07/13) Dr Dsouza, [facility] [place], yearly f/u with CTA History of throat surgery S/P CABG x 4 S/P lobectomy of lung (~09/21/18) Status post radiation therapy 25 tx; Dr Trammell, rad-onc; stopped 04/06 Family History Mother , kidney failure at age 78. Renal disease Son No problems noted. Son No problems noted. 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 What is your relationship status?: How often do you talk on the phone with friends or family?: twice per week How often do you get together with friends or relatives?: twice per week Panel score (0-1 are the most socially isolated patients): 2 What type of physical activity do you participate in: walking and irregular exercise Duration: < 15 minutes/day Special mattie needs: No Seatbelt use: always Working smoke detector in home: Yes Carbon monox detector in home: Yes Do you feel safe at home: Yes Do you feel safe in your relationship?: Yes Additional Social history: Patient is , with 2 children. 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 Lengthy and significant history of tobacco abuse, with approximate 100+ pack year history of smoking, quit June 2018. Denies any alcohol use. Patient does admit to use of THC type products for medicinal purposes. Exam Narrative Exam Narrative: 1.Const: Well-nourished, Well-developed, appearing stated age 2.Eyes: PERRL, no conjunctival injection, and symmetrical lids. 3.ENT: Atraumatic external nose and ears. Moist MM. Neck: Symmetric, trachea midline, No thyromegaly. 4.CVS: +S1/S2, No murmurs or gallops. Peripheral pulses 2+ and equal in all extremities. Brisk capillary refill in all extremities., Radial pulse +2 bilaterally. 5.RESP: Unlabored respiratory effort. Clear to auscultation bilaterally. No wheezes rales or rhonchi 6.GI: Soft, Nontender/Nondistended, No hepatosplenomegaly. No guarding or rebound. 7.MSK: Normocephalic/Atraumatic, Extremities w/o deformity or ttp No cyanosis or clubbing, Normal movement of all extremities, no calf tenderness. 8.Skin: Warm, Dry. No rashes or lesions. 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 Sensation grossly intact, no focal neurologic deficits. 10.Psych: (AAO) x3. Appropriate mood and affect Course Vital Signs Vital signs: Vital Signs Temperature 36.7 C 07/30/20 21:18 Pulse 92 H 07/30/20 21:18 Respiratory Rate 22 07/30/20 21:18 Blood Pressure 146/66 H 07/30/20 21:18 Pulse Oximetry 97 07/30/20 21:18 Temperature 36.7 C 07/30/20 21:18 Temperature Source Temporal Artery Scan 07/30/20 21:18 Pulse 92 H 07/30/20 21:18 Respiratory Rate 22 07/30/20 21:18 Respiratory Effort 07/30/20 21:20 Respiratory Depth Normal 07/30/20 21:20 Respiratory Pattern Normal 07/30/20 21:20 Blood Pressure 146/66 H 07/30/20 21:18 Blood Pressure Position Sitting 07/30/20 21:18 Pulse Oximetry 97 07/30/20 21:18 Oxygen Delivery Method Room Air 07/30/20 21:18 Oxygen Flow Rate 0 07/30/20 21:18 Pain Level 0 07/30/20 21:18
[2020-07-30 21:37] LABS: Abs Immature Grans 0.04 10^3/uL (0.0-0.06); Absolute Basophil Count 0.07 10^3/uL (0.0-0.2); Absolute Eosinophil Count 0.38 10^3/uL (0.0-0.7); Absolute Monocyte Count 1.09 10^3/uL (0.1-0.8); Absolute Neutrophil Count 5.24 10^3/uL (1.2-6.7); Basophils % 0.9; Eosinophils % 4.7; HCT 41.7 % (40.0-50.0); HGB 13.6 g/dL (13.5-17.5); Immature Grans % 0.5; MCH 28.3 pg (27.0-33.0); MCHC 32.6 % (32.0-36.0); MCV 86.9 fL (80-95); MPV 9.6 fL (8.0-11.0); Monocytes % 13.4; Neutrophils % 64.5; Nucleated RBC 0 %; Platelet Count 296 10^3/uL (130-400); RDW 14.7 % (11.8-14.1); RDW-SD 47.6 fL; WBC 8.12 10^3/uL (4.4-10.8)
[2020-07-30 21:56] LABS: ALT 26 U/L (16-63); AST 14 U/L (15-37); Albumin 3.1 g/dL (3.4-5.0); Alkaline Phosphatase 111 U/L (46-116); Anion Gap 12.1 mmol/L (3-11); BUN 33 mg/dL (7-18); Bilirubin, Total 0.3 mg/dL (0.2-1.0); CO2 22.9 mmol/L (21.0-32.0); CREATININE 1.31 mg/dL (0.70-1.30); Calcium 8.8 mg/dL (8.5-10.1); Chloride 107 mmol/L (98-107); Estimated GFR 53.94 (mL/min/1.73m2); Glucose 198 mg/dL (74-106); NT-proBNP 485 pg/mL (<300); Potassium 4.5 mmol/L (3.5-5.1); Sodium 142 mmol/L (136-145); Total Protein 7.2 g/dL (6.4-8.2)
[2020-07-30 22:00] LABS: Troponin I < 0.05 ng/mL (<0.06)
[2020-07-30 22:20] LABS: PTT Activated 27.8 sec (21.0-27.5); Prothrombin Time 10.3 sec (9.3-11.0)
--- NOTE | 2020-07-30 22:30 | RT.EKG_ITS ---
APPROVED REPORT Exam: Resting ECG Patient Location: E HR:105 bpm ECG Measurements Heart Rate 105 AXIS TX 187 P 49 QRSd 110 QRS -29 QT 361 T 93 QTc 477 Conclusion Sinus tachycardia...rate> 99 Repol abnrm suggests ischemia, anterolateral...ST dep, T neg, I aVL V2-V6 Physician: Rate 105, sinus tachycardia, mild ST depression in V2 V3 V4, no reciprocal elevation, no e vidence of STEMI. These do appear to be acute changes in conjunction with his chest pain.
[2020-07-30] MEDS: Omnipaque 350 MG/ML 100 ML BTL IJ (22:36)
[2020-07-30] MEDS: Normal Saline Flush 10 ML SYR IVP (22:38)
[2020-07-30] MEDS: Normal Saline - Diluent 50 ML VIAL IV (22:38)
[2020-07-30] MEDS: nitroGLYcerin 0.4 MG TAB (22:40)
[2020-07-30] MEDS: nitroGLYcerin 0.4 MG TAB SL (22:45)
--- NOTE | 2020-07-30 22:57 | DI.VRAD_ITS ---
PROCEDURE INFORMATION: Exam: CT Angiography Chest With Contrast Exam date and time: 07/30/2020 10:12 PM Age: 69 years old Clinical indication: Radiating; Prior surgery; Surgery date: 6+ months; Surgery type: HX of lung cancer with lobectomy, cabgx4; Patient HX: HX lung cancer, radiation, cad, chest pain TECHNIQUE: Imaging protocol: Computed tomographic angiography of the chest with intravenous contrast. 3D rendering (Not supervised by radiologist): MIP and/or 3D reconstructed images were created by the technologist. Radiation optimization: All CT scans at this facility use at least one of these dose optimization techniques: automated exposure control; mA and/or kV adjustment per patient size (includes targeted exams where dose is matched to clinical indication); or iterative reconstruction. Contrast material: OMNIPAQUE 350; Contrast volume: 80 ml; Contrast route: INTRAVENOUS (IV); COMPARISON: CT CHEST PE CTA 03/15/2020 12:11 AM FINDINGS: Pulmonary arteries: There is no evidence of a pulmonary embolus. Aorta: There are arteriosclerotic changes of the aorta. A partially imaged aortic stent within the abdominal aorta is visualized. Thyroid: The thyroid gland is within normal limits. Lungs: The patient is status post left upper lobe lobectomy. The tracheobronchial tree is patent bilaterally. There is a left perihilar infiltrate. There is an infiltrate within the left lower lobe. There are right-sided peripheral interstitial markings. There is a slight honeycomb appearance. This could be secondary to pulmonary fibrosis. Pleural space: There is a small left pleural effusion. This is partially loculated. Heart: The patient is status post CABG. Lymph nodes: No enlarged lymph nodes. Bones/joints: The patient is status post sternotomy. There are degenerative changes of the thoracic spine. Soft tissues: Unremarkable. IMPRESSION: No evidence of a pulmonary embolus. Status post left upper lobe lobectomy. Suspect left lower lobe infiltrates as above. Status post sternotomy. Status post CABG. Osseous findings as above left pleural effusion as above. . Dictated and Authenticated by: Gwyn Kim MD. Ordering:YARI Gordon MD
--- NOTE | 2020-07-30 22:57 | NUR.NOTE ---
Nursing Note: 2250 pt now pain free VSS 3rd nitro not given
[2020-07-30] MEDS: Ticagrelor 90 MG TAB PO (23:42)
[2020-07-31 00:01] VITALS: BP 133/70; PULSE 89; RESP 16; O2SAT 95
== END 2020-07-31 00:45 | disposition short-term general hospital (02) ==
LOC: ER 07-31 00:45
PROVIDERS: Emergency Provider Student in an Organized Health Care Education/Training Program; PCP Student in an Organized Health Care Education/Training Program
DX: I20.0 Unstable angina (principal); I25.10 Atherosclerotic heart disease of native coronary artery without angina pectoris; Z95.1 Presence of aortocoronary bypass graft; I25.2 Old myocardial infarction; E11.9 Type 2 diabetes mellitus without complications; Z79.84 Long term (current) use of oral hypoglycemic drugs; I10 Essential (primary) hypertension; J44.9 Chronic obstructive pulmonary disease, unspecified; Z87.891 Personal history of nicotine dependence
CPT/HCPCS: 71275; 80053; 93005; 96365; 96376; 99285; 83880; 84484; 85025; 85610; 85730; 93010; J3490

== ENCOUNTER 2020-08-12 03:51 | Outpatient (RCR) | payer MEDICARE, BC, SELFPAY ==
[2020-08-12 10:19] LABS: Abs Immature Grans 0.04 10^3/uL (0.0-0.06); Absolute Basophil Count 0.08 10^3/uL (0.0-0.2); Absolute Eosinophil Count 0.22 10^3/uL (0.0-0.7); Absolute Lymphocyte Count 1.41 10^3/uL (1.2-3.4); Absolute Monocyte Count 1.07 10^3/uL (0.1-0.8); Absolute Neutrophil Count 6.88 10^3/uL (1.2-6.7); Basophils % 0.8; Eosinophils % 2.3; HCT 42.4 % (40.0-50.0); HGB 14.1 g/dL (13.5-17.5); Immature Grans % 0.4; Lymphocytes % 14.5; MCHC 33.3 % (32.0-36.0); MCV 84.3 fL (80-95); MPV 8.9 fL (8.0-11.0); Nucleated RBC 0 %; Platelet Count 293 10^3/uL (130-400); RBC 5.03 10^6/uL (4.36-5.78); RDW 14.9 % (11.8-14.1); RDW-SD 45.7 fL
[2020-08-12 10:44] LABS: ALT 31 U/L (16-63); AST 15 U/L (15-37); Albumin 3.5 g/dL (3.4-5.0); Alkaline Phosphatase 115 U/L (46-116); Anion Gap 11.1 mmol/L (3-11); BUN 20 mg/dL (7-18); Bilirubin, Total 0.4 mg/dL (0.2-1.0); CO2 22.9 mmol/L (21.0-32.0); CREATININE 1.29 mg/dL (0.70-1.30); Calcium 9.4 mg/dL (8.5-10.1); Chloride 100 mmol/L (98-107); Estimated GFR 54.91 (mL/min/1.73m2); FREE T4 1.23 ng/dL (0.76-1.46); Glucose 167 mg/dL (74-106); Magnesium 1.7 mg/dL (1.8-2.4); Sodium 134 mmol/L (136-145); TSH 0.48 uIU/mL (0.36-3.74); Total Protein 7.7 g/dL (6.4-8.2)
[2020-08-12] MEDS: Normal Saline Flush 10 ML SYR IVP (11:09)
== END 2020-08-18 23:59 | disposition home or self-care (01) ==
LOC: INF 03:51
PROVIDERS: PCP Student in an Organized Health Care Education/Training Program; Visit Provider Internal Medicine Medical Oncology
DX: C34.82 Malignant neoplasm of overlapping sites of left bronchus and lung (principal); Z79.899 Other long term (current) drug therapy
CPT/HCPCS: 36415; 80053; 83735; 84439; 84443; 85025

== ENCOUNTER → 2020-08-13 14:01 | Outpatient (BNVA) | payer MEDICARE, BC, SELFPAY | PROVIDERS: PCP Student in an Organized Health Care Education/Training Program; Referring Provider Student in an Organized Health Care Education/Training Program; Visit Provider Internal Medicine Cardiovascular Disease | DX: I25.10 Atherosclerotic heart disease of native coronary artery without angina pectoris (principal); C80.1 Malignant (primary) neoplasm, unspecified; R07.9 Chest pain, unspecified; Z95.1 Presence of aortocoronary bypass graft; I10 Essential (primary) hypertension | CPT/HCPCS: 99214 ==

== ENCOUNTER 2020-09-09 10:00 | Outpatient (RCR) | payer MEDICARE, BC, SELFPAY ==
[2020-08-19] MEDS: Normal Saline Flush 10 ML SYR IVP (09:14)
[2020-08-19 09:25] LABS: Abs Immature Grans 0.04 10^3/uL (0.0-0.06); Absolute Basophil Count 0.05 10^3/uL (0.0-0.2); Absolute Eosinophil Count 0.17 10^3/uL (0.0-0.7); Absolute Monocyte Count 0.37 10^3/uL (0.1-0.8); Absolute Neutrophil Count 5.29 10^3/uL (1.2-6.7); Basophils % 0.7; Eosinophils % 2.5; HCT 39.8 % (40.0-50.0); HGB 13.1 g/dL (13.5-17.5); Immature Grans % 0.6; Lymphocytes % 14.5; MCH 27.9 pg (27.0-33.0); MCHC 32.9 % (32.0-36.0); MCV 84.9 fL (80-95); MPV 9.7 fL (8.0-11.0); Monocytes % 5.3; Neutrophils % 76.4; Nucleated RBC 0 %; Platelet Count 221 10^3/uL (130-400); RBC 4.69 10^6/uL (4.36-5.78); RDW 14.8 % (11.8-14.1); RDW-SD 45.7 fL; WBC 6.92 10^3/uL (4.4-10.8)
[2020-08-19 09:53] LABS: ALT 39 U/L (16-63); AST 18 U/L (15-37); Albumin 3.3 g/dL (3.4-5.0); Alkaline Phosphatase 115 U/L (46-116); Anion Gap 11.7 mmol/L (3-11); BUN 24 mg/dL (7-18); Bilirubin, Total 0.4 mg/dL (0.2-1.0); CO2 23.3 mmol/L (21.0-32.0); CREATININE 1.2 mg/dL (0.70-1.30); Calcium 9.3 mg/dL (8.5-10.1); Chloride 103 mmol/L (98-107); Estimated GFR 59.68 (mL/min/1.73m2); Glucose 209 mg/dL (74-106); Sodium 138 mmol/L (136-145); Total Protein 7.2 g/dL (6.4-8.2)
[2020-09-02] MEDS: Normal Saline Flush 10 ML SYR IVP (11:17)
[2020-09-02 11:36] LABS: Abs Immature Grans 0.03 10^3/uL (0.0-0.06); Absolute Basophil Count 0.06 10^3/uL (0.0-0.2); Absolute Lymphocyte Count 1.44 10^3/uL (1.2-3.4); Absolute Monocyte Count 0.96 10^3/uL (0.1-0.8); Absolute Neutrophil Count 2.72 10^3/uL (1.2-6.7); Basophils % 1.1; Eosinophils % 1.9; HCT 41.1 % (40.0-50.0); HGB 13.4 g/dL (13.5-17.5); Immature Grans % 0.6; Lymphocytes % 27.1; MCH 28.1 pg (27.0-33.0); MCHC 32.6 % (32.0-36.0); MCV 86.2 fL (80-95); MPV 9.8 fL (8.0-11.0); Monocytes % 18.1; Neutrophils % 51.2; Nucleated RBC 0 %; Platelet Count 199 10^3/uL (130-400); RBC 4.77 10^6/uL (4.36-5.78); RDW 16.4 % (11.8-14.1); RDW-SD 50.5 fL; WBC 5.31 10^3/uL (4.4-10.8)
[2020-09-02 11:54] LABS: ALT 31 U/L (16-63); AST 16 U/L (15-37); Albumin 3.5 g/dL (3.4-5.0); Alkaline Phosphatase 114 U/L (46-116); BUN 21 mg/dL (7-18); Bilirubin, Total 0.4 mg/dL (0.2-1.0); CREATININE 1.3 mg/dL (0.70-1.30); Calcium 9.4 mg/dL (8.5-10.1); Chloride 102 mmol/L (98-107); Estimated GFR 54.26 (mL/min/1.73m2); Glucose 208 mg/dL (74-106); Magnesium 1.7 mg/dL (1.8-2.4); Potassium 4.2 mmol/L (3.5-5.1); Sodium 136 mmol/L (136-145); TSH 0.26 uIU/mL (0.36-3.74); Total Protein 7.3 g/dL (6.4-8.2)
[2020-09-02 12:30] LABS: FREE T4 1.17 ng/dL (0.76-1.46)
[2020-09-09] MEDS: Normal Saline Flush 10 ML SYR IVP (10:21)
[2020-09-09 10:29] LABS: Abs Immature Grans 0.05 10^3/uL (0.0-0.06); Absolute Basophil Count 0.06 10^3/uL (0.0-0.2); Absolute Monocyte Count 0.46 10^3/uL (0.1-0.8); Absolute Neutrophil Count 4.09 10^3/uL (1.2-6.7); Basophils % 1.1; Eosinophils % 1.8; HCT 39.3 % (40.0-50.0); HGB 12.7 g/dL (13.5-17.5); Immature Grans % 0.9; Lymphocytes % 15.9; MCH 27.4 pg (27.0-33.0); MCHC 32.3 % (32.0-36.0); MCV 84.9 fL (80-95); MPV 10.2 fL (8.0-11.0); Monocytes % 8.1; Neutrophils % 72.2; Nucleated RBC 0 %; Platelet Count 164 10^3/uL (130-400); RBC 4.63 10^6/uL (4.36-5.78); RDW 16.1 % (11.8-14.1); RDW-SD 49.8 fL; WBC 5.66 10^3/uL (4.4-10.8)
[2020-09-09 10:46] LABS: ALT 29 U/L (16-63); AST 15 U/L (15-37); Albumin 3.3 g/dL (3.4-5.0); Alkaline Phosphatase 111 U/L (46-116); BUN 19 mg/dL (7-18); Bilirubin, Total 0.4 mg/dL (0.2-1.0); CREATININE 1.2 mg/dL (0.70-1.30); Calcium 8.9 mg/dL (8.5-10.1); Chloride 103 mmol/L (98-107); Estimated GFR 59.51 (mL/min/1.73m2); Glucose 202 mg/dL (74-106); Potassium 4.2 mmol/L (3.5-5.1); Sodium 138 mmol/L (136-145)
== END 2020-09-15 23:59 | disposition home or self-care (01) ==
LOC: INF 10:00
PROVIDERS: PCP Student in an Organized Health Care Education/Training Program; Visit Provider Internal Medicine Medical Oncology
DX: C34.82 Malignant neoplasm of overlapping sites of left bronchus and lung (principal); Z79.899 Other long term (current) drug therapy
CPT/HCPCS: 36415; 80053; 83735; 84439; 84443; 85025

== ENCOUNTER 2020-09-10 02:26 | Observation (INO) | payer MEDICARE, BC, SELFPAY ==
[2020-09-10] VITALS (9 sets, daily range): BP systolic 88–137; BP diastolic 60–71; PULSE 86–98; RESP 15–32; TEMP 35.4–36.7; O2SAT 95–98
--- NOTE | 2020-09-10 02:15 | RT.EKG_ITS ---
APPROVED REPORT Exam: Resting ECG Patient Location: E HR:92 bpm ECG Measurements Heart Rate 92 AXIS WI 203 P 59 QRSd 104 QRS -32 QT 377 T 79 QTc 467 Conclusion Sinus rhythm...normal P axis, V-rate 60- 99 Left axis deviation...QRS axis (-30,-90) lateral st depressions
--- NOTE | 2020-09-10 02:31 | ED.GENADUL_ITS ---
Discharge Plan Disposition Patient Disposition: [facility] INPATIENT Condition: Stable Discharge Details Clinical Impression: Chest pain Primary Care Provider: Danyell Burks ED Provider: Mehul Adan Ethridge Meds and New Rx's Prescriptions: No Action ezetimibe [Zetia] 10 mg tablet 5 mg PO DAILY Qty: 45 RF: 3 morphine concentrate 100 mg/5 mL (20 mg/mL) solution See Rx Instructions sublingual Q1H PRN MDD 10mg PRN (Reason: pain) Qty: 30 RF: 0 aspirin [Adult Low Dose Aspirin] 81 mg tablet,delayed release (DR/EC) 81 mg PO DAILY RF: 0 pantoprazole [Protonix] 40 mg tablet,delayed release (DR/EC) 40 mg PO DAILY RF: 0 albuterol sulfate [ProAir HFA] 90 mcg/actuation HFA aerosol inhaler 2 puff Inhalation Q4H PRN Qty: 1 RF: 1 Adult 50 Plus Probiotic 4 billion cell capsule 4,000 mmu cells PO DAILY RF: 0 sennosides-docusate sodium [Senna with Docusate Sodium] 8.6-50 mg tablet 1 tab-cap PO BID Qty: 180 RF: 5 TYLENOL ARTHRITIS 650 MG TABLET.ER 1,300 mg PO Q8H PRN RF: 0 atorvastatin 80 mg tablet 80 mg PO DAILY RF: 0 empagliflozin 10 mg tablet 10 mg PO DAILY RF: 0 nitroglycerin 0.4 mg tablet, sublingual 0.4 mg SL Q5M PRNRF: 0 ticagrelor 90 mg tablet 90 mg PO BID RF: 0 metoprolol succinate 100 mg tablet extended release 24 hr 100 mg PO DAILY RF: 0 budesonide-formoterol [Symbicort] 160-4.5 mcg/actuation HFA aerosol inhaler See Rx Instructions IH BID RF: 0 metformin 500 mg tablet 500 mg PO BID Qty: 180 RF: 2 (DME) OneTouch Verio test strips Strip See Rx Instructions .ROUTE .MEDSUPPLY Qty: 100 RF: 3 (DME) lancets [OneTouch Delica Plus Lancet] 30 gauge misc See Rx Instructions .ROUTE .MEDSUPPLY Qty: 100 RF: 3 Cannabidiol 5 mg PO QHS PRN (Reason: Sleep or nausea) RF: 0 acetaminophen 650 mg tablet extended release 1,300 mg PO Q12H RF: 0 isosorbide mononitrate 30 mg tablet extended release 24 hr 30 mg PO DAILY RF: 0 tramadol 50 mg tablet 50 mg PO Q6H PRNRF: 0 prochlorperazine maleate [Compazine] 10 mg tablet 10 mg PO Q6H PRNRF: 0 Brilinta 90 mg tablet 90 mg PO BID RF: 0 polyethylene glycol 3350 [Miralax] 17 gram powder in packet 17 g PO DAILY RF: 0 Anoro Ellipta 62.5-25 mcg/actuation blister with device 1 inh inhalation DAILY RF: 0 (DME) One Touch Vario Meter Qty: 1 RF: 0 magnesium oxide 400 mg (241.3 mg magnesium) tablet 400 mg PO BID Qty: 60 RF: 3 Medical Decision Making 70 yo male with hx of cad s/p stenting and had nstemi in 04/07 [place] [facility] [place] showing lcx disease with 95% stenosis and inability to pass guidewire and had unstable angina in 08/08 and was managed medically at [facility] [place] with negative troponins and d/c'd, who is undergoing chemotherapy for cancer who comes in with anterior chest pressure starting at home and resolves with storm blingual nitro but returns in an hour. ARrives without pain and last took his nitro around 0130 per patient. He denies pleuritic pain, fevers, dyspnea, abdominal pain, n/v. HE has no leg swelling and no calf tenderness on exam, and had negative CTA in July when he was here prior to transfer [place] [facility] [place]. Suspect his pain is due to his underlying cad, will obtain troponin. No hypoxia, tachycardia, pleuritic pain and no evidence of dvt on exam so doubt PE but given his cancer history can't rule this out with cta but given negative cta last month and feels similar to prior episodes of angina he would prefer to defer cta at this time and has capacity to make his own decisions and understands risks of missing a PE even though this does seem low probability based on his presentation. He has no tearing back pain and normal vascular exam so doubt dissection at this time. patient remains pain free states he is tired but states it is because he hasn't slept tonight. Labs show no significant acute changes from baseline, troponin negative. Xray shows continud left sided pleural effusion that radiology comments may be loculated, he denies any cough fevers or other symptoms to suggest infection, did discuss this finding with him and he still declines CT. Will discuss further management with cardiology at [facility] [place] patient walked to the bathroom and had recurrent chest pain, vital signs stable, describes anterior chest pressure, no diaphoresis dyspnea or vomit. Will obtain repeat ecg and treat with SL nitro pt now pain free without complaints. Spoke with cardiology at [facility] [place] [place]. Paul who reviewed the ekg's and did not feel he required emergent transfer at this time but recommended increasing his imdur to 60mg daily and trending his troponins, did not feel strongly about starting heparin or other therapies at this time. Spoke with Dr. Anderson who accepts for observation and serial troponins pt had brief hypotension after SL nitro and resolved without intervention and remains asymptomatic at this time without complaints Differential Diagnosis Differential Diagnosis: unstable angina, nstemi, chest wall pain Medical Records Medical records reviewed: Yes I reviewed the patient's medical records. Imaging Data Radiologic Study: Attestation: I personally reviewed and interpreted this imaging study as follows: Imaging: X-Ray Radiologist's impression: IMPRESSION: 1. Left-sided pleural effusion may in part be loculated. 2. Volume loss on the left likely secondary to partial pneumonectomy with superior retraction of the hilum. Probable cicatricial atelectasis noted involved as well. Underlying left- sided airspace disease not excluded and pneumonia not excluded in the correct clinical setting. Lab Data Lab results reviewed: Yes I reviewed the patient's lab results. ECG Data Attestation: I personally reviewed and interpreted this ECG (s) as follows: Prior ECG tracings: available for review Interpretation: sinus rhythm, rate of 92, pr 203, qtc 467, artifact in v3, lateral st depressions 2nd ekg sinus rhythm, rate of 86, qtc 465, ? subtle depressions in lateral leads though less than prior ekg 3rd ekg sinus rhythm, rate of 78, qtc 462, no significant changes from prior ekg HPI General Mode of arrival: EMS . Date/Time Provider Initiated Documentation: 09/10/20 02:29 . Limitations to Documentation: no limitations . Information obtained by: patient . History of Present Illness 70 year old M presents to the emergency department with the chief complaint of chest pain, described as moderate, Quality is described as other (pressure), and is localized to the chest. Patient reports no radiation. Patient started experiencing this hour(s) (3) and it has been intermittent. other things that improve symptom(s), (nitro) No exacerbating factors reported . Patient notes no other symptoms.. Patient did receive the following treatments prior to arrival, none Related Data Home Medications Medication Instructions Recorded Confirmed Tylenol Arthritis 1,300 mg PO Q8H PRN tab-cap 12/23/12 08/25/20 aspirin 81 mg tablet,delayed 81 mg PO DAILY 10/21/18 08/25/20 release albuterol sulfate 90 mcg/actuation 2 puff INHALATION Q4H PRN #1 06/14/19 08/25/20 aerosol inhaler inhaler pantoprazole 40 mg tablet,delayed 40 mg PO DAILY tab-cap 06/14/19 08/25/20 release One Touch Vario Meter #1 ea 03/16/20 08/25/20 magnesium oxide 400 mg PO BID #60 tab 03/16/20 08/25/20 atorvastatin 80 mg tablet 80 mg PO DAILY 03/26/20 08/25/20 empagliflozin 10 mg tablet 10 mg PO DAILY 03/26/20 08/25/20 metoprolol succinate 100 mg 100 mg PO DAILY 03/26/20 08/25/20 tablet,extended release 24 hr nitroglycerin 0.4 mg sublingual 0.4 mg SL Q5M PRN 03/26/20 08/25/20 tablet ticagrelor 90 mg tablet 90 mg PO BID 03/26/20 08/25/20 budesonide-formoterol HFA 160 See Rx Instructions IH BID 04/08/20 08/25/20 mcg-4.5 mcg/actuation aerosol inhaler metformin 500 mg tablet 500 mg PO BID #180 tab 04/25/20 08/25/20 ezetimibe 10 mg tablet 5 mg PO DAILY #45 tab-cap 04/28/20 08/25/20 blood sugar diagnostic #100 ea 05/02/20 08/25/20 lancets 30 gauge #100 ea 05/02/20 08/25/20 lactobacillus combination no.9 4 4,000 mmu cells PO DAILY 05/06/20 08/25/20 billion cell capsule morphine concentrate 100 mg/5 mL See Rx Instructions SUBLINGUAL Q1H 06/12/20 08/25/20 (20 mg/mL) oral solution PRN PRN #30 ml MDD 10mg Cannabidiol 5 mg PO QHS PRN 06/21/20 08/25/20 acetaminophen 650 mg 1,300 mg PO Q12H tab 07/16/20 08/25/20 tablet,extended release isosorbide mononitrate 30 mg 30 mg PO DAILY 08/05/20 08/25/20 tablet,extended release 24 hr sennosides 8.6 mg-docusate sodium 1 tab-cap PO BID #180 tab 08/22/20 08/25/20 50 mg tablet polyethylene glycol 3350 17 gram 17 g PO DAILY 09/03/20 oral powder packet prochlorperazine maleate 10 mg 10 mg PO Q6H PRN 09/03/20 tablet ticagrelor 90 mg tablet 90 mg PO BID 09/03/20 tramadol 50 mg tablet 50 mg PO Q6H PRN 09/03/20 umeclidinium 62.5 mcg-vilanterol 1 inh INHALATION DAILY 09/06/20 25 mcg/actuation powdr for inhalation Previous Rx's Medication Instructions Recorded albuterol sulfate 90 mcg/actuation 2 puff INHALATION Q4H PRN #1 06/14/19 aerosol inhaler inhaler One Touch Vario Meter #1 ea 03/16/20 magnesium oxide 400 mg PO BID #60 tab 03/16/20 metformin 500 mg tablet 500 mg PO BID #180 tab 04/25/20 ezetimibe 10 mg tablet 5 mg PO DAILY #45 tab-cap 04/28/20 blood sugar diagnostic #100 ea 05/02/20 lancets 30 gauge #100 ea 05/02/20 morphine concentrate 100 mg/5 mL See Rx Instructions SUBLINGUAL Q1H 06/12/20 (20 mg/mL) oral solution PRN PRN #30 ml MDD 10mg sennosides 8.6 mg-docusate sodium 1 tab-cap PO BID #180 tab 08/22/20 50 mg tablet Allergies Allergy/AdvReac Type Severity Reaction Status Date / Time clopidogrel Allergy Unknown SKIN RASH Verified 08/13/20 14:11 esomeprazole magnesium AdvReac Unknown gi upset Verified 08/13/20 14:11 [From Nexium] Penicillins AdvReac Unknown gi upset Verified 08/13/20 14:11 General BRYCE: 2 Review of Systems All systems reviewed & are unremarkable except as noted in HPI and below Constitutional Constitutional: Denies chills, Denies fever(s) and Denies weakness Cardiovascular Cardiovascular: Denies dyspnea Respiratory Respiratory: Denies cough and Denies dyspnea Gastrointestinal Gastrointestinal: Denies abdominal pain, Denies nausea and Denies vomiting Musculoskeletal Musculoskeletal: Denies joint swelling Neurologic Neurologic: Denies weakness Psychiatric Psychiatric: Denies depression [facility] Medical History Abnormal CT of the chest Adenomatous colon polyp (01/13/12) tubular adenoma [facility] [place]/05/06, rpt 5 yr Arteriosclerotic cardiovascular disease (ASCVD) (01/13/12) CABG 1989; s/p stents 1999, 2004. 09/09/18-Stress [place]chocardi[place] [facility] [place] .. failed interventional Tx 2' obstruction (scarring?).. Rx Benign neoplasm of colon (01/13/12) tubular adenoma [facility] [place]06, rpt 5 yr CAD (coronary artery disease) Chest pain of uncertain etiology Painlevel 2-4/10 x 2-3 weeks .. Hx abd aneurysm, so may need to r/o vasc path. Chronic coughing ? due to vagal nerve irritation? Chronic steroid use completed steroids, d/c 11/2019 COPD (chronic obstructive pulmonary disease) (~08/09/18) Mild. P[place] [facility] [place] Need another PFT, post lung resection [ ] 11/10/18 COVID-19 ruled out by laboratory testing DVT prophylaxis Fatigue due to radiation therapy Foot fracture, right (10/2018) XR showing possible Fx, non-displaced [ ] CT recomm. Gastroesophageal reflux disease without esophagitis (01/26/06) EGD [facility]: GERD: This is well-controlled with daily PPI. 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 04/14/18 Flexible Fiberoptic Laryngoscopy- No evidence of recurrance or second primary Marijuana use helps with sleep; offsets steroid insomnia MSSA bacteremia (~03/2020) Superficial UE thrombophlebitis of left cephalic vein PIC Line 04/09/20 [facility] [place]2020 [place] [facility] [place] 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 Recurrent cancer 05/2020: New RT lesion; New LFT lesion (IN [facility]) .. Severe pain Shortness of breath LUNG CA ID'd .. now s/p surgery 10/2018. > Severe dyspnea .. with report of intolerance and feeling worse after some of his albuterol inhaler attempts .. Prompted to call ambulance for ED eval 2' possible reaction, tachy with NEB Tx. Sent to Ed, appreciate attention. NEB, CXR, Labs .. Smoker unmotivated to quit (04/12/14) >50 pack years, despite CAD and Laryngeal cancer; QUIT SMOKING POST DYSPNEIC EPISODE 06/2018.... Type 2 diabetes mellitus Dx @ [facility] admission, 02/2020. Unresponsive episode Surgical History Endoleak post (EVAR) endovascular aneurysm repair (11/30/18) endovascular repair AAA (03/07/13) [place] [facility] [place] with CTA History of throat surgery S/P CABG x 4 S/P lobectomy of lung (~09/21/18) Status post radiation therapy 25 tx; Dr Trammell, rad-onc; stopped 04/06 Family History Mother , kidney failure at age 78. Renal disease Son No problems noted. Son No problems noted. 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 What is your relationship status?: How often do you talk on the phone with friends or family?: twice per week How often do you get together with friends or relatives?: twice per week Panel score (0-1 are the most socially isolated patients): 2 What type of physical activity do you participate in: walking and irregular exercise Duration: < 15 minutes/day Special mattie needs: No Seatbelt use: always Working smoke detector in home: Yes Carbon monox detector in home: Yes Do you feel safe at home: Yes Do you feel safe in your relationship?: Yes Additional Social history: Patient is , with 2 children. 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 Lengthy and significant history of tobacco abuse, with approximate 100+ pack year history of smoking, quit June 2018. Denies any alcohol use. Patient does admit to use of THC type products for medicinal purposes. Exam Const General: no acute distress Orientation: alert HENMT Head: normal to inspection Ears: external ears normal General nose exam: external nose normal Mouth: moist mucous membranes Eyes General: appearance normal, both eyes and all related structures Neck Neck: normal visual inspection Chest Chest: normal palpation of entire chest wall Resp Effort & Inspection: normal respiratory effort and able to speak in complete sentences Cardio Rate: regular rate Skin General skin exam: no rashes or lesions noted Neuro General: patient alert and patient oriented x3 Extrem General: normal to inspection Psych Mental Status: mental status grossly normal
--- NOTE | 2020-09-10 02:45 | DI.RAD_ITS ---
EXAM: XR PORTABLE CHEST AP CLINICAL HISTORY: chest pain. TECHNIQUE: 2D digital imaging was performed. COMPARISON: Chest x-ray 03/26/2020 FINDINGS: Heart size is normal. Sternotomy wires again noted as is evidence of previous left lobectomy. There is persistent prominent infiltrate extending from the left hilum out to the pleural surface. Left p leural effusion is unchanged in size. No new right lung findings. No pleural effusion on the right side. IMPRESSION: No radiographic improvement compared to March 2020. DATA REPOSITORY: RADIATION DOSE DELIVERED:
[2020-09-10 02:57] LABS: Abs Immature Grans 0.08 10^3/uL (0.0-0.06); Absolute Basophil Count 0.06 10^3/uL (0.0-0.2); Absolute Eosinophil Count 0.11 10^3/uL (0.0-0.7); Absolute Lymphocyte Count 0.91 10^3/uL (1.2-3.4); Absolute Monocyte Count 0.44 10^3/uL (0.1-0.8); Absolute Neutrophil Count 3.76 10^3/uL (1.2-6.7); Basophils % 1.1; Eosinophils % 2.1; HCT 36.1 % (40.0-50.0); HGB 11.9 g/dL (13.5-17.5); Immature Grans % 1.5; MCH 28.1 pg (27.0-33.0); MCV 85.1 fL (80-95); MPV 10.2 fL (8.0-11.0); Monocytes % 8.2; Neutrophils % 70.1; Nucleated RBC 0 %; Platelet Count 141 10^3/uL (130-400); RBC 4.24 10^6/uL (4.36-5.78); RDW 16.1 % (11.8-14.1); RDW-SD 49.7 fL; WBC 5.36 10^3/uL (4.4-10.8)
[2020-09-10 03:03] LABS: PTT Activated 25.5 sec (21.0-27.5)
[2020-09-10 03:07] LABS: ALT 28 U/L (16-63); AST 15 U/L (15-37); Albumin 3.2 g/dL (3.4-5.0); Alkaline Phosphatase 108 U/L (46-116); Anion Gap 10.3 mmol/L (3-11); BUN 19 mg/dL (7-18); Bilirubin, Direct 0.06 mg/dL (0.00-0.20); Bilirubin, Total 0.3 mg/dL (0.2-1.0); CO2 25.7 mmol/L (21.0-32.0); CREATININE 1.3 mg/dL (0.70-1.30); Calcium 8.5 mg/dL (8.5-10.1); Chloride 104 mmol/L (98-107); Estimated GFR 54.26 (mL/min/1.73m2); Glucose 142 mg/dL (74-106); Lipase 85 U/L (73-393); Magnesium 1.4 mg/dL (1.8-2.4); NT-proBNP 267 pg/mL (<300); Sodium 140 mmol/L (136-145); Total Protein 6.7 g/dL (6.4-8.2)
--- NOTE | 2020-09-10 03:15 | RT.EKG_ITS ---
APPROVED REPORT Exam: Resting ECG Patient Location: E HR:86 bpm ECG Measurements Heart Rate 86 AXIS AZ 195 P 60 QRSd 108 QRS -25 QT 388 T 80 QTc 465 Conclusion Sinus rhythm...normal P axis, V-rate 60- 99
--- NOTE | 2020-09-10 03:18 | DI.VRAD_ITS ---
PROCEDURE INFORMATION: Exam: XR Chest, 1 View Exam date and time: 09/10/2020 3:05 AM Age: 70 years old Clinical indication: Left-sided chest pain; Prior surgery; Surgery date: 6+ months; Surgery type: Cabg, lobectomy TECHNIQUE: Imaging protocol: XR of the chest Views: 1 view. COMPARISON: CT CHEST PE CTA 07/30/2020 10:14 PM FINDINGS: Lungs: Volume loss on the left likely secondary to partial pneumonectomy with superior retraction of the hilum. Probable cicatricial atelectasis noted involved as well. Underlying left-sided airspace disease not excluded and pneumonia not excluded in the correct clinical setting. Pleural spaces: Left-sided pleural effusion may in part be loculated. Heart/Mediastinum: Unremarkable. No cardiomegaly. Bones/joints: Unremarkable. IMPRESSION: 1. Left-sided pleural effusion may in part be loculated. 2. Volume loss on the left likely secondary to partial pneumonectomy with superior retraction of the hilum. Probable cicatricial atelectasis noted involved as well. Underlying left-sided airspace disease not excluded and pneumonia not excluded in the correct clinical setting. Dictated and Authenticated by: Bartolo Taylor MD. Ordering:IVY Carver MD
[2020-09-10 03:25] LABS: Troponin I < 0.05 ng/mL (<0.06)
--- NOTE | 2020-09-10 04:00 | RT.EKG_ITS ---
APPROVED REPORT Exam: Resting ECG Patient Location: E HR:78 bpm ECG Measurements Heart Rate 78 AXIS LA 202 P 40 QRSd 108 QRS -32 QT 405 T 78 QTc 462 Conclusion Sinus rhythm...normal P axis, V-rate 60- 99 Left axis deviation...QRS axis (-30,-90)
[2020-09-10] MEDS: nitroGLYcerin 0.4 MG TAB SL (04:11)
--- NOTE | 2020-09-10 04:18 | NUR.NOTE ---
Nursing Note: Pt ambulated to bathroom at 0405, returned to room and reporting new chest pain sternal, pressure. Dr Adan notified, see MAR. New EKG done.Pt placed back on full vitals monitoring.
[2020-09-10] MEDS: Isosorbide Mononitrate 60 MG TABCR PO ×2 (04:29→08:16)
[2020-09-10 04:53] LABS: Source Nasal/Nares
[2020-09-10 05:34] LABS: Influenza A PCR Negative (Negative); Influenza B PCR Negative (Negative); RSV PCR Negative (Negative)
[2020-09-10 05:37] LABS: Troponin I < 0.05 ng/mL (<0.06)
[2020-09-10 05:46] LABS: COVID-19 PCR Negative (Negative)
--- NOTE | 2020-09-10 08:08 | HPE_ITS ---
Date of service: 09/10/20 Time of Service: 08:09 Assessment and Plan Assessment and plan (1) Chest pain: Status: Acute Assessment and plan: This appears to be a worsening of his chronic angina. EKGs show some mild lateral ST depression that did normalize somewhat with serial EKGs. The EKGs were reviewed by cardiology [place] [facility] [place] and they do not recommend anticoagulation. They recommended titrating up his nitrate and ruling out with serial enzymes, which will be our plan. If troponin becomes positive, would reconsider heparin and transfer. (2) Malignant neoplasm of lung: Status: Chronic Assessment and plan: Patient has active lung cancer. He had radiation that right upper chest area several months ago, but the pattern of the chest pain is more c/w cardiac etiology. It does not appear that his chemotherapy is directly causing his pain. (3) Type 2 diabetes mellitus: Status: Acute Assessment and plan: New diagnosis in 2019, A1c was >9% on last check. He is on metformin and empagliflozin, which are appropriate given CAD. low dose ISS if he gets hyperglycemic. Repeat A1c. (4) Gastroesophageal reflux disease without esophagitis: Status: Chronic Assessment and plan: I don't think related to chest pain, continue PPI (5) DVT (deep venous thrombosis): Status: Chronic Assessment and plan: h/o DVT in setting of malignancy, not currently on anticoagulation other than DAPT for CAD. Will give prophylactic LMWH. (6) Severe pain: Status: Acute Assessment and plan: continue tramadol prn, morphine if pain worsens. (7) COPD (chronic obstructive pulmonary disease): Status: Chronic Assessment and plan: Stable, continue LAMA/LABA controller inhaler. (8) CAD (coronary artery disease): Status: Chronic Assessment and plan: As above, continue medical management. (9) Hypomagnesemia: Status: Inactive Assessment and plan: Despite oral supplumenation. Given 2g IV mag sulfate, repeat with next labs and bolus again prn. (10) Palliative care patient: Status: Chronic Assessment and plan: Patient wants to go home as soon as he can. I think it is reasonable to discharge if 3rd troponin negative and he can follow up with cardiology and oncology and palliative care. He is DNR/DNI History of Present Illness History of Present Illness Chief Complaint: chest pain Narrative: 70 yo M with known CAD and active lung cancer with a history of chest radiation and currenly on chemotherapy presenting with recurrent chest pain responsive to nitroglycerin. Pain is in upper substernal area more to the right side. Burning and pressure. No radiation. Different than left sided chest pain he had that was related to his lung cancer. The pain started the evening prior to admission at 9pm. He was lying in bed, got up to urinate and the pain started. He felt his heart beating fast and a wave of nausea, vomited once. He took NTG and felt better after a few minutes. He woke up 2-3 more times after that to use the bathroom every hour or two and had recurrence of his chest pain, each time lasting a few minutes and improving immediately after NTG. At about 1:30 his called to take him to the ED. He had episode of pain in the ED while getting up to use the restroom again. He currently does not have chest pain. He has chronic SOB and lightheadedness, no clear increase with his chest pain. No diaphoresis. Not associated with heart burn. He did have his chemotherapy infusion the day prior to admission. He is on his 4th cycle of this round and has not had chest pain related to this chemotherapy in the past. In the emergency room the case was discussed with [facility] cardiology and they reviewed EKGs. They did not think this was NSTEMI and reviewed his recent cardiac catheterization. He was given a higher dose of his isosorbide MN 60mg up from 30mg. Review of Systems Constitutional Constitutional: Denies anorexia, Denies chills, Denies fever(s), Reports headache(s) (with NTG), Reports lethargy and Denies weight gain Eyes Eyes: Reports blurry vision (since chemotherapy), Denies diplopia and Denies irritation ENT Ears, Nose, Mouth, and Throat: Denies dizziness, Reports headache(s) (with NTG), Reports epistaxis, Denies mouth lesions, Denies nasal congestion, Denies nasal discharge and Denies sore throat Cardiovascular Cardiovascular: Denies syncope, Reports rapid heart rate, Denies leg edema, Denies radiating jaw, neck or arm pain, Denies palpitations, Reports dyspnea on exertion and Reports orthopnea Respiratory Respiratory: Denies cough, Denies excessive phlegm production, Reports dyspnea on exertion and Denies wheezing Gastrointestinal Gastrointestinal: Denies abdominal pain, Denies melena, Denies hematochezia, Reports constipation, Denies heartburn, Denies diarrhea and Denies hematemesis Genitourinary Genitourinary: Denies hematuria, Denies dysuria and Denies urinary incontinence Musculoskeletal Musculoskeletal: Reports numbness (fingers and toes) Integumentary/Breasts Skin/Breast: Denies rash and Denies skin ulcer Neurologic Neurologic: Denies dizziness, Denies syncope, Reports headache(s) (with NTG), Reports numbness (fingers and toes) and Denies sensory deficit Psychiatric Psychiatric: Denies mood swings and Denies panic attacks Endocrine Endocrine: Denies palpitations Hematologic/Lymphatic Hematologic/Lymphatic: Denies easy bleeding Allergic/Immunologic Allergic/Immunologic: Denies wheezing [facility] Medical History Abnormal CT of the chest Adenomatous colon polyp (01/13/12) [place] [facility] [place] 5 [place] Arteriosclerotic cardiovascular disease (ASCVD) (01/13/12) CABG 1989; s/p stents 1999, 2004. 09/09/18-Stress Echocardiogram [facility]. [place] 04/2020 .. failed interventional Tx 2' obstruction (scarring?).. Rx Benign neoplasm of colon (01/13/12) [place] [facility] [place] 5 yr CAD (coronary artery disease) Chest pain of uncertain etiology Painlevel 2-4/10 x 2-3 weeks .. Hx abd aneurysm, so may need to r/o vasc path. Chronic coughing ? due to vagal nerve irritation? Chronic steroid use completed steroids, d/c 11/2019 COPD (chronic obstructive pulmonary disease) (~08/09/18) Mild. PFT (Pulm, [facility] [place], 08/08/18). Need another PFT, post lung resection [ ] 11/10/18 COVID-19 ruled out by laboratory testing DVT prophylaxis Fatigue due to radiation therapy Foot fracture, right (10/2018) XR showing possible Fx, non-displaced [ ] CT recomm. Gastroesophageal reflux disease without esophagitis (01/26/06) EGD [facility]: GERD: This is well-controlled with daily PPI. 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 04/14/18 Flexible Fiberoptic Laryngoscopy- No evidence of recurrance or second primary Marijuana use helps with sleep; offsets steroid insomnia MSSA bacteremia (~03/2020) Superficial UE thrombophlebitis of left cephalic vein PIC Line 04/09/20 [facility] [place] .. PICC removed 04/2020 @ [facility] [place]. 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 Recurrent cancer 05/2020: New RT lesion; New LFT lesion (IN SCAR) .. Severe pain Shortness of breath LUNG CA ID'd .. now s/p surgery 10/2018. > Severe dyspnea .. with report of intolerance and feeling worse after some of his albuterol inhaler attempts .. Prompted to call ambulance for ED eval 2' possible reaction, tachy with NEB Tx. Sent to Ed, appreciate attention. NEB, CXR, Labs .. Smoker unmotivated to quit (04/12/14) >50 pack years, despite CAD and Laryngeal cancer; QUIT SMOKING POST DYSPNEIC EPISODE 06/2018.... Type 2 diabetes mellitus Dx @ [facility] admission, 02/2020. Unresponsive episode Surgical History Endoleak post (EVAR) endovascular aneurysm repair (11/30/18) endovascular repair AAA (03/07/13) Dr Dsouza, [facility] [place], yearly f/u with CTA History of throat surgery S/P CABG x 4 S/P lobectomy of lung (~09/21/18) Status post radiation therapy 25 tx; Dr Trammell, rad-onc; stopped 04/06 Family History Mother , kidney failure at age 78. Renal disease Son No problems noted. Son No problems noted. 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 What is your relationship status?: How often do you talk on the phone with friends or family?: twice per week How often do you get together with friends or relatives?: twice per week Panel score (0-1 are the most socially isolated patients): 2 What type of physical activity do you participate in: walking and irregular e xercise Duration: < 15 minutes/day Special mattie needs: No Seatbelt use: always Working smoke detector in home: Yes Carbon monox detector in home: Yes Do you feel safe at home: Yes Do you feel safe in your relationship?: Yes Additional Social history: Patient is , with 2 children. 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 Lengthy and significant history of tobacco abuse, with approximate 100+ pack year history of smoking, quit June 2018. Denies any alcohol use. Patient does admit to use of THC type products for medicinal purposes. Meds Home Medications and Allergies Home Medications Medication Instructions Recorded Confirmed Type Tylenol Arthritis 1,300 mg PO Q8H PRN tab-cap 12/23/12 09/10/20 History aspirin 81 mg tablet,delayed 81 mg PO DAILY 10/21/18 09/10/20 History release albuterol sulfate 90 mcg/actuation 2 puff INHALATION Q4H PRN #1 06/14/19 09/10/20 Rx aerosol inhaler inhaler pantoprazole 40 mg tablet,delayed 40 mg PO DAILY tab-cap 06/14/19 09/10/20 Hist ory release One Touch Vario Meter #1 ea 03/16/20 08/25/20 Rx magnesium oxide 400 mg PO BID #60 tab 03/16/20 09/10/20 Rx atorvastatin 80 mg tablet 80 mg PO DAILY 03/26/20 09/10/20 History empagliflozin 10 mg tablet 10 mg PO DAILY 03/26/20 09/10/20 History metoprolol succinate 100 mg 100 mg PO DAILY 03/26/20 09/10/20 History tablet,extended release 24 hr nitroglycerin 0.4 mg sublingual 0.4 mg SL Q5M PRN 03/26/20 09/10/20 History tablet metformin 500 mg tablet 500 mg PO BID #180 tab 04/25/20 09/10/20 Rx ezetimibe 10 mg tablet 5 mg PO DAILY #45 tab-cap 04/28/20 09/10/20 Rx blood sugar diagnostic #100 ea 05/02/20 08/25/20 Rx lancets 30 gauge #100 ea 05/02/20 08/25/20 Rx morphine concentrate 100 mg/5 mL See Rx Instructions SUBLINGUAL Q1H 06/12/20 09/10/20 Rx (20 mg/mL) oral solution PRN PRN #30 ml MDD 10mg Cannabidiol 5 mg PO QHS PRN 06/21/20 09/10/20 History isosorbide mononitrate 30 mg 30 mg PO DAILY 08/05/20 09/10/20 History tablet,extended release 24 hr ticagrelor 90 mg tablet 90 mg PO BID 09/03/20 09/10/20 History tramadol 50 mg tablet 50 mg PO Q6H PRN 09/03/20 09/10/20 History umeclidinium 62.5 mcg-vilanterol 1 inh INHALATION DAILY 09/06/20 09/10/20 History 25 mcg/actuation powdr for inhalation Allergies Allergy/AdvReac Type Severity Reaction Status Date / Time clopidogrel Allergy Unknown SKIN RASH Verified 09/10/20 05:19 esomeprazole magnesium AdvReac Unknown gi upset Verified 09/10/20 05:19 [From Nexium] Penicillins AdvReac Unknown gi upset Verified 09/10/20 05:19 Exam Narrative Exam Narrative: GEN: Alert and oriented, pleasent and cooperative, gives linear history. No acute distress at rest. HEENT: Head atraumatic. Conjunctiva clear, no icterus. PEERL, EOMI. no rhinorrhea. MMM, OP benign. Neck is supple with no masses or lymphadenopathy, trachea midline, no JVP elevation LUNGS: CTAB with normal effort, no rales CV: RRR with no murmurs, gallops, or rubs. chest wall not tender. ABD: +BS, soft, NT/ND EXT: no cyanosis, clubbing, or edema MSK: No joint redness or swelling NEURO: CN 2-12 grossly intact. Normal movement of 4 extremities. Normal sp eech and coordination. no tremor SKIN: No rashs or open wounds. PSYCH: normal mood and affect Results Imaging Additional studies: x 4, last EKG at 4am shows less lateral ST depression EKG: report reviewed and image reviewed Imaging Studies: CXR: IMPRESSION: 1. Left-sided pleural effusion may in part be loculated. 2. Volume loss on the left likely secondary to partial pneumonectomy with superior retraction of the hilum. Probable cicatricial atelectasis noted involved as well. Underlying left-sided airspace disease not excluded and pneumonia not excluded in the correct clinical setting. Labs Result diagrams: 09/10/20 02:35 09/10/20 02:35 Labs: Laboratory Results - last 24 hr 09/10/20 09/10/20 09/10/20 02:35 02:35 02:35 WBC 5.36 RBC 4.24 L Hgb 11.9 L Hct 36.1 L MCV 85.1 MCH 28.1 MCHC 33.0 RDW 16.1 H Plt Count 141 MPV 10.2 Immature Gran % 1.5 Neutrophils % 70.1 Lymphocytes % 17.0 Monocytes % 8.2 Eosinophils % 2.1 Basophils % 1.1 Nucleated RBC % 0 Absolute Neutrophils 3.76 Absolute Lymphocytes 0.91 L Absolute Monocytes 0.44 Absolute Eosinophils 0.11 Absolute Basophils 0.06 PT 10.0 INR 1.0 APTT 25.5 Sodium 140 Potassium 4.0 Chloride 104 Carbon Dioxide 25.7 Anion Gap 10.3 BUN 19 H Creatinine 1.3 Estimated GFR/1.73 m2 54.26 Glucose 142 H Calcium 8.5 Magnesium 1.4 L Total Bilirubin 0.3 Conjugated Bilirubin 0.06 AST 15 ALT 28 Alkaline Phosphatase 108 Troponin I < 0.05 NT-Pro-B Natriuret Pep 267 Total Protein 6.7 Albumin 3.2 L Lipase 85 COVID-19 Source SARS-CoV-2 (PCR) Influenza Type A (PCR) Influenza Type B (PCR) RSV (PCR) 09/10/20 09/10/20 04:35 05:15 WBC RBC Hgb Hct MCV MCH MCHC RDW Plt Count MPV Immature Gran % Neutrophils % Lymphocytes % Monocytes % Eosinophils % Basophils % Nucleated RBC % Absolute Neutrophils Absolute Lymphocytes Absolute Monocytes Absolute Eosinophils Absolute Basophils PT INR APTT Sodium Potassium Chloride Carbon Dioxide Anion Gap BUN Creatinine Estimated GFR/1.73 m2 Glucose Calcium Magnesium Total Bilirubin Conjugated Bilirubin AST ALT Alkaline Phosphatase Troponin I < 0.05 NT-Pro-B Natriuret Pep Total Protein Albumin Lipase COVID-19 Source Nasal/nares SARS-CoV-2 (PCR) Negative Influenza Type A (PCR) Negative Influenza Type B (PCR) Negative RSV (PCR) Negative Last Vital Signs Temp 35.4 C L 09/10/20 07:35 Pulse 88 09/10/20 07:35 Resp 32 H 09/10/20 07:35 BP 100/64 09/10/20 07:35 Pulse Ox 96 09/10/20 07:35 COVID-19 Screening Have you, or household traveled for leisure in last 14 days?: No Had IN PERSON contact w/suspected or confirmed C-19 person: No
[2020-09-10] MEDS: Enoxaparin 40 MG/0.4 ML SYR SC (08:15)
[2020-09-10] MEDS: Aspirin E.C. 81 MG TABEC PO (08:16)
[2020-09-10] MEDS: metFORMIN 500 MG TAB PO (08:16)
[2020-09-10] MEDS: Ticagrelor 90 MG TAB PO (08:16)
[2020-09-10] MEDS: Ezetimibe 10 MG TAB 5 MG PO (08:16)
[2020-09-10] MEDS: MAGNESIUM SULFATE 2 GM/50 ML BAG IVPB ×2 (08:17→10:31)
[2020-09-10] MEDS: Pantoprazole 40 MG TABCR PO (08:17)
[2020-09-10] MEDS: Metoprolol CR 100 MG TABCR PO (08:17)
[2020-09-10] MEDS: Magnesium Oxide 400 MG TAB PO (08:17)
[2020-09-10] MEDS: Normal Saline 500 ML 30 ML IV (08:18)
[2020-09-10] MEDS: Tiotropium/Olodaterol 10 PUFF INHALER IH (08:31)
[2020-09-10 08:44] LABS: Troponin I < 0.05 ng/mL (<0.06)
--- NOTE | 2020-09-10 08:45 | RT.EKG_ITS ---
APPROVED REPORT Exam: Resting ECG Patient Location: I HR:105 bpm ECG Measurements Heart Rate 105 AXIS MT 184 P 51 QRSd 100 QRS -28 QT 350 T 80 QTc 463 Conclusion Sinus tachycardia...rate> 99
[2020-09-10 08:54] LABS: Magnesium 1.5 mg/dL (1.8-2.4)
[2020-09-10 09:06] LABS: Hemoglobin A1C 7.3 % (<5.7)
--- NOTE | 2020-09-10 11:13 | PDOC.CMIN ---
- If Service Date Differs Date of service: 09/10/20 Time of Service: 11:13 Care Management Initial Assess REASON FOR HOSPITALIZATION:: Chest Pain PAST MEDICAL HISTORY/PAST SURGICAL HISTORY:: Abnormal CT of the chest. Adenomatous colon polyp (01/13/12). [place] [facility] [place] 5 [place]. Arteriosclerotic cardiovascular disease (ASCVD) (01/13/12). CABG 1989; s/p stents 1999, 2004. 09/09/18-Stress Echocardiogram [facility] [place]. [place] 04[place] .. failed interventional Tx 2' obstruction (scarring?).. Rx. Benign neoplasm of colon (01/13/12). [place] [facility] [place] rpt 5 yr. CAD (coronary artery disease). Chest pain of uncertain etiology. Painlevel 2-4/10 x 2-3 weeks .. Hx abd aneurysm, so may need to r/o vasc path. Chronic coughing. ? due to vagal nerve irritation? Chronic steroid use. completed steroids, d/c 11/2019. COPD (chronic obstructive pulmonary disease) (~08/09/18). Mild. PFT (Pulm, [facility] [place], 08/08/18). Need another PFT, post lung resection [ ] 11/10/18. COVID-19 ruled out by laboratory testing. DVT prophylaxis. Fatigue due to radiation therapy. Foot fracture, right (10/2018). XR showing possible Fx, non-displaced [ ] CT recomm. Gastroesophageal reflux disease without esophagitis (01/26/06). EGD [facility]: GERD: This is well-controlled with daily PPI. Would continue indefinitely; path neg for metaplasia. Goals of care, counseling/discussion. HAP (hospital-acquired pneumonia) (~03/2020). Hoarseness of voice. HTN (hypertension). Hyperlipidemia (01/13/12). Hypomagnesemia. Insomnia. Laryngeal cancer. 10/10/04 [facility] [place]ottic [place] of [place]arynx-CO2 Laser microsurgery. 04/14/18 Flexible Fiberoptic Laryngoscopy- No evidence of recurrance or second primary. Marijuana use. helps with sleep; offsets steroid insomnia. MSSA bacteremia (~03/2020). Superficial UE thrombophlebitis of left cephalic vein. PIC Line 04/09/20 [facility] [place] .. PICC removed 04/2020 @ [facility] [place]. Newly diagnosed diabetes. Other abnormal glucose (02/22/13). abnormal fasting sugar (111 in 2013) (114 in 2014). Palliative care patient. DObbertin. Pleural effusion on left. Primary malignant neoplasm of bronchus of left upper lobe[place] [facility] [place] Holden Stein MD. 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 Recurrent cancer. 05/2020: New RT lesion; New LFT lesion (IN SCAR) .. Severe pain. Shortness of breath. LUNG CA ID'd .. now s/p surgery 10/2018. > Severe dyspnea .. with report of intolerance and feeling worse after some of his albuterol inhaler attempts .. Prompted to call ambulance for ED eval 2' possible reaction, tachy with NEB Tx. Sent to Ed, appreciate attention. NEB, CXR, Labs .. Smoker unmotivated to quit (04/12/14). >50 pack years, despite CAD and Laryngeal cancer; QUIT SMOKING POST DYSPNEIC EPISODE 06/2018.... Type 2 diabetes mellitus. Dx @ [facility] admission, 02/2020. Unresponsive episode. Surgical History . Endoleak post (EVAR) endovascular aneurysm repair (11/30/18). endovascular repair AAA (03/07/13). Dr Dsouza, [facility] [place], yearly f/u with CTA. History of throat surgery. S/P CABG x 4. S/P lobectomy of lung (~09/21/18). Status post radiation therapy. 25 tx; Dr Trammell, rad-onc; stopped 04/06 PREVIOUS FUNCTIONAL STATUS/SOCIAL/FAMILY SUPPORTS:: Colin resides with his , Suzette in [place], [place]. He is independent at baseline in the community. CURRENT FUNCTIONAL STATUS:: Colin was preparing for discharge, he shared no concerns at this time and was advocating for returning home. ADVANCE DIRECTIVES:: [employer] form on file. Has patient been provided with info about the portal/API?: Yes Did the patient sign up for the portal?: Yes (Previously ) CODE STATUS:: DNR/DNI INSURANCE COVERAGE / FINANCIAL ISSUES:: Medicare. BC/BS CURRENT HOME/COMMUNITY SERVICES/EQUIPMENT:: Oncology, Cardiology, Palliative Care PRIMARY CARE PHYSICIAN:: Danyell Burks POTENTIAL DISCHARGE NEEDS:: Follow up appointments in the community. Palliative Care attachment for follow up. PATIENT/FAMILY EDUCATION NEEDS:: Review discharge instructions, discuss Ask Me Three. ANTICIPATED BARRIERS TO DISCHARGE:: None identified. TRANSPORTATION:: Via private vehicle with family. PLAN:: Colin will return home when ready per MD. No additional services anticipated at this time, he will follow up with his PCP and plan of care as prescribed, and follow up with Palliative Care and his community providers. He will transport via private vehicle with family.
--- NOTE | 2020-09-10 11:26 | DSE_ITS ---
Date of service: 09/10/20 Time of Service: 11:33 DS: Diagnosis Discharge Diagnosis (1) Chest pain: Start date: 09/10/20 Start time: 11:33 Status: Resolved Asessment and Plan: He no longer has CP, resolved, ambulatory pulse ox around unit revealing slight tachycardia no greater than 110, no CP when ambulating, no SOB, feeling better, trops flat negative, he wants to be discharged home. Mag has been repleted with both IV and PO and therefore he is being discharged home Repeat EKG with no change from previous (2) Malignant neoplasm of lung: Start date: 09/10/20 Start time: 11:39 Status: Chronic Asessment and Plan: Patient has active lung cancer. Cardiac etiology, r/o (3) Type 2 diabetes mellitus: Start date: 09/10/20 Start time: 11:40 Status: Chronic Asessment and Plan: New diagnosis in 2019, A1c was >9% on last check. He is on metformin and empagliflozin, which are appropriate given CAD. Repeat A1c 7.1, continue regimen (4) Gastroesophageal reflux disease without esophagitis: Start date: 09/10/20 Start time: 11:41 Status: Chronic Asessment and Plan: Continue PPI (5) Severe pain: Start date: 09/10/20 Start time: 11:41 Status: Chronic Asessment and Plan: In setting of cancer continue tramadol (6) COPD (chronic obstructive pulmonary disease): Start date: 09/10/20 Start time: 11:42 Status: Chronic Asessment and Plan: Stable, continue LAMA/LABA controller inhaler (7) CAD (coronary artery disease): Start date: 09/10/20 Start time: 11:42 Status: Chronic Asessment and Plan: As above, continue medical management. (8) Hypomagnesemia: Start date: 09/10/20 Start time: 11:42 Status: Resolved Asessment and Plan: Repleted with PO and IV supplementation (9) Palliative care patient: Start date: 09/10/20 Start time: 11:42 Status: Chronic Asessment and Plan: Will continue to be followed by palliative as an outpatient 3rd trop negative, EKG no change and he was able to ambulate around the unit without chest pain. as above, therefore he can be discharged home above case discussed with Dr. Lang Discharge Plan Disposition Patient Disposition: HOME Condition: Improving Discharge Details Reason For Visit: CHEST PAIN Admit Date/Time: 09/10/20 04:33 Admit Provider: Reddy Anderson Attending Provider: Reddy Anderson Primary Care Provider: Danyell Burks Hospital Course Hospital Course: 70 yo M with known CAD and active lung cancer with a history of chest radiation and currently on chemotherapy presenting with recurrent chest pain responsive to nitroglycerin. Pain is in upper substernal area more to the right side. Burning and pressure. No radiation. Different than left sided chest pain he had that was related to his lung cancer. The pain started the evening prior to admission at 9pm. He was lying in bed, got up to urinate and the pain started. He felt his heart beating fast and a wave of nausea, vomited once. He took NTG and felt better after a few minutes. He woke up 2-3 more times after that to use the bathroom every hour or two and had recurrence of his chest pain, each time lasting a few minutes and improving immediately after NTG. At about 1:30 his called to take him to the ED. He had episode of pain in the ED while getting up to use the restroom again. He did have his chemotherapy infusion the day prior to admission. He is on his 4th cycle of this round and has not had chest pain related to this chemotherapy in the past. In the emergency room the case was discussed with [facility] cardiology and they reviewed EKGs. They did not think this was NSTEMI and reviewed his recent cardiac catheterization. He was given a higher dose of his isosorbide MN 60mg up from 30mg. He was admitted for further management. Today he is feeling great. Troponins flat negative. repeat EKG no change. He was able to ambulate around the floor without CP, SOB, N/V/D. HR slightly Elevated no greater than 110, with fast recovery. He could have been having esophageal spasm leading to chest pain which would be relieved with chest pain. Cardiac etiology r/o. He is palliative care patient they can follow him in the community. He can follow up with cardiology and PCP in 1-2 weeks. Home Meds and New Rx's Prescriptions: New isosorbide mononitrate 60 mg Tablet Extended Release 24 Hr 60 mg PO DAILY Qty: 30 RF: 0 Continued ezetimibe [Zetia] 10 mg tablet 5 mg PO DAILY Qty: 45 RF: 3 morphine concentrate 100 mg/5 mL (20 mg/mL) solution See Rx Instructions sublingual Q1H PRN MDD 10mg PRN (Reason: pain) Qty: 30 RF: 0 aspirin [Adult Low Dose Aspirin] 81 mg tablet,delayed release (DR/EC) 81 mg PO DAILY RF: 0 pantoprazole [Protonix] 40 mg tablet,delayed release (DR/EC) 40 mg PO DAILY RF: 0 albuterol sulfate [ProAir HFA] 90 mcg/actuation HFA aerosol inhaler 2 puff Inhalation Q4H PRN Qty: 1 RF: 1 TYLENOL ARTHRITIS 650 MG TABLET.ER 1,300 mg PO Q8H PRN RF: 0 atorvastatin 80 mg tablet 80 mg PO DAILY RF: 0 empagliflozin 10 mg tablet 10 mg PO DAILY RF: 0 nitroglycerin 0.4 mg tablet, sublingual 0.4 mg SL Q5M PRNRF: 0 metoprolol succinate 100 mg tablet extended release 24 hr 100 mg PO DAILY RF: 0 metformin 500 mg tablet 500 mg PO BID Qty: 180 RF: 2 (DME) MobykoTouch Verio test strips Strip See Rx Instructions .ROUTE .MEDSUPPLY Qty: 100 RF: 3 (DME) lancets [OneTouch Delica Plus Lancet] 30 gauge misc See Rx Instructions .ROUTE .MEDSUPPLY Qty: 100 RF: 3 Cannabidiol 5 mg PO QHS PRN (Reason: Sleep or nausea) RF: 0 tramadol 50 mg tablet 50 mg PO Q6H PRNRF: 0 Brilinta 90 mg tablet 90 mg PO BID RF: 0 Anoro Ellipta 62.5-25 mcg/actuation blister with device 1 inh inhalation DAILY RF: 0 magnesium oxide 400 mg (241.3 mg magnesium) tablet 400 mg PO BID Qty: 60 RF: 3 Discontinued isosorbide mononitrate 30 mg tablet extended release 24 hr 30 mg PO DAILY RF: 0 No Action (DME) One Touch Vario Meter Qty: 1 RF: 0 Discharge Instructions Instructions: Chest Pain (DC) Additional Instructions: Follow up with Cardiology and PCP in 1-2 weeks Take Imdur 60 mg daily Stand Alone Forms: Nursing Discharge Form Activity:: Activity as Tolerated Equipment/Supplies:: No Equipment Needed Diet:: Low Sodium Discharge Orders Discharge Orders: Discharge Order (Routine); Ordered 09/10/20 Ordered By: Sherin Steiner DS: Summary Time Spent with Patient providing and/or coordinating discharge services: Greater than 30 minutes (approx 45 min) Status at Discharge Functional status at discharge: independent ambulation Overall status at discharge: patient is back to baseline Mental Status: mental status grossly normal Speech and Movement: speech and movement normal Mood: congruent mood Affect: normal affect Exam Narrative Exam Narrative: GEN: Alert and oriented, pleasent and cooperative, . No acute distress at rest. HEENT: Head atraumatic. Conjunctiva clear, no icterus. PEERL, EOMI. no rhinorrhea. MMM, OP benign. Neck is supple with no masses or lymphadenopathy, trachea midline, no JVP elevation LUNGS: CTAB with normal effort, no rales CV: RRR with no murmurs, gallops, or rubs. chest wall not tender. ABD: +BS, soft, NT/ND EXT: no cyanosis, clubbing, or edema MSK: No joint redness or swelling NEURO: CN 2-12 grossly intact. Normal movement of 4 extremities. Normal speech and coordination. no tremor SKIN: No rashs or open wounds. PSYCH: normal mood and affect Psych Mental Status: mental status grossly normal Speech and Movement: speech and movement normal Mood: congruent mood Affect: normal affect DS: Data Vitals/I&O Vitals and I&O: Vital Signs Temperature 36.7 C 09/10/20 11:19 Temperature Source Tympanic 09/10/20 11:19 Pulse 90 09/10/20 11:19 Pulse Rhythm Regular 09/10/20 05:43 Respiratory Rate 18 09/10/20 11:19 Respiratory Effort Non-Labored 09/10/20 05:43 Respiratory Depth Normal 09/10/20 05:43 Respiratory Pattern Normal 09/10/20 05:43 Blood Pressure 96/60 L 09/10/20 11:19 Blood Pressure Position Sitting 09/10/20 02:27 Pulse Oximetry 97 09/10/20 11:19 Oxygen Delivery Method Room Air 09/10/20 11:19 Oxygen Flow Rate 0 09/10/20 11:19 Pain Level 0 09/10/20 11:19 Intake & Output 09/09/20 09/09/20 09/10/20 11:59 23:59 11:59 Weight 76.1 kg Data Completed and Pending Completed studies during hospitalization [Text1]: FINDINGS: Heart size is normal. Sternotomy wires again noted as is evidence of previous left lobectomy. There is persistent prominent infiltrate extending from the left hilum out to the pleural surface. Left pleural effusion is unchanged in size. No new right lung findings. No pleural effusion on the right side. IMPRESSION: No radiographic improvement compared to March 2020. Labs on day of discharge: Labs from last 24 hours 09/10/20 09/10/20 09/10/20 08:16 05:15 04:35 WBC RBC Hgb Hct MCV MCH MCHC RDW Plt Count MPV Immature Gran % Neutrophils % Lymphocytes % Monocytes % Eosinophils % Basophils % Nucleated RBC % Absolute Neutrophils Absolute Lymphocytes Absolute Monocytes Absolute Eosinophils Absolute Basophils PT INR APTT Sodium Potassium Chloride Carbon Dioxide Anion Gap BUN Creatinine Estimated GFR/1.73 m2 Glucose Hemoglobin A1c Calcium Magnesium Total Bilirubin Conjugated Bilirubin AST ALT Alkaline Phosphatase Troponin I < 0.05 < 0.05 NT-Pro-B Natriuret Pep Total Protein Albumin Lipase COVID-19 Source Nasal/nares SARS-CoV-2 (PCR) Negative Influenza Type A (PCR) Negative Influenza Type B (PCR) Negative RSV (PCR) Negative 09/10/20 09/10/20 09/10/20 02:35 02:35 02:35 WBC RBC Hgb Hct MCV MCH MCHC RDW Plt Count MPV Immature Gran % Neutrophils % Lymphocytes % Monocytes % Eosinophils % Basophils % Nucleated RBC % Absolute Neutrophils Absolute Lymphocytes Absolute Monocytes Absolute Eosinophils Absolute Basophils PT 10.0 INR 1.0 APTT 25.5 Sodium Potassium Chloride Carbon Dioxide Anion Gap BUN Creatinine Estimated GFR/1.73 m2 Glucose Hemoglobin A1c 7.3 H Calcium Magnesium 1.5 L Total Bilirubin Conjugated Bilirubin AST ALT Alkaline Phosphatase Troponin I NT-Pro-B Natriuret Pep Total Protein Albumin Lipase COVID-19 Source SARS-CoV-2 (PCR) Influenza Type A (PCR) Influenza Type B (PCR) RSV (PCR) 09/10/20 09/10/20 02:35 02:35 WBC 5.36 RBC 4.24 L Hgb 11.9 L Hct 36.1 L MCV 85.1 MCH 28.1 MCHC 33.0 RDW 16.1 H Plt Count 141 MPV 10.2 Immature Gran % 1.5 Neutrophils % 70.1 Lymphocytes % 17.0 Monocytes % 8.2 Eosinophils % 2.1 Basophils % 1.1 Nucleated RBC % 0 Absolute Neutrophils 3.76 Absolute Lymphocytes 0.91 L Absolute Monocytes 0.44 Absolute Eosinophils 0.11 Absolute Basophils 0.06 PT INR APTT Sodium 140 Potassium 4.0 Chloride 104 Carbon Dioxide 25.7 Anion Gap 10.3 BUN 19 H Creatinine 1.3 Estimated GFR/1.73 m2 54.26 Glucose 142 H Hemoglobin A1c Calcium 8.5 Magnesium 1.4 L Total Bilirubin 0.3 Conjugated Bilirubin 0.06 AST 15 ALT 28 Alkaline Phosphatase 108 Troponin I < 0.05 NT-Pro-B Natriuret Pep 267 Total Protein 6.7 Albumin 3.2 L Lipase 85 COVID-19 Source SARS-CoV-2 (PCR) Influenza Type A (PCR) Influenza Type B (PCR) RSV (PCR) PFSH Medical History Abnormal CT of the chest Adenomatous colon polyp (01/13/12) tubular adenoma [facility] 01/05/06, rpt 5 yr Arteriosclerotic cardiovascular disease (ASCVD) (01/13/12) CABG 1989; s/p stents 1999, 2004. 09/09/18-Stress Echocardiogram [facility] [place]. [place] 04[place] .. failed interventional Tx 2' obstruction (scarring?).. Rx Benign neoplasm of colon (01/13/12) tubular adenoma [facility] 01/05/06, rpt 5 yr CAD (coronary artery disease) Chest pain of uncertain etiology Painlevel 2-4/10 x 2-3 weeks .. Hx abd aneurysm, so may need to r/o vasc path. Chronic coughing ? due to vagal nerve irritation? Chronic steroid use completed steroids, d/c 11/2019 COPD (chronic obstructive pulmonary disease) (~08/09/18) Mild. PFT (Pulm, [facility] [place], 08/08/18). Need another PFT, post lung resection [ ] 11/10/18 COVID-19 ruled out by laboratory testing DVT prophylaxis Fatigue due to radiation therapy Foot fracture, right (10/2018) XR showing possible Fx, non-displaced [ ] CT recomm. Gastroesophageal reflux disease without esophagitis (01/26/06) EGD DHME: GERD: This is well-controlled with daily PPI. 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 04/14/18 Flexible Fiberoptic Laryngoscopy- No evidence of recurrance or second primary Marijuana use helps with sleep; offsets steroid insomnia MSSA bacteremia (~03/2020) Superficial UE thrombophlebitis of left cephalic vein PIC Line 04/09/20 [facility] [place] .. PICC removed 04/2020 @ [facility] [place]. 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 Recurrent cancer 05/2020: New RT lesion; New LFT lesion (IN SCAR) .. Severe pain Shortness of breath LUNG CA ID'd .. now s/p surgery 10/2018. > Severe dyspnea .. with report of intolerance and feeling worse after some of his albuterol inhaler attempts .. Prompted to call ambulance for ED eval 2' possible reaction, tachy with NEB Tx. Sent to Ed, appreciate attention. NEB, CXR, Labs .. Smoker unmotivated to quit (04/12/14) >50 pack years, despite CAD and Laryngeal cancer; QUIT SMOKING POST DYSPNEIC EPISODE 06/2018.... Type 2 diabetes mellitus Dx @ [facility] admission, 02/2020. Unresponsive episode Surgical History Endoleak post (EVAR) endovascular aneurysm repair (11/30/18) endovascular repair AAA (03/07/13) Dr Dsouza, [facility] [place], yearly f/u with CTA History of throat surgery S/P CABG x 4 S/P lobectomy of lung (~09/21/18) Status post radiation therapy 25 tx; Dr Trammell, rad-onc; stopped 04/06 Family History Mother , kidney failure at age 78. Renal disease Son No problems noted. Son No problems noted. 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 What is your relationship status?: How often do you talk on the phone with friends or family?: twice per week How often do you get together with friends or relatives?: twice per week Panel score (0-1 are the most socially isolated patients): 2 What type of physical activity do you participate in: walking and irregular exercise Duration: < 15 minutes/day Special mattie needs: No Seatbelt use: always Working smoke detector in home: Yes Carbon monox detector in home: Yes Do you feel safe at home: Yes Do you feel safe in your relationship?: Yes Additional Social history: Patient is , with 2 children. 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 Lengthy and significant history of tobacco abuse, with approximate 100+ pack year history of smoking, quit June 2018. Denies any alcohol use. Patient does admit to use of THC type products for medicinal purposes.
--- NOTE | 2020-09-10 12:39 | W.INDIABCONS ---
Date of service: 09/10/20 Time of Service: 12:39 Diabetes Inpatient Consult DESCRIPTION/ASSESSMENT: 70 year old male admitted with chest pain with hx of DM2, malignant neoplasm of lung and treated with chemotherapy, with 12% weight loss in last 6 months. Current BMI wnl for age. Home DM meds include metformin 500 mg BID, most recent A1C: 7.3% indicating optimal glycemic control while undergoing chemotherapy. DM education not warranted at this time in view of medical concerns and good glycemic control. Of concern, however, is significant weight loss as result of chemo therapy and reduced po intake. At risk for malnutrition. Following diabetic diet, no documentation on po intake at this time. Cannot visit pt at this time due to covid precautions. Will visit as soon as able. INTERVENTION: continue CHO diet, supplement with glucerna as needed PLAN: will monitor po intake, labs and weight- will follow and adjust meal plan as needed for optimal nutrient intake. Time Spent in Nutritional Counseling and Treatment: 0
== END 2020-09-10 13:13 | disposition home or self-care (01) ==
LOC: ER 04:58 → MS 05:40
PROVIDERS: Admitting Provider Family Medicine; Emergency Provider Emergency Medicine; PCP Student in an Organized Health Care Education/Training Program; Visit Provider Family Medicine
DX: I25.118 Atherosclerotic heart disease of native coronary artery with other forms of angina pectoris (principal); G89.3 Neoplasm related pain (acute) (chronic); C34.12 Malignant neoplasm of upper lobe, left bronchus or lung; Z86.718 Personal history of other venous thrombosis and embolism; E83.42 Hypomagnesemia; J44.9 Chronic obstructive pulmonary disease, unspecified; Z66 Do not resuscitate; Z95.5 Presence of coronary angioplasty implant and graft; Z95.1 Presence of aortocoronary bypass graft; E11.9 Type 2 diabetes mellitus without complications; K21.9 Gastro-esophageal reflux disease without esophagitis; Z20.822 Contact with and (suspected) exposure to COVID-19; I10 Essential (primary) hypertension; E78.5 Hyperlipidemia, unspecified; G47.00 Insomnia, unspecified; Z79.899 Other long term (current) drug therapy; Z87.891 Personal history of nicotine dependence
CPT/HCPCS: 36415; 80053; 83690; 93005; 94640; 99217; 99219; 99285; J1650; 71045; 82248; 83036; 83735; 83880; 84484; 85025; 85610; 85730; 93010; G0378; J3490

== ENCOUNTER 2020-09-11 22:09 | Emergency (ER) | payer MEDICARE, BC, SELFPAY ==
[2020-09-11] VITALS (15 sets, daily range): BP systolic 110–137; BP diastolic 63–77; PULSE 89–108; RESP 16–32; TEMP 36.4; O2SAT 94–96
--- NOTE | 2020-09-11 22:00 | RT.EKG_ITS ---
APPROVED REPORT Exam: Resting ECG Patient Location: E HR:99 bpm ECG Measurements Heart Rate 99 AXIS NC 208 P 58 QRSd 100 QRS -21 QT 372 T 81 QTc 479 Conclusion Sinus rhythm...normal P axis, V-rate 60- 99 Borderline prolonged NC interval...NC >207, V-rate 91-120 Low voltage, precordial leads...precordial leads <1.0mV There are no significant changes compared to prior EKG performed on 09/10/2020 at 09:11.
--- NOTE | 2020-09-11 22:12 | ED.GENADUL_ITS ---
Discharge Plan Disposition Patient Disposition: HOME Condition: Stable Discharge Details Clinical Impression: Chest pain Primary Care Provider: Danyell Burks ED Provider: James Matthew Meds and New Rx's Prescriptions: Continued ezetimibe [Zetia] 10 mg tablet 5 mg PO DAILY Qty: 45 RF: 3 morphine concentrate 100 mg/5 mL (20 mg/mL) solution See Rx Instructions sublingual Q1H PRN MDD 10mg PRN (Reason: pain) Qty: 30 RF: 0 aspirin [Adult Low Dose Aspirin] 81 mg tablet,delayed release (DR/EC) 81 mg PO DAILY RF: 0 [place] Saline Gel 1 applic topical 8-12XD PRN (Reason: dry nasal passages) Qty: 14.1 RF: 3 pantoprazole [Protonix] 40 mg tablet,delayed release (DR/EC) 40 mg PO BID RF: 0 albuterol sulfate [ProAir HFA] 90 mcg/actuation HFA aerosol inhaler 2 puff Inhalation Q4H PRN Qty: 1 RF: 2 TYLENOL ARTHRITIS 650 MG TABLET.ER 1,300 mg PO Q8H PRN RF: 0 atorvastatin 80 mg tablet 80 mg PO DAILY RF: 0 empagliflozin 10 mg tablet 10 mg PO DAILY RF: 0 nitroglycerin 0.4 mg tablet, sublingual 0.4 mg SL Q5M PRNRF: 0 metoprolol succinate 100 mg tablet extended release 24 hr 100 mg PO DAILY RF: 0 metformin 500 mg tablet 500 mg PO BID Qty: 180 RF: 2 (DME) OneTouch Verio test strips Strip See Rx Instructions .ROUTE .MEDSUPPLY Qty: 100 RF: 3 (DME) lancets [OneTouch Delica Plus Lancet] 30 gauge misc See Rx Instructions .ROUTE .MEDSUPPLY Qty: 100 RF: 3 Cannabidiol 5 mg PO QHS PRN (Reason: Sleep or nausea) RF: 0 tramadol 50 mg tablet 50 mg PO Q6H PRNRF: 0 Brilinta 90 mg tablet 90 mg PO BID RF: 0 (DME) One Touch Vario Meter Qty: 1 RF: 0 magnesium oxide 400 mg (241.3 mg magnesium) tablet 400 mg PO BID Qty: 60 RF: 3 isosorbide mononitrate 60 mg Tablet Extended Release 24 Hr 60 mg PO DAILY Qty: 30 RF: 0 Discharge Instructions Additional Instructions: Your EKG remains unchanged from previous. Chest x-ray is unchanged. Laboratory studies including 2 sets of enzymes are negative for any troponin leak to suggest ongoing heart attack. Resume medications as before. Follow-up with primary care and/or palliative care for further management. Return to ED for new or worsening pain, increasing shortness of breath, fever, other concerns. Referrals: Danyell Burks DO [Primary Care Provider] - Discharge Data Discharge Date/Time-TO BE ENTERED AT DEPARTURE: 09/12/20 03:12 Medical Decision Making <GRETCHEN Cool - Last Filed: 09/13/20 18:57> Patient is a pleasant 70-year-old gentleman presented with chief complaint of chest pain. Past medical history significant for lung cancer, AAA status post endovascular repair, laryngeal cancer, hypertension, ASCVD, hypertension, Hyperlipidemia. Patient is >[id number] history, does not currently smoke. Patient status post CABG in the . Patient having chest pain last summer when revascularization was attempted by angioplasty but guidewire was unable to be passed. Instead, determined that patient should be medically managed. Started on Imdur. Patient was admitted at [facility] in July for the same. Patient was discharged yesterday with recurrent symptoms after 24-hour admission and negative trending troponin. Patient reports that since discharge yesterday afternoon, he has been able to go up and down stairs well without any difficulty or chest pain. However, while possible and night he did experience chest pain. Plan patient needed. Sublingual nitroglycerin to negative with no chest pain. Denies any pain currently. Is not short of breath. Patient states his pain is not similar to when he has had esophageal spasms or pain associated with his cancer historically. Reports he did undergo stress testing last March as well as in July both of which led to chest discomfort. On patient's recent admission, cardiology at [facility] was consulted. Plan at that point was to trend the patient's troponins, increase his Imdur to 60 mg daily. Advised that we could discuss further with interventional as needed but unlikely to be any targets for revascularization. On exam, patient appears nontoxic. He is resting comfortably. Normal cardiac exam with no murmurs rubs or gallops. Lung clear. Abdomen is benign. Patient has well healed sternal incision consistent with his history of CABG. EKG was obtained and reviewed by Dr. Matthew. Patient's been in sinus rhythm with a rate of 99. Patient has a borderline prolonged KS interval. Low voltage precordial leads. No change from previous EKG dated yesterday. Differential remains quite broad. Patient does report that she feels pain is cardiac in nature. What is interesting, as the patient is able to go up and down stairs without worsening symptoms. His symptoms do tend to be more at night, particular when he is laying down. We did discuss that this could be associated with his GERD or esophageal cancer particularly depending on what and when he had dinner. Was discussed this could be associated with his known lung cancer. He has not been using his morphine to help with comfort. Patient reports that he is completely pain-free at this time. I did discuss with the patient that based on chart review, does not appear patient is a candidate for surgical intervention. His history exam is not consistent with pulmonary embolism or dissection. Patient denies any shortness of breath currently, I do not see any evidence to suggest pneumothorax. Plan for chest x-ray and baseline labs. His initial troponin is negative, repeat 4hr troponin would be appropriate. FINDINGS: Lungs: See Pleural spaces finding. Pleural spaces: Thickened left-sided pleural surfaces and or loculated pleural fluid noted. Diffuse decreased attenuation of the left lung noted. Patchy opacities in the left upper lobe may reflect atelectasis and or scarring. Superior retraction of hilum. Pneumonia not excluded. Findings grossly stable when compared with the prior study.. Heart/Mediastinum: Unremarkable. No cardiomegaly. Bones/joints: Unremarkable. IMPRESSION: Thickened left-sided pleural surfaces and or loculated pleural fluid noted. Diffuse decreased attenuation of the left lung noted. Patchy opacities in the left upper lobe may reflect atelectasis and or scarring. Superior retraction of hilum. Pneumonia not excluded. Findings grossly stable when compared with the prior study. Labs reviewed. No leukocytosis. Patient found to be anemic with a hemoglobin of 11.7, this is baseline for patient. Coags normal. No significant abnormality on the CMP. Troponin remains less than 0.05. I discussed the findings with the patient. Also discussed plan with the patient's , and [id number]. I do feel that repeat troponin would be appropriate and patient will remain for 4-hour troponin. His request is stable to be discharged home if this remains within normal limits. In the event that positive, patient will need further medical management. The end of my shift, care transition to Dr. Matthew with repeat troponin pending. <James Matthew MD - Last Filed: 09/12/20 03:00> Patient signed out to me pending repeat EKG and troponin at 4 hours. He has been asymptomatic here. Case was discussed and reviewed with me prior to signout. Patient does have known coronary disease but it does not appear to be amendable to intervention based on catheterization last fall. He had been admitted and discharged already this week for chest pain. He has had his Imdur increased. Chest pain tonight did resolve with nitroglycerin but he had been active all day without chest pain. In any event repeat EKG and troponin remain normal/unchanged. Patient be discharged home to follow-up with primary care and/or palliative care for further management. Return to ED if new or worsening pain, shortness of breath, fever, other concerns. Lab Data Lab results reviewed: Yes I reviewed the patient's lab results. ECG Data Attestation: I personally reviewed and interpreted this ECG (s) as follows: Interpretation: see EKG HPI <GRETCHEN Cool - Last Filed: 09/13/20 18:57> General Mode of arrival: ambulatory . Date/Time Provider Initiated Documentation: 09/11/20 22:11 . Limitations to Documentation: no limitations . Information obtained by: patient, RN notes reviewed and old records reviewed . History of Present Illness 70 year old M presents to the emergency department with the chief complaint of chest pain, described as similar to prior episodes (currently resolved), Quality is described as aching, and is localized to the chest. Patient reports no radiation. Patient started experiencing this hour(s) and it has been now resolved. Medication improves symptom(s), Other factors that worsen symptoms (notes CP at night) . Patient notes chest pain; denies confusion, cough, diaphoresis, fever/chills, loss of appetite, nausea/vomiting, rash, shortness of breath, syncope and weakness. Patient did receive the following treatments prior to arrival, other (SL nitro x 3) Related Data Home Medications Medication Instructions Recorded Confirmed Tylenol Arthritis 1,300 mg PO Q8H PRN tab-cap 12/23/12 09/11/20 aspirin 81 mg tablet,delayed 81 mg PO DAILY 10/21/18 09/11/20 release One Touch Vario Meter #1 ea 03/16/20 09/11/20 magnesium oxide 400 mg PO BID #60 tab 03/16/20 09/11/20 atorvastatin 80 mg tablet 80 mg PO DAILY 03/26/20 09/11/20 empagliflozin 10 mg tablet 10 mg PO DAILY 03/26/20 09/11/20 metoprolol succinate 100 mg 100 mg PO DAILY 03/26/20 09/11/20 tablet,extended release 24 hr nitroglycerin 0.4 mg sublingual 0.4 mg SL Q5M PRN 03/26/20 09/11/20 tablet metformin 500 mg tablet 500 mg PO BID #180 tab 04/25/20 09/11/20 ezetimibe 10 mg tablet 5 mg PO DAILY #45 tab-cap 04/28/20 09/11/20 blood sugar diagnostic #100 ea 05/02/20 09/11/20 lancets 30 gauge #100 ea 05/02/20 09/11/20 morphine concentrate 100 mg/5 mL See Rx Instructions SUBLINGUAL Q1H 06/12/20 09/11/20 (20 mg/mL) oral solution PRN PRN #30 ml MDD 10mg Cannabidiol 5 mg PO QHS PRN 06/21/20 09/11/20 ticagrelor 90 mg tablet 90 mg PO BID 09/03/20 09/11/20 tramadol 50 mg tablet 50 mg PO Q6H PRN 09/03/20 09/11/20 isosorbide mononitrate 60 mg PO DAILY #30 tab 09/10/20 09/11/20 albuterol sulfate 90 mcg/actuation 2 puff INHALATION Q4H PRN #1 09/11/20 09/11/20 aerosol inhaler inhaler pantoprazole 40 mg tablet,delayed 40 mg PO BID tab-cap 09/11/20 09/11/20 release sodium chloride-aloe vera nasal gel 1 applic TOPICAL 8-12XD PRN #14.1 g 09/11/20 09/11/20 Previous Rx's Medication Instructions Recorded One Touch Vario Meter #1 ea 03/16/20 magnesium oxide 400 mg PO BID #60 tab 03/16/20 metformin 500 mg tablet 500 mg PO BID #180 tab 10/08/20 ezetimibe 10 mg tablet 5 mg PO DAILY #45 tab-cap 04/28/20 blood sugar diagnostic #100 ea 05/02/20 lancets 30 gauge #100 ea 05/02/20 morphine concentrate 100 mg/5 mL See Rx Instructions SUBLINGUAL Q1H 06/12/20 (20 mg/mL) oral solution PRN PRN #30 ml MDD 10mg isosorbide mononitrate 60 mg PO DAILY #30 tab 09/10/20 albuterol sulfate 90 mcg/actuation 2 puff INHALATION Q4H PRN #1 09/11/20 aerosol inhaler inhaler sodium chloride-aloe vera nasal gel 1 applic TOPICAL 8-12XD PRN #14.1 g 09/11/20 Allergies Allergy/AdvReac Type Severity Reaction Status Date / Time clopidogrel Allergy Unknown SKIN RASH Verified 09/11/20 22:18 esomeprazole magnesium AdvReac Unknown gi upset Verified 09/11/20 22:18 [From Nexium] Penicillins AdvReac Unknown gi upset Verified 09/11/20 22:18 General BRYCE: 2 Review of Systems <GRETCHEN Cool - Last Filed: 09/13/20 18:57> Constitutional Constitutional: Reports as per HPI, Denies chills, Denies fever(s), Denies headache(s), Denies lethargy and Denies poor appetite Eyes Eyes: Denies change in vision ENT Ears, Nose, Mouth, and Throat: Denies dizziness and Denies headache(s) Cardiovascular Cardiovascular: Reports as per HPI, Denies dyspnea and Denies dyspnea on exertion Respiratory Respiratory: Reports as per HPI, Denies chest congestion, Denies cough, Denies pain on inspiration, Denies pain with cough, Denies dyspnea, Denies dyspnea on exertion and Denies wheezing Gastrointestinal Gastrointestinal: Reports as per HPI, Denies abdominal pain, Denies diarrhea, Denies nausea and Denies vomiting Genitourinary Genitourinary: Denies system reviewed and no additional complaints, except as documented (denies change in urinary habits) Musculoskeletal Musculoskeletal: Reports as per HPI and Denies back pain Integumentary/Breasts Skin/Breast: Reports as per HPI and Denies rash Neurologic Neurologic: Reports as per HPI, Denies dizziness and Denies headache(s) Allergic/Immunologic Allergic/Immunologic: Denies wheezing PFSH <GRETCHEN Cool - Last Filed: 09/13/20 18:57> Medical History Abnormal CT of the chest Adenomatous colon polyp (01/13/12) tubular adenoma [facility] 01/05/06, rpt 5 yr Arteriosclerotic cardiovascular disease (ASCVD) (01/13/12) CABG 1989; s/p stents 1999, 2004. 09/09/18-Stress Echocardiogram [facility]. DC .. failed interventional Tx 2' obstruction (scarring?).. Rx Benign neoplasm of colon (01/13/12) tubular adenoma [facility] 01/05/06, rpt 5 yr CAD (coronary artery disease) Chest pain of uncertain etiology Painlevel 2-10/26 x 2-3 weeks .. Hx abd aneurysm, so may need to r/o vasc path. Chronic coughing ? due to vagal nerve irritation? Chronic steroid use completed steroids, d/c 11/2019 COPD (chronic obstructive pulmonary disease) (~08/09/18) Mild. PFT (Pulm, [facility], 08/08/18). Need another PFT, post lung resection [ ] 11/10/18 COVID-19 ruled out by laboratory testing DVT prophylaxis Fatigue due to radiation therapy Foot fracture, right (10/2018) XR showing possible Fx, non-displaced [ ] CT recomm. Gastroesophageal reflux disease without esophagitis (01/26/06) EGD [facility]: GERD: This is well-controlled with daily PPI. 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 04/14/18 Flexible Fiberoptic Laryngoscopy- No evidence of recurrance or second primary Marijuana use helps with sleep; offsets steroid insomnia MSSA bacteremia (~03/2020) Superficial UE thrombophlebitis of left cephalic vein PIC Line 04/09/20 [facility] .. PICC removed 04/2020 @ [facility]. 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 Recurrent cancer 05/2020: New RT lesion; New LFT lesion (IN SCAR) .. Severe pain Shortness of breath LUNG CA ID'd .. now s/p surgery 10/2018. > Severe dyspnea .. with report of intolerance and feeling worse after some of his albuterol inhaler attempts .. Prompted to call ambulance for ED eval 2' possible reaction, tachy with NEB Tx. Sent to Ed, appreciate attention. NEB, CXR, Labs .. Smoker unmotivated to quit (04/12/14) >50 pack years, despite CAD and Laryngeal cancer; QUIT SMOKING POST DYSPNEIC EPISODE 06/2018.... Type 2 diabetes mellitus Dx @ [facility] admission, 02/2020. Unresponsive episode Surgical History Endoleak post (EVAR) endovascular aneurysm repair (11/30/18) endovascular repair AAA (03/07/13) Dr Dsouza, [facility], yearly f/u with [facility]A History of throat surgery S/P CABG x 4 S/P lobectomy of lung (~09/21/18) Status post radiation therapy 25 tx; Dr Trammell, rad-onc; stopped 04/06 Family History Mother , kidney failure at age 78. Renal disease Son No problems noted. Son No problems noted. 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 What is your relationship status?: How often do you talk on the phone with friends or family?: twice per week How often do you get together with friends or relatives?: twice per week Panel score (0-1 are the most socially isolated patients): 2 What type of physical activity do you participate in: walking and irregular exercise Duration: < 15 minutes/day Special mattie needs: No Seatbelt use: always Working smoke detector in home: Yes Carbon monox detector in home: Yes Do you feel safe at home: Yes Do you feel safe in your relationship?: Yes Additional Social history: Patient is , with 2 children. 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 Lengthy and significant history of tobacco abuse, with approximate 100+ pack year history of smoking, quit June 2018. Denies any alcohol use. Patient does admit to use of THC type products for medicinal purposes. Exam <GRETCHEN Cool - Last Filed: 09/13/20 18:57> Const General: cooperative, healthy appearing, comfortable, no acute distress and well developed Nutritional Appearance: average body habitus and well nourished Orientation: alert, awake and oriented x3 HENMT Head: normal to inspection Ears: hearing grossly normal bilaterally Mouth: moist mucous membranes Chest Chest: normal inspection of the chest, normal palpation of entire chest wall, no crepitus and other (well healed midline incision) Resp Effort & Inspection: normal respiratory effort, able to speak in complete sentences and no respiratory distress Auscultation: clear to auscultation bilaterally, no rales, no rhonchi and no wheezes Cardio Rate: regular rate Rhythm: regular rhythm Heart Sounds: S1 normal and S2 normal GI Inspection: normal to inspection, no edema and non-distended Palpation: soft, no hepatosplenomegaly, not firm, no guarding, not rigid and nontender Auscultation: normal bowel sounds Back/Spine/Pelvis Back: no CVA tenderness Thoracic/Lumbar Spine: thoracic and lumbar spine normal to inspection Skin General skin exam: no rashes or lesions noted Trauma: no lacerations or abrasions Neuro General: patient alert, patient awake and patient oriented x3 Cognition: normal cognition Speech: speech normal Gait: normal gait Extrem General: normal to inspection, capillary refill normal, no pedal edema, no calf tenderness and normal gait Psych Appearance: grossly normal and well kempt Mental Status: mental status grossly normal Speech and Movement: speech and movement normal Sign Out <GRETCHEN Cool - Last Filed: 09/13/20 18:57> Sign Out Data: Sign Out Comment: At the end of my shift, care transition to Dr. Matthew with repeat troponin pending. Patient has been asymptomatic since arriving to the ED tonight. If negative, patient requesting to be discharged home. Patient will need prompt follow-up with cardiology and/or primary care. Last updated by Natasha Kowalski PA at 09/12/20 00:17
--- NOTE | 2020-09-11 22:15 | DI.RAD_ITS ---
EXAM: XR CHEST 2V PA LATERAL CLINICAL HISTORY: CP. TECHNIQUE: 2D digital imaging was performed. COMPARISON: CR,XR XR PORTABLE CHEST AP from 09/10/2020 FINDINGS: Heart size unchanged. Sternotomy wires again noted. Postsurgical changes in the left lung as well as infiltrate extending from the hilum out to the pleur al surface unchanged from yesterday. The size of the left pleural effusion and pleural scarring is u nchanged. There appears to be new infiltrate in the lateral right lung base. No pleural effusion on the right IMPRESSION: Appearance of the left hemithorax is stable but there is new infiltrate in the lateral right lung bas e. Study 1st read by [facility]. My final report called by myself to the ER physician 09/12/2020 8:15 a.m. DATA REPOSITORY: RADIATION DOSE DELIVERED:
[2020-09-11 22:33] LABS: Abs Immature Grans 0.02 10^3/uL (0.0-0.06); Absolute Basophil Count 0.04 10^3/uL (0.0-0.2); Absolute Eosinophil Count 0.12 10^3/uL (0.0-0.7); Absolute Lymphocyte Count 1.07 10^3/uL (1.2-3.4); Absolute Monocyte Count 0.36 10^3/uL (0.1-0.8); Absolute Neutrophil Count 2.92 10^3/uL (1.2-6.7); Basophils % 0.9; Eosinophils % 2.6; HCT 35.9 % (40.0-50.0); HGB 11.7 g/dL (13.5-17.5); Immature Grans % 0.4; Lymphocytes % 23.6; MCH 28.2 pg (27.0-33.0); MCHC 32.6 % (32.0-36.0); MCV 86.5 fL (80-95); MPV 10.1 fL (8.0-11.0); Monocytes % 7.9; Neutrophils % 64.6; Nucleated RBC 0 %; Platelet Count 134 10^3/uL (130-400); RBC 4.15 10^6/uL (4.36-5.78); RDW 16.3 % (11.8-14.1); RDW-SD 50.6 fL; WBC 4.53 10^3/uL (4.4-10.8)
[2020-09-11] MEDS: Aspirin 81 MG CHEW 243 MG CH (22:48)
[2020-09-11 22:49] LABS: ALT 27 U/L (16-63); AST 16 U/L (15-37); Albumin 3.3 g/dL (3.4-5.0); Alkaline Phosphatase 104 U/L (46-116); Anion Gap 7.5 mmol/L (3-11); BUN 18 mg/dL (7-18); Bilirubin, Total 0.3 mg/dL (0.2-1.0); CO2 26.5 mmol/L (21.0-32.0); CREATININE 1.1 mg/dL (0.70-1.30); Calcium 8.7 mg/dL (8.5-10.1); Chloride 105 mmol/L (98-107); Glucose 142 mg/dL (74-106); Magnesium 1.8 mg/dL (1.8-2.4); Potassium 4.3 mmol/L (3.5-5.1); Sodium 139 mmol/L (136-145); Troponin I < 0.05 ng/mL (<0.06)
[2020-09-11 22:52] LABS: PTT Activated 26.1 sec (21.0-27.5); Prothrombin Time 9.8 sec (9.3-11.0)
--- NOTE | 2020-09-11 23:01 | DI.VRAD_ITS ---
PROCEDURE INFORMATION: Exam: XR Chest, 2 Views Exam date and time: 09/11/2020 10:22 PM Age: 70 years old Clinical indication: Chest pain; Type not specified; Prior surgery; Surgery type: Partial pneumonectomy TECHNIQUE: Imaging protocol: XR of the chest Views: 2 views. COMPARISON: CR XR PORTABLE CHEST AP 09/10/2020 2:49 AM FINDINGS: Lungs: See Pleural spaces finding. Pleural spaces: Thickened left-sided pleural surfaces and or loculated pleural fluid noted. Diffuse decreased attenuation of the left lung noted. Patchy opacities in the left upper lobe may reflect atelectasis and or scarring. Superior retraction of hilum. Pneumonia not excluded. Findings grossly stable when compared with the prior study.. Heart/Mediastinum: Unremarkable. No cardiomegaly. Bones/joints: Unremarkable. IMPRESSION: Thickened left-sided pleural surfaces and or loculated pleural fluid noted. Diffuse decreased attenuation of the left lung noted. Patchy opacities in the left upper lobe may reflect atelectasis and or scarring. Superior retraction of hilum. Pneumonia not excluded. Findings grossly stable when compared with the prior study.. Dictated and Authenticated by: Bartolo Taylor MD. Ordering:MAYNOR Kaur MD
[2020-09-12] VITALS (32 sets, daily range): BP systolic 103–129; BP diastolic 61–88; PULSE 77–106; RESP 17–28; O2SAT 94–95
--- NOTE | 2020-09-12 02:00 | RT.EKG_ITS ---
APPROVED REPORT Exam: Resting ECG Patient Location: E HR:81 bpm ECG Measurements Heart Rate 81 AXIS FL 217 P 46 QRSd 109 QRS -16 QT 412 T 68 QTc 480 Conclusion Sinus rhythm...normal P axis, V-rate 60- 99 Borderline prolonged FL interval...FL >212, V-rate 50- 90 Low voltage, precordial leads...precordial leads <1.0mV There are no significant changes compared to prior EKG performed on 09/11/2020 at 22:17.
[2020-09-12 02:40] LABS: Troponin I < 0.05 ng/mL (<0.06)
== END 2020-09-12 03:12 | disposition home or self-care (01) ==
PROVIDERS: Physician Assistant; Emergency Provider Emergency Medicine; PCP Student in an Organized Health Care Education/Training Program
DX: R07.89 Other chest pain (principal); I25.10 Atherosclerotic heart disease of native coronary artery without angina pectoris; E11.9 Type 2 diabetes mellitus without complications; Z79.84 Long term (current) use of oral hypoglycemic drugs; I10 Essential (primary) hypertension; J44.9 Chronic obstructive pulmonary disease, unspecified; Z87.891 Personal history of nicotine dependence
CPT/HCPCS: 80053; 93005; 99284; 71046; 83735; 84484; 85025; 85610; 85730; 93010

== ENCOUNTER → 2020-09-16 10:13 | Outpatient (BNVA) | payer MEDICARE, BC, SELFPAY | PROVIDERS: PCP Student in an Organized Health Care Education/Training Program; Referring Provider Student in an Organized Health Care Education/Training Program; Visit Provider Internal Medicine Cardiovascular Disease | DX: I82.409 Acute embolism and thrombosis of unspecified deep veins of unspecified lower extremity (principal); R07.89 Other chest pain; I25.10 Atherosclerotic heart disease of native coronary artery without angina pectoris; J44.9 Chronic obstructive pulmonary disease, unspecified; I10 Essential (primary) hypertension; Z95.5 Presence of coronary angioplasty implant and graft; C34.90 Malignant neoplasm of unspecified part of unspecified bronchus or lung; Z79.899 Other long term (current) drug therapy | CPT/HCPCS: 99214 ==

== ENCOUNTER 2020-10-14 02:57 | Outpatient (RCR) | payer MEDICARE, BC, SELFPAY ==
[2020-09-23] MEDS: Normal Saline Flush 10 ML SYR IVP (10:17)
[2020-09-23 10:22] LABS: Abs Immature Grans 0.04 10^3/uL (0.0-0.06); Absolute Basophil Count 0.06 10^3/uL (0.0-0.2); Absolute Eosinophil Count 0.15 10^3/uL (0.0-0.7); Absolute Lymphocyte Count 1.02 10^3/uL (1.2-3.4); Absolute Monocyte Count 0.93 10^3/uL (0.1-0.8); Absolute Neutrophil Count 2.45 10^3/uL (1.2-6.7); Basophils % 1.3; Eosinophils % 3.2; HCT 37.6 % (40.0-50.0); HGB 12.1 g/dL (13.5-17.5); Immature Grans % 0.9; Lymphocytes % 21.9; MCH 28.3 pg (27.0-33.0); MCHC 32.2 % (32.0-36.0); MCV 88.1 fL (80-95); MPV 9.7 fL (8.0-11.0); Neutrophils % 52.7; Nucleated RBC 0 %; Platelet Count 166 10^3/uL (130-400); RBC 4.27 10^6/uL (4.36-5.78); RDW 17.9 % (11.8-14.1); RDW-SD 56.4 fL; WBC 4.65 10^3/uL (4.4-10.8)
[2020-09-23 10:44] LABS: ALT 31 U/L (16-63); AST 14 U/L (15-37); Albumin 3.1 g/dL (3.4-5.0); Alkaline Phosphatase 103 U/L (46-116); Anion Gap 8.8 mmol/L (3-11); BUN 24 mg/dL (7-18); Bilirubin, Total 0.4 mg/dL (0.2-1.0); CO2 25.2 mmol/L (21.0-32.0); CREATININE 1.3 mg/dL (0.70-1.30); Calcium 8.6 mg/dL (8.5-10.1); Chloride 105 mmol/L (98-107); Estimated GFR 54.26 (mL/min/1.73m2); FREE T4 1.03 ng/dL (0.76-1.46); Glucose 166 mg/dL (74-106); Magnesium 1.6 mg/dL (1.8-2.4); Potassium 4.6 mmol/L (3.5-5.1); Sodium 139 mmol/L (136-145); TSH 0.28 uIU/mL (0.36-3.74); Total Protein 6.8 g/dL (6.4-8.2)
[2020-09-30 12:41] LABS: Abs Immature Grans 0.03 10^3/uL (0.0-0.06); Absolute Basophil Count 0.06 10^3/uL (0.0-0.2); Absolute Eosinophil Count 0.09 10^3/uL (0.0-0.7); Absolute Lymphocyte Count 1.18 10^3/uL (1.2-3.4); Absolute Monocyte Count 0.58 10^3/uL (0.1-0.8); Basophils % 0.8; Eosinophils % 1.3; HCT 35.5 % (40.0-50.0); HGB 11.9 g/dL (13.5-17.5); Immature Grans % 0.4; Lymphocytes % 16.5; MCH 28.8 pg (27.0-33.0); MCHC 33.5 % (32.0-36.0); MPV 9.9 fL (8.0-11.0); Monocytes % 8.1; Neutrophils % 72.9; Nucleated RBC 0 %; Platelet Count 155 10^3/uL (130-400); RBC 4.13 10^6/uL (4.36-5.78); RDW 17.1 % (11.8-14.1); RDW-SD 53.1 fL; WBC 7.14 10^3/uL (4.4-10.8)
[2020-09-30] MEDS: Normal Saline Flush 10 ML SYR IVP (12:47)
[2020-09-30 12:53] LABS: ALT 30 U/L (16-63); AST 24 U/L (15-37); Albumin 3.2 g/dL (3.4-5.0); Alkaline Phosphatase 97 U/L (46-116); Anion Gap 12.9 mmol/L (3-11); BUN 20 mg/dL (7-18); Bilirubin, Total 0.4 mg/dL (0.2-1.0); CO2 22.1 mmol/L (21.0-32.0); CREATININE 1.3 mg/dL (0.70-1.30); Calcium 8.8 mg/dL (8.5-10.1); Chloride 102 mmol/L (98-107); Estimated GFR 54.26 (mL/min/1.73m2); Glucose 174 mg/dL (74-106); Potassium 4.6 mmol/L (3.5-5.1); Sodium 137 mmol/L (136-145); Total Protein 6.9 g/dL (6.4-8.2)
[2020-09-30 17:20] LABS: TSH (W/Ref FT4) 0.45 uIU/mL (0.36-3.74)
[2020-10-14] MEDS: Normal Saline Flush 10 ML SYR IVP (10:21)
[2020-10-14 10:35] LABS: Abs Immature Grans 0.04 10^3/uL (0.0-0.06); Absolute Basophil Count 0.05 10^3/uL (0.0-0.2); Absolute Eosinophil Count 0.14 10^3/uL (0.0-0.7); Absolute Monocyte Count 0.91 10^3/uL (0.1-0.8); Absolute Neutrophil Count 3.45 10^3/uL (1.2-6.7); Basophils % 0.9; Eosinophils % 2.5; HCT 37.2 % (40.0-50.0); HGB 12.1 g/dL (13.5-17.5); Immature Grans % 0.7; Lymphocytes % 19.3; MCH 29.1 pg (27.0-33.0); MCHC 32.5 % (32.0-36.0); MCV 89.4 fL (80-95); MPV 10.1 fL (8.0-11.0); Neutrophils % 60.6; Nucleated RBC 0 %; Platelet Count 156 10^3/uL (130-400); RBC 4.16 10^6/uL (4.36-5.78); RDW-SD 61.8 fL; WBC 5.69 10^3/uL (4.4-10.8)
[2020-10-14 10:54] LABS: ALT 28 U/L (16-63); AST 16 U/L (15-37); Albumin 3.4 g/dL (3.4-5.0); Alkaline Phosphatase 105 U/L (46-116); Anion Gap 10.5 mmol/L (3-11); BUN 19 mg/dL (7-18); Bilirubin, Total 0.4 mg/dL (0.2-1.0); CO2 25.5 mmol/L (21.0-32.0); CREATININE 1.3 mg/dL (0.70-1.30); Calcium 9.5 mg/dL (8.5-10.1); Chloride 102 mmol/L (98-107); Estimated GFR 54.26 (mL/min/1.73m2); FREE T4 1.24 ng/dL (0.76-1.46); Glucose 113 mg/dL (74-106); Magnesium 1.7 mg/dL (1.8-2.4); Potassium 4.1 mmol/L (3.5-5.1); Sodium 138 mmol/L (136-145); TSH 0.24 uIU/mL (0.36-3.74); Total Protein 7.1 g/dL (6.4-8.2)
== END 2020-10-16 23:59 | disposition home or self-care (01) ==
LOC: INF 02:57
PROVIDERS: PCP Student in an Organized Health Care Education/Training Program; Visit Provider Internal Medicine Medical Oncology
DX: E78.5 Hyperlipidemia, unspecified (principal); Z79.899 Other long term (current) drug therapy; C34.82 Malignant neoplasm of overlapping sites of left bronchus and lung
CPT/HCPCS: 36415; 80053; 83735; 84439; 84443; 85025

== ENCOUNTER 2020-10-26 13:56 | Outpatient (REF) | payer MEDICARE, BC, SELFPAY ==
[2020-10-26 16:57] LABS: C Diff PCR Negative (Negative)
== END 2020-10-26 13:57 | disposition home or self-care (01) ==
LOC: LBN 13:56
PROVIDERS: PCP Student in an Organized Health Care Education/Training Program; Visit Provider Internal Medicine Medical Oncology
DX: R19.7 Diarrhea, unspecified (principal)
CPT/HCPCS: 87493; 87324

== ENCOUNTER 2020-11-04 02:33 | Outpatient (RCR) | payer MEDICARE, BC, SELFPAY ==
[2020-10-21] MEDS: Normal Saline Flush 10 ML SYR IVP (10:13)
[2020-10-21 10:19] LABS: Abs Immature Grans 0.05 10^3/uL (0.0-0.06); Absolute Basophil Count 0.09 10^3/uL (0.0-0.2); Absolute Eosinophil Count 0.11 10^3/uL (0.0-0.7); Absolute Lymphocyte Count 1.24 10^3/uL (1.2-3.4); Absolute Monocyte Count 0.57 10^3/uL (0.1-0.8); Absolute Neutrophil Count 4.74 10^3/uL (1.2-6.7); Basophils % 1.3; Eosinophils % 1.6; HCT 37.1 % (40.0-50.0); HGB 12.3 g/dL (13.5-17.5); Immature Grans % 0.7; Lymphocytes % 18.2; MCHC 33.2 % (32.0-36.0); MCV 87.5 fL (80-95); MPV 9.9 fL (8.0-11.0); Monocytes % 8.4; Neutrophils % 69.8; Nucleated RBC 0 %; Platelet Count 129 10^3/uL (130-400); RBC 4.24 10^6/uL (4.36-5.78); RDW 17.9 % (11.8-14.1); RDW-SD 57.3 fL
[2020-10-21 10:31] LABS: ALT 33 U/L (16-63); AST 15 U/L (15-37); Albumin 3.8 g/dL (3.4-5.0); Alkaline Phosphatase 103 U/L (46-116); Anion Gap 12.9 mmol/L (3-11); BUN 25 mg/dL (7-18); Bilirubin, Total 0.5 mg/dL (0.2-1.0); CO2 25.1 mmol/L (21.0-32.0); CREATININE 1.4 mg/dL (0.70-1.30); Calcium 9.7 mg/dL (8.5-10.1); Chloride 100 mmol/L (98-107); Estimated GFR 49.82 (mL/min/1.73m2); Glucose 149 mg/dL (74-106); Potassium 3.8 mmol/L (3.5-5.1); Sodium 138 mmol/L (136-145); Total Protein 7.5 g/dL (6.4-8.2)
[2020-11-04] MEDS: Normal Saline Flush 10 ML SYR IVP (10:10)
[2020-11-04 10:27] LABS: Abs Immature Grans 0.02 10^3/uL (0.0-0.06); Absolute Basophil Count 0.06 10^3/uL (0.0-0.2); Absolute Eosinophil Count 0.14 10^3/uL (0.0-0.7); Absolute Lymphocyte Count 1.15 10^3/uL (1.2-3.4); Absolute Neutrophil Count 3.45 10^3/uL (1.2-6.7); Eosinophils % 2.4; HCT 38.2 % (40.0-50.0); HGB 12.4 g/dL (13.5-17.5); Immature Grans % 0.3; Lymphocytes % 19.8; MCH 29.7 pg (27.0-33.0); MCHC 32.5 % (32.0-36.0); MCV 91.4 fL (80-95); MPV 10.2 fL (8.0-11.0); Monocytes % 17.2; Neutrophils % 59.3; Nucleated RBC 0 %; Platelet Count 129 10^3/uL (130-400); RBC 4.18 10^6/uL (4.36-5.78); RDW-SD 66.5 fL; WBC 5.82 10^3/uL (4.4-10.8)
[2020-11-04 10:41] LABS: ALT 28 U/L (16-63); AST 17 U/L (15-37); Albumin 3.7 g/dL (3.4-5.0); Alkaline Phosphatase 86 U/L (46-116); BUN 17 mg/dL (7-18); Bilirubin, Total 0.4 mg/dL (0.2-1.0); CREATININE 1.4 mg/dL (0.70-1.30); Calcium 9.6 mg/dL (8.5-10.1); Chloride 104 mmol/L (98-107); Estimated GFR 49.82 (mL/min/1.73m2); Glucose 130 mg/dL (74-106); Magnesium 1.7 mg/dL (1.8-2.4); Potassium 4.2 mmol/L (3.5-5.1); Sodium 140 mmol/L (136-145); TSH 0.25 uIU/mL (0.36-3.74); Total Protein 7.2 g/dL (6.4-8.2)
== END 2020-11-15 23:59 | disposition home or self-care (01) ==
LOC: INF 02:33
PROVIDERS: PCP Student in an Organized Health Care Education/Training Program; Visit Provider Internal Medicine Medical Oncology
DX: C34.82 Malignant neoplasm of overlapping sites of left bronchus and lung (principal); Z79.899 Other long term (current) drug therapy
CPT/HCPCS: 36415; 80053; 83735; 84439; 84443; 85025

== ENCOUNTER → 2020-11-14 10:29 | Outpatient (BNVA) | payer MEDICARE, BC, SELFPAY | PROVIDERS: PCP Student in an Organized Health Care Education/Training Program; Referring Provider Student in an Organized Health Care Education/Training Program; Visit Provider Internal Medicine Cardiovascular Disease | DX: I21.4 Non-ST elevation (NSTEMI) myocardial infarction (principal); R07.89 Other chest pain; I25.10 Atherosclerotic heart disease of native coronary artery without angina pectoris; E11.9 Type 2 diabetes mellitus without complications; I10 Essential (primary) hypertension; C34.90 Malignant neoplasm of unspecified part of unspecified bronchus or lung; Z79.899 Other long term (current) drug therapy | CPT/HCPCS: 99214 ==

== ENCOUNTER 2020-12-09 01:34 | Outpatient (RCR) | payer MEDICARE, BC, SELFPAY ==
[2020-11-18 12:48] LABS: Abs Immature Grans 0.04 10^3/uL (0.0-0.06); Absolute Basophil Count 0.09 10^3/uL (0.0-0.2); Absolute Eosinophil Count 0.34 10^3/uL (0.0-0.7); Absolute Lymphocyte Count 1.25 10^3/uL (1.2-3.4); Absolute Monocyte Count 1.17 10^3/uL (0.1-0.8); Absolute Neutrophil Count 5.82 10^3/uL (1.2-6.7); Eosinophils % 3.9; HCT 37.9 % (40.0-50.0); HGB 12.4 g/dL (13.5-17.5); Immature Grans % 0.5; Lymphocytes % 14.4; MCH 30.5 pg (27.0-33.0); MCHC 32.7 % (32.0-36.0); MCV 93.1 fL (80-95); MPV 9.9 fL (8.0-11.0); Monocytes % 13.4; Neutrophils % 66.8; Nucleated RBC 0 %; Platelet Count 158 10^3/uL (130-400); RBC 4.07 10^6/uL (4.36-5.78); RDW 18.6 % (11.8-14.1); RDW-SD 63.8 fL; WBC 8.71 10^3/uL (4.4-10.8)
[2020-11-18] MEDS: Normal Saline Flush 10 ML SYR IVP (12:52)
[2020-11-18 13:17] LABS: ALT 27 U/L (16-63); AST 16 U/L (15-37); Albumin 3.6 g/dL (3.4-5.0); Alkaline Phosphatase 88 U/L (46-116); BUN 22 mg/dL (7-18); Bilirubin, Total 0.3 mg/dL (0.2-1.0); CREATININE 1.2 mg/dL (0.70-1.30); Calcium 9.4 mg/dL (8.5-10.1); Chloride 103 mmol/L (98-107); Estimated GFR 59.51 (mL/min/1.73m2); FREE T4 1.11 ng/dL (0.76-1.46); Glucose 138 mg/dL (74-106); Magnesium 1.5 mg/dL (1.8-2.4); Potassium 3.9 mmol/L (3.5-5.1); Sodium 142 mmol/L (136-145); TSH 0.22 uIU/mL (0.36-3.74); Total Protein 7.4 g/dL (6.4-8.2)
[2020-12-09 12:47] LABS: Abs Immature Grans 0.03 10^3/uL (0.0-0.06); Absolute Eosinophil Count 0.84 10^3/uL (0.0-0.7); Absolute Lymphocyte Count 1.25 10^3/uL (1.2-3.4); Absolute Neutrophil Count 4.51 10^3/uL (1.2-6.7); Basophils % 1.3; Eosinophils % 10.6; HCT 37.9 % (40.0-50.0); HGB 12.3 g/dL (13.5-17.5); Immature Grans % 0.4; Lymphocytes % 15.8; MCH 29.5 pg (27.0-33.0); MCHC 32.5 % (32.0-36.0); MCV 90.9 fL (80-95); MPV 9.5 fL (8.0-11.0); Monocytes % 15.1; Neutrophils % 56.8; Nucleated RBC 0 %; Platelet Count 199 10^3/uL (130-400); RBC 4.17 10^6/uL (4.36-5.78); RDW 16.1 % (11.8-14.1); RDW-SD 54.9 fL; WBC 7.93 10^3/uL (4.4-10.8)
[2020-12-09] MEDS: Normal Saline Flush 10 ML SYR IVP (12:48)
[2020-12-09 12:59] LABS: ALT 37 U/L (16-63); AST 22 U/L (15-37); Albumin 3.2 g/dL (3.4-5.0); Alkaline Phosphatase 109 U/L (46-116); Anion Gap 10.5 mmol/L (3-11); BUN 23 mg/dL (7-18); Bilirubin, Total 0.4 mg/dL (0.2-1.0); CO2 27.5 mmol/L (21.0-32.0); CREATININE 1.2 mg/dL (0.70-1.30); Calcium 9.4 mg/dL (8.5-10.1); Chloride 101 mmol/L (98-107); Estimated GFR 59.51 (mL/min/1.73m2); Glucose 167 mg/dL (74-106); Magnesium 1.6 mg/dL (1.8-2.4); Potassium 3.9 mmol/L (3.5-5.1); Sodium 139 mmol/L (136-145); Total Protein 7.5 g/dL (6.4-8.2)
== END 2020-12-16 23:59 | disposition home or self-care (01) ==
LOC: INF 01:34
PROVIDERS: PCP Student in an Organized Health Care Education/Training Program; Visit Provider Internal Medicine Medical Oncology
DX: C34.82 Malignant neoplasm of overlapping sites of left bronchus and lung (principal); R42 Dizziness and giddiness; Z79.899 Other long term (current) drug therapy
CPT/HCPCS: 36415; 36591; 80053; 83735; 84439; 84443; 85025

== ENCOUNTER 2021-01-13 02:49 | Outpatient (RCR) | payer MEDICARE, BC, SELFPAY ==
[2020-12-30] MEDS: Normal Saline Flush 10 ML SYR IVP (12:14)
[2020-12-30 12:19] LABS: Abs Immature Grans 0.06 10^3/uL (0.0-0.06); Absolute Eosinophil Count 0.87 10^3/uL (0.0-0.7); Absolute Lymphocyte Count 1.46 10^3/uL (1.2-3.4); Absolute Monocyte Count 1.22 10^3/uL (0.1-0.8); Eosinophils % 8.6; HCT 39.9 % (40.0-50.0); HGB 12.7 g/dL (13.5-17.5); Immature Grans % 0.6; Lymphocytes % 14.4; MCH 29.3 pg (27.0-33.0); MCHC 31.8 % (32.0-36.0); MCV 91.9 fL (80-95); MPV 9.5 fL (8.0-11.0); Monocytes % 12.1; Neutrophils % 63.3; Nucleated RBC 0 %; Platelet Count 217 10^3/uL (130-400); RBC 4.34 10^6/uL (4.36-5.78); RDW 15.5 % (11.8-14.1); WBC 10.11 10^3/uL (4.4-10.8)
[2020-12-30 12:32] LABS: ALT 31 U/L (16-63); AST 18 U/L (15-37); Albumin 3.2 g/dL (3.4-5.0); Alkaline Phosphatase 99 U/L (46-116); BUN 20 mg/dL (7-18); Bilirubin, Total 0.3 mg/dL (0.2-1.0); CREATININE 1.5 mg/dL (0.70-1.30); Calcium 9.4 mg/dL (8.5-10.1); Chloride 102 mmol/L (98-107); Glucose 144 mg/dL (74-106); Magnesium 1.7 mg/dL (1.8-2.4); Potassium 4.2 mmol/L (3.5-5.1); Sodium 140 mmol/L (136-145); Total Protein 7.1 g/dL (6.4-8.2)
[2021-01-13] MEDS: Normal Saline Flush 10 ML SYR IVP (07:49)
[2021-01-13 07:51] LABS: Abs Immature Grans 0.08 10^3/uL (0.0-0.06); Absolute Eosinophil Count 0.64 10^3/uL (0.0-0.7); Absolute Monocyte Count 1.09 10^3/uL (0.1-0.8); Absolute Neutrophil Count 7.59 10^3/uL (1.2-6.7); Basophils % 0.9; Eosinophils % 5.5; HCT 43.2 % (40.0-50.0); HGB 13.8 g/dL (13.5-17.5); Immature Grans % 0.7; Lymphocytes % 18.2; MCH 29.1 pg (27.0-33.0); MCHC 31.9 % (32.0-36.0); MCV 90.9 fL (80-95); Monocytes % 9.4; Neutrophils % 65.3; Nucleated RBC 0 %; Platelet Count 221 10^3/uL (130-400); RBC 4.75 10^6/uL (4.36-5.78); RDW 15.3 % (11.8-14.1); RDW-SD 51.2 fL; WBC 11.62 10^3/uL (4.4-10.8)
[2021-01-13 07:54] LABS: Absolute Lymphocyte Count 2.11 10^3/uL (1.2-3.4)
[2021-01-13 08:16] LABS: ALT 25 U/L (16-63); AST 15 U/L (15-37); Albumin 3.3 g/dL (3.4-5.0); Alkaline Phosphatase 90 U/L (46-116); Anion Gap 10.9 mmol/L (3-11); BUN 22 mg/dL (7-18); Bilirubin, Total 0.4 mg/dL (0.2-1.0); CO2 25.1 mmol/L (21.0-32.0); CREATININE 1.4 mg/dL (0.70-1.30); Calcium 9.6 mg/dL (8.5-10.1); Chloride 103 mmol/L (98-107); Estimated GFR 49.82 (mL/min/1.73m2); Glucose 143 mg/dL (74-106); Magnesium 1.8 mg/dL (1.8-2.4); Potassium 4.3 mmol/L (3.5-5.1); Sodium 139 mmol/L (136-145); Total Protein 7.5 g/dL (6.4-8.2)
[2021-01-13 08:55] LABS: FREE T4 1.11 ng/dL (0.76-1.46); TSH 1.01 uIU/mL (0.36-3.74)
== END 2021-01-15 23:59 | disposition home or self-care (01) ==
LOC: INF 02:49
PROVIDERS: PCP Student in an Organized Health Care Education/Training Program; Visit Provider Internal Medicine Medical Oncology
DX: C34.82 Malignant neoplasm of overlapping sites of left bronchus and lung (principal); Z79.899 Other long term (current) drug therapy; Z45.2 Encounter for adjustment and management of vascular access device
CPT/HCPCS: 36591; 80053; 83735; 84439; 84443; 85025

== ENCOUNTER 2021-02-03 02:13 | Outpatient (RCR) | payer MEDICARE, BC, SELFPAY ==
[2021-01-22] MEDS: Normal Saline Flush 10 ML SYR IVP (07:33)
[2021-01-22 07:47] LABS: Abs Immature Grans 0.04 10^3/uL (0.0-0.06); Absolute Basophil Count 0.08 10^3/uL (0.0-0.2); Absolute Eosinophil Count 0.56 10^3/uL (0.0-0.7); Absolute Lymphocyte Count 1.05 10^3/uL (1.2-3.4); Absolute Monocyte Count 0.67 10^3/uL (0.1-0.8); Absolute Neutrophil Count 5.13 10^3/uL (1.2-6.7); Basophils % 1.1; Eosinophils % 7.4; HGB 11.1 g/dL (13.5-17.5); Immature Grans % 0.5; Lymphocytes % 13.9; MCH 29.4 pg (27.0-33.0); MCHC 31.7 % (32.0-36.0); MCV 92.6 fL (80-95); MPV 10.3 fL (8.0-11.0); Monocytes % 8.9; Neutrophils % 68.2; Nucleated RBC 0 %; Platelet Count 141 10^3/uL (130-400); RBC 3.78 10^6/uL (4.36-5.78); RDW 14.7 % (11.8-14.1); RDW-SD 49.5 fL; WBC 7.53 10^3/uL (4.4-10.8)
[2021-01-22 08:06] LABS: ALT 27 U/L (16-63); AST 12 U/L (15-37); Albumin 2.9 g/dL (3.4-5.0); Alkaline Phosphatase 88 U/L (46-116); Anion Gap 11.4 mmol/L (3-11); BUN 24 mg/dL (7-18); Bilirubin, Total 0.2 mg/dL (0.2-1.0); CO2 24.6 mmol/L (21.0-32.0); CREATININE 1.4 mg/dL (0.70-1.30); Calcium 8.5 mg/dL (8.5-10.1); Chloride 104 mmol/L (98-107); Estimated GFR 49.82 (mL/min/1.73m2); Glucose 165 mg/dL (74-106); Magnesium 1.2 mg/dL (1.8-2.4); Sodium 140 mmol/L (136-145); Total Protein 6.3 g/dL (6.4-8.2)
[2021-02-03] MEDS: Normal Saline Flush 10 ML SYR IVP (07:44)
[2021-02-03 07:52] LABS: Absolute Basophil Count 0.06 10^3/uL (0.0-0.2); Absolute Eosinophil Count 0.12 10^3/uL (0.0-0.7); Absolute Neutrophil Count 7.61 10^3/uL (1.2-6.7); Basophils % 0.6; Eosinophils % 1.2; HGB 13.2 g/dL (13.5-17.5); MCH 29.1 pg (27.0-33.0); MCV 88.3 fL (80-95); MPV 10.3 fL (8.0-11.0); Neutrophils % 76.2; Nucleated RBC 0 %; Platelet Count 152 10^3/uL (130-400); RBC 4.53 10^6/uL (4.36-5.78); RDW-SD 47.8 fL; WBC 9.99 10^3/uL (4.4-10.8)
[2021-02-03 08:04] LABS: ALT 55 U/L (16-63); AST 28 U/L (15-37); Albumin 2.9 g/dL (3.4-5.0); Alkaline Phosphatase 115 U/L (46-116); Anion Gap 12.1 mmol/L (3-11); BUN 14 mg/dL (7-18); Bilirubin, Total 0.4 mg/dL (0.2-1.0); CO2 23.9 mmol/L (21.0-32.0); CREATININE 1.3 mg/dL (0.70-1.30); Calcium 9.1 mg/dL (8.5-10.1); Chloride 102 mmol/L (98-107); Estimated GFR 54.26 (mL/min/1.73m2); Glucose 165 mg/dL (74-106); Magnesium 1.4 mg/dL (1.8-2.4); Potassium 3.7 mmol/L (3.5-5.1); Sodium 138 mmol/L (136-145); Total Protein 7.5 g/dL (6.4-8.2)
== END 2021-02-15 23:59 | disposition home or self-care (01) ==
LOC: INF 02:13
PROVIDERS: PCP Student in an Organized Health Care Education/Training Program; Visit Provider Internal Medicine Medical Oncology
DX: C34.82 Malignant neoplasm of overlapping sites of left bronchus and lung (principal); Z45.2 Encounter for adjustment and management of vascular access device
CPT/HCPCS: 36591; 80053; 83735; 85025

== ENCOUNTER 2021-02-07 10:15 | Emergency (ER) | payer MEDICARE, BC, SELFPAY ==
[2021-02-07] VITALS (58 sets, daily range): BP systolic 102–142; BP diastolic 47–86; PULSE 67–201; RESP 15–43; TEMP 36.2; O2SAT 92–99
--- NOTE | 2021-02-07 10:00 | RT.EKG_ITS ---
APPROVED REPORT Exam: Resting ECG Reason for Exam: Chest Pain Patient Location: E HR:132 bpm ECG Measurements Heart Rate 132 AXIS IN 152 P -13 QRSd 94 QRS -16 QT 309 T 85 QTc 452 Conclusion Sinus tachycardia.
--- NOTE | 2021-02-07 10:30 | RT.EKG_ITS ---
APPROVED REPORT Exam: Resting ECG Reason for Exam: SVT Patient Location: E HR:159 bpm ECG Measurements Heart Rate 159 AXIS ME 89 P 20 QRSd 96 QRS -19 QT 311 T 82 QTc 505 Conclusion Supraventricular tachycardia...V-rate>(220-age), QRSd<120 Repolarization abnormality, prob rate related...ST dep, T neg, tachycardia
--- NOTE | 2021-02-07 10:30 | DI.RAD_ITS ---
Exam(s) XR PORTABLE CHEST AP EXAM: XR PORTABLE CHEST AP CLINICAL HISTORY: tachycardia TECHNIQUE: 2D digital imaging was performed. COMPARISON: CT CT CHEST PE CTA from 07/30/[address] CHEST PE CTA from 07/30/2020 CR,XR XR PORTABLE CHEST AP from 09/10/2020 CR,XR XR CHEST 2V PA LATERAL from 09/11/2020 CR,XR XR CHEST 2V PA LATERAL from 09/11/2020 FINDINGS: Prominent scarring is again noted in the left lung with significant volume loss related to prior left upper lobectomy. There is chronic blunting at the left costophrenic angle. There is a new infiltra te seen in the right upper lobe. Are underlying fibrotic changes. A port overlies the right chest. The tip lies in the right atrium. No right-sided effusion is seen. IMPRESSION: New infiltrate right upper lobe. Stable postsurgical changes in the left lung. DATA REPOSITORY: RADIATION DOSE DELIVERED:
[2021-02-07] MEDS: Metoprolol 5 MG/5 ML VIAL IVP (10:40)
[2021-02-07 10:45] LABS: Absolute Basophil Count 0.03 10^3/uL (0.0-0.2); Absolute Eosinophil Count 0.03 10^3/uL (0.0-0.7); Absolute Lymphocyte Count 1.47 10^3/uL (1.2-3.4); Absolute Monocyte Count 1.36 10^3/uL (0.1-0.8); Absolute Neutrophil Count 6.82 10^3/uL (1.2-6.7); Basophils % 0.3; Eosinophils % 0.3; HCT 37.2 % (40.0-50.0); HGB 12.3 g/dL (13.5-17.5); Lymphocytes % 14.8; MCH 29.1 pg (27.0-33.0); MCHC 33.1 % (32.0-36.0); MCV 87.9 fL (80-95); MPV 10.5 fL (8.0-11.0); Monocytes % 13.7; Neutrophils % 68.9; Nucleated RBC 0 %; Platelet Count 168 10^3/uL (130-400); RBC 4.23 10^6/uL (4.36-5.78); RDW-SD 48.1 fL; WBC 9.91 10^3/uL (4.4-10.8)
[2021-02-07 10:48] LABS: Lactate 2.2 mmol/L (0.6-1.4)
[2021-02-07] MEDS: Normal Saline 500 ML IV (10:50)
--- NOTE | 2021-02-07 11:04 | W.ED.GENAD ---
Discharge Plan Discharge Details Chief Complaint: Chest Pain Primary Care Provider: Danyell Burks ED Provider: Moon Adams Home Meds and New Rx's Prescriptions: No Action isosorbide mononitrate 60 mg tablet extended release 24 hr 60 mg PO DAILY Qty: 90 RF: 3 albuterol sulfate [Ventolin HFA] 90 mcg/actuation HFA aerosol inhaler 2 puff inhalation Q6H PRNRF: 0 docusate sodium [Colace] 100 mg capsule 100 mg PO BID RF: 0 prochlorperazine maleate [Compazine] 10 mg tablet 10 mg PO Q6H PRNRF: 0 pantoprazole [Protonix] 40 mg tablet,delayed release (DR/EC) 40 mg PO BID PRNRF: 0 aspirin [Adult Low Dose Aspirin] 81 mg tablet,delayed release (DR/EC) 81 mg PO DAILY RF: 0 sennosides-docusate sodium [Senna-S] 8.6-50 mg tablet 1 tab-cap PO BID RF: 0 budesonide-formoterol [Symbicort] 160-4.5 mcg/actuation HFA aerosol inhaler 2 puff inhalation DAILY RF: 0 hydromorphone 2 mg tablet See Rx Instructions PO Q4H MDD 12 PRN (Reason: pain) Qty: 90 RF: 0 TYLENOL ARTHRITIS 650 MG TABLET.ER 1,300 mg PO Q8H PRN RF: 0 nitroglycerin 0.4 mg tablet, sublingual 0.4 mg SL Q5M PRNRF: 0 Cannabidiol 5 mg PO QHS PRN (Reason: Sleep or nausea) RF: 0 Anoro Ellipta 62.5-25 mcg/actuation blister with device 1 inh inhalation DAILY RF: 0 polyethylene glycol 3350 17 gram powder in packet 17 g PO DAILY RF: 0 prednisone 20 mg tablet See Rx Instructions PO DAILY RF: 0 acetaminophen 650 mg suppository 650 mg NJ Q6H PRN (Reason: fever, mild pain) Qty: 6 RF: 0 hyoscyamine sulfate 0.125 mg tablet,disintegrating 0.125 - 0.25 mg PO Q4H PRN (Reason: secretions) Qty: 24 RF: 0 lorazepam 1 mg tablet 1 mg PO Q4H PRN (Reason: anxiety, RAMACHANDRAN or nausea) Qty: 6 RF: 5 haloperidol lactate 2 mg/mL concentrate 1 mg PO Q6H PRN (Reason: agitation) Qty: 15 RF: 0 morphine concentrate 100 mg/5 mL (20 mg/mL) solution 5 - 20 mg PO Q1-4H MDD 5 mL PRN (Reason: moderate to severe pain or shortness of breath) Qty: 30 RF: 0 prochlorperazine maleate 10 mg tablet 10 mg PO Q6H PRN (Reason: nausea and vomiting) Qty: 6 RF: 0 bisacodyl [Dulcolax (bisacodyl)] 10 mg suppository 10 mg NJ daily PRN (Reason: constipation) Qty: 2 RF: 0 hydromorphone (PF) 2 mg/mL solution 1 mg subcut Q4H MDD 30 PRN (Reason: pain) Qty: 100 RF: 0 metoprolol succinate [Toprol XL] 25 mg tablet extended release 24 hr 25 mg PO DAILY Qty: 30 RF: 2 Medical Decision Making <GRETCHEN Jung - Last Filed: 02/07/21 15:09> This 70-year-old very pleasant patient I suspect has had dysrhythmia from discontinuing his metoprolol and is experiencing a rate related non-ST elevation NJ at this time with subsequent development of CHF Initially patient was having several second runs of SVT, he was administered 5 mg of metoprolol and his rhythm normalized with occasional sinus arrhythmia Blood pressure remained stable Patient reports significant improvement in symptoms, his chest x-ray shows possible right upper lobe infiltrate however this does not appear to be new for patient, patient is not hypoxic, oxygenation 96% on room air Troponin elevated at 2.[address] elevation on EKG BNP 2599, mag 1.3, no prolongation of QTC Long discussion with patient and his and in room and also reviewed palliative care note from Dr. Sadler from yesterday and it sounds like patient is headed towards consideration of hospice status Patient adamantly declined any sort of electrical cardioversion or defibrillation, he is agreeable to IV medications for comfort She does request to speak to the palliative care physician prior to making this decision He was administered aspirin 324 and 1 dose of nitroglycerin just prior to arrival He was given 2 mg of morphine, he was supplemented with 2 g of magnesium pending palliative care evaluation Dr. Sadler unfortunately was slightly delayed in returning call of there is an error in the home system, she will be in to evaluate the patient at approximately 2 PM and patient and felt comfortable with this plan His vitals have actually been quite stable since the initial intervention, patient is alert, oriented, of decisional capacity I spent approximately 60 minutes of time in this room managing medically of this patient I did consider pulmonary embolism, abdominal aortic dissection, myocardial infarction, however patient prefers not to be evaluated for these pathologies All discussions were made in the presence of patient's who is also alert and oriented Dr. Sadler evaluate patient and will transition to hospice care, patient will be discharged home with patient controlled analgesia, son and in room, please see her documentation for additional information Given his transition to hospice status, patient was removed from cardiac monitoring, resting comfortably in room Hospice arrived at 1608 to set up patient controlled analgesia and EMS will be notified for transport when patient to be discharged home Medical Records Medical records reviewed: Yes I reviewed the patient's medical records. Lab Data Lab results reviewed: Yes I reviewed the patient's lab results. <Colin Busby MD - Last Filed: 02/07/21 12:36> Patient examined, seen [id number], discussed with Ms. Adams. I agree with her assessment and plan including consultation with palliative care. HPI <GRETCHEN Jung - Last Filed: 02/07/21 15:09> General Mode of arrival: ambulatory. Date/Time Provider Initiated Documentation: 02/07/21 10:15. Limitations to Documentation: no limitations. Information obtained by: patient. HPI Narrative: This 70-year-old gentleman with history of coronary artery disease, lung cancer with metastases, type 2 diabetes, DVT, coronary artery disease, pneumonitis, tachycardia, abdominal aortic aneurysm presents with weakness for the past 2 weeks progressing to some chest discomfort and palpitations today when he climbed up the stairs. He states the pain is been persistent since onset. He has only taken the pain medication today. He did have some mild shortness of breath with the pain but that is not significantly changed from his baseline. He denies any nausea or vomiting. He denies diaphoresis. He denies any new calf pain or swelling. He states he is 2 weeks out from his last chemotherapy and had chest CT 2 weeks ago at [facility] for which taking antibiotics. He denies any fever or chills. Describes the pain as a pressure sensation. Going on for approximately 45 minutes at this time. He states his CODE STATUS is DNR/DNI, he is agreeable to medication for dysrhythmia but denies any intervention with cardioversion, pacing, defibrillation. Related Data Home Medications Medication Instructions Recorded Confirmed Tylenol Arthritis 1,300 mg PO Q8H PRN tab-cap 12/23/12 02/07/21 aspirin 81 mg tablet,delayed 81 mg PO DAILY 10/21/18 02/07/21 release nitroglycerin 0.4 mg sublingual 0.4 mg SL Q5M PRN 03/26/20 02/07/21 tablet Cannabidiol 5 mg PO QHS PRN 06/21/20 02/07/21 albuterol sulfate 90 mcg/actuation 2 puff INHALATION Q6H PRN 09/16/20 02/07/21 aerosol inhaler isosorbide mononitrate 60 mg 60 mg PO DAILY #90 tab 09/18/20 02/07/21 tablet,extended release 24 hr budesonide-formoterol HFA 160 2 puff INHALATION DAILY g 11/14/20 02/07/21 mcg-4.5 mcg/actuation aerosol inhaler sennosides 8.6 mg-docusate sodium 1 tab-cap PO BID tab 11/14/20 02/07/21 50 mg tablet umeclidinium 62.5 mcg-vilanterol 1 inh INHALATION DAILY 11/15/20 02/07/21 25 mcg/actuation powdr for inhalation docusate sodium 100 mg capsule 100 mg PO BID 12/06/20 02/07/21 prochlorperazine maleate 10 mg 10 mg PO Q6H PRN 12/06/20 02/07/21 tablet pantoprazole 40 mg tablet,delayed 40 mg PO BID PRN tab-cap 01/09/21 02/07/21 release polyethylene glycol 3350 17 gram 17 g PO DAILY 01/15/21 02/07/21 oral powder packet prednisone 20 mg tablet See Rx Instructions PO DAILY tab 02/03/21 02/07/21 hydromorphone 2 mg tablet See Rx Instructions PO Q4H PRN #90 02/05/21 02/07/21 tab MDD 12 acetaminophen 650 mg rectal 650 mg NJ Q6H PRN #6 supp 02/07/21 suppository bisacodyl 10 mg rectal suppository 10 mg NJ daily PRN #2 supp 02/07/21 haloperidol lactate 2 mg/mL oral 1 mg PO Q6H PRN #15 ml 02/07/21 concentrate hydromorphone (PF) 2 mg/mL 1 mg SUBCUT Q4H PRN #100 ml MDD 30 02/07/21 injection solution hyoscyamine sulfate 0.125 mg 0.125 - 0.25 mg PO Q4H PRN #24 tab 02/07/21 disintegrating tablet lorazepam 1 mg tablet 1 mg PO Q4H PRN #6 tab 02/07/21 metoprolol succinate 25 mg 25 mg PO DAILY #30 tab 02/07/21 tablet,extended release 24 hr morphine concentrate 100 mg/5 mL 5 - 20 mg PO Q1-4H PRN #30 ml MDD 02/07/21 (20 mg/mL) oral solution 5 mL prochlorperazine maleate 10 mg 10 mg PO Q6H PRN #6 tab 02/07/21 tablet Previous Rx's Medication Instructions Recorded isosorbide mononitrate 60 mg 60 mg PO DAILY #90 tab 09/18/20 tablet,extended release 24 hr hydromorphone 2 mg tablet See Rx Instructions PO Q4H PRN #90 02/05/21 tab MDD 12 acetaminophen 650 mg rectal 650 mg NJ Q6H PRN #6 supp 02/07/21 suppository bisacodyl 10 mg rectal suppository 10 mg NJ daily PRN #2 supp 02/07/21 haloperidol lactate 2 mg/mL oral 1 mg PO Q6H PRN #15 ml 02/07/21 concentrate hydromorphone (PF) 2 mg/mL 1 mg SUBCUT Q4H PRN #100 ml MDD 30 02/07/21 injection solution hyoscyamine sulfate 0.125 mg 0.125 - 0.25 mg PO Q4H PRN #24 tab 02/07/21 disintegrating tablet lorazepam 1 mg tablet 1 mg PO Q4H PRN #6 tab 02/07/21 metoprolol succinate 25 mg 25 mg PO DAILY #30 tab 02/07/21 tablet,extended release 24 hr morphine concentrate 100 mg/5 mL 5 - 20 mg PO Q1-4H PRN #30 ml MDD 02/07/21 (20 mg/mL) oral solution 5 mL prochlorperazine maleate 10 mg 10 mg PO Q6H PRN #6 tab 02/07/21 tablet Allergies Allergy/AdvReac Type Severity Reaction Status Date / Time clopidogrel Allergy Unknown SKIN RASH Verified 02/07/21 10:28 esomeprazole magnesium AdvReac Unknown gi upset Verified 02/07/21 10:28 [From Nexium] Penicillins AdvReac Unknown gi upset Verified 02/07/21 10:28 General Stated Complaint: Chest Pain BRYCE: 2 Review of Systems <GRETCHEN Jung - Last Filed: 02/07/21 15:09> All systems reviewed & are unremarkable except as noted in HPI and below PFSH <GRETCHEN Jung - Last Filed: 02/07/21 15:09> Medical History Abnormal CT of the chest Adenomatous colon polyp (01/13/12) tubular adenoma [facility] 01/05/06, rpt 5 yr Arteriosclerotic cardiovascular disease (ASCVD) (01/13/12) CABG 1989; s/p stents 1999, 2004. 09/09/18-Stress [place] [facility] [place] .. failed interventional Tx 2' obstruction (scarring?).. Rx Benign neoplasm of colon (01/13/12) tubular adenoma [facility] 01/05/06, rpt 5 yr CAD (coronary artery disease) Chest pain of uncertain etiology Painlevel 2-4/10 x 2-3 weeks .. Hx abd aneurysm, so may need to r/o vasc path. Chronic coughing ? due to vagal nerve irritation? Chronic steroid use completed steroids, d/c 11/2019 COPD (chronic obstructive pulmonary disease) (~08/09/18) Mild. P[place] [facility] [place] Need another PFT, post lung resection [ ] 11/10/18 COVID-19 ruled out by laboratory testing DVT prophylaxis Fatigue due to radiation therapy Foot fracture, right (10/2018) XR showing possible Fx, non-displaced [ ] CT recomm. Gastroesophageal reflux disease without esophagitis (01/26/06) EGD [facility]: GERD: This is well-controlled with daily PPI. 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 04/14/18 Flexible Fiberoptic Laryngoscopy- No evidence of recurrance or second primary Marijuana use helps with sleep; offsets steroid insomnia MSSA bacteremia (~03/2020) Superficial UE thrombophlebitis of left cephalic vein PIC Line 04/09/20 [facility] [place] [facility] [place] Newly diagnosed diabetes Other abnormal glucose (02/22/13) abnormal fasting sugar (111 in 2012) (114 in 2013) Palliative care patient DObbertin Pleural effusion on left Port-A-Cath in place Super port placed ... Bleeding/possible infection. Keflex [place] 12/06 [place] [facility] [place] 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 Recurrent cancer 05/2020: New RT lesion; New LFT lesion (IN SCAR) .. Severe pain Shortness of breath LUNG CA ID'd .. now s/p surgery 10/2018. > Severe dyspnea .. with report of intolerance and feeling worse after some of his albuterol inhaler attempts .. Prompted to call ambulance for ED eval 2' possible reaction, tachy with NEB Tx. Sent to Ed, appreciate attention. NEB, CXR, Labs .. Smoker unmotivated to quit (04/12/14) >50 pack years, despite CAD and Laryngeal cancer; QUIT SMOKING POST DYSPNEIC EPISODE 06/2018.... Type 2 diabetes mellitus Dx @ [facility] admission, 02/2020. Unresponsive episode Surgical History (Updated 01/28/21 @ 07:20 by Tila Gunderson) Endoleak post (EVAR) endovascular aneurysm repair (11/30/18) endovascular repair AAA (03/07/13) Dr Dsouza, [facility] [place] f/u with [facility] History of lung surgery 09/21/2018 left lower lobe wedge resection History of throat surgery S/P CABG x 4 S/P lobectomy of lung (~09/21/18) Left upper lobectomy Status post radiation therapy 25 tx; Dr Trammell, rad-onc; stopped 04/06 Family History Mother , kidney failure at age 78. Renal disease Son No problems noted. Son No problems noted. 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 What is your relationship status?: How often do you talk on the phone with friends or family?: twice per week How often do you get together with friends or relatives?: twice per week Panel score (0-1 are the most socially isolated patients): 2 What type of physical activity do you participate in: walking and irregular exercise Duration: < 15 minutes/day Special mattie needs: No Seatbelt use: always Working smoke detector in home: Yes Carbon monox detector in home: Yes Do you feel safe at home: Yes Do you feel safe in your relationship?: Yes Additional Social history: Patient is , with 2 children. 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 Lengthy and significant history of tobacco abuse, with approximate 100+ pack year history of smoking, quit June 2018. Denies any alcohol use. Patient does admit to use of THC type products for medicinal purposes. Exam <GRETCHEN Jung - Last Filed: 02/07/21 15:09> Const General: cooperative and ill appearing HENIN Head: normal to inspection Mouth: oral mucosae normal Eyes Pupils: PERRL Resp Effort & Inspection: tachypneic Cardio Rate: tachycardic Rhythm: regular rhythm Heart Sounds: no murmurs GI Other: no abdominal tenderness Skin General skin exam: no rashes or lesions noted Neuro General: patient alert and patient oriented x3 Extrem Other: no peripheral edema Psych Appearance: grossly normal Course <GRETCHEN Jung - Last Filed: 02/07/21 15:09> Vital Signs Vital signs: Vital Signs Temperature 36.2 C L 02/07/21 10:16 Pulse 125 H 02/07/21 10:16 Respiratory Rate 43 H 02/07/21 10:16 Blood Pressure 107/77 02/07/21 10:16 Pulse Oximetry 93 02/07/21 10:16 Temperature 36.2 C L 02/07/21 10:16 Temperature Source Skin 02/07/21 10:16 Pulse 125 H 02/07/21 10:16 Respiratory Rate 25 H 02/07/21 10:50 Respiratory Effort 02/07/21 10:50 Respiratory Depth Normal 02/07/21 10:50 Respiratory Pattern Normal 02/07/21 10:50 Blood Pressure 107/77 02/07/21 10:16 Blood Pressure Position Supine 02/07/21 10:16 Pulse Oximetry 93 02/07/21 10:16 Oxygen Delivery Method Room Air 02/07/21 10:16 Oxygen Flow Rate 0 02/07/21 10:16 Pain Level 2 02/07/21 10:50 Lab/Test Results Lab/Test Results: Laboratory Tests Range/Units 02/07/21 02/07/21 10:30 10:30 WBC (4.4-10.8) 10^3/uL 9.91 RBC (4.36-5.78) 10^6/uL 4.23 L Hgb (13.5-17.5) g/dL 12.3 L Hct (40.0-50.0) % 37.2 L MCV (80-95) fL 87.9 MCH (27.0-33.0) pg 29.1 MCHC (32.0-36.0) % 33.1 RDW (11.8-14.1) % 15.0 H Plt Count (130-400) 10^3/uL 168 MPV (8.0-11.0) fL 10.5 Immature Gran % 2.0 Neutrophils % 68.9 Lymphocytes % 14.8 Monocytes % 13.7 Eosinophils % 0.3 Basophils % 0.3 Nucleated RBC % % 0 Absolute Neutrophils (1.2-6.7) 10^3/uL 6.82 H Absolute Lymphocytes (1.2-3.4) 10^3/uL 1.47 Absolute Monocytes (0.1-0.8) 10^3/uL 1.36 H Absolute Eosinophils (0.0-0.7) 10^3/uL 0.03 Absolute Basophils (0.0-0.2) 10^3/uL 0.03 VBG Lactate (0.6-1.4) mmol/L 2.2 H* Critical Care Time <GRETCHEN Jung - Last Filed: 02/07/21 15:09> Critical Care Time Critical Care Time: Yes Total Critical Care Time: 60 Attestation: IV magnesium, IV metoprolol, IV Lasix, telemetry monitoring, hospice consultation, diagnostic interpretation, diagnostic radiology interpretation,
[2021-02-07 11:10] LABS: ALT 61 U/L (16-63); AST 30 U/L (15-37); Alkaline Phosphatase 87 U/L (46-116); Anion Gap 9.6 mmol/L (3-11); BUN 17 mg/dL (7-18); Bilirubin, Total 0.3 mg/dL (0.2-1.0); CO2 28.4 mmol/L (21.0-32.0); CREATININE 1.2 mg/dL (0.70-1.30); Calcium 9.4 mg/dL (8.5-10.1); Chloride 102 mmol/L (98-107); Estimated GFR 59.51 (mL/min/1.73m2); Glucose 148 mg/dL (74-106); Magnesium 1.3 mg/dL (1.8-2.4); NT-proBNP 2502 pg/mL (<300); Potassium 3.7 mmol/L (3.5-5.1); Sodium 140 mmol/L (136-145); TSH 0.18 uIU/mL (0.36-3.74); Total Protein 6.8 g/dL (6.4-8.2)
[2021-02-07 11:11] LABS: Troponin I 0.35 ng/mL (<0.06)
[2021-02-07] MEDS: MAGNESIUM SULFATE 2 GM/50 ML BAG IVPB (11:53)
[2021-02-07] MEDS: Furosemide 20 MG/2 ML VIAL IVP (12:58)
--- NOTE | 2021-02-07 14:35 | NUR.NOTE ---
patient is comfrotbale at this time. MD Byrd at bedside. Nursing Note:
--- NOTE | 2021-02-07 14:56 | HOSPCON_ITS ---
Date of service: 02/07/21 Time of Service: 14:57 History of Present Illness History of Present Illness Chief Complaint: chest pain Narrative: Colin Bradley is a 70-year-old male with end-stage lung cancer and severe COPD. Recently his oncologist has said that there were no more chemotherapeutic agents for him. His cancer was progressing despite treatment. I had seen him on Wednesday and at that time he was going to consider hospice care. He wanted to meet again with his oncologist before he made that decision. I was to call him on Wednesday of next week. Recently when he was at [facility] they had stopped his metoprolol because of his low blood pressure. I had left it off of him when I saw him on Wednesday. Unfortunately he went into rapid heartbeat and CHF. He came to the emergency room and was found to have a non-STEMI. He has a long history of severe heart problems and interventions. When I walked in the room he immediately said that he was ready, he was done with interventions, he wanted to go home, he wanted his pain to be kept to a minimum. His felt differently. She felt that she needed the support at the hospital. After conversation she agreed to take him home with help from hospice and her family. Review of Systems Narrative: He has chest pain. Sometimes trouble breathing. He is weak. He does not feel like eating most of the time [facility] Medical History (Updated 02/07/21 @ 15:34 by GRETCHEN Jung) Abnormal CT of the chest Adenomatous colon polyp (01/13/12) tubular adenoma [facility] 01/05/06, rpt 5 yr Arteriosclerotic cardiovascular disease (ASCVD) (01/13/12) CABG 1989; s/p stents 1999, 2004. 09/09/18-Stress Echocardiogram [facility]. [place] 04/2020 .. failed interventional Tx 2' obstruction (scarring?).. Rx Benign neoplasm of colon (01/13/12) tubular adenoma [facility] 01/05/06, rpt 5 yr CAD (coronary artery disease) Chest pain of uncertain etiology Painlevel 2-4/10 x 2-3 weeks .. Hx abd aneurysm, so may need to r/o vasc p ath. Chronic coughing ? due to vagal nerve irritation? Chronic steroid use completed steroids, d/c 11/2019 COPD (chronic obstructive pulmonary disease) (~08/09/18) Mild. PFT (Pulm, [facility], 08/08/18). Need another PFT, post lung resection [ ] 11/10/18 COVID-19 ruled out by laboratory testing DVT prophylaxis Fatigue due to radiation therapy Foot fracture, right (10/2018) XR showing possible Fx, non-displaced [ ] CT recomm. Gastroesophageal reflux disease without esophagitis (01/26/06) EGD ME: GERD: This is well-controlled with daily PPI. 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 04/14/18 Flexible Fiberoptic Laryngoscopy- No evidence of recurrance or second primary Marijuana use helps with sleep; offsets steroid insomnia MSSA bacteremia (~03/2020) Superficial UE thrombophlebitis of left cephalic vein PIC Line 04/09/20 [facility] .. PICC removed 04/2020 @ [facility]. Newly diagnosed diabetes Other abnormal glucose (02/22/13) abnormal fasting sugar (111 in 2012) (114 in 2013) Palliative care patient DObbertin Pleural effusion on left Port-A-Cath in place Super port placed ... Bleeding/possible infection. Keflex started 12/06 by [facility]. 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 Recurrent cancer 05/2020: New RT lesion; New LFT lesion (IN SCAR) .. Severe pain Shortness of breath LUNG CA ID'd .. now s/p surgery 10/2018. > Severe dyspnea .. with report of intolerance and feeling worse after some of his albuterol inhaler attempts .. Prompted to call ambulance for ED eval 2' possible reaction, tachy with NEB Tx. Sent to Ed, appreciate attention. NEB, CXR, Labs .. Smoker unmotivated to quit (04/12/14) >50 pack years, despite CAD and Laryngeal cancer; QUIT SMOKING POST DYSPNEIC EPISODE 06/2018.... Type 2 diabetes mellitus Dx @ [facility] admission, 02/2020. Unresponsive episode Surgical History (Updated 01/28/21 @ 07:20 by Tila Gunderson) Endoleak post (EVAR) endovascular aneurysm repair (11/30/18) endovascular repair AAA (03/07/13) Dr Dsouza, [facility], yearly f/u with CTA History of lung surgery 09/21/2018 left lower lobe wedge resection History of throat surgery S/P CABG x 4 S/P lobectomy of lung (~09/21/18) Left upper lobectomy Status post radiation therapy 25 tx; Dr Trammell, rad-onc; stopped 04/06 Family History Mother , kidney failure at age 78. Renal disease Son No problems noted. Son No problems noted. 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 What is your relationship status?: How often do you talk on the phone with friends or family?: twice per week How often do you get together with friends or relatives?: twice per week Panel score (0-1 are the most socially isolated patients): 2 What type of physical activity do you participate in: walking and irregular exercise Duration: < 15 minutes/day Special mattie needs: No Seatbelt use: always Working smoke detector in home: Yes Carbon monox detector in home: Yes Do you feel safe at home: Yes Do you feel safe in your relationship?: Yes Additional Social history: Patient is , with 2 children. 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 Lengthy and significant history of tobacco abuse, with approximate 100+ pack year history of smoking, quit June 2018. Denies any alcohol use. Patient does admit to use of THC type products for medicinal purposes. Exam Narrative Exam Narrative: Patient is lying in bed. He is oriented x3. His vitals are stable. He wants to go home. He is talking in complete sentences but continually says I have more pain. His heart is regular rate. Breathing considerably better than originally (ER staff felt he was in CHF and gave him some Lasix) Results Last Vital Signs Temp 97.2 F L 02/07/21 10:16 Pulse 86 02/07/21 14:30 Resp 27 H 02/07/21 14:31 BP 134/85 02/07/21 14:30 Pulse Ox 96 02/07/21 14:31 Labs Result diagrams: 02/07/21 10:30 02/07/21 10:30 Labs: Laboratory Results - last 24 hr 02/07/21 02/07/21 02/07/21 10:30 10:30 10:30 WBC 9.91 RBC 4.23 L Hgb 12.3 L Hct 37.2 L MCV 87.9 MCH 29.1 MCHC 33.1 RDW 15.0 H Plt Count 168 MPV 10.5 Immature Gran % 2.0 Neutrophils % 68.9 Lymphocytes % 14.8 Monocytes % 13.7 Eosinophils % 0.3 Basophils % 0.3 Nucleated RBC % 0 Absolute Neutrophils 6.82 H Absolute Lymphocytes 1.47 Absolute Monocytes 1.36 H Absolute Eosinophils 0.03 Absolute Basophils 0.03 VBG Lactate 2.2 H* Sodium 140 Potassium 3.7 Chloride 102 Carbon Dioxide 28.4 Anion Gap 9.6 BUN 17 Creatinine 1.2 Estimated GFR/1.73 m2 59.51 Glucose 148 H Calcium 9.4 Magnesium 1.3 L Total Bilirubin 0.3 AST 30 ALT 61 Alkaline Phosphatase 87 Troponin I 0.35 H* NT-Pro-B Natriuret Pep Total Protein 6.8 Albumin 3.0 L TSH 0.18 L 02/07/21 10:30 WBC RBC Hgb Hct MCV MCH MCHC RDW Plt Count MPV Immature Gran % Neutrophils % Lymphocytes % Monocytes % Eosinophils % Basophils % Nucleated RBC % Absolute Neutrophils Absolute Lymphocytes Absolute Monocytes Absolute Eosinophils Absolute Basophils VBG Lactate Sodium Potassium Chloride Carbon Dioxide Anion Gap BUN Creatinine Estimated GFR/1.73 m2 Glucose Calcium Magnesium Total Bilirubin AST ALT Alkaline Phosphatase Troponin I NT-Pro-B Natriuret Pep 2502 H Total Protein Albumin TSH Assessment and Plan Assessment and plan (1) Nausea: Status: Acute (2) Secondary carcinoma of right lung: Status: Acute (3) NSTEMI (non-ST elevated myocardial infarction): Status: Acute (4) Malignant neoplasm of lung: Status: Chronic (5) Type 2 diabetes mellitus: Status: Chronic (6) Encounter for hospice care: Status: Acute Assessment and plan: Colin, his Siomara, and his son and I discussed next steps. He very much wants to go home. He does not want to in the hospital. He wants the next chapter of his life to go quickly. He wants his pain to be well controlled. After discussion regarding care at home, his Siomara does agree with hospice care. I have contacted Latoya at hospice. She will place a CADD pump prior to him going home. He will have a hospital bed and commode in place by early evening. He will go home by ambulance. I have spent more than 50% of time in counseling with this patient.
--- NOTE | 2021-02-07 16:08 | NUR.NOTE ---
Hospice nurse placed DEPARTMENT OPERATIONS MANAGER on patient. patient received medication by DEPARTMENT OPERATIONS MANAGER and received a bolus dose by director broadcast Nallely. patient transfered home via [facility]. Nursing Note:
== END 2021-02-07 16:05 | disposition home or self-care (01) ==
PROVIDERS: Emergency Provider Physician Assistant; PCP Student in an Organized Health Care Education/Training Program
DX: I21.4 Non-ST elevation (NSTEMI) myocardial infarction (principal); C34.12 Malignant neoplasm of upper lobe, left bronchus or lung; I50.9 Heart failure, unspecified; E83.42 Hypomagnesemia; I47.1 Supraventricular tachycardia; Z51.5 Encounter for palliative care; Z45.2 Encounter for adjustment and management of vascular access device
CPT/HCPCS: 36591; 80053; 93005; 96361; 96365; 96366; 96375; 99291; 71045; 83605; 83735; 83880; 84443; 84484; 85025; 93010; J1941; J2270